=== PATIENT | female | born 1970 | race Caucasian/White ===

== ENCOUNTER → 2018-07-25 10:10 | Outpatient (CLI) | payer MEDICARE, MEDICAID, SELFPAY ==
[2017-06-29 02:56] VITALS: BMI 36.3
[2018-07-25 11:51] LABS: Creatinine, Serum 1.15 mg/dL (0.55-1.02); EST Glomerular Filtration Rate 54 mL/min (>60); Est Glom Filt Rate - Afr Amer 65 mL/min (>60)
== END ==
PROVIDERS: Family Provider Family Medicine; PCP Family Medicine; Referring Provider Psychiatry & Neurology Psychiatry; Visit Provider Psychiatry & Neurology Psychiatry
DX: Z79.899 Other long term (current) drug therapy (principal)
CPT/HCPCS: 36415; 80178; 82565; 84443

== ENCOUNTER → 2018-11-29 09:47 | Outpatient (CLI) | payer MEDICARE, SELFPAY ==
[2017-06-29 02:56] VITALS: BMI 36.3
== END ==
PROVIDERS: Family Provider Family Medicine; PCP Family Medicine
DX: Z79.899 Other long term (current) drug therapy (principal)
CPT/HCPCS: 36415; 80178

== ENCOUNTER → 2019-08-11 11:30 | Outpatient (CLI) | payer MEDICARE, SELFPAY ==
[2017-06-29 02:56] VITALS: BMI 36.3
== END ==
PROVIDERS: Family Provider Family Medicine; PCP Family Medicine
DX: Z79.899 Other long term (current) drug therapy (principal)
CPT/HCPCS: 36415; 80178

== ENCOUNTER → 2020-03-15 11:20 | Outpatient (CLI) | payer MEDICARE, SELFPAY ==
[2017-06-29 02:56] VITALS: BMI 36.3
[2020-03-15 12:08] LABS: Hematocrit 41.4 % (37-47); Hemoglobin 13.8 g/dL (12.0-15.0); Mean Corp Hgb Conc 33.3 g/dL (32-36); Mean Corpuscular Hgb 31.9 pg (27.0-32.0); Mean Corpuscular Volume 95.6 fL (81-99); Mean Platelet Vol. 10.8 fl (6.2-12.0); Platelet Count 247 K/mm3 (150-450); RBC Distribution Width CV 11.5 % (11.6-14.6); RBC Distribution Width SD 39.9 fl (35.1-43.9); Red Blood Count 4.33 M/mm3 (4.2-5.4); White Blood Count 7.5 K/mm3 (4.4-11.0)
[2020-03-15 12:24] LABS: Hemoglobin A1c 4.9 % (3.8-5.6)
[2020-03-15 12:28] LABS: ALB/GLOB Ratio 1.1 RATIO (0.9-2.4); AST(SGOT) 10 U/L (15-37); Alanine Aminotransfer ALT/SGPT 16 U/L (13-56); Albumin, Serum 3.5 g/dL (3.2-5.0); Alkaline Phosphatase 83 U/L (45-117); Anion Gap 6 (5-15); BUN 8 mg/dL (7-18); BUN/Creat Ratio 7.3 RATIO (10-20); Calcium,Total 8.5 mg/dL (8.5-10.1); Chloride 110 mmol/L (98-107); Cholesterol 196 mg/dL (200); Creatinine, Serum 1.09 mg/dL (0.55-1.02); EST Glomerular Filtration Rate 57 mL/min (>60); Est Glom Filt Rate - Afr Amer 69 mL/min (>60); Globulin 3.3 g/dL (2.2-4.2); Glucose 133 mg/dL (74-106); High Density Lipoprotein 60 mg/dL; Potassium 3.7 mmol/L (3.5-5.1); Protein, Total 6.8 g/dL (6.4-8.2); Sodium Level 138 mmol/L (136-145); Triglycerides 151 mg/dL; Very Low Density Lipoprotein 30 mg/dL (5-40)
== END ==
PROVIDERS: PCP Family Medicine
DX: Z79.899 Other long term (current) drug therapy (principal); F19.10 Other psychoactive substance abuse, uncomplicated; R53.83 Other fatigue
CPT/HCPCS: 36415; 80053; 80061; 80178; 83036; 84443; 85027

== ENCOUNTER → 2023-02-23 | Outpatient (CLI) | payer MEDICARE, MEDICAID, SELFPAY ==
[2023-02-23 10:16] LABS: ALB/GLOB Ratio 1.1 RATIO (0.9-2.4); AST(SGOT) 8 U/L (15-37); Alanine Aminotransfer ALT/SGPT 12 U/L (13-56); Albumin, Serum 3.7 g/dL (3.2-5.0); Alkaline Phosphatase 77 U/L (45-117); Anion Gap 6 (5-15); BUN 11 mg/dL (7-18); BUN/Creat Ratio 9.3 RATIO (10-20); Calcium,Total 9.9 mg/dL (8.5-10.1); Chloride 112 mmol/L (98-107); Creatinine, Serum 1.18 mg/dL (0.55-1.02); EST Glomerular Filtration Rate 51 mL/min (>60); Est Glom Filt Rate - Afr Amer 62 mL/min (>60); Globulin 3.3 g/dL (2.2-4.2); Glucose 91 mg/dL (74-106); Potassium 3.8 mmol/L (3.5-5.1); Sodium Level 141 mmol/L (136-145); Thyroid Stim Hormone (TSH) 3.54 uIU/mL (0.358-3.74)
[2023-02-23 10:47] LABS: Hemoglobin A1c 4.7 % (3.8-5.6)
== END | disposition home or self-care (01) ==
DX: Z79.899 Other long term (current) drug therapy (principal)
CPT/HCPCS: 36415; 80053; 80178; 83036; 84443

== ENCOUNTER → 2024-10-05 | Outpatient (CLI) | payer MEDICARE, MEDICAID, SELFPAY ==
[2024-10-05 09:29] LABS: AST(SGOT) 9 U/L (15-37); Alanine Aminotransfer ALT/SGPT 16 U/L (13-56); Albumin, Serum 4.1 g/dL (3.2-5.0); Alkaline Phosphatase 64 U/L (45-117); Bilirubin, Direct 0.15 mg/dL (0.00-0.30); Creatinine, Serum 1.11 mg/dL (0.55-1.02); EST Glomerular Filtration Rate 55 mL/min (>60); Est Glom Filt Rate - Afr Amer 66 mL/min (>60); Globulin 3.2 g/dL (2.2-4.2); Protein, Total 7.3 g/dL (6.4-8.2)
== END | disposition home or self-care (01) ==
LOC: LAB 08:11
PROVIDERS: PCP Family Medicine; Visit Provider Clinical Nurse Specialist Psychiatric/Mental Health
DX: Z51.81 Encounter for therapeutic drug level monitoring (principal); F31.9 Bipolar disorder, unspecified
CPT/HCPCS: 36415; 80076; 80178; 82565; 84443

== ENCOUNTER → 2025-03-13 | Outpatient (CLI) | payer MEDICARE, MEDICAID, SELFPAY ==
[2025-03-13 13:07] LABS: Lithium 1.09 mmol/L (0.60-1.20)
[2025-03-13 13:12] LABS: AST(SGOT) 20 U/L (<=31); Alanine Aminotransfer ALT/SGPT 36 U/L (<=34); Albumin, Serum 4.6 g/dL (3.5-5.0); Alkaline Phosphatase 66 U/L (35-104); Anion Gap 12 (5-15); BUN 13 mg/dL (4-19); BUN/Creat Ratio 10.9 RATIO (10-20); Calcium,Total 9.6 mg/dL (7.6-11.0); Carbon Dioxide 21.0 mmol/L (21.0-32.0); Chloride 105 mmol/L (98-108); Free T3 2.6 pg/mL (2.18-3.98); Globulin 2.3 g/dL (2.2-4.2); Glucose 102 mg/dL (70-99); Potassium 4.3 mmol/L (3.3-5.1)
--- OUTSIDE RECORDS SUMMARY | 2025-03-13 21:12 | XMS RPT_ITS | CCD ---
Author Organization [facility] Care Team Providers Care 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 Name Role Phone Walter White Primary Care Provider [phone] PROVIDER, UNKNOWN Referring Unavailable Walter White Attending Unavailable Walter White Primary Care Unavailable PROVIDER, UNKNOWN Referring Unavailable Walter White Attending Unavailable Walter White Primary Care Unavailable Walter White DO Primary Care Provider Walter White DO Primary Care Provider Pia MADRID Juan F Primary Care Provider [phone] Pia MADRID Juan F Primary Care Provider [phone] WALTER WHITE Referring Unavailable SLOANEA JUAN F Primary Care Unavailable DIA KENNEY Attending Unavaila ble Sloanea DO [facility] Primary Care Provide r Gregory Syed Attending Unavailabl e Petrilla OLS, Juan Primary Care Unavailable PETRILLA, JUAN Primary Care Unavailable DARLING CASTILLO Attending Unavailable DARLING CASTILLO Referring Unavailable PETRILLA, JUAN Primary Care Unavailable PETRILLA, JUAN Attending Unavailable PETRILLA, JUAN Referring Unavailable PETRILLA, JUAN Primary Care Unavailable DARLING CASTILLO Attending Unavailable DARLING CASTILLO Referring Unavailable PETRILLA, JUAN Attending Unavailable PETRILLA, JUAN Referring Unavailable PETRILLA, JUAN Primary Care Unavailable PETRILLA, JUAN Primary Care Unavailable EZEKIEL GALO Referring Unavailable PETRILLA, JUAN Primary Care Unavailable PETRILLA, JUAN Attending Unavailable PETRILLA, JUAN Primary Care Unavailable EZEKIEL GALO Attending Unavailable PETRILLA, JUAN Attending Unavailable PETRILLA, JUAN Primary Care Unavailable PETRILLA, JUAN Primary Care Unavailable EZEKIEL GALO Attending Unavailable PETRILLA, JUAN Primary Care Unavailable KOVACEVICH, DARLING Attending Unavailable SLOANEJUAN Primary Care Unavailable EZEKIEL GALO Referring Unavailable EZEKIEL GALO Referring Unavailable JUAN PALACIO Primary Care Unavailable EZEKIEL GALO Attending Unavailable Allergies Allergy Classification Reported Allergen(s) Allergy Type Date of Onset Reaction(s) Facility Aminoketones (3 sources) buPROPion Drug Allergy 9 [employer] ([place]) Opioid Agonists (6 sources) Codeine Drug Allergy 2 Rash [facility] [employer] [place] (20 sources) buPROPion Drug Allergy 9 Other (See Comments), Other: See Comments Altimet (20 sources) Codeine; Translations: [CODEINE] Drug Allergy 2 Rash, Vomiting, Other: See Comments Altimet (20 sources) Morphine; Translations: [MORPHINE] Drug Allergy 2 Unknown [employer] ([place]) (1 source) Codeine Drug Allergy 7 [facility] Rep[facility] Medications Current Medications Medication Drug Class(es) Dates Sig (Normalized) Sig (Original) [id number] 200 actuat albuterol 0.09 mg/actuat metered dose inhaler (20 sources) beta2-Adrenergic Agonist Start: 03-09-2024 End: 12-27-2024 take 2 puff(s) by inhalation every six hours as needed for wheezing albuterol 108 (90 Base) MCG/ACT inhaler Inhale 2 puffs every 6 hours as needed for wheezing. 18 g 5 12/27/2024 Active Start: 02-28-2019 take 2 puff(s) by in halation every four hours as needed albuterol HFA (PROVENTIL HFA, VENTOLIN HFA) 90 mcg/actuation inhaler Indications: Bronchitis Inhale 2 Puffs as instructed every 4 hours as needed. 1 Inhaler 02/28/2019 Active End: 03-09-2024 take 2 puff(s) by inhalation every six hours as needed for wheezing albuterol 108 (90 Base) MCG/ACT inhaler Inhale 2 puffs every 6 hours as needed for wheezing. 03/09/2024 Discontinued (Reorder) Comment on above: Inhale 2 Puffs as in structed every 4 hours as needed. albuterol sulfate HFA 108 (90 Base) MCG/ACT inhaler (1 source) Start: 05-02-20 20 take 2 puff(s) by inhalation every six hours as needed for wheezing albuterol sulfate HFA 108 (90 Base) MCG/ACT inhaler Inhale 2 puffs into the lungs every 6 hours as needed for Wheezing 1 Inhaler 3 05/02/2020 Active ALPRAZolam 0.5 mg oral tablet (20 sources) Benzodiazepine take 1 tablet by mouth once daily as needed for anxiety ALPRAZolam (Xanax) 0.5 MG tablet Take 0.5 mg by mouth Nightly as needed for anxiety. Active benzonatate 100 mg oral capsule (3 sources) Non-narcotic Antitussive Start: 02-29-20 19 take 1 capsule by mouth every eight hours as needed for cough and cough benzonatate (TESSALON PERLES) 100 mg capsule Indications: Cough Take 1 capsule by mouth three times daily as needed. 40 capsule 02/28/2019 Active Comment on above: Take 1 capsule by mo ut three times daily as needed. cefuroxime 500 mg oral tablet (2 sources) Cephalosporin Antibacterial Start: 09-29-19 23 End: 10-09-19 23 take 1 tablet by mouth twice daily cefuroxime (Ceftin) 500 MG tablet Take 1 tablet (500 mg) by mouth 2 times daily for 10 days. 20 tablet 0 09/29/2022 10/09/2022 Active cephalexin 500 mg oral capsule (1 source) Cephalosporin Antibacterial Start: 05-04-20 24 End: 05-11-20 24 take 1 capsule by mouth three times daily cephalexin (Keflex) 500 MG capsule Take 1 capsule (500 mg) by mouth 3 times daily for 21 doses. 21 capsule 05/04/2024 05/11/2024 Active 12 hr guaiFENesin 600 mg extended release oral tablet (3 sources) Start: 02-29-20 19 take 2 tablets by mouth twice daily guaiFENesin (MUCINEX) 600 mg 12 hr tablet Indications: Cough Take 2 tablets by mouth twice daily. 30 tablet 02/28/2019 Active Comment on above: Take 2 tablets by mo ut twice daily. 200 actuat ipratropium bromide 0.017 mg/actuat metered dose inhaler (5 sources) Anticholinergic Start: 02-29-20 19 take 2 puff(s) by inhalation every six hours as needed Ipratropium (ATROVENT) 17 mcg/actuation inhaler Indications: Bronchitis Inhale 2 Puffs as instructed every 6 hours as needed. 1 Inhaler 02/28/2019 Active Start: 02-28-2019 End: 09-29-2022 take 2 puff(s) by inhalation every six hours as needed ipratropium (Atrovent) 17 MCG/ACT inhaler Inhale 2 puffs every 6 hours as needed. 0 02/28/2019 09/29/2022 Discontinued (Therapy completed) Comment on above: Inhale 2 Puffs as in structed every 6 hours as needed. lamoTRIgine 100 mg oral tablet (20 sources) Mood Stabilizer, Anti-epileptic Agent Start: take 1 tablet by mouth twice daily lamoTRIgine (LaMICtal) 100 MG tablet Take 100 mg by mouth 2 times daily. 09/25/2022 Active Start: 09-25-2022 lamoTRIgine (L aMICtal) 100 MG tablet daily. Half tablet in the am and half tablet in the pm 0 09/25/2022 Active lithium carbonate 450 mg extended release oral tablet (20 sources) Start: 07-17-2022 take 1 tablet by mouth once daily, then take 1 tablet by mouth every twelve hours lithium ER (Eskalith) 450 MG 12 hr tablet Take 450 mg by mouth daily. 07/17/2022 Active Start: 06-29-2017 take 300 mg by mouth once belem y [place] Carbonate Active 300 MG PO DAILY June 29, 2017 12:00am take 1 capsule by [facility] twice daily at mealtime lithium (ESKALITH) 300 mg capsule Take 300 mg by mouth twice daily with meals. Active Comment on above: Take 300 mg by mouth twice daily with meals. metoprolol tartrate 25 mg oral tablet (20 sources) beta-Adrenergic Alva Start: 06-18-2023 End: 12-27-2024 take 0.5 tablet by mouth twice daily metoprolol tartrate (Lopressor) 25 MG tablet TAKE 1/2 TABLET BY MOUTH TWICE A DAY 90 tablet 1 12/27/2024 Active Start: 07-21-2022 End: 09-29-2022 take 0.5 tablet by mouth twice daily metoprolol tartrate (Lopressor) 25 MG tablet take 1/2 tablet by mouth twice a day 0 07/21/2022 09/29/2022 Discontinued (Reorder) Start: 09-04-2020 metoprolol tar trate (LOPRESSOR) 25 MG tablet Indications: 1/2 tablet twice daily Indications: 1/2 tablet twice daily Half tab BID 90 tablet 1 09/04/2020 Active Start: 04-03-2020 metoprolol tar trate (LOPRESSOR) 25 MG tablet Indications: 1/2 tablet twice daily Indications: 1/2 tablet twice daily Half tab BID 90 tablet 0 04/03/2020 Active Start: 06-29-2017 take 12.5 mg by mout h twice daily Metoprolol Tartrate Active 12.5 MG PO TWICE A DAY June 29, 2017 12:00am Start: 02-08-2012 End: 06-18-2023 take 1 tablet by mouth twice daily metoprolol tartrate (Lopressor) 25 MG tablet take 1/2 tablet by mouth twice a day Strength: 25 mg 90 tablet 0 09/29/2022 Active Comment on above: 25 mg twice daily. 1 2.5 mg twice daily OLANZapine 20 mg oral tablet (20 sources) Atypical Antipsychotic Start: take 1 tablet by mouth once daily OLANZapine (ZyPREXA) 20 MG tablet Take 1 tablet by mouth Nightly. Takes 15 mg 07/16/2022 Active Start: 06-29-2017 take 1 tablet by isabelle once daily Olanzapine (Zyprexa) 15 MG tablet Active 15 MG PO DAILY June 29, 2017 12:00am Start: 03-17-2012 [facility] olanzapine (ZYPREXA) 7.5 mg tablet Take 15 mg by mouth daily at bedtime. 0 03/17/2012 Active Comment on above: Take 15 mg by mouth daily at bedtime. predniSONE 10 mg oral tablet (2 sources) Start: 020 predniSONE (DELTASONE) 10 MG tablet one q.i.d. for 2 days then one t.i.d. for 2 days then one b.i.d. for 2 days and one daily for 2 days. 20 tablet 0 05/02/2020 Active sulfamethoxazole 800 mg / trimethoprim 160 mg oral tablet (1 source) Dihydrofolate Reductase Inhibitor Antibacterial, Sulfonamide Antimicrobial Start: 017 take 1 tablet by mouth twice daily Sulfamethoxazole -Trimethoprim Active 1 TABLET PO TWICE A DAY 14 June 29, 2017 12:00am tiotropium 0.018 mg inhalation powder (20 sources) Anticholinergic Start: End: 025 take 1 capsule by inhalation once daily tiotropium (Spiriva) [address] 1 capsule (18 mcg) into inhaler and inhale daily. 30 capsule 5 07/04/2024 07/04/2025 Active Start: 11-02-2023 End: 11-01-2024 take 1 capsule by inhalation in the morning tiotropium (Spiriva) [address] 1 capsule (18 mcg) into inhaler and inhale in the morning. 30 capsule 5 11/02/2023 07/04/2024 Discontinued (Reorder) ziprasidone 40 mg oral capsule (1 source) Atypical Antipsychotic take 1 capsule by mouth once daily ziprasidone (GEODON) 40 MG capsule Take 40 mg by mouth daily 0 Active Completed/Discontinued Medications Medication Drug Class(es) Dates Sig (Normalized) Sig (Original) benztropine mesylate 1 mg oral tablet (8 sources) Anticholinergic, Antihistamine Start: 07-16-2022 End: 09-29-2022 take 1 tablet by mouth in the morning benztropine (Cogentin) 1 MG tablet Take 1 mg by mouth in the morning and 1 mg before bedtime. 0 07/16/2022 09/29/2022 Discontinued (Therapy completed) Start: 06-29-2017 take 1 mg by mouth at bedtime Benztropine Active 1 MG PO AT BEDTIME June 29, 2017 12:00am take 1 tablet by isabelle th once daily benztropine (COGENTIN) 2 mg tablet Take 2 mg by mouth once daily. Active take 1 tablet by isabelle th twice daily benztropine (COGENTIN) 1 MG tablet Take 1 mg by mouth 2 times daily 0 Active Comment on above: Take 2 mg by mouth o nce daily. brexpiprazole 0.5 mg oral tablet (2 sources) Atypical Antipsychotic Start: 07-16-20 End: 09-29-19 23 take 1 tablet by mouth once daily after dinner Rexulti 0.5 MG tablet TAKE ONE TABLET BY MOUTH DAILY AFTER DINNER 0 07/16/2022 09/29/2022 Discontinued (Therapy completed) busPIRone hydrochloride 15 mg oral tablet (4 sources) Start: 07-16-20 End: 09-29-19 busPIRone (Buspar) 15 MG tablet Take 15 mg by mouth in the morning and 15 mg at noon and 15 mg in the evening and 15 mg before bedtime. 0 07/16/2022 09/29/2022 Discontinued (Therapy completed) take 1 tablet by mouth twice javi ly busPIRone (BUSPAR) 15 MG tablet Take 15 mg by mouth 2 times daily 0 Active cariprazine 6 mg oral capsule (2 sources) Atypical Antipsychotic Start: 07-20-2022 End: 09-29-2022 take 1 capsule by mouth once daily at dinner Vraylar 6 MG capsule TAKE ONE CAPSULE BY MOUTH ONE TIME DAILY WITH DINNER 0 07/20/2022 09/29/2022 Discontinued (Therapy completed) hydrOXYzine hydrochloride 25 mg oral tablet (8 sources) Antihistamine Start: 07-16-2022 End: 07-13-2023 take 1 tablet by mouth once daily in the morning, then take 2 tablets by mouth once daily hydrOXYzine HCl (Atarax) 25 MG tablet TAKE ONE TABLET BY MOUTH EVERY MORNING AND ONE TIME DAILY AT NOON AND TAKE TWO TABLETS DAILY AT 600PM 0 07/16/2022 07/13/2023 Discontinued (Therapy completed) 10 ml lidocaine hydrochloride 10 mg/ml injection (2 sources) Antiarrhythmic, Amide Local Anesthetic Start: 01-02-2025 End: 01-02-2025 40 mL, Injection, Once, On Wed01/02/25 at 1415, For 1 dose Start: 01-02-2025 End: 01-02-2025 40 mL, Injection, Once, On T u01/02/25 at 1415, For 1 dose LORazepam 0.5 mg oral tablet (20 sources) Benzodiazepine Start: 09-25-2022 End: 12-27-2024 LORazepam (Ativan) 0.5 MG tablet 09/25/2022 12/27/2024 Discontinued (Alternate therapy) Start: 06-29-2017 take 1 tablet by isabelle th once daily LORazepam (ATIVAN) 1 MG tablet Take 1 mg by mouth nightly. 0 12/14/2019 Active Start: 03-17-2012 take 1 tablet by isabelle th twice daily LORazepam (ATIVAN) 1 mg tablet Take 1 mg by mouth twice daily. 0 03/17/2012 Active Comment on above: Take 1 mg by mouth t wice daily. 24 hr nicotine 0.583 mg/hr transdermal system (8 sources) Cholinergic Nicotinic Agonist Start: 05-11-20 End: 07-13-20 nicotine (Nicoderm, Step 2) 14 MG/24HR patch Place 1 patch on the skin. 0 05/11/2022 07/13/2023 Discontinued (Therapy completed) propranolol hydrochloride 10 mg oral tablet (2 sources) beta-Adrenergic Alva Start: 07-16-20 End: 09-29-19 take 1 tablet by mouth in the morning propranolol (Inderal) 10 MG tablet Take 10 mg by mouth in the morning and 10 mg before bedtime. 0 07/16/2022 09/29/2022 Discontinued (Therapy completed) ramelteon 8 mg oral tablet (20 sources) Melatonin Receptor Agonist Start: 06-10-20 End: 12-28-19 take 1 tablet by mouth every twenty-four hours as needed for sleep ramelteon (Rozerem) 8 MG tablet Take 8 mg by mouth Daily as needed for sleep. 06/10/2023 12/27/2024 Discontinued (Alternate therapy) Problems Active Problems Problem Classification Problem Date Documented Date Episodic/Chronic Acute cerebrovascular disease (3 sources) Hemorrhage into subarachnoid space of neuraxis; Translations: [Nontraumatic subarachnoid hemorrhage, unspecified] Onset: 01-13-2012 Chronic Chronic obstructive pulmonary disease and bronchiectasis (20 sources) Chronic obstructive lung disease; Translations: [Chronic obstructive pulmonary disease, unspecified] Onset: 11-02-2023 11-02-2023 Chronic Essential hypertension (20 sources) Essential hypertension; Translations: [Essential (primary) hypertension] Onset: 01-28-2016 01-28-2016 Chronic Genitourinary symptoms and ill-defined conditions (1 source) Urinary incontinence; Translations: [Unspecified urinary incontinence] 08-18-2023 Chronic Menopausal disorders (20 sources) Postmenopausal bleeding; Translations: [Postmenopausal bleeding] Onset: 11-02-2023 07-13-2023 Chronic Mood disorders (20 sources) Bipolar disorder; Translations: [Bipolar disorder, unspecified] Onset: 02-09-2019 02-09-2019 Chronic Nonmalignant breast conditions (2 sources) Lump in right breast; Translations: [Breast mass, right] Onset: 04-16-2017 04-16-2017 Other aftercare (1 source) Encounter for therapeutic drug level monitoring; Translations: [Encounter for therapeutic drug level monitoring] Onset: 10-20-2024 Episodic Other and ill-defined cerebrovascular disease (20 sources) Cerebral arterial aneurysm; Translations: [Cerebral aneurysm, nonruptured] Onset: 08-30-1996 02-04-2012 Chronic Other and ill-defined cerebrovascular disease (1 source) Cerebral aneurysm, nonruptured; Translations: [Cerebral aneurysm, nonruptured] Onset: 12-27-2024 Chronic Other female genital disorders (1 source) Vaginal discharge; Translations: [Other specified noninflammatory disorders of vagina] 09-22-2023 Episodic Other lower respiratory disease (1 source) Dyspnea; Translations: [SOB (shortness of breath)] Episodic Other nervous system disorders (3 sources) Disorder of brain; Translations: [Encephalopathy, unspecified] Onset: 01-31-2012 Chronic Other nutritional; endocrine; and metabolic disorders (1 source) Weight decreased; Translations: [Abnormal weight loss] 12-27-2024 Episodic Other nutritional; endocrine; and metabolic disorders (2 sources) Abnormal weight loss; Translations: [Abnormal weight loss] Onset: 12-27-2024 Episodic Other skin disorders (1 source) Closed comedone; Translations: [Acne vulgaris] 05-04-2024 Episodic Ovarian cyst (1 source) Cyst of ovary; Translations: [Unspecified ovarian cyst, unspecified side] 08-18-2023 Episodic Residual codes; unclassified (3 sources) Restlessness and agitation; Translations: [Restlessness and agitation] Onset: 01-27-2012 Chronic Substance-related disorders (20 sources) Smoker; Translations: [Nicotine dependence, unspecified, uncomplicated] Onset: 01-13-2012 Resolved: 11-02-2023 01-28-2016 Chronic Thyroid disorders (20 sources) Nontoxic single thyroid nodule; Translations: [Iodine-deficiency related diffuse (endemic) goiter] Onset: 06-08-2022 Chronic Unclassified (2 sources) Pneumococcal vaccination declined; Translations: [Pneumococcal vaccine refused] Onset: 02-09-2019 02-09-2019 Past or Other Problems Problem Classification Problem Date Documented Da te Episodic/Chronic Asthma (20 sources) Mild intermittent asthma; Translations: [Mild intermittent asthma, uncomplicated] Onset: 01-28-2016 Resolved: 11-02-2023 01-28-2016 Chronic Chronic obstructive pulmonary disease and bronchiectasis (1 source) Bronchitis; Translations: [Bronchitis, not specified as acute or chronic] Episodic Complications of surgical procedures or medical care (1 source) Iatrogenic pneumothorax; Translations: [Postprocedural pneumothorax] Onset: 01-14-2012 Resolved: 01-28-2012 Episodic Epilepsy; convulsions (1 source) Seizure; Translations: [Unspecified convulsions] Onset: 01-17-2012 Resolved: 01-24-2012 Episodic Fever of unknown origin (1 source) Fever; Translations: [Fever, unspecified] Onset: 01-23-2012 Resolved: 01-26-2012 Episodic Nonmalignant breast conditions (20 sources) Breast lump; Translations: [Lump in right breast] Onset: 04-16-2017 Resolved: 11-02-2023 05-19-2017 Episodic Other aftercare (3 sources) Patient encounter status; Translations: [Encounter for therapeutic drug level monitoring] Onset: 02-04-2012 Episodic Other circulatory disease (20 sources) Personal history of other diseases of the circulatory system; Translations: [Personal history of other diseases of circulatory system] Onset: 08-30-1996 12-22-2024 Episodic Other gastrointestinal disorders (20 sources) Stool DNA-based colorectal cancer screening positive; Translations: [Other fecal abnormalities] Onset: 08-08-2023 Resolved: 11-02-2023 08-12-2023 Episodic Other lower respiratory disease (19 sources) H/O: pneumonia; Translations: [Personal history of pneumonia (recurrent)] Onset: 06-30-2015 06-11-2016 Episodic Other nervous system disorders (1 source) Hydrocephalus; Translations: [Hydrocephalus, unspecified] Onset: 01-13-2012 Resolved: 01-28-2012 Chronic Other nervous system disorders (1 source) Cerebral edema; Translations: [Cerebral edema] Onset: 01-13-2012 Resolved: 01-26-2012 Chronic Other nervous system disorders (20 sources) Tremor; Translations: [Tremor, unspecified] Onset: 02-09-2019 02-09-2019 Episodic Other screening for suspected conditions (not mental disorders or infectious disease) (20 sources) Encounter for screening mammogram for malignant neoplasm of breast; Translations: [Patient encounter status] Onset: 06-08-2022 Episodic Other skin disorders (2 sources) Acne vulgaris; Translations: [Acne vulgaris] Onset: 05-04-2024 Episodic Phlebitis; thrombophlebitis and thromboembolism (20 sources) Deep venous thrombosis of upper extremity; Translations: [Acute embolism and thrombosis of deep veins of unspecified upper extremity] Onset: 08-30-2011 12-22-2024 Episodic Pneumonia (except that caused by tuberculosis or sexually transmitted disease) (1 source) Haemophilus influenzae pneumonia; Translations: [Pneumonia due to Hemophilus influenzae] Onset: 01-15-2012 Resolved: 01-26-2012 Episodic Pulmonary heart disease (3 sources) Pulmonary embolism; Translations: [Other pulmonary embolism without acute cor pulmonale] Onset: 01-27-2012 Episodic Residual codes; unclassified (20 sources) Pneumococcal vaccination declined; Translations: [Immunization not carried out because of patient refusal] Onset: 02-09-2019 06-15-2022 Episodic Residual codes; unclassified (20 sources) H/O: respiratory disease; Translations: [Personal history of other specified conditions] Onset: 06-11-2016 11-02-2023 Episodic Residual codes; unclassified (20 sources) History of colonoscopy; Translations: [Other specified postprocedural states] Onset: 11-02-2023 11-02-2023 Episodic Residual codes; unclassified (20 sources) Other problems related to lifestyle; Translations: [Other problems related to lifestyle] Onset: 05-04-2024 05-04-2024 Episodic Respiratory failure; insufficiency; arrest (adult) (1 source) Acute respiratory failure; Translations: [Acute respiratory failure, unspecified whether with hypoxia or hypercapnia] Onset: 01-13-2012 Resolved: 01-29-2012 Episodic Skin and subcutaneous tissue infections (3 sources) Furuncle of groin; Translations: [Furuncle of groin] Onset: 05-04-2024 05-04-2024 Episodic Unclassified (6 sources) History of ruptured cerebral aneurysm 12-28-2024 Urinary tract infections (4 sources) Lower urinary tract infectious disease; Translations: [Urinary tract infection, site not specified] Onset: 01-16-2012 Resolved: 01-26-2012 Episodic Results Test Name Value Interpretation Reference Range Facility 36on 01-25-2025 36 Noted [facility] 36on 01-24-2025 36 Henrietta, Your patient is scheduled for an MRA Head wo contrast and an MRI Brain wo contrast on 02/28/25 at [facility]. Thank you, [facility] central scheduling [facility] Office Visiton 01-09-2025 Follow-up visit [id number] Darnell Adrian 1970 F Date Provider Department Center 01/09/[address] [facility] None Family History Problem Relation Age of Onset Hypertension Mother Comments: alive age 70 COPD Father Comments: pulmonary fibrosis, age 72 in 2019 Throat cancer Father Lung cancer Father Other Sister Comments: at , abruptio placenta Hypertension Brother No Known Problems Brother Lung cancer Maternal Grandmother Comments: smoker, age 86 No Known Problems Maternal Grandfather No Known Problems Paternal Grandmother No Known Problems Paternal Grandfather Family Status - Relation Status Age at Mother Alive Father Sister Brother Alive Brother Alive Maternal Grandmother Maternal Grandfather Paternal Grandmother Paternal Grandfather Level of Service:[id number] [place] OFFICE/OUTPATIENT ESTABLISHED LOW MDM 20 MIN Reason for Visit and Comments: Follow-up [[id number]] - F/UP LT stereo BX x's 2 01/02 [facility] 36on 01-04-2025 36 Noted. [facility] 36 Message released to patient as written. CBC, chemistries and thyroid function normal. No med changes necessary Patient's further questions if applicable: n/a Were all questions from office addressed or relayed to the patient from encounter: Yes [facility] 36on 01-03-2025 36 Miki Ezekiel Gabino 1970 Are you having discomfort? [] Yes [x] No Have you taken anything for the discomfort? [] Yes [x] No What have you taken Tylenol? [] Yes [] No Have you used the ice pack? [] Yes [] No Has it provided relief? [] Yes [] No Any fever, redness, warmth to the touch? [] Yes [x] No Patient reported bleeding after biopsy [] Yes [x] No If yes, Mass size: If yes, did this require any follow up with provider [] Yes [] No Did they take their antithrombotic after their biopsy as instructed by their breast specialist or provider? [] Yes [] No Are you having any drainage from your incision? [] Yes [x] No Patient was reminded no tub bathing or swimming until the incision is healed [x] Yes [] No Is patient still wearing bra? [x] Yes [] No Patient was reminded to wear supportive bra for the next day. [x] Yes [] No Remind patient to keep bandages on for 3 days [x] Yes [] No Patient was reminded that their surgeon will follow up with results [x] Yes [] No [facility] MG Breast specimen - left Vi ewson 01-02-2025 [facility] 1970 [id number] Date/Time: 01/02/2025 13:28 Procedure: XR BREAST SPECIMEN LEFT Ordering Provider: GALO CRAIG Reason For Exam: ABNORMAL MAMMOGRAM; B REASON FOR EXAMINATION: Left breast calcifications CONSENT: The patient presents for stereotactic localization and biopsy for the left breast. Prior to the procedure red rules were performed which included patient name, date of , and procedure type. Risks, benefits and alternatives were explained to the patient and informed consent was obtained. The patient's prior imaging dated 12/21/2024 was reviewed. PROCEDURE: I washed my hands and wore sterile gloves. Site A (posterior group): The patient was sitting upright and the calcifications localized from a lateral approach. The patient was prepped in the usual sterile fashion. 20 mL of 1% Lidocaine was administered for local anesthesia. A 9-gauge Eviva vacuum assisted device was advanced to the targeted calcifications with stereotactic guidance. 7 core specimens were obtained. Following the procedure a Tumark X-shape tissue marker was deployed at the site of biopsy. Hemostasis was obtained by holding manual pressure. A specimen radiograph demonstrates the calcifications within the specimen. The patient tolerated the procedure without immediate complications. Site B (anterior group): The patient was sitting upright and the calcifications localized from a lateral approach. The patient was prepped in the usual sterile fashion. 20 mL of 1% Lidocaine was administered for local anesthesia. A 9-gauge Eviva vacuum assisted device was advanced to the targeted calcifications with stereotactic guidance. 7 core specimens were obtained. Following the procedure a Tumark Q-shape tissue marker was deployed at the site of biopsy. Hemostasis was obtained by holding manual pressure. A specimen radiograph demonstrates the calcifications within the specimen. The patient tolerated the procedure without immediate complications. Home-going instructions were given and the patient was discharged in good condition. Following the procedure a postprocedure 2D digital mammogram was performed in the lateral and CC projections demonstrating the tissue markers at the site of biopsy. No significant hematoma is identified on post procedure mammography. [facility] Stephanie Schaffer MD - 01/02/2025 [facility] 1970 [id number] Exam Date/Time: 01/02/2025 13:28 Procedure: XR BREAST SPECIMEN LEFT Ordering Provider: GALO CRAIG Reason For Exam: ABNORMAL MAMMOGRAM; B REASON FOR EXAMINATION: Left breast calcifications CONSENT: The patient presents for stereotactic localization and biopsy for the left breast. Prior to the procedure red rules were performed which included patient name, date of , and procedure type. Risks, benefits and alternatives were explained to the patient and informed consent was obtained. The patient's prior imaging dated 12/21/2024 was reviewed. PROCEDURE: I washed my hands and wore sterile gloves. Site A (posterior group): The patient was sitting upright and the calcifications localized from a lateral approach. The patient was prepped in the usual sterile fashion. 20 mL of 1% Lidocaine was administered for local anesthesia. A 9-gauge Eviva vacuum assisted device was advanced to the targeted calcifications with stereotactic guidance. 7 core specimens were obtained. Following the procedure a Tumark X-shape tissue marker was deployed at the site of biopsy. Hemostasis was obtained by holding manual pressure. A specimen radiograph demonstrates the calcifications within the specimen. The patient tolerated the procedure without immediate complications. Site B (anterior group): The patient was sitting upright and the calcifications localized from a lateral approach. The patient was prepped in the usual sterile fashion. 20 mL of 1% Lidocaine was administered for local anesthesia. A 9-gauge Eviva vacuum assisted device was advanced to the targeted calcifications with stereotactic guidance. 7 core specimens were obtained. Following the procedure a Tumark Q-shape tissue marker was deployed at the site of biopsy. Hemostasis was obtained by holding manual pressure. A specimen radiograph demonstrates the calcifications within the specimen. The patient tolerated the procedure without immediate complications. Home-going instructions were given and the patient was discharged in good condition. Following the procedure a postprocedure 2D digital mammogram was performed in the lateral and CC projections demonstrating the tissue markers at the site of biopsy. No significant hematoma is identified on post procedure mammography. IMPRESSION: Technically successful stereotactic biopsy of the left breast. PATHOLOGY STATUS: Waiting for Pathology Report Dictated on Electronically Signed By: Stephanie Schaffer MD Electronically Signed Date/Time: 01/02/2025 2:18 PM [facility]T [facility] Guidance for percu taneous biopsy.core needle of Breast - lefton 01-02-2025 [facility]ED [facility] 1970 [id number] Exam Date/Time: 01/02/2025 12:57 Procedure: BI STEREOTACTIC GUIDED BREAST BIOPSY LEFT Ordering Provider: GALO CRAIG Reason For Exam: ABNORMAL MAMMOGRAM REASON FOR EXAMINATION: Left breast calcifications CONSENT: The patient presents for stereotactic localization and biopsy for the left breast. Prior to the procedure red rules were performed which included patient name, date of , and procedure type. Risks, benefits and alternatives were explained to the patient and informed consent was obtained. The patient's prior imaging dated 12/21/2024 was reviewed. PROCEDURE: I washed my hands and wore sterile gloves. Site A (posterior group): The patient was sitting upright and the calcifications localized from a lateral approach. The patient was prepped in the usual sterile fashion. 20 mL of 1% Lidocaine was administered for local anesthesia. A 9-gauge Eviva vacuum assisted device was advanced to the targeted calcifications with stereotactic guidance. 7 core specimens were obtained. Following the procedure a Tumark X-shape tissue marker was deployed at the site of biopsy. Hemostasis was obtained by holding manual pressure. A specimen radiograph demonstrates the calcifications within the specimen. The patient tolerated the procedure without immediate complications. Site B (anterior group): The patient was sitting upright and the calcifications localized from a lateral approach. The patient was prepped in the usual sterile fashion. 20 mL of 1% Lidocaine was administered for local anesthesia. A 9-gauge Eviva vacuum assisted device was advanced to the targeted calcifications with stereotactic guidance. 7 core specimens were obtained. Following the procedure a Tumark Q-shape tissue marker was deployed at the site of biopsy. Hemostasis was obtained by holding manual pressure. A specimen radiograph demonstrates the calcifications within the specimen. The patient tolerated the procedure without immediate complications. Home-going instructions were given and the patient was discharged in good condition. Following the procedure a postprocedure 2D digital mammogram was performed in the lateral and CC projections demonstrating the tissue markers at the site of biopsy. No significant hematoma is identified on post procedure mammography. [facility] Stephanie Schaffer MD - 01/02/2025 Patient Name: MIKI ADRIAN : 1970 [facility]#: [id number] Exam Date/Time: 01/02/2025 12:57 Procedure: BI STEREOTACTIC GUIDED BREAST BIOPSY LEFT Ordering Provider: GALO CRAIG Reason For Exam: ABNORMAL MAMMOGRAM REASON FOR EXAMINATION: Left breast calcifications CONSENT: The patient presents for stereotactic localization and biopsy for the left breast. Prior to the procedure red rules were performed which included patient name, date of , and procedure type. Risks, benefits and alternatives were explained to the patient and informed consent was obtained. The patient's prior imaging dated 12/21/2024 was reviewed. PROCEDURE: I washed my hands and wore sterile gloves. Site A (posterior group): The patient was sitting upright and the calcifications localized from a lateral approach. The patient was prepped in the usual sterile fashion. 20 mL of 1% Lidocaine was administered for local anesthesia. A 9-gauge Eviva vacuum assisted device was advanced to the targeted calcifications with stereotactic guidance. 7 core specimens were obtained. Following the procedure a Tumark X-shape tissue marker was deployed at the site of biopsy. Hemostasis was obtained by holding manual pressure. A specimen radiograph demonstrates the calcifications within the specimen. The patient tolerated the procedure without immediate complications. Site B (anterior group): The patient was sitting upright and the calcifications localized from a lateral approach. The patient was prepped in the usual sterile fashion. 20 mL of 1% Lidocaine was administered for local anesthesia. A 9-gauge Eviva vacuum assisted device was advanced to the targeted calcifications with stereotactic guidance. 7 core specimens were obtained. Following the procedure a Tumark Q-shape tissue marker was deployed at the site of biopsy. Hemostasis was obtained by holding manual pressure. A specimen radiograph demonstrates the calcifications within the specimen. The patient tolerated the procedure without immediate complications. Home-going instructions were given and the patient was discharged in good condition. Following the procedure a postprocedure 2D digital mammogram was performed in the lateral and CC projections demonstrating the tissue markers at the site of biopsy. No significant hematoma is identified on post procedure mammography. IMPRESSION: Technically successful stereotactic biopsy of the left breast. PATHOLOGY STATUS: Waiting for Pathology Report Dictated on Electronically Signed By: Stephanie Schaffer MD Electronically Signed Date/Time: 01/02/2025 2:18 PM EDT [facility] Radiology Study observation (narrative) [facility] No Panel Informationon 01-02 Technically successf [address] stereotactic biopsy of the left breast. PATHOLOGY STATUS: Waiting for Pathology Report Dictated on Electronically Signed By: Stephanie Schaffer MD Electronically Signed Date/Time: 01/02/2025 2:18 PM EDT [facility] No Panel InformationOrdered By: Stephanie Schaffer on 01-02-2025 [facility] [employer] ([place]) Work Phone: 36on 12-28-2024 36 Orders fro MRA-Head and MRI-Brain pended for dx and doctor's signature [facility] Office Visiton 12-27-2024 Follow-up visit [id number] Darnell Adrian 1970 F Date Provider Department Center 12/27/2024 [id number] PALACIO [facility] Family History Problem Relation Age of Onset Hypertension Mother Comments: alive age 70 COPD Father Comments: pulmonary fibrosis, age 72 in 2019 Throat cancer Father Lung cancer Father Other Sister Comments: at , abruptio placenta Hypertension Brother No Known Problems Brother Lung cancer Maternal Grandmother Comments: smoker, age 86 No Known Problems Maternal Grandfather No Known Problems Paternal Grandmother No Known Problems Paternal Grandfather Family Status - Relation Status Age at Mother Alive Father Sister Brother Alive Brother Alive Maternal Grandmother Maternal Grandfather Paternal Grandmother Paternal Grandfather Level of Service:74070 [place] OFFICE/OUTPATIENT ESTABLISHED MOD MDM 30 MIN Reason for Visit and Comments: Follow-up [775290] - Med Check/ results lung scan [facility] Progress Noteon 12-27-2024 Progress Note [facility] - [address] [facility] [id number] Visit type: Established Patient Reason for Visit: Follow-up (Med Check/ results lung scan ) Assessment / Plan: Miki Falcon was seen today for follow-up. Diagnoses and all orders for this visit: Primary hypertension (Primary) Comments: Stable, continue metoprolol Pulmonary emphysema, unspecified emphysema type (HCC) Comments: stable, cont Spiriva and albuterol as needed, enc vaping cess Bipolar affective disorder, remission status unspecified (HCC) Comments: stable, continue meds including Zyprexa, lithium, Lamictal and Xanax Weight loss - CBC auto differential; Future - Comprehensive metabolic panel; Future - TSH; Future - T4, free; Future - T3, free; Future - CBC auto differential - Comprehensive metabolic panel - TSH - T4, free - T3, free History of ruptured cerebral aneurysm Comments: Reviewing past neurosurgical notes it was recommended to repeat MRI every 3 to 5 years. Other orders - metoprolol tartrate (Lopressor) 25 MG tablet; TAKE 1/2 TABLET BY MOUTH TWICE A DAY - albuterol 108 (90 Base) MCG/ACT inhaler; Inhale 2 puffs every 6 hours as needed for wheezing. Subjective: Patient ID: Miki Adrian is a 54 y.o. female. HPI hypertensive patient with history of cerebral aneurysm rupture in 2011 and craniotomy for 2 previous aneurysms in 1996 presents for overall checkup. Has lost weight by eating better and being more active. Overall feeling well on low-dose metoprolol. She did quit smoking but is vaping. Recent LDCT of the chest for cancer screening was negative. Of note had an abnormal left mammogram and is getting a biopsy in the near future. Review of Systems has felt well. Is on multiple mental health meds and sees her counselor routinely. She denies diplopia or headaches. No scotomas. No unilateral numbness of the face arm or legs. No nausea vomiting. No abdominal pain. Bowels are pretty regular. Colonoscopy due in a few more years. In review saw Dr. Shannon 5 years ago for overall consultation on his cerebral aneurysm. He said it would be reasonable to recheck MRIs every 3 to 5 years. Allergies Allergen Reactions Bupropion Other reaction(s): Other (See Comments) Hallucinations Morphine Other reaction(s): Unknown Codeine Rash Other reaction(s): Other: See Comments, Vomiting Swelling throat Other reaction(s): Nausea/Vom/Diarrhea Current Outpatient Medications: ALPRAZolam (Xanax) 0.5 MG tablet, Take 0.5 mg by mouth Nightly as needed for anxiety., Disp: , Rfl: lamoTRIgine (LaMICtal) 100 MG tablet, Take 100 mg by mouth 2 times daily., Disp: , Rfl: lithium ER (Eskalith) 450 MG 12 hr tablet, Take 450 mg by mouth daily., Disp: , Rfl: OLANZapine (ZyPREXA) 20 MG tablet, Take 1 tablet by mouth Nightly. Takes 15 mg, Disp: , Rfl: tiotropium (Spiriva) 18 MCG inhalation capsule, Place 1 capsule (18 mcg) into inhaler and inhale daily., Disp: 30 capsule, Rfl: 5 albuterol 108 (90 Base) MCG/ACT inhaler, Inhale 2 puffs every 6 hours as needed for wheezing., Disp: 18 g, Rfl: 5 metoprolol tartrate (Lopressor) 25 MG tablet, TAKE 1/2 TABLET BY MOUTH TWICE A DAY, Disp: 90 tablet, Rfl: 1 Patient Active Problem List Diagnosis Hypertension History of drug abuse (HCC) H/O solitary pulmonary nodule Pneumococcal vaccine refused Tremor Bipolar disorder (HCC) Thyromegaly COPD (chronic obstructive pulmonary disease) (HCC) H/O colonoscopy with polypectomy Post-menopause bleeding Engages in vaping History of DVT (deep vein thrombosis) History of ruptured cerebral aneurysm Abnormality of left breast on screening mammogram Cerebral arterial aneurysm Social History Tobacco Use Smoking status: Former Current packs/day: 0.00 Types: Cigarettes Quit date: 08/30/1987 Years since quittin.3 Smokeless tobacco: Never Substance Use Topics Alcohol use: No Alcohol/week: 0.0 standard drinks of alcohol Past Surgical History: Procedure Laterality Date BRAIN SURGERY 1997 Craniotomy x 2 (aneurysm) BRAIN SURGERY 12/2011 Cerebral Aneurysm Coiling after 2012 BREAST BIOPSY Right 2017 SECTION (HISTORICAL) 2004 with tubal ligation COLONOSCOPY W/ POLYPECTOMY 08/2023 Dr. Kenney- due 2028 COLPOSCOPY 1989 cervical dysplasia IVC FILTER RETRIEVAL 2012 TUBAL LIGATION Family History Problem Relation Name Age of Onset Hypertension Mother Bhupendra Adrian alive age 70 COPD Father Walter pulmonary fibrosis, age 72 in 2019 Throat cancer Father Walter Lung cancer Father Walter Other ([id number]) Sister at , abruptio placenta Hypertension Brother Jhony No Known Problems Brother Arie Lung cancer Maternal Grandmother smoker, age 86 No Known Problems Maternal Grandfather No Known Problems Paternal Grandmother No Known Problems Paternal Grandfather Objective: BP 112/70 Pulse 60 Tem (more content not included)... [facility] Office Visiton 12-26-2024 Follow-up visit [id number] Darnell Adrian 1970 F Date Provider Department Center 12/26/2024 EZEKIEL RANGEL [facility] None Family History Problem Relation Age of Onset Hypertension Mother Comments: alive age 70 COPD Father Comments: pulmonary fibrosis, age 72 in 2019 Throat cancer Father Lung cancer Father Other Sister Comments: at , abruptio placenta Hypertension Brother No Known Problems Brother Lung cancer Maternal Grandmother Comments: smoker, age 86 No Known Problems Maternal Grandfather No Known Problems Paternal Grandmother No Known Problems Paternal Grandfather Family Status - Relation Status Age at Mother Alive Father Sister Brother Alive Brother Alive Maternal Grandmother Maternal Grandfather Paternal Grandmother Paternal Grandfather Level of Service:64414 [place] OFFICE/OUTPATIENT NEW LOW MDM 30 MINUTES Reason for Visit and Comments: 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 [employer] [place] Work Phone: [facility] [employer] [place] Work Phone: DBT Breast - left diagnostic on 12-21-[address] calcifications for which stereotactic guided biopsy is recommended. Given the size of the area of involvement, a dual-site biopsy is recommended. Markings on images: BB's = Nipples; skin lesions Open havasupai = Palpable Line = Scar ASSESSMENT: Category 4 Suspicious RECOMMENDATION: Surgical Consultation Left Stereotactic core biopsy Left I discussed the results and recommendations with the patient at the conclusion of the exam. Our nurse Navigator will notify the office of the referring clinician and facilitate scheduling of the surgical consultation. CANCER RISK ASSESSMENT: This risk assessment is based on patient provided information collected in a risk survey taken at the time of this examination. LIFETIME BREAST CANCER RISK: Gonzálezer-Chuckie 8: 6.56% - If greater than or equal to 20%, consider annual mammogram and annual screening Breast MRI or follow up in high risk clinic. Is the patient at elevated risk based on the HBOC criteria? No (Hereditary Breast and Ovarian Cancer) - If Yes, consider genetic counseling and testing with high risk follow up Is the patient at elevated risk based on the Portillo Syndrome criteria? No - If Yes, consider genetic counseling and testing with high risk follow up. Report Dictated on Electronically Signed By: Tonie Matamoros MD Electronically Signed Date/Time: 12/21/2024 3:03 PM [facility]ED [facility] 1970 [id number] Exam Date/Time: 12/21/2024 14:04 Procedure: BI MAMMOGRAM DIAGNOSTIC TOMOSYNTHESIS LEFT Ordering Provider: CASTILLO GREGORY Reason For Exam: This exam was performed at [facility] at [address] [address] PATIENT CANCER HISTORY: No Personal History of Cancer FAMILY CANCER HISTORY: No Family History of Cancer Prior study Comparisons: 2024; 2021; 2016 Image views: 2D CC and MLO views were acquired. 3D CC and MLO views were acquired. Tissue Density: BIRADS B - There are scattered areas of fibroglandular density. Images were reviewed with CAD. Findings: The patient was recalled from screening for left breast microcalcifications. There are pleomorphic microcalcifications within the superior lateral quadrant of the right portal breast spanning an approximate distance of 5.6 x 5.5 x 5.2 cm. These are suspicious and biopsy is recommended. [facility] Tonie Matamoros MD - 12/21/2024 Patient Name: MIKI ADRIAN : 1970 [facility]#: [id number] Exam Date/Time: 12/21/2024 14:04 Procedure: BI MAMMOGRAM DIAGNOSTIC TOMOSYNTHESIS LEFT Ordering Provider: CASTILLO GREGORY Reason For Exam: This exam was performed at [facility] at [facility] [address] [place] [address] PATIENT CANCER HISTORY: No Personal History of Cancer FAMILY CANCER HISTORY: No Family History of Cancer Prior study Comparisons: 2024; 2021; 2016 Image views: 2D CC and MLO views were acquired. 3D CC and MLO views were acquired. Tissue Density: BIRADS B - There are scattered areas of fibroglandular density. Images were reviewed with CAD. Findings: The patient was recalled from screening for left breast microcalcifications. There are pleomorphic microcalcifications within the superior lateral quadrant of the right portal breast spanning an approximate distance of 5.6 x 5.5 x 5.2 cm. These are suspicious and biopsy is recommended. IMPRESSION: Suspicious left breast calcifications for which stereotactic guided biopsy is recommended. Given the size of the area of involvement, a dual-site biopsy is recommended. Markings on images: BB's = Nipples; skin lesions Open havasupai = Palpable Line = Scar ASSESSMENT: Category 4 Suspicious RECOMMENDATION: Surgical Consultation Left Stereotactic core biopsy Left I discussed the results and recommendations with the patient at the conclusion of the exam. Our nurse Navigator will notify the office of the referring clinician and facilitate scheduling of the surgical consultation. CANCER RISK ASSESSMENT: This risk assessment is based on patient provided information collected in a risk survey taken at the time of this examination. LIFETIME BREAST CANCER RISK: Mynor 8: 6.56% - If greater than or equal to 20%, consider annual mammogram and annual screening Breast MRI or follow up in high risk clinic. Is the patient at elevated risk based on the HBOC criteria? No (Hereditary Breast and Ovarian Cancer) - If Yes, consider genetic counseling and testing with high risk follow up Is the patient at elevated risk based on the Portillo Syndrome criteria? No - If Yes, consider genetic counseling and testing with high risk follow up. Report Dictated on Electronically Signed By: Tonie Matamoros MD Electronically Signed Date/Time: 12/21/2024 3:03 PM EDT [facility] Radiology Study observation (narrative) [facility] Progress Noteon 12-21-2024 Progress Note Patient had call-wanda k LT diagnostic mammogram today for LT calcifications. Dr. Matamoros talked to patient, recommending surgical consult and LT breast stereotactic biopsy in 2 sites. Asked patient, if same-day visit is available, would they want that appt? Patient was here at 3:30p with no more same-day consults available. She lives over 1hr away and asked for a [facility] consult if available Wed-. Scheduled with Rose. Got her Dr. Ezekiel Galo Jordyn visit on 12/26/24 @ 1030, arrive 1015. Discussed and reviewed the stereotactic biopsy procedure and biopsy clip placement. Provided [facility] biopsy teaching sheet. Gave her [employer] paperwork, map of [facility] and Plan of Care form. Notified patient that biopsy would be ordered and scheduled after seeing the Provider for consultation. Patient does not take blood thinning medications on a regular basis. Notified patient that she can take Tylenol any time if needed prior to the biopsy. Sent [facility] msg to Dr. Castillo to notify. [facility] CT Chest for screening WO co ntraston 11-23-2024 Unchanged right uppe r lobe nodule. ASSESSMENT CATEGORY: Lung-RADS Category 2 - Benign appearance or behavior. Recommend continued annual low-dose screening CT in 12 months. No other clinically significant findings. Lung-RADS v2022 Assessment Categories - for Screening CT Chest Only. Release date: June 2022 Category 0 - Incomplete Part of lungs cannot be evaluated Findings suggestive of an inflammatory or infectious process Category 1 - Negative - Continue annual screening with low-dose CT No nodules Nodules with benign characteristics (complete, central, popcorn Ca++) or fat Category 2 - Benign appearance or behavior - Continue annual screening with low-dose CT Perifissural nodule(s) < 10 mm (see note 11 below) Solid nodule(s): < 6 mm or new < 4 mm Part solid nodule(s): < 6 mm total diameter on baseline screening Nonsolid nodule(s) (GGN): < 30 mm OR >/= 30 mm and unchanged or slowly growing Category 3 or 4 nodules unchanged for >/= 3 months Category 3 - Probably benign finding(s) - 6 month follow-up with low-dose CT Solid nodule(s): 6 to < 8 mm at baseline OR new 4 mm to < 6 mm Part solid nodule(s) >/= 6 mm total diameter with solid component < 6 mm OR new < 6 mm total diameter Nonsolid nodule(s) (GGN) >/= [address] or new Atypical pulmonary cyst Category 4A - Suspicious - 3 month low-dose CT follow-up or PET/CT when >/= 8 mm solid component Solid nodule(s): 8 to < 15 mm at baseline OR growing < 8 mm OR new 6 to <8 mm Part solid nodule(s): >/= 6 mm with solid component >/= 6 mm to < 8 mm OR with a new or growing < 4 mm solid component Any endobronchial nodule Atypical thick-walled pulmonary cyst Category 4B - Very Suspicious - chest CT with or without contrast, PET/CT and/or tissue sampling depending on the *probability of malignancy and comorbidities. PET/CT may be used when there is a >/= 8 mm solid component. For new large nodules that develop on an annual repeat screening CT, a [address] may be recommended to address potentially inflammatory or infections conditions. Solid nodule(s): >/= 15 mm OR new or growing, and >/= 8 mm Part solid nodule(s) with: a solid component >/= 8 mm OR a new or growing >/= 4 mm solid component Category 4X - Very Suspicious - (same work up as Category 4B) Category 3 or 4 nodules with additional features or imaging findings that increases the suspicion of malignancy - spiculation, rapid growth or associated lymph node enlargement Modifier to add to Category 0-4: Category S - Clinically or potentially significant non lung cancer related findings IMPORTANT NOTES FOR USE: 1. Negative screen: does not mean that an individual does not have lung cancer. 2. Size: to calculate nodule mean diameter, measure both the long and short axis to one decimal point and report mean nodule diameter to one decimal point. 3. Size Thresholds: apply to nodules at first detection, and that grow and reach a higher size category 4. Growth: an increase in size of > 1.5 mm 5. Exam category: each exam should be coded 0-4 based on the nodule(s) with the highest degree of suspicion 6. Exam Modifiers: S modifier may be added to the 0-4 category 7. Lung cancer diagnosis: Once a patient is diagnosed with lung cancer, further management (including additional imaging such as PET/CT) may be performed for purposes of lung cancer staging; this is no longer screening 8. Practice audit definitions: a negative screen is defined as categories 1 and 2; a positive screen is defined as categories 3 and 4 9. Category 4B Management: this is predicated on the probability of malignancy based on patient evaluation, patient preference and risk of malignancy; radiologists are encouraged to use the Luis et al assessment tool when making recommendations 10. Category 4X: nodules with additional imaging findings that increase the suspicion of lung cancer, such as spiculation, GGN that doubles in size in 1 year, enlarged lymph nodes etc 11. Solid nodules with smooth margins, an oval, lentiform or triangular shape, and maximum diameter of 10 mm (perifissural nodules) should be classified as category 2 12. Category 3 and 4A nodules that are unchanged on interval CT should be coded as category 2, and individuals returned to screening in 12 months Report Dictated on Electronically Signed By: Derek Lares MD Electronically Signed Date/Time: 11/23/2024 4:52 PM T [facility] 1970 [id number] Exam Date/Time: 11/23/2024 09:54 Procedure: CT LUNG SCREENING LOW DOSE Ordering Provider: PALACIO EUGENE Reason For Exam: Lung cancer screening, >= 20 pk-yr smoking history (Age >= 50y) EXAMINATION: Low dose CT of the chest without intravenous contrast. EXAM DATE & TIME: 11/23/2024 9:54 AM EDT INDICATION: Lung cancer screening, >= 20 pk-yr smoking history (Age >= 50y) ADDITIONAL INFORMATION: 54-year-old female is a current smoker presents for lung nodule screening COMPARISON: CT chest dated 08/20/2023 LIMITATIONS: Evaluation of the vasculature and solid viscera is limited due to the lack of intravenous contrast. TECHNIQUE: [address] images were obtained of the chest. Images were reformatted in coronal and sagittal projections using the raw CT data and were interpreted in conjunction with the axial images to render the findings listed below. Low dose technique employed with automated exposure control. Dose reduction was employed with automated exposure control. FINDINGS: Cardiovascular: The heart is within the normal limits of size. There are no coronary artery calcifications. Mediastinum/pericardium : Unremarkable. Thyroid: Unremarkable. Tracheobronchial tree: Widely patent. Pleura: No pleural effusion or pneumothorax. Lungs: There is moderate centrilobular and paraseptal emphysema. Scarring/atelectasis is present near the lateral right lung base. No focal consolidation. Nodules: Unchanged 3 mm right upper lobe nodule (series 6, image 102). Lymph nodes: No emerging adenopathy. Included images of the upper abdomen: Unremarkable. Visualized musculoskeletal structures: No acute osseous abnormality is demonstrated. [facility] Derek Lares MD - 11/23/2024 Patient Name: MIKI ADRIAN : 1970 Exam Date/Time: 11/23/2024 09:54 Procedure: CT LUNG SCREENING LOW DOSE Ordering Provider: PALACIO EUGENE Reason For Exam: Lung cancer screening, >= 20 pk-yr smoking history (Age >= 50y) EXAMINATION: Low dose CT of the chest without intravenous contrast. EXAM DATE & TIME: 11/23/2024 9:54 AM EDT INDICATION: Lung cancer screening, >= 20 pk-yr smoking history (Age >= 50y) ADDITIONAL INFORMATION: 54-year-old female is a current smoker presents for lung nodule screening COMPARISON: CT chest dated 08/20/2023 LIMITATIONS: Evaluation of the vasculature and solid viscera is limited due to the lack of intravenous contrast. TECHNIQUE: [address] images were obtained of the chest. Images were reformatted in coronal and sagittal projections using the raw CT data and were interpreted in conjunction with the axial images to render the findings listed below. Low dose technique employed with automated exposure control. Dose reduction was employed with automated exposure control. FINDINGS: Cardiovascular: The heart is within the normal limits of size. There are no coronary artery calcifications. Mediastinum/pericardium : Unremarkable. Thyroid: Unremarkable. Tracheobronchial tree: Widely patent. Pleura: No pleural effusion or pneumothorax. Lungs: There is moderate centrilobular and paraseptal emphysema. Scarring/atelectasis is present near the lateral right lung base. No focal consolidation. Nodules: Unchanged 3 mm right upper lobe nodule (series 6, image 102). Lymph nodes: No emerging adenopathy. Included images of the upper abdomen: Unremarkable. Visualized musculoskeletal structures: No acute osseous abnormality is demonstrated. IMPRESSION: Unchanged right upper lobe nodule. ASSESSMENT CATEGORY: Lung-RADS Category 2 - Benign appearance or behavior. Recommend continued annual low-dose screening CT in 12 months. No other clinically significant findings. Lung-RADS v2022 Assessment Categories - for Screening CT Chest Only. Release date: June 2022 Category 0 - Incomplete Part of lungs cannot be evaluated Findings suggestive of an inflammatory or infectious process Category 1 - Negative - Continue annual screening with low-dose CT No nodules Nodules with benign characteristics (complete, central, popcorn Ca++) or fat Category 2 - Benign appearance or behavior - Continue annual screening with low-dose CT Perifissural nodule(s) < 10 mm (see note 11 below) Solid nodule(s): < 6 mm or new < 4 mm Part solid nodule(s): < 6 mm total diameter on baseline screening Nonsolid nodule(s) (GGN): < 30 mm OR >/= 30 mm and unchanged or slowly growing Category 3 or 4 nodules unchanged for >/= 3 months Category 3 - Probably benign finding(s) - 6 month follow-up with low-dose CT Solid nodule(s): 6 to < 8 mm at baseline OR new 4 mm to < 6 mm Part solid nodule(s) >/= 6 mm total diameter with solid component < 6 mm OR new < 6 mm total diameter Nonsolid nodule(s) (GGN) >/= [address] or new Atypical pulmonary cyst Category 4A - Suspicious - 3 month low-dose CT follow-up or PET/CT when >/= 8 mm solid component Solid nodule(s): 8 to < 15 mm at baseline OR growing < 8 mm OR new 6 to <8 mm Part solid nodule(s): >/= 6 mm with solid component >/= 6 mm to < 8 mm OR with a new or growing < 4 mm solid component Any endobronchial nodule Atypical thick-walled pulmonary cyst Category 4B - Very Suspicious - chest CT with or without contrast, PET/CT and/or tissue sampling depending on the *probability of malignancy and comorbidities. PET/CT may be used when there is a >/= 8 mm solid component. For new large nodules that develop on an annual repeat screening CT, a [address] may be recommended to address potentially inflammatory or infections conditions. Solid nodule(s): >/= 15 mm OR new or growing, and >/= 8 mm Part solid nodule(s) with: a solid component >/= 8 mm OR a new or growing >/= 4 mm solid component Category 4X - Very Suspicious - (same work up as Category 4B) Category 3 or 4 nodules with additional features or imaging findings that increases the suspicion of malignancy - spiculation, rapid growth or associated lymph node enlargement Modifier to add to Category 0-4: Category S - Clinically or potentially significant non lung cancer related findings IMPORTANT NOTES FOR USE: 1. Negative screen: does not mean that an individual does not have lung cancer. 2. Size: to calculate nodule mean diameter, measure both the long and short axis to one decimal point and report mean nodule diameter to one decimal point. 3. Size Thresholds: apply to nodules at first detection, and that grow and reach a higher size category 4. Growth: an increase in size of > 1.5 mm 5 (more content not included)... [facility] Radiology Study observation (narrative) [employer] CT Chest for screening WO co ntrastOrdered By: Derek Lares on 11-23-2024 [employer] Work Phone: CT LUNG SCREENING LOW DOSEon 11-23-2024 CT LUNG SCREENING LOW DOSE This is a summary report. The complete report is available in the patient's medical record. If you cannot access the medical record, please contact the sending organization for a detailed fax or copy. Patient Name: MIKI ADRIAN : 1970 Exam Date/Time: 11/23/2024 09:54 Procedure: CT LUNG SCREENING LOW DOSE Ordering Provider: PALACIO EUGENE Reason For Exam: Lung cancer screening, >= 20 pk-yr smoking history (Age >= 50y) EXAMINATION: Low dose CT of the chest without intravenous contrast. EXAM DATE AND TIME: 11/23/2024 9:54 AM EDT INDICATION: Lung cancer screening, >= 20 pk-yr smoking history (Age >= 50y) ADDITIONAL INFORMATION: 54-year-old female is a current smoker presents for lung nodule screening COMPARISON: CT chest dated 08/20/2023 LIMITATIONS: Evaluation of the vasculature and solid viscera is limited due to the lack of intravenous contrast. TECHNIQUE: [address] images were obtained of the chest. Images were reformatted in coronal and sagittal projections using the raw CT data and were interpreted in conjunction with the axial images to render the findings listed below. Low dose technique employed with automated exposure control. Dose reduction was employed with automated exposure control. FINDINGS: Cardiovascular: The heart is within the normal limits of size. There are no coronary artery calcifications. Mediastinum/pericardium : Unremarkable. Thyroid: Unremarkable. Tracheobronchial tree: Widely patent. Pleura: No pleural effusion or pneumothorax. Lungs: There is moderate centrilobular and paraseptal emphysema. Scarring/atelectasis is present near the lateral right lung base. No focal consolidation. Nodules: Unchanged 3 mm right upper lobe nodule (series 6, image 102). Lymph nodes: No emerging adenopathy. Included images of the upper abdomen: Unremarkable. Visualized musculoskeletal structures: No acute osseous abnormality is demonstrated. IMPRESSION: Unchanged right upper lobe nodule. ASSESSMENT CATEGORY: Lung-RADS Category 2 - Benign appearance or behavior. Recommend continued annual low-dose screening CT in 12 months. No other clinically significant findings. Lung-RADS v2022 Assessment Categories - for Screening CT Chest Only. Release date: June 2022 Category 0 - Incomplete Part of lungs cannot be evaluated Findings suggestive of an inflammatory or infectious process Category 1 - Negative - Continue annual screening with low-dose CT No nodules Nodules with benign characteristics (complete, central, popcorn Ca++) or fat Category 2 - Benign appearance or behavior - Continue annual screening with low-dose CT Perifissural nodule(s) < 10 mm (see note 11 below) Solid nodule(s): < 6 mm or new < 4 mm Part solid nodule(s): < 6 mm total diameter on baseline screening Nonsolid nodule(s) (GGN): < 30 mm OR >/= 30 mm and unchanged or slowly growing Category 3 or 4 nodules unchanged for >/= 3 months Category 3 - Probably benign finding(s) - 6 month follow-up with low-dose CT Solid nodule(s): 6 to < 8 mm at baseline OR new 4 mm to < 6 mm Part solid nodule(s) >/= 6 mm total diameter with solid component < 6 mm OR new < 6 mm total diameter Nonsolid nodule(s) (GGN) >/= [address] or new Atypical pulmonary cyst Category 4A - Suspicious - 3 month low-dose CT follow-up or PET/CT when >/= 8 mm solid component Solid nodule(s): 8 to < 15 mm at baseline OR growing < 8 mm OR new 6 to <8 mm Part solid nodule(s): >/= 6 mm with solid component >/= 6 mm to < 8 mm OR with a new or growing < 4 mm solid component Any endobronchial nodule Atypical thick-walled pulmonary cyst Category 4B - Very Suspicious - chest CT with or without contrast, PET/CT and/or tissue sampling depending on the *probability of malignancy and comorbidities. PET/CT may be used when there is a >/= 8 mm solid component. For new large nodules that develop on an annual repeat screening CT, a [address] may be recommended to address potentially inflammatory or infections conditions. Solid nodule(s): >/= 15 mm OR new or growing, and >/= 8 mm Part solid nodule(s) with: a solid component >/= 8 mm OR a new or growing >/= 4 mm solid component Category 4X - Very Suspicious - (same work up as Category 4B) Category 3 or 4 nodules with additional features or imaging findings that increases the suspicion of malignancy - spiculation, rapid growth or associated lymph node enlargement Modifier to add to Category 0-4: Category S - Clinically or potentially significant non lung cancer related findings IMPORTANT NOTES FOR USE: 1. Negative screen: does not mean that an individual does not have lung cancer. 2. Size: to calculate nodule mean diameter, measure both the long and short axis to one decimal point and report mean nodule diameter to one decimal point. 3. Size Thresholds: apply to nodules at first detection, and that grow and reach a (more content not included)... [facility] 36on 11-09-2024 36 Recent Visits Date Type Provider Dept 05/04/24 Office Visit Juan Palacio DO [facility] Showing recent visits within past 365 days and meeting all other requirements Future Appointments Date Type Provider Dept 12/11/24 Appointment Juan Ezekiel DO [facility] Showing future appointments within next 90 days and meeting all other requirements Requested Prescriptions Pending Prescriptions Disp Refills metoprolol tartrate (Lopressor) 25 MG tablet [Pharmacy Med Name: Metoprolol Tartrate 25MG TABS] 90 tablet 1 Sig: TAKE 1/2 TABLET BY MOUTH TWICE A DAY Provider: Juan Palacio DO Verified pharmacy: yes Verified day(s) supplied: yes Verified refill(s) needed (previous prescription showing no refills in chart): Yes Have you received any controlled medications from any other provider? N/A Overdue for visit: No If yes - patient scheduled? N/A Most recent labs completed in chart? N/A None [address] 11-03-2024 36 Talked to patient an d let her know to call the doctor that ordered the imaging test she was requesting answers about and she was upset about this and said never mind and disconnected phone call. Normal [facility] 36 Name of caller: Shakira bateman Contact phone number: [phone] Relationship to Patient: patient Provider: Dr. Palacio Practice: [facility] Chief Complaint/Reason for Call: Patient requesting a call back to discuss imaging results. Please advise. Best time of day caller can be reached: any Patient advised that office/PCP has 24-48 business hours to return their call: Yes Normal [facility] DBT Breast - bilateral scree Alessandrordered By: Naheed Conti on 11-03-2024 Interpretation and review of laboratory results [facility] Phone: DBT Breast - bilateral scree sandygon 11-03-2024 The left breast calcifications are indeterminate. A diagnostic left mammogram is recommended. ASSESSMENT: Category 0 Incomplete: need additional imaging evaluation RECOMMENDATION: Follow-up diagnostic mammogram Left CANCER RISK ASSESSMENT: This risk assessment is based on patient provided information collected in a risk survey taken at the time of this examination. LIFETIME BREAST CANCER RISK: [place] 8: 10.35% - If greater than or equal to 20%, consider annual mammogram and annual screening Breast MRI or follow up in high risk clinic. Is the patient at elevated risk based on the HBOC criteria? No (Hereditary Breast and Ovarian Cancer) - If Yes, consider genetic counseling and testing with high risk follow up Is the patient at elevated risk based on the Portillo Syndrome criteria? No - If Yes, consider genetic counseling and testing with high risk follow up. Report Dictated on Electronically Signed By: Naheed Conti DO Electronically Signed Date/Time: 11/03/2024 7:56 AM EST [facility] Patient Name: MIKI REED : 1970 Exam Date/Time: 11/02/2024 14:32 Procedure: BI MAMMOGRAM SCREENING TOMOSYNTHESIS BILATERAL Ordering Provider: CASTILLO GREGORY Reason For Exam: This exam was performed at [address] [facility] [address] PATIENT CANCER HISTORY: No Personal History of Cancer FAMILY CANCER HISTORY: No Family History of Cancer TECHNIQUE: 2D Bilateral CC and MLO 3D Bilateral CC and MLO Images reviewed with CAD Markings on images: BB's = Nipples, skin lesions Open havasupai = Palpable Line = Scar COMPARISON: 06/08/2022, 02/05/2017, 06/19/2014 TISSUE DENSITY: BIRADS B - There are scattered areas of fibroglandular density. FINDINGS: There are calcifications in the upper outer left breast at posterior depth. No other suspicious masses, architectural distortions or suspiciously clustered microcalcifications. No skin thickening or nipple retraction. [facility] Naheed Conti DO - 11/03/2024 Patient Name: MIKI ADRIAN : 1970 Exam Date/Time: 11/02/2024 14:32 Procedure: BI MAMMOGRAM SCREENING TOMOSYNTHESIS BILATERAL Ordering Provider: CASTILLO GREGORY Reason For Exam: This exam was performed at [facility] [address] [facility] [address] PATIENT CANCER HISTORY: No Personal History of Cancer FAMILY CANCER HISTORY: No Family History of Cancer TECHNIQUE: 2D Bilateral CC and MLO 3D Bilateral CC and MLO Images reviewed with CAD Markings on images: BB's = Nipples, skin lesions Open havasupai = Palpable Line = Scar COMPARISON: 06/08/2022, 02/05/2017, 06/19/2014 TISSUE DENSITY: BIRADS B - There are scattered areas of fibroglandular density. FINDINGS: There are calcifications in the upper outer left breast at posterior depth. No other suspicious masses, architectural distortions or suspiciously clustered microcalcifications. No skin thickening or nipple retraction. IMPRESSION: The left breast calcifications are indeterminate. A diagnostic left mammogram is recommended. ASSESSMENT: Category 0 Incomplete: need additional imaging evaluation RECOMMENDATION: Follow-up diagnostic mammogram Left CANCER RISK ASSESSMENT: This risk assessment is based on patient provided information collected in a risk survey taken at the time of this examination. LIFETIME BREAST CANCER RISK: [place] 8: 10.35% - If greater than or equal to 20%, consider annual mammogram and annual screening Breast MRI or follow up in high risk clinic. Is the patient at elevated risk based on the HBOC criteria? No (Hereditary Breast and Ovarian Cancer) - If Yes, consider genetic counseling and testing with high risk follow up Is the patient at elevated risk based on the Portillo Syndrome criteria? No - If Yes, consider genetic counseling and testing with high risk follow up. Report Dictated on Electronically Signed By: Naheed Conti DO Electronically Signed Date/Time: 11/03/2024 7:56 AM EST [facility] DBT Breast - bilateral scree ningon 11-02-2024 Radiology Study observation (narrative) [facility] 36on 10-30-2024 36 Medication name: albuterol 108 (90 Base) MCG/ACT inhaler Medication dosage: 108/90 base mcg (Micrograms) act Monthly quantity needed: 1 How many day supply requestin days Medication route: inhalation (inhaler) Medication administration time(s): every 6 hours If taking medication PRN, reason for taking medication: wheezing If this is a controlled substance do you receive this or any other controlled medication from any other doctor or facility: No Ordering provider: Dr. Palacio Date of last office visit: 05/14/2024 Date of next office visit: 11/01/2024 Date of last refill: (see medication tab): 03/09/2024 Updated/Validated preferred pharmacy: Yes Patient instructed to contact the pharmacy prior to picking up the medication: No Normal [facility] Lithiumon 10-05-2024 LI 0.50 mmol/L Low 0.60-1.20 [facility] Comment on above: Order Comment: [id number] Performed By: #### L [id number], L500.3400, L501.1105, L501.9060 #### [facility] [address] [place], [address] Liver Profileon 10-05-2024 Albumin [Mass/Vol] 4.1 g/dL Normal 3.2-5.0 [facility] Comment on above: Performed By: #### L [id number], L500.3400, L501.1105, L501.9060 #### [facility] [address] [place], [address] ALK P 64 U/L Normal 45-117 [facility] Comment on above: Performed By: #### L [id number], L500.3400, L501.1105, L501.9060 #### [facility] [address] [place], [address] ALT [Catalytic activity/Vol] 16 U/L Normal 13-56 [facility] Comment on above: Performed By: #### L [id number], [id number], L501.1105, L501.9060 #### [facility] [address] [place], [address] AST [Catalytic activity/Vol] 9 U/L Low 15-37 [facility] Comment on above: Performed By: #### L [id number], L500.3400, L501.1105, L501.9060 #### [facility] [address] [place], [address] Bilirubin [Mass/Vol] 0.50 mg/dL Normal 0.20-1.00 [facility] Comment on above: Result Comment: For patients on eltrombopag therapy, use of Dimension [employer] TBIL is not recommended. Performed By: #### L [id number], L500.3400, L501.1105, L501.9060 #### [facility] [address] [place], [address] Bilirubin.direct [Mass/Vol] 0.15 mg/dL Normal 0.00-0.30 [facility] Comment on above: Performed By: #### L 501.9520, L500.3400, L501.1105, L501.9060 #### [facility] [address] [place], [address] Globulin (S) [Mass/Vol] 3.2 g/dL Normal 2.2-4.2 [facility] Comment on above: Performed By: #### L 501.9520, L500.3400, L501.1105, L501.9060 #### [facility] [address] [place], [address] T PROT 7.3 g/dL Normal 6.4-8.2 [facility] Comment on above: Performed By: #### L 501.9520, L500.3400, L501.1105, L501.9060 #### [facility] [address] [place], [address] Serum Creatinine AND GFRon 0 --2024 Creatinine [Mass/Vol] 1.11 mg/dL High 0.55-1.02 [facility] Comment on above: Result Comment: The validity of the calculated GFR GFRAA in patients over 70 years has not been determined. Clinical correlation is essential. Performed By: #### L 501.9520, L500.3400, L501.1105, L501.9060 #### [facility] [address] [place], [address] EST GFR - AA 66 mL/min Normal >60 [facility] Comment on above: Result Comment: Afri can Cuban GFR Calc Performed By: #### L 501.9520, L500.3400, L501.1105, L501.9060 #### [facility] [address] [place], [address] GFR/1.73 sq M.predicted among non-blacks MDRD (S/P/Bld) [Vol rate/Area] 55 mL/min/{1.73_m2} Low >60 [facility] Comment on above: Result Comment: Non- GFR Calc Performed By: #### L 501.9520, L500.3400, L501.1105, L501.9060 #### [facility] [address] [place], [address] Thyroid Stim Hormone (TSH)on 10-05-2024 TSH 2.470 uIU/mL Normal 0.358-3.740 [facility] Comment on above: Performed By: #### L 501.9520, L500.3400, L501.1105, L501.9060 #### [facility] [address] [place], [address] 36on 09-30-2024 36 S: Patient spoke alexx AMARO nurse regarding vaginal bleeding B: Onset of symptoms/concern 1 day A: States having vaginal bleeding with mild lower abdominal cramping. States they have not had menstrual cycle since 2021. Denies constant severe pain, denies bleeding requiring more than 2 pads an hour or 6 pads in 6 hours, denies using blood thinning agents, denies fever, denies shortness of breath, denies chest pain. Requesting office visit. R: Appt 10/20/24 @ [address] Maynard. Negative responses to COVID screening. Advised patient should arrive 15 minutes early, bring photo ID, ins cards, and medications. Patient understands care advice. No further needs at this time. Patient instructed to call back with new or worsening symptoms. Reason for Disposition [1] Menstrual cycle < 21 days OR > 35 days AND [2] has occurred once this past year Protocols used: Vaginal Bleeding - [id number]-MF [facility] 36on 09-26-2024 36 Orders pended for doctor's signature [place] [id number] Spoke with patient a nd she agrees to lung screen [place] [address] This patient has had a prior lung screening CT scan at [facility]. According to our records, he/she is now due for an annual lung screening CT scan. Please evaluate and order this annual screening if your patient still meets lung screening criteria. [facility] 36on 07-04-2024 36 Rx loaded [place] [address] Medication name: tiotropium (Spiriva) 18 MCG inhalation capsule Patient states their pharmacy won't refill this medication, pharmacy is stating that Patient should have already gotten their refill for this month but Patient does not have that box of this medication. Please refill this as soon as possible as Patient is completely out and is very concerned. Medication dosage: 1 puff(s) Monthly quantity needed: 30 How many day supply requestin days Medication route: oral (PO) Medication administration time(s): daily If taking medication PRN, reason for taking medication: N/A If this is a controlled substance do you receive this or any other controlled medication from any other doctor or facility: N/A Ordering provider: Dr. Palacio Date of last office visit: 05/04/2024 Date of next office visit: 11/01/2024 Date of last refill: (see medication tab): 11/02/2023 Updated/Validated preferred pharmacy: Yes Patient instructed to contact the pharmacy prior to picking up the medication: Yes [facility] Office Visiton 05-31-2024 Follow-up visit [id number] Darnell Adrian 1970 F Date Provider Department Center 05/31/2024 [id number] LINARESG [facility] OB Offi Family History Problem Relation Age of Onset Hypertension Mother Comments: alive age 70 COPD Father Comments: pulmonary fibrosis, age 72 in 2019 Throat cancer Father Lung cancer Father Other Sister Comments: at , abruptio placenta Hypertension Brother No Known Problems Brother Lung cancer Maternal Grandmother Comments: smoker, age 86 No Known Problems Maternal Grandfather No Known Problems Paternal Grandmother No Known Problems Paternal Grandfather Family Status - Relation Status Age at Mother Alive Father Sister Brother Alive Brother Alive Maternal Grandmother Maternal Grandfather Paternal Grandmother Paternal Grandfather Level of Service:13609 [facility] PERIODIC PREVENTIVE MED EST PATIENT 40-64YRS Reason for Visit and Comments: Gynecologic Exam [50] [facility] Progress Noteon 05-31-2024 Progress Note Miki Adrian 05/31/2024 53 y.o. Primary Care Physician: Juan Palacio DO Chief Complaint Patient presents with Gynecologic Exam HPI : Miki Adrian is a 53 y.o. female here for annual exam __ Gynecologic History: Patient's last menstrual period was 07/21/2023. Pt without complaints. No bleeding since June. No discharge. OB History Para Term AB Living 3 2 2 0 1 2 SAB IAB Ectopic Multiple Live Births 1 0 0 0 0 # Outcome Date GA Lbr Abraham/2nd Weight Sex Type Anes PTL Lv 3 Term CS-LTranv 2 Term CS-LTranv 1 SAB Past Medical History: Diagnosis Date Bipolar disorder (HCC) 1989 [facility] Breast cancer screening by mammogram 05/2022 Prefers every other year exam Cerebral aneurysm 1996 cerebral bleed Aneurysm rupture Chronic obstructive pulmonary disease (HCC) 11/02/2023 Cocaine abuse (HCC) none since 2018 COPD (chronic obstructive pulmonary disease) (HCC) [address] also Engages in vaping 06/2023 Ex-smoker 06/2023 H/O colonoscopy with polypectomy 08/2023 - bertha 2028 History of cervical dysplasia 1990 History of DVT (deep vein thrombosis) 2011 LUE- hx of GF filter placed History of pneumonia 2015 Hypertension 2011 Papanicolaou smear 05/2022 Positive colorectal cancer screening using Cologuard test 07/2023 GI ref pnd Screening for lung cancer 07/2023 3mm nodule- f/u 08/22 Thyromegaly 2021 no masses on u/s Past Surgical History: Procedure Laterality Date BRAIN SURGERY 1996 Craniotomy x 2 (aneurysm) BRAIN SURGERY 12/2011 Cerebral Aneurysm Coiling BREAST BIOPSY Right 2017 SECTION (HISTORICAL) 2004 with tubal ligation COLONOSCOPY W/ POLYPECTOMY 08/2023 Dr. Kenney- due 2028 COLPOSCOPY 1989 cervical dysplasia IVC FILTER RETRIEVAL 2012 TUBAL LIGATION Family History Problem Relation Name Age of Onset Hypertension Mother Bhupendra Adrian alive age 70 COPD Father Walter pulmonary fibrosis, age 72 in 2019 Throat cancer Father Walter Lung cancer Father Walter Other ([id number]) Sister at , abruptio placenta Hypertension Brother Jhony No Known Problems Brother Arie Lung cancer Maternal Grandmother smoker, age 86 No Known Problems Maternal Grandfather No Known Problems Paternal Grandmother No Known Problems Paternal Grandfather Social History Socioeconomic History Marital status: Spouse name: Not on file Number of children: Not on file Years of education: Not on file Highest education level: Not on file Occupational History Not on file Tobacco Use Smoking status: Every Day Current packs/day: 0.00 Types: Cigarettes Last attempt to quit: 08/30/1987 Years since quittin.7 Smokeless tobacco: Never Vaping Use Vaping status: Every Day Substances: Nicotine, Flavoring Devices: Disposable Substance and Sexual Activity Alcohol use: No Alcohol/week: 0.0 standard drinks of alcohol Drug use: Not Currently Sexual activity: Not Currently control/protection: Post-menopausal Other Topics Concern Not on file Social History Narrative Single, but living with BF Alexx since 2012 who has depression after his son committed suicide by gunshot in their home in 03/20. pt has 2 dtrs,- Catie is studying Social work and speech pathology and to attend [employer]. Also her BF has 2 other sons. No grandchildren. Smoker NO ETOH, ex crack-cocaine user since 2018. Sober from pot and ETOH abuse since 12/2021. Presently Disabled since 1996 but now working at [employer] in [employer] since 01/19. Enjoys her pet dog and cat Social Determinants of Health Financial Resource Strain: Low Risk (01/22/2022) [facility] Overall Financial Resource Strain (CARDIA) Difficulty of Paying Living Expenses: Not hard at all Food Insecurity: No Food Insecurity (01/22/2022) [facility] Hunger Vital Sign Worried About Running Out of Food in the Last Year: Never true Ran Out of Food in the Last Year: Never true Transportation Needs: Unmet Transportation Needs (02/09/2019) Re[facility] from [facility] PRAPARE - Transportation Lack of Transportation (Medical): Yes Lack of Transportation (Non-Medical): Yes Physical Activity: Insufficiently Active (02/09/2019) Received from [facility] Exercise Vital Sign Days of Exercise per Week: 7 days Minutes of Exercise per Session: 20 min Stress: Stress Concern Present (02/09/2019) Received from [facility] [place] - Occupational Stress Questionnaire Feeling of St (more content not included)... Normal [facility] Progress Note Normal, no endocervi daniel cells, repeat pap 1 year Normal [facility] Office Visiton 05-04-2024 Follow-up visit [id number] Darnell Adrian 1970 F Date Provider Department Center 05/04/2024 [id number] LAMB [facility] Family History Problem Relation Age of Onset Hypertension Mother Comments: alive age 70 COPD Father Comments: pulmonary fibrosis, age 72 in 2019 Throat cancer Father Lung cancer Father Other Sister Comments: at , abruptio placenta Hypertension Brother No Known Problems Brother Lung cancer Maternal Grandmother Comments: smoker, age 86 No Known Problems Maternal Grandfather No Known Problems Paternal Grandmother No Known Problems Paternal Grandfather Family Status - Relation Status Age at Mother Alive Father Sister Brother Alive Brother Alive Maternal Grandmother Maternal Grandfather Paternal Grandmother Paternal Grandfather Level of Service:69397 [facility] OFFICE/OUTPATIENT ESTABLISHED MOD MDM 30 MIN Reason for Visit and Comments: Follow-up [[id number]] - Med check Spot on inner pubic area Normal [facility] PATINSon 05-04-2024 PATINS Flu vax and shingles vaccines as discussed Normal [facility] Progress Noteon 05-04-2024 Progress Note [facility] [address] [facility] [id number] Visit type: Established Patient Reason for Visit: Follow-up (Med check/Spot on inner pubic area ) Assessment / Plan: Miki Falcon was seen today for follow-up. Diagnoses and all orders for this visit: Essential hypertension (Primary) Comments: Stable, continue metoprolol Pulmonary emphysema, unspecified emphysema type (HCC) Comments: Stable, stop Spiriva at patient's request Boil of inguinal region Comments: New onset, Keflex, follow-up with [facility] S[facility] EVALUATOR for possible I&D if worsening Closed follicle comedo Comments: Chronic, no intervention necessary Bipolar affective disorder, remission status unspecified (HCC) Comments: Stable and reviewed her psychiatric meds. Encouragement given Engages in vaping Comments: Noted, encouragement given to cut down that nicotine as well. H/O solitary pulmonary nodule Comments: Noted, will need checkup in July to schedule LDCT chest Other orders - metoprolol tartrate (Lopressor) 25 MG tablet; TAKE 1/2 TABLET BY MOUTH TWICE A DAY - cephalexin (Keflex) 500 MG capsule; Take 1 capsule (500 mg) by mouth 3 times daily for 21 doses. 35 Minutes spent on reviewing pertinent history, patient interview, physical exam, discussion of diagnosis and treatment and work-up options. Praise given on her smoking cessation and hopefully vaping cessation will follow. To [facility]ALU[facility] for breast exam and mammogram. Subjective: Patient ID: Miki Adrian is a 53 y.o. female. HPI patient presents for a few concerns. Needs refill on her metoprolol and is concerned about. Diagnoses of COPD and a small pulmonary nodule. Does not wish to continue Spiriva just because she does not want to take more medicine. She denies real exertional using or dyspnea. Mild COPD found on LDCT chest. She has a small pulmonary nodule that needs follow-up in treatment no hemoptysis or chest pain. She has stopped smoking now vaping. She hopes to stop that as well Review of Systems no change in mental health. She immensely benefits from her mental health counselor. She is involved with outpatient activities well. Denies abdominal pain. Bowels are regular. No melena or blood. To be getting ON SITE SOIL EVALUATOR exam defers breast exam to service captain. She has some lesions on her mons pubis that she would like me to look at. Allergies Allergen Reactions Bupropion Other reaction(s): Other (See Comments) Hallucinations Morphine Other reaction(s): Unknown Codeine Rash Other reaction(s): Other: See Comments, Vomiting Swelling throat Other reaction(s): Nausea/Vom/Diarrhea Current Outpatient Medications on File Prior to Visit Medication Sig Dispense Refill albuterol 108 (90 Base) MCG/ACT inhaler Inhale 2 puffs every 6 hours as needed for wheezing. 18 g 2 ALPRAZolam (Xanax) 0.5 MG tablet Take 0.5 mg by mouth Nightly as needed for anxiety. lamoTRIgine (LaMICtal) 100 MG tablet Take 100 mg by mouth 2 times daily. lithium ER (Eskalith) 450 MG 12 hr tablet Take 450 mg by mouth daily. LORazepam (Ativan) 0.5 MG tablet OLANZapine (ZyPREXA) 20 MG tablet Take 1 tablet by mouth Nightly. Takes 15 mg ramelteon (Rozerem) 8 MG tablet Take 8 mg by mouth Daily as needed for sleep. tiotropium (Spiriva) [address] 1 capsule (18 mcg) into inhaler and inhale in the morning. 30 capsule 5 [DISCONTINUED] metoprolol tartrate (Lopressor) 25 MG tablet TAKE 1/2 TABLET BY MOUTH TWICE A DAY 90 tablet 1 No current facility-administered medications on file prior to visit. Patient Active Problem List Diagnosis Essential hypertension History of drug abuse ([facility]/HCC) (HCC) H/O solitary pulmonary nodule Pneumococcal vaccine refused Tremor Bipolar affective disorder (HCC) Thyromegaly Chronic obstructive pulmonary disease (HCC) H/O colonoscopy with polypectomy Post-menopause bleeding Engages in vaping Social History Tobacco Use Smoking status: Every Day Current packs/day: 0.00 Types: Cigarettes Last attempt to quit: 08/30/1987 Years since quittin.7 Smokeless tobacco: Never Substance Use Topics Alcohol use: No Alcohol/week: 0.0 standard drinks of alcohol Past Surgical History: Procedure Laterality Date BRAIN SURGERY 1996 Craniotomy x 2 (aneurysm) BRAIN SURGERY 12/2011 Cerebral Aneurysm Coiling BREAST BIOPSY Right 2017 SECTION (HISTORICAL) 2004 with tubal ligation COLONOSCOPY W/ POLYPECTOMY 08/2023 Dr. Kenney- bertha 2028 COLPOSCOPY 1989 cervical dysplasia IVC FILTER RETRIEVAL 2012 TUBAL LIGATION Family History Problem Relation Name Age of Onset Hypertension Mother Bhupendra Adrian alive age 70 COPD Father Walter pulmonary fibrosis, age 72 in 2019 Throat cancer Father Walter Lung cancer Father Walter Other ([id number]) Sister at , abruptio placenta Hypertension Brother Jhony No Known Problems Brother Arie Lung cancer Ma (more content not included)... [facility] 04-27-2024 36 S: Patient spoke alexx AMARO nurse regarding Two area of concern - scabbed/like growth, in groin- hairline B: Onset of symptoms/concern sometime in the last 3 month A: Pt states she is a poor historian due to her hx of brain aneurysm two area of concern on labia that seemed scabbed/growth. Approximate size of an apple seed. Denies pain, drainage. Pt also needs to schedule Pap. R: CAC nurse unable to find appt that works with patient schedule to be seen for the skin concern. She states she will have her PCP look at that at her appt on 05/04/24. [facility] scheduled Wellness appt with Dr Perez on 05/31/24 at 1:30pm. Patient instructed to call back with new or worsening symptoms. Sent FYI to PCP office for skin concern to be noted for MD appt on 05/04/24 due to patient's expressed concerns. Reason for Disposition ALL other vulvar symptoms (Exception: Feels like prior yeast infection, or rash < 24 hour duration.) Protocols used: Vulvar Sgceonpb-OVBJD-EG [facility] 03-22-2024 36 S: Patient spoke alexx AMARO nurse regarding raised bump in pubic area, maybe infected hairs B: Onset of symptoms/concern 1 week A: Pt c/o elevated raised bumps in pubic hair area, no pain, no drainage, no itching. CAC nurse asked patient the size and when she went to look and she came back to the phone and states that they are gone now. Reports she did do a few epsom salt baths and warm compresses, they must have drained. R: CAC nurse advised to call back if they return or with any new or worsening symptoms. Pt verbalized understanding. No further action required at this time. Reason for Disposition Mild rash (e.g., redness, tiny bumps, sore) of genital area and present < 24 hours Protocols used: Vaginal Ihhxrisy-HVHBE-OY [facility] 36on 03-13-2024 36 Placed call to chau lai. Two patient identifers confirmed. Was able to speak to patient. All concerns in message have been addressed. No questions at this time. Call ended [facility] CNPNon 10-01-2023 CNPN Telephone (GSTNOR) MIKI ADRIAN ([id number]) 1970 F Date Time Provider Department 10/01/23 DIA KENNEY GSTNOR During your visit today, we recorded the following information about you: uLke Vela MA 10/01/2023 8:52 AM Signed Left colonoscopy results on patients voicemail. Allergies As of Date: 10/01/2023 Noted Allergy Reaction BUPROPION 09/23/2018 14 - Other: See Comments Comments: Hallucinations Other reaction(s): Other (See Comments) Hallucinations CODEINE 03/17/2012 11 - Vomiting 14 - Other: See Comments Comments: Swelling throat MORPHINE 01/13/2012 16 - Unknown Date Reviewed: 09/14/2023 Reviewed by: Reny Mccord, RN - Fully Assessed Reason for Visit: Results [95] Prescriptions as of 10/01/2023 - albuterol HFA (PROVENTIL HFA, VENTOLIN HFA) 90 mcg/actuation inhaler Inhale 2 Puffs as instructed every 4 hours as needed. - guaiFENesin (MUCINEX) 600 mg 12 hr tablet Take 2 tablets by mouth twice daily. - benzonatate (TESSALON PERLES) 100 mg capsule Take 1 capsule by mouth three times daily as needed. - Ipratropium (ATROVENT) 17 mcg/actuation inhaler Inhale 2 Puffs as instructed every 6 hours as needed. - lithium (ESKALITH) 300 mg capsule Take 300 mg by mouth twice daily with meals. - benztropine (COGENTIN) 2 mg tablet Take 2 mg by mouth once daily. - metoprolol tartrate, short acting, (LOPRESSOR) 25 mg tablet 25 mg twice daily. 12.5 mg twice daily - LORazepam (ATIVAN) 1 mg tablet Take 1 mg by mouth twice daily. - olanzapine (ZYPREXA) 7.5 mg tablet Take 15 mg by mouth daily at bedtime. Facility-Administered Medications as of 10/01/2023 - lidocaine (PF) 10 mg/mL (1 %) 1-2 mg injection (XYLOCAINE) Problem List As Of Date 10/01/2023 Noted Resolved SAH (subarachnoid hemorrhage) ([facility]) [I60.9] 01/13/2012 Acute respiratory failure (HCC) [J96.00] 01/13/2012 01/29/2012 Hydrocephalus ([facility]) [G91.9] 01/13/2012 01/28/2012 Cerebral edema (HCC) [G93.6] 01/13/2012 01/26/2012 Cocaine abuse ([facility]) [F14.10] 01/13/2012 Pneumothorax, iatrogenic [J95.811] 01/14/2012 01/28/2012 Seizure ([facility]) [R56.9] 01/17/2012 01/24/2012 Fever [R50.9] 01/23/2012 01/26/2012 Pneumonia due to Haemophilus influenzae ([facility]) [*01/15/2012 01/26/2012 UTI (lower urinary tract infection) [N39.0] 01/16/2012 01/26/2012 Agitation [R45.1] 01/27/2012 PE (pulmonary embolism) [I26.99] 01/27/2012 UTI (lower urinary tract infection) [N39.0] 01/31/2012 Encephalopathy [G93.40] 01/31/2012 DVT of upper extremity (deep vein thrombosis) (*02/02/2012 Anticoagulation management encounter [Z51.81, Z*02/04/2012 Cerebral aneurysm, nonruptured [I67.1] 02/04/2012 Encounter Status:Closed by LUKE VELA on 10/01/23 Normal [facility] SURGICAL PATHOLOGYOrdered By : Rashid Vieira on 09-15-2023 Case Report Surgical Pathology Report Case: [id number] Authorizing Provider: Dia Kenney, Collected: 09/14/2023 02:27 PM Ordering Location: Ambulatory Surgery Received: 09/14/2023 07:08 PM Pathologist: Rashid Vieira MD Specimens: A) - RECTAL POLYP, proximal x 2 B) - TRANSVERSE COLON POLYP, distal [facility] Work Phone: FINAL DIAGNOSIS c7hzxWOpBHNlbFZaWASk NVx jwjYlFORzyHCxY1DednygDB kcFX4iVV1roTyyeMRtfDFcC XXhMgZce7wvr960pKOxd3sa VDCRsiwwdRp3fJylY96ij5G 1ZkibJ52okFEiZES0QVVbXO FpmQVaJAYoRSN8KSLjuXYgV 8wtKONqSD9obeuzRKxlHRjm BTXksPV8SIPlsZLpM6MgUJA zPBeoQDOuqvx4JcYhHs5phI VyeTcyMFxwYXJkXHBsYWluX BGwLkXqWC0tPDDuG4I5sDdf vD7rbSZnO5BoqAt6FTVskyV yWYYjZTwrGO08ztAeKxM9cL W9dGAxNMSgSF0vmMPnUGDhc bpuWCOrBt8cGLRmET3rhbFl l3XmV24od74cXKVoyJvrLIG 1x864XursDLOaSSHJhqCzcV BgyTAvd1FrfGLntWvrrkVeX SZtj67cNeovCVX0 [facility] Work Phone: Gross Description k3qohYCcVCHwzAOLYJP8 MDJ sGR1luEymkKb4wUqdQKOsfn T2eJYdLVvdb3esHXQ5q9vsz pPJNninMNCbXL5lOSqmUGIn DY5rWxVgFUOlDgUlTOLovEF iphFrXsUgRAGcxGWfpMW0VS DnQO2ugzovYGeuFCndWYThe jI2SRFbqDLeK3LnBRDkUJ5a gaiiFXZ9QPSMJbgpIx4wiKM ibHtcZjFcZmNoYXJzZXQwXG Jfq5rurgCCyyxnsBk2pW2UI RKsO0QhKQ9Fb6cwCPUbbHAu PIH2NXcia0jhZYmhAKF5PDT oQYGhORWlQU5FSmHuLPWgCv o7NOXjMfV2TCy3UAHSORZxU JRqYJS6IgCyQKb6FTstVJsw aCBcXHQgMSBcXGZsIFxcbmN 2t9zhCQCxqLWhYHU9LFyif3 cbBPliZSY3JQAmXaHlUAGuN J2ATxOcCHMkFht8VCWkZdA5 XNy7CJBYMdXoVfZuIXF0Noy 7LMYyUXf1PVj9UGjFDqNaZF j4EsVxLCMcVxA1CAG5TkHxV HQgMiBcXHNzIDMgXFxmbCBc EK1jbOkhQFAwQD2CSOCcGAo dEQCfYiDrKM0nYbMIFBBXLD HZJCqHSSm6ghSgQWThobBAT efmBPUkBV6EGZUdDPdeKZi0 afSpSJReRsTdZPOgR29th9S Rx0BnDD8OISl1gwWvuaSCMp nrzpNzMYEpY0AqkuXtWTbzJ ZDqal1mmAuzMBKaZUM2q97o v3YanJDmcCTbq8HymUCzHTV qp5xuLMTiqWbjm0orBYLsv5 Y3FTLmU1khOFxkbBqdFwY4v yAwLjggeCAwLjMgeCAwLjQg N90xGIDArvLxrOXdx6UvDQT lIHByZXNlbnQuICBUaGUgbG uxGTBzz7IvcwSxKON7oZ7qG BWqWNRhw3OiHO6pODZgXTOa eSBbkY6qksLaAXOwFNLdf5K nkEXjSsXsBD71USdwsYGfuO XuaOY7BKJwjJ1km96fKJLkr 5CezXRwTsVruSRgHV8ZGSDm ttWFFlunb9UpRBX7AM7gbtQ 7kG6jHZRmwsMrxk9rBHDmjM AYuKA5UTxwrqSsI3jhygewG HK4CQGkINR4R5gcGALCbcKv VOZYtJT9FQdmlyGmKY2EMYN 8WYz7YWZrfbPLLlpqJNUbDE pBTVMgSmFudWFyeSAxNiwgM oItRCR8AyQ0DFHPJLBjdeLN GywlLSRvTTUnuHDMm7GfHOJ WNbipkRucUyZmdFZsQvV4RQ GuqHDgFJB4FF0rdUkaOXWmE Nt3LLaeMIRzI7FmZ4UnRMyq ZyBcXGlkIDUxMDAyIFxcZGI aU2KZQNHtPWFnRSzdFVIpSF m6FZi4UG8POjOfKPA3FYX1L FI8DlWmGHt5MNlbMZ4VHCIn PLT0EpGaEfC4RPQ7Ofq1TJh gbZGvZVrge3XiYwSdTVJfXP gnadJ0XBXslyDuv9QdKQBnY QKsE6gtEcHnPUUUAoiedyFp ITZvOEWDTW7RByECL1TgY12 EN71lMY4FRIRqcPUcBZ5SYY DgqhWlSLbfiZvwmA3xgGRiE 2hcZnMyMlxlcGljTmVzdERv YzEgDQpcbHRycGFyXHNiMzB gZLAoM2lbPrLwHR5QFCUrTv MnGyEhVQc9VGXmbR8dWl5zt CHrfC4kSRRaFYB4hmQhsWPe YVIoe5VhnMAkDJUlb8Q6ZAJ fw2S9LHMjV8weNWvijWpzTh B4uqPaXpMksKIoIvUvqWAjL iPsO01ePNPkhGGirSyzk4Tm oBz9eNUzGFuzLZ1oGZTwZSE kSFS1JG1hNQVilpQYSivwAC XjGQz4yzJennKZYgddRWMhR QhZWbZGEU58OJZ7JXU5HVVr CAE7SJk1DjSbHK1bcRYgMS4 KXHBhciANClxzYTMwXGVwaW MZm6BiQDCCUmvca8UsINU9B U0prkG5bJ9uLGXxzjZsxr2e RYQwyUMMhEI4MCqncuBaU0i cfvaeMUW1UIOnADT4A5iyGL PIbzUyMUFHfQH9MRpqajAkL N1TBXD0QBd4HFeaWYWvA44e b9ODa4Ofu3yopGqkf0TbrAW uXV15OHOdzAEfWUP2NQ3haR xwYXIgDQpccGFyZCANClxmc iJbRT5GyJ== [facility] Work Phone: Performing Lab a0kbvCRjKOSxqYWdVzYo MDA rCKPxr6xsATUiiPMrLwEsAa NcZnRuYmpcdWMxXGRlZmYwe 0zmi246oXCsz8jdUYPmAcC1 gXOcPSYndQTlR186NSBaANe gj3cxa3MjOLYcuAVaa9I4DV PMvawpsQp3sGmfQ86az4N0J wzzJ3xfOZQhBKQlC9SyOT0e VWUqIag2GZT3ACX2JLZdXZM sY4UuVO7eNPCnqEHvZGd5a5 ptvEwmBDCzLHB9k4pwBCdsd nIbXT7dqj6riBm5s4jcblRv QXWyKNFbnEUYUJKlQ9KwqGr cZu3akVe4oMlwAufuNVW0Od c0DT9mzc12amh4yLenPEOcr uqzHvS1JDffJMOaowmvWGc5 EYjuLTFsvFR7WEFopYFpH3D bJPjcJT2xala5SAN9OYsbLY SeJsY2EOVjmGPaKEZwmKwkS Ltew996LPK3BqQhTG6aK7Sl q0U3sO3jeWFuFOBzoTAfPxH kKHEnfw1abNHaFNjpk3OjRW J8ohQ6zTOukGEjQDVtYB25M wxii0TlSvesv1MxX95obHD9 RTuay3ydOK7cTsA7xkHfSWo np9mavA6mGdC9OOnhKH9rWK 8zHTGgfF5csekzZAVcGhFkw pkmPNYlyFnttyNkBd9njBku GVI6XIewO2kntN4kTkW1FOe mB7rpyF2vDZa2HEjbjJQ4PS SziO8kNX8wzpkbt4iaJDtyZ CipHSOiviG6hzUzJTUcsVRa B2WjjC7mFNDwSY5lkgpwq9q nQQN3FQwxUEHvFUE0GnBlMX Pkj6Rrqib2YjGim0UasCUuI OaeJ62at739XQGvsvTbS9ue bGFpblxwbGFpblxmMFxmczI 0XHFsXHBsYWluXGYxXGZzMj JcbGFuZzEwMzNcaGljaFxmM ZucUoVmWHQgTFhpT4tsNwWq NzQpGkURnDOdsz8xgDkvKYw icUPlyWAjkYJ9yI0gOXJheu Nrxy6xZMEqlXSAgFR7MWojn iDyQ4diulglHSZ5MZNeSJP6 Q1nnKLDOayZoJIDwSFZzkVF eFGZPNHH7FUT2AOOiICSHZE NoJPI6ANY2TYFmMZVysJNhR HBhclxwYXJkXHBsYWluXGYw FPSmBeSxkZjemM0iDwToXaP wCmkxBB4vFFFeW0jzoFHpZE DbATTbU6cwJrGpzU0wvChnH VxjZjJcZnMyMlxsdHJjaCBM VUHuiuJ6o2M0NDulgJKqjiv mMVxmczIyXGxhbmcxMDMzXG sdJ3imTkBvPNRuxTbaTPblg 1PvOPCqVBZgSjRqENwdHSP7 y2G7ACwlnWUlozHWLrVFES4 ngAPwumduHP7OOuzyTND2 [facility] Work Phone: [facility] Work Phone: ANES POSTPROC EVALon 024 ANES POSTPROC EVAL HNO ID: [id number] Author: EUGENIA VEGA APRN.PHARMACIST TECHNICIAN Service: ? Author Type: Nurse Tube Building 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 Type: Anesthesia Postprocedure Evaluation Filed: 09/14/2023 14:45 Note Text: POST ANESTHESIA EVALUATION NOTE : 1970 Procedure Summary Date: 09/14/23 Room / Location: Ambulatory Surgery Anesthesia Start: 1412 Anesthesia Stop: 144 Procedure: COLONOSCOPY SCREENING Diagnosis: Special screening for malignant neoplasms, colon (Screening for colorectal malignant neoplasm) Scheduled Providers: Dia Kenney MD Responsible Provider: Eugenia Vega APRN.CRNA Anesthesia Type: MAC ASA Status: 3 Anesthesia Type: MAC Last Vitals Vitals Value Taken Time BP 115/67 09/14/23 1438 Temp 36.1 ?C (97 ?F) 09/14/23 1438 Pulse 63 09/14/23 1438 Resp 16 09/14/23 1438 SpO2 97 % 09/14/23 1438 Post Anesthesia Patient Status Patient Evaluation: PACU. PACU/ICU Patient Condition: stable. Anticipated Disposition: phase 2 then home. Neurological Status: sleepy but arousable. Pulmonary Status: breathing comfortably on room air Airway Control: returned to baseline unsupported. Cardiovascular Status: stable. Pain Management: clinically adequate - multimodal analgesia pain management approach Postoperative Hydration: acceptable. Intraoperative Events: no significant anesthesia events Post Operative Nausea/Vomiting Status: no significant post operative nausea or vomiting Recommendation: continue current plan of care. Anesthesia Observations No Documentation SIGNATURE: Eugenia Vega APRN.PHARMACIST TECHNICIAN PATIENT NAME: Miki Adrian DATE: September 14, 2023 TIME: 2:45 PM CSN: [id number] Normal [facility] ANES PRE-OPon 09-14-2023 ANES PRE-OP HNO ID: [id number] Author: EUGENIA VEGA APRN.PHARMACIST TECHNICIAN Service: ? Author Type: Nurse Tube Building 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 Type: Anesthesia Preprocedure Evaluation Filed: 09/14/2023 14:12 Note Text: ANESTHESIOLOGY DAY OF SURGERY NOTE : 1970 Procedure Information Date/Time: 09/14/23 1330 Scheduled providers: Dia Kenney MD Procedure: COLONOSCOPY SCREENING Location: Ambulatory Surgery Estimated body mass index is 29.18 kg/m? as calculated from the following: Height as of this encounter: 162.6 cm (5' 4). Weight as of this encounter: 77.1 kg (170 lb). Most recent hematocrit and potassium results: Hematocrit 36.6 07/27/2012 Potassium 4.1 07/27/2012 Relevant Problems CARDIO (+) Cerebral aneurysm, nonruptured (+) DVT of upper extremity (deep vein thrombosis) (HCC) (+) PE (pulmonary embolism) I - PHYSICAL EVALUATION AIRWAY Patient intubated: No. Tracheostomy tube not present Mallampati: II. TM distance: >3 FB. Neck ROM: full ROM without neurological symptoms. Mouth opening: adequate. Short neck: no. Thick neck: no Thomas present: no Microretrognathia/Micro nagthia/Recessed Chin: No DENTAL Dental findings: teeth intact. Additional exam findings: no II - ANESTHESIA PLAN ASA Score: 3 Anesthetic Plan: MAC The patient is not a current smoker. NPO Status: adequate Beta Alva Monitoring Plan Monitoring plan: standard ASA. Post Procedure Analgesic Plan Postoperative analgesic plan: parenteral or oral opioids and multimodal analgesia. Informed Consent Anesthetic risks, benefits, alternatives, personnel and consent discussed: yes. Patient / Responsible Constitution Party agrees to proceed: yes Patient / Surrogate agrees to blood products: blood products not planned Significant changes in the patient condition since the History and Physical, not otherwise documented in primary service progress note: no. Vitals Value Taken Time BP 123/76 09/14/23 1320 Pulse 70 09/14/23 1320 Resp 16 09/14/23 1320 Temp 36 ?C (96.8 ?F) 09/14/23 1320 SpO2 99 % 09/14/23 1320 Outpatient Medications as of 09/14/2023 Medication Sig - albuterol HFA (PROVENTIL HFA, VENTOLIN HFA) 90 mcg/actuation inhaler Inhale 2 Puffs as instructed every 4 hours as needed. - guaiFENesin (MUCINEX) 600 mg 12 hr tablet Take 2 tablets by mouth twice daily. - benzonatate (TESSALON PERLES) 100 mg capsule Take 1 capsule by mouth three times daily as needed. - Ipratropium (ATROVENT) 17 mcg/actuation inhaler Inhale 2 Puffs as instructed every 6 hours as needed. - lithium (ESKALITH) 300 mg capsule Take 300 mg by mouth twice daily with meals. - benztropine (COGENTIN) 2 mg tablet Take 2 mg by mouth once daily. - metoprolol tartrate, short acting, (LOPRESSOR) 25 mg tablet 25 mg twice daily. 12.5 mg twice daily - LORazepam (ATIVAN) 1 mg tablet Take 1 mg by mouth twice daily. - olanzapine (ZYPREXA) 7.5 mg tablet Take 15 mg by mouth daily at bedtime. Facility-Administered Medications as of 09/14/2023 Medication Dose Route Frequency - lidocaine (PF) 10 mg/mL (1 %) 1-2 mg injection (XYLOCAINE) 0.1-0.2 mL INTRADERMAL PRN I have interviewed and examined the patient. I have reviewed the medical record and/or the pre-anesthesia evaluation, pertinent labs, and test results. This contains updated information obtained within 48 hours of Surgery/Procedure. SIGNATURE: Eugenia Vega APRN.CRNA PATIENT NAME: Miki Adrian DATE: September 14, 2023 TIME: 2:11 PM CSN: [id number] Normal [facility] Colonoscopyon 09-14-2023 Colonoscopy [facility] Patient Name: Miki Adrian Procedure Date: 09/14/2023 2:03 PM Date of : 1970 Admit Type: Outpatient Age: 52 Room: [facility] 1 Gender: Female Note Status: Finalized Attending MD: Dia Kenney MD, [id number] Procedure: Colonoscopy Indications: Screening for colorectal malignant neoplasm Providers: Dia Kenney MD Patient Profile: Last Colonoscopy: none. The patient's first colonoscopy is today. Referring Physician: Walter White (Referring MD) Medicines: Propofol per Anesthesia Complications: No immediate complications. Requesting Provider: Procedure: Pre-Anesthesia Assessment: - Prior to the procedure, a History and Physical was performed, and patient medications and allergies were reviewed. The patient's tolerance of previous anesthesia was also reviewed. The risks and benefits of the procedure and the sedation options and risks were discussed with the patient. All questions were answered, and informed consent was obtained. Prior Anticoagulants: The patient has taken no anticoagulant or antiplatelet agents. ASA Grade Assessment: III - A patient with severe systemic disease. After reviewing the risks and benefits, the patient was deemed in satisfactory condition to undergo the procedure. After I obtained informed consent, the scope was passed under direct vision. Throughout the procedure, the patient's blood pressure, pulse, and oxygen saturations were monitored continuously. The Colonoscope was introduced through the anus and advanced to the cecum, identified by appendiceal orifice and ileocecal valve. I was present and participated during the entire procedure, including non-perez portions, and during the administration and monitoring of Moderate Sedation. The colonoscopy was performed without difficulty. The patient tolerated the procedure well. The quality of the bowel preparation was fair. The ileocecal valve, appendiceal orifice, and rectum were photographed. Moderate Sedation: MAC anesthesia was administered by the anesthesia team. Findings: Two sessile polyps were found in the proximal rectum. The polyps were 5 to 6 mm in size. These polyps were removed with a hot snare. Resection and retrieval were complete. A 6 mm polyp was found in the proximal transverse colon. The polyp was sessile. The polyp was removed with a cold snare. Resection and retrieval were complete. Impression: - Preparation of the colon was fair. - Two 5 to 6 mm polyps in the proximal rectum, removed with a hot snare. Resected and retrieved. - One 6 mm polyp in the proximal transverse colon, removed with a cold snare. Resected and retrieved. Recommendation: - Resume previous diet. - Continue present medications. - Await pathology results. - Repeat colonoscopy in 5 years for surveillance. - Patient has a contact number available for emergencies. The signs and symptoms of potential delayed complications were discussed with the patient. Return to normal activities tomorrow. Written discharge instructions were provided to the patient. - The patient is not currently taking anticoagulant or antiplatelet agents. Procedure Code(s): --- Professional --- 36790, Colonoscopy, flexible; with removal of tumor(s), polyp(s), or other lesion(s) by snare technique CPT copyright 2020 [employer]. All rights reserved. The codes documented in this report are preliminary and upon tmd teacher assistant review may be revised to meet current compliance requirements. Attending Participation: I personally performed the entire procedure. Scope In: 2:20:45 PM Scope Out: 2:33:44 PM MD Dia Kennedy MD 09/14/2023 2:38:06 PM This report has been signed electronically by Dia Kenney MD Number of Addenda: 0 Note Initiated On: 09/14/2023 2:03 PM Estimated Blood Loss: Estimated blood loss: none. Normal [facility] Colonoscopy Study observatio non 09-14-2023 [facility] Patient Name: Miki Adrian Procedure Date: 09/14/2023 2:03 PM Date of : 1970 Admit Type: Outpatient Age: 52 Room: [place] [address] Gender: Female Note Status: Finalized Attending MD: Dia Kenney MD, [id number] Procedure: Colonoscopy Indications: Screening for colorectal malignant neoplasm Providers: Dia Kenney MD Patient Profile: Last Colonoscopy: none. The patient's first colonoscopy is today. Referring Physician: Walter White (Referring ) Medicines: Propofol per Anesthesia Complications: No immediate complications. Requesting Provider: Procedure: Pre-Anesthesia Assessment: - Prior to the procedure, a History and Physical was performed, and patient medications and allergies were reviewed. The patient's tolerance of previous anesthesia was also reviewed. The risks and benefits of the procedure and the sedation options and risks were discussed with the patient. All questions were answered, and informed consent was obtained. Prior Anticoagulants: The patient has taken no anticoagulant or antiplatelet agents. ASA Grade Assessment: III - A patient with severe systemic disease. After reviewing the risks and benefits, the patient was deemed in satisfactory condition to undergo the procedure. After I obtained informed consent, the scope was passed under direct vision. Throughout the procedure, the patient's blood pressure, pulse, and oxygen saturations were monitored continuously. The Colonoscope was introduced through the anus and advanced to the cecum, identified by appendiceal orifice and ileocecal valve. I was present and participated during the entire procedure, including non-perez portions, and during the administration and monitoring of Moderate Sedation. The colonoscopy was performed without difficulty. The patient tolerated the procedure well. The quality of the bowel preparation was fair. The ileocecal valve, appendiceal orifice, and rectum were photographed. Moderate Sedation: MAC anesthesia was administered by the anesthesia team. Findings: Two sessile polyps were found in the proximal rectum. The polyps were 5 to 6 mm in size. These polyps were removed with a hot snare. Resection and retrieval were complete. A 6 mm polyp was found in the proximal transverse colon. The polyp was sessile. The polyp was removed with a cold snare. Resection and retrieval were complete. Impression: - Preparation of the colon was fair. - Two 5 to 6 mm polyps in the proximal rectum, removed with a hot snare. Resected and retrieved. - One 6 mm polyp in the proximal transverse colon, removed with a cold snare. Resected and retrieved. Recommendation: - Resume previous diet. - Continue present medications. - Await pathology results. - Repeat colonoscopy in 5 years for surveillance. - Patient has a contact number available for emergencies. The signs and symptoms of potential delayed complications were discussed with the patient. Return to normal activities tomorrow. Written discharge instructions were provided to the patient. - The patient is not currently taking anticoagulant or antiplatelet agents. Procedure Code(s): --- Professional --- 24882, Colonoscopy, flexible; with removal of tumor(s), polyp(s), or other lesion(s) by snare technique CPT copyright 2020 [employer]. All rights reserved. The codes documented in this report are preliminary and upon tmd teacher assistant review may be revised to meet current compliance requirements (more content not included)... [facility] Radiology Study observation (narrative) [facility] HISTORY PHYSICALon HISTORY PHYSICAL HNO ID: [id number] Author: DIA KENNEY MD Service: Gastroenterology Author Type: Physician Type: H&P Filed: 09/14/2023 14:02 Note Text: HISTORY AND PHYSICAL Miki Adrian, 52 year old female here for colonoscopy, average risk for colon cancer screening Current history and physical on file: No Is a new History and Physical required for today's visit? Yes Indication for procedure: Screening PROCEDURE(S) SCHEDULED FOR: Colonoscopy with or without biopsies and with or without removal of polyps or lesions, dilation (any means), treatment of bleeding (any means), based on clinical findings. BASELINE BEHAVIOR: Calm BASELINE ORIENTATION: A AND O x3 All medications and allergies reviewed: Yes Skin Assessment: Warm dry muscus membranes pink Airway/Respiratory Assessment: Airway: visualization of the uvula- Yes Mouth: opening greater than 2 fingerbreadths- Yes Neck: full range of motion- Yes Breath sounds clear/equal- Yes Cardiac Assessment: Regular rate and rhythm without murmur Abdominal Assessment: Abdomen soft, non-tender, no masses or organomegaly. Sedation Plan: Deep Additional Comments: None Dia Kenney MD Normal [facility] SURGICAL PATHOLOGYon 024 CASE REPORT Normal [facility] Comment on above: Order Comment: Speci men Type: TISSUE SPECIMEN Ordering Facility: [facility] Address: [address] [place] [id number] Result Comment: Surg ica Pathology Report Case: [id number] Authorizing Provider: Dia Kenney, Collected: 09/14/2023 02:27 PM Ordering Location: Ambulatory Surgery Received: 09/14/2023 07:08 PM Pathologist: Rashid Vieira MD Specimens: A) - RECTAL POLYP, proximal x 2 B) - TRANSVERSE COLON POLYP, distal Performed By: #### S #### [facility] CLIA [id number] [address] [place] [address] OF [facility] FINAL DIAGNOSIS Normal [facility] Comment on above: Order Comment: Speci men Type: TISSUE SPECIMEN Ordering Facility: [facility] Address: [address] [place] [address] Result Comment: A. R ectum, polypectomy: - Fragments of tubular adenoma. B. Transverse colon, polypectomy: - Fragments of tubular adenoma. Performed By: #### S #### [facility] CLIA [id number] [address] [place] [address] OF [facility] FINAL PERFORMING LAB Normal [facility] Comment on above: Order Comment: Speci men Type: TISSUE SPECIMEN Ordering Facility: [facility] Address: [address] [place] [address] Result Comment: Diag nostic interpretation performed at [facility], [address] [place] [address]# [id number] Brick Setter Operator: Roman Fajardo M.D. Performed By: #### S #### [facility] IA [id number] [address] [place] [address] OF [facility] GROSS DESCRIPTION A. RECTAL POLYP Normal [facility] Comment on above: Order Comment: Speci men Type: TISSUE SPECIMEN Ordering Facility: [facility] Address: [address] [place] [address] Result Comment: Rece ived in formalin are two segments of bernard-brown polypoid tissue aggregating to 0.8 x 0.3 x 0.4 cm. No stalks are present. The lines of resection are noted. The specimens are bisected. Totally submitted in one cassette. Gross examination performed at [facility], [address] [place] [address] AMS September 14, 2023 9:15 PM B. TRANSVERSE COLON POLYP Received in formalin are two pieces of bernard, soft tissue aggregating to 0.6 x 0.2 x 0.2 cm. Totally submitted in one cassette. DB September 14, 2023 8:34 PM Gross examination performed at [facility], [address] [place], [place] [address] [address] Performed By: #### S #### [facility] CLIA [id number] [address] [place] [address] [id number] [place] CT Chest for screening WO co ntraston 08-20-2023 1. Mild pulmonary emphysema with single 3mm nodule in the right upper lung lobe. 2. Other findings as discussed. LUNG-RADS ASSESSMENT CATEGORY: Lung-RADS Category 2 - Benign appearance or behavior - Continue annual screening. Lung-RADS Version 2022 Assessment Categories - for Screening CT Chest Only. Release date: Jun 2022 Category 0 - Incomplete Part of lungs cannot be evaluated Findings suggestive of an inflammatory or infectious process Category 1 - Negative - Continue annual screening No nodules Nodules with benign characteristics (complete, central, popcorn Ca++) or fat Category 2 - Benign appearance or behavior - Continue annual screening Perifissural nodule(s) < 10 mm at baseline or new with oval, lentiform or triangular shape Solid nodule(s): < 6 mm at baseline or new < 4 mm Part solid nodule(s): < 6 mm mean diameter at baseline Nonsolid nodule(s) (GGN): < 30 mm OR > 30 mm and unchanged or slowly growing Airway nodule in subsegmental branch Category 3 or 4 nodules unchanged for > 6 months Category 3 - Probably benign finding(s) - 6 month follow up Solid nodule(s): 6 to < 8 mm at baseline OR new 4 mm to < 6 mm Part solid nodule(s) 6 mm total diameter with solid component < 6 mm OR new < 6 mm total diameter Nonsolid nodule(s) (GGN) > 30 mm on baseline or new Atypical cyst Category 4a nodule unchanged for 3 months Category 4A - Suspicious - 3 month follow up or PET/CT when >8mm Solid nodule(s): 8 to < 15 mm at baseline OR growing < 8 mm OR new 6 to <8 mm Part solid nodule(s): > 6 mm with solid component > 6 mm to < 8 mm OR with a new or growing < 4 mm solid component Airway nodule - segmental, more proximal than baseline or new Atypical cyst with thick wall or multilocular or changed Category 4B - Suspicious - chest CT with or without contrast, PET/CT and/or tissue sampling depending on the *probability of malignancy and comorbidities. PET/CT may be used when there is a > 8 mm solid component. For new large nodules that develop on an annual repeat screening CT, a [address] may be recommended. Airway nodule growing Solid nodule(s): > 15 mm OR new or growing, and > 8 mm Part solid nodule(s) with: a solid component > 8 mm OR a new or growing > 4mm solid component Atypical cyst with growth Category 4X - Suspicious - (same work up as Category 4B) Category 3 or 4 nodules with additional features or imaging findings that increases the suspicion of malignancy - spiculation, rapid growth or associated lymph node enlargement Modifier to add to Category 0-4: Category S - Clinically or potentially significant non lung cancer related findings NOTES 1. Lung-RADS Category: Each exam should be coded 0-4 based on the nodule with the highest degree of suspicion. 2. Lung-RADS Management: The timing of follow-up imaging is from the date of the exam being interpreted. For example, 12-month screening LDCT for Lung-RADS 2 is from the date of the current exam. Also note that management of category 3 and 4A nodules follows a stepped approach based on follow-up stability or decrease in size. If nodules resolve on follow-up, reclassify according to the most concerning finding. 3. Practice Audit Definitions: A negative screen is defined as categories 1 and 2; a positive screen is defined as categories 3 and 4. A negative screen does not mean that an individual does not have lung cancer. 4. Nodule Measurement: To calculate nodule mean diameter, measure both the long and short axis to one decimal point in mm, and report mean nodule diameter to one decimal point. The long and short axis measurements may be in any plane to reflect the true size of the nodule. Volumes, if obtained, should be reported to the nearest whole number in mm3. 5. Size Thresholds: Apply to nodules at first detection and that enlarge, reaching a higher size category. When a nodule crosses a new size threshold for other Lung-RADS categories, even if not meeting the definition of growth, the nodule should be reclassified based on size and managed accordingly. 6. Growth: An increase in mean diameter size of > 1.5 mm (> 2 mm3) within a 12-month interval. 7. Gllt-Ngwpkoq-Woa-Solid (Ground-Glass) Nodules: A ground-glass nodule (GGN) that demonstrates growth over multiple screening exams but does not meet the > 1.5 mm threshold increase in size for any 12-month interval may be classified as LungRADS 2 until the nodule meets findings criteria of another category, such as developing a solid component (then manage per partsolid nodule criteria). 8. Hwqc-Lfvlcwv-Igqyv or Part-Solid Nodules: A solid or part-solid nodule that demonstrates growth over multiple screening exams but does not meet the > 1.5 mm threshold increase in size for any 12-month interval is suspicious and may be classified as a LungRADS 4B. Slow-growing nodules may not have increased metabolic activity on PET/CT; therefore, biopsy, if feasible, or surgical eval (more content not included)... [facility] [employer] [facility] Patient Name: MIKI REED : 1970 Exam Date/Time: 08/20/2023 12:01 Procedure: CT LUNG SCREENING LOW DOSE Ordering Provider: PALACIO EUGENE Reason For Exam: Lung cancer screening, >= 20 pk-yr smoking history (Age >= 50y) CLINICAL HISTORY: History of tobacco use. This is a screening study for pulmonary nodules. COMPARISON: None Technique: 1 mm low dose helical CT images were obtained of the chest without the use of intravenous contrast. Images were reformatted in coronal and sagittal projections. Dose reduction was employed with automated exposure control. FINDINGS: Pulmonary nodules: *All nodule measurements are mean axial diameter and saved on perez images* In the right upper lung lobe, 3 mm nodule is noted (series 6 axial image 109). Airway: Tracheobronchial tree remains patent. Lungs: Mild centrilobular and paraseptal emphysematous changes are noted. Otherwise, no focal consolidation is identified. Pleura: No pleural thickening or effusion. Heart/Great vessels: Normal heart size with no pericardial effusion. There is no significant coronary artery calcification. The aorta is normal in caliber. The pulmonary arteries normal in caliber. Mediastinum/Jeanine: No enlarged mediastinal, hilar, or axillary lymph nodes. Thyroid: Thyroid is normal in appearance. Esophagus: Esophagus is unremarkable. Visualized Upper Abdomen: The visualized upper abdomen is unremarkable. Chest wall: Unremarkable. Bones: No suspicious osseous lesions. Mild degenerative changes of the thoracic spine are observed. [facility] Yusuf Lares MD - 08/20/2023 [facility] 1970 [id number] Exam Date/Time: 08/20/2023 12:01 Procedure: CT LUNG SCREENING LOW DOSE Ordering Provider: PALACIO EUGENE Reason For Exam: Lung cancer screening, >= 20 pk-yr smoking history (Age >= 50y) CLINICAL HISTORY: History of tobacco use. This is a screening study for pulmonary nodules. COMPARISON: None Technique: 1 mm low dose helical CT images were obtained of the chest without the use of intravenous contrast. Images were reformatted in coronal and sagittal projections. Dose reduction was employed with automated exposure control. FINDINGS: Pulmonary nodules: *All nodule measurements are mean axial diameter and saved on perez images* In the right upper lung lobe, 3 mm nodule is noted (series 6 axial image 109). Airway: Tracheobronchial tree remains patent. Lungs: Mild centrilobular and paraseptal emphysematous changes are noted. Otherwise, no focal consolidation is identified. Pleura: No pleural thickening or effusion. Heart/Great vessels: Normal heart size with no pericardial effusion. There is no significant coronary artery calcification. The aorta is normal in caliber. The pulmonary arteries normal in caliber. Mediastinum/Jeanine: No enlarged mediastinal, hilar, or axillary lymph nodes. Thyroid: Thyroid is normal in appearance. Esophagus: Esophagus is unremarkable. Visualized Upper Abdomen: The visualized upper abdomen is unremarkable. Chest wall: Unremarkable. Bones: No suspicious osseous lesions. Mild degenerative changes of the thoracic spine are observed. IMPRESSION: 1. Mild pulmonary emphysema with single 3mm nodule in the right upper lung lobe. 2. Other findings as discussed. LUNG-RADS ASSESSMENT CATEGORY: Lung-RADS Category 2 - Benign appearance or behavior - Continue annual screening. Lung-RADS Version 2022 Assessment Categories - for Screening CT Chest Only. Release date: Jun 2022 Category 0 - Incomplete Part of lungs cannot be evaluated Findings suggestive of an inflammatory or infectious process Category 1 - Negative - Continue annual screening No nodules Nodules with benign characteristics (complete, central, popcorn Ca++) or fat Category 2 - Benign appearance or behavior - Continue annual screening Perifissural nodule(s) < 10 mm at baseline or new with oval, lentiform or triangular shape Solid nodule(s): < 6 mm at baseline or new < 4 mm Part solid nodule(s): < 6 mm mean diameter at baseline Nonsolid nodule(s) (GGN): < 30 mm OR > 30 mm and unchanged or slowly growing Airway nodule in subsegmental branch Category 3 or 4 nodules unchanged for > 6 months Category 3 - Probably benign finding(s) - 6 month follow up Solid nodule(s): 6 to < 8 mm at baseline OR new 4 mm to < 6 mm Part solid nodule(s) 6 mm total diameter with solid component < 6 mm OR new < 6 mm total diameter Nonsolid nodule(s) (GGN) > 30 mm on baseline or new Atypical cyst Category 4a nodule unchanged for 3 months Category 4A - Suspicious - 3 month follow up or PET/CT when >8mm Solid nodule(s): 8 to < 15 mm at baseline OR growing < 8 mm OR new 6 to <8 mm Part solid nodule(s): > 6 mm with solid component > 6 mm to < 8 mm OR with a new or growing < 4 mm solid component Airway nodule - segmental, more proximal than baseline or new Atypical cyst with thick wall or multilocular or changed Category 4B - Suspicious - chest CT with or without contrast, PET/CT and/or tissue sampling depending on the *probability of malignancy and comorbidities. PET/CT may be used when there is a > 8 mm solid component. For new large nodules that develop on an annual repeat screening CT, a [address] may be recommended. Airway nodule growing Solid nodule(s): > 15 mm OR new or growing, and > 8 mm Part solid nodule(s) with: a solid component > 8 mm OR a new or growing > 4mm solid component Atypical cyst with growth Category 4X - Suspicious - (same work up as Category 4B) Category 3 or 4 nodules with additional features or imaging findings that increases the suspicion of malignancy - spiculation, rapid growth or associated lymph node enlargement Modifier to add to Category 0-4: Category S - Clinically or potentially significant non lung cancer related findings NOTES 1. Lung-RADS Category: Each exam should be coded 0-4 based on the nodule with the highest degree of suspicion. 2. Lung-RADS Management: The timing of follow-up imaging is from the date of the exam being interpreted. For example, 12-month screening LDCT for Lung-RADS 2 is from the date of the current exam. Also note that management of category 3 and 4A nodules follows a stepped approach based on follow-up stability or decrease in size. If nodules resolve on follow-up, reclassify according to the most concerning finding. (more content not included)... [employer] Radiology Study observation (narrative) [employer] CT Chest for screening WO co ntrastOrdered By: Yusuf Lares on 08-20-2023 [employer] Work Phone: CNCOon 08-16-2023 [facility] Letter Text Normal [facility] CNPNon 08-16-2023 CNPN Telephone (GSTNOR) MIKI ADRIAN ([id number]) 1970 F Date Time Provider Department 08/16/23 ANALAI LA GSTNOR During your visit today, we recorded the following information about you: Ksenia Centeno 08/16/2023 2:07 PM Signed Indication: AVERAGE RISK SCREENING COLONOSCOPY Positive Cologuard in past Personal History Colon polyps? No Colon cancer? No Crohn's Disease? No Ulcerative Colitis? No Family History Colon polyps? No Colon cancer? No Height: 5'4 Weight: 170 BMI: 29 Tracheostomy new or old No If yes, schedule at hospital Any surgery or radiation to the head or neck? Yes, 4 Brain aneurysms 1996, 2011, no radiation If can't move neck side to side AND up and down, schedule at hospital. Radiation to neck or head automatically gets scheduled at hospital Implanted defibrillator (ACD)? No If yes, schedule at hospital Have you ever been told you were difficult to intubate? No If yes, schedule at hospital Allergies: Latex, Adhesives, or Medication? Medications, Codeine, Wellbutrin If anaphylactic reaction to latex, schedule at hospital Recent stroke or cardiac event in the past 6 months? No (ex: heart attack or stent placement). If yes, schedule 6 months after cardiac event. Are you insulin dependent? Are your sugars in control? Ask what BS is running. No If controlled sugars needs scheduled in early AM, If uncontrolled sugars and are over 250 needs to be scheduled at hospital. Are you on any weight loss/diabetic medications (injectable or oral)? No On oxygen at home? No If yes, give to PHARMACIST TECHNICIAN to evaluate. Chest pain or shortness of breath on exertion? No If yes, give to PHARMACIST TECHNICIAN to evaluate. Any kidney/liver disease or on dialysis? No If cirrhosis pt., have PHARMACIST TECHNICIAN review chart History of COPD/Emphysema/Asthma/o r Sleep Apnea? No If uses an inhaler, have pt bring inhaler with them. On any blood thinners? No (Coumadin, Plavix, ASA, Xarelto, Brilinta, Eliquis, Pradaxa, Efficent etc.) If yes, need to check with physician on whether to stop them or OV Do you have a history of seizures? No If yes, when was last seizure? Allergies As of Date: 08/16/2023 Noted Allergy Reaction CODEINE 03/17/2012 11 - Vomiting 14 - Other: See Comments Comments: Swelling throat MORPHINE 01/13/2012 16 - Unknown Date Reviewed: 02/28/2019 Reviewed by: Desiree Mckay (Sorting Livestock Worker) - Fully Assessed Reason for Visit: Screening order/checklist [Other] Primary Visit Diagnosis:Special screening for malignant neoplasms, colon [Z12.11] Order(s):COLONOSCOPY SCREENING [GI51] Order #: [id number] FUTURE Prescriptions as of 08/16/2023 - albuterol HFA (PROVENTIL HFA, VENTOLIN HFA) 90 mcg/actuation inhaler Inhale 2 Puffs as instructed every 4 hours as needed. - guaiFENesin (MUCINEX) 600 mg 12 hr tablet Take 2 tablets by mouth twice daily. - benzonatate (TESSALON PERLES) 100 mg capsule Take 1 capsule by mouth three times daily as needed. - Ipratropium (ATROVENT) 17 mcg/actuation inhaler Inhale 2 Puffs as instructed every 6 hours as needed. - lithium (ESKALITH) 300 mg capsule Take 300 mg by mouth twice daily with meals. - benztropine (COGENTIN) 2 mg tablet Take 2 mg by mouth once daily. - metoprolol tartrate, short acting, (LOPRESSOR) 25 mg tablet 25 mg twice daily. 12.5 mg twice daily - LORazepam (ATIVAN) 1 mg tablet Take 1 mg by mouth twice daily. - olanzapine (ZYPREXA) 7.5 mg tablet Take 15 mg by mouth daily at bedtime. Problem List As Of Date 08/16/2023 Noted Resolved SAH (subarachnoid hemorrhage) (HCC) [I60.9] 01/13/2012 Acute respiratory failure (HCC) [J96.00] 01/13/2012 01/29/2012 Hydrocephalus (HCC) [G91.9] 01/13/2012 01/28/2012 Cerebral edema (HCC) [G93.6] 01/13/2012 01/26/2012 Cocaine abuse (HCC) [F14.10] 01/13/2012 Pneumothorax, iatrogenic [J95.811] 01/14/2012 01/28/2012 Seizure (HCC) [R56.9] 01/17/2012 01/24/2012 Fever [R50.9] 01/23/2012 01/26/2012 Pneumonia due to Haemophilus influenzae (HCC) [*01/15/2012 01/26/2012 UTI (lower urinary tract infection) [N39.0] 01/16/2012 01/26/2012 Agitation [R45.1] 01/27/2012 PE (pulmonary embolism) [I26.99] 01/27/2012 UTI (lower urinary tract infection) [N39.0] 01/31/2012 Encephalopathy [G93.40] 01/31/2012 DVT of upper extremity (deep vein thrombosis) (*02/02/2012 Anticoagulation management encounter [Z51.81, Z*02/04/2012 Cerebral aneurysm, nonruptured [I67.1] 02/04/2012 Encounter Status:Closed by KSENIA CENTENO on 08/16/23 Normal [facility] Basophil percentageon 2022 Bilirubin [Mass/Vol] 0.30 mg/dL 0.20-1.00 [facility] Comment on above: For patients on eltr ombopag therapy, use of Dimension Pharr TBIL is not recommended. Chloride [Moles/Vol] 112 mmol/L 98-107 [facility] Glucose [Mass/Vol] 91 mg/dL 74-106 [facility] Potassium [Moles/Vol] 3.8 mmol/L 3.5-5.1 [facility] Protein [Mass/Vol] 7.0 g/dL 6.4-8.2 [facility] Sodium [Moles/Vol] 141 mmol/L 136-145 [facility] Laboratory - Chemistry and C hemistry - challengeon 02-23-2023 ALP [Catalytic activity/Vol] 77 U/L 45-117 [facility] ALT [Catalytic activity/Vol] 12 U/L 13-56 [facility] CO2 [Moles/Vol] 23.0 mmol/L 21.0-32.0 [facility] Globulin (S) [Mass/Vol] 3.3 g/dL 2.2-4.2 [facility] Urea nitrogen/Creatinine [Mass ratio] 9.3 mg/mg 10-20 [facility] No Panel Informationon 02-23 Estimated GFR (MDRD) Amer 62 mL/min >60 [facility] Comment on above: GFR Calc Estimated GFR (MDRD) Non-Af Amer 51 mL/min >60 [facility] Comment on above: Non- GFR Calc [place] Level 0.60 mmol/L 0.60-1.20 [facility] Thyroid Stimulating Hormone (TSH) 3.54 uIU/mL 0.358-3.74 [facility] Serum or plasma albumin tracy urement (mass/volume)on 02-23-2023 Albumin [Mass/Vol] 3.7 g/dL 3.2-5.0 [facility] Serum or plasma albumin/glob ulin mass ratioon 02-23-2023 Albumin/Globulin [Mass ratio] 1.1 {ratio} 0.9-2.4 [facility] Serum or plasma calcium tracy urement (mass/volume)on 02-23-2023 Calcium [Mass/Vol] 9.9 mg/dL 8.5-10.1 [facility] Serum or plasma creatinine m easurement (mass/volume)on 02-23-2023 Creatinine [Mass/Vol] 1.18 mg/dL 0.55-1.02 [facility] Comment on above: The validity of the calculated GFR & GFRAA in patients over 70 years has not been determined. Clinical correlation is essential. Serum or plasma urea nitroge n measurement (mass/volume)on 02-23-2023 Urea nitrogen [Mass/Vol] 11 mg/dL 7 [facility] Thin prep Papanicolaou smear with manual screeningon 02-23-2023 Thin prep Papanicolaou smear with manual screening 8 U/L [facility] Thin prep Papanicolaou smear with manual screening 6 01-11 [facility] Whole blood hemoglobin A1c/t otal hemoglobin ratio (mass fraction)on 02-23-2023 HbA1c (Bld) [Mass fraction] 4.7 % 3.8-5.6 [facility] Comment on above: Normal < 5.7 % Predi abetic 5.7 - 6.4 % Diabetic >or= 6.5 % Please note range changes. No Panel Informationon 10-02 [facility] [employer] ([place] T3, 10-02-2022 Free T3 [Mass/Vol] 3.2 pg/mL 2.3 - 4.2 pg/mL [facility] [employer] [place] T4, freeon 10-02-2022 Free T4 [Mass/Vol] 1.2 ng/dL 0.8 - 1.8 ng/dL [facility] [employer] [place] TSHon 10-02-2022 TSH Qn 2.58 m[IU]/L mIU/L [facility] Comment on above: Reference Range > or = 20 Years 0.40-4.50 Ranges First trimester 0.26-2.66 Second trimester 0.55-2.73 Third trimester 0.43-2.91 Test Authorization ([employer])on 10-02-2022 Client Contact: VASILIY Da Silva [facility] Comment [facility] Comment on above: Please have the [facility] physician or his or her authorized traveling representative sign a copy of this report and promptly return it by faxing it to: [phone] or by returning the form to your clay plant treater. Reference Lab Test ID [id number] [facility] Reference Lab Test Name T3, FREE T4, FREE [facility] [employer] ([place] Report Always Message Signature [facility] Comment on above: The laboratory testing on this patient was verbally requested or confirmed by the ordering physician or his or her authorized traveling representative after contact with an employee of [id number]. Federal regulations require that we maintain on file written authorization for all laboratory testing. Accordingly we are asking that the ordering physician or his or her authorized traveling representative sign a copy of this report and promptly return it to the client services coordinator. Signature: [place] levelon 09-30-2022 [place] [Moles/Vol] 0.9 mmol/L 0.6 - 1. 2 mmol/L [facility] MG Breast Tomosynthesis Scr Blon 06-08-2022 MG Breast Tomosynthesis Scr Bl Patient Name: MIKI ADRIAN Mammography ACCESSION EXAM DATE/TIME PROCEDURE ORDERING PROVIDER [id number] 06/08/2022 14:50 EDT MG Breast Tomosynthesis DO WHITE PAUL E. BI Scr CPT code 29891 65753 Reason For Exam (MG Breast Tomosynthesis BI Scr) screening Report REASON FOR EXAM: screening, asymptomatic. PROCEDURE: MG BREAST TOMOSYNTHESIS BL SCR: JUNE 08, 2022 - 2D/3D Procedure 3D Bilateral CC and MLO view(s) were taken. 2D Bilateral CC and MLO view(s) were taken. Prior study comparison: February 05, 2017, bilateral mammogram. June 19, 2014, bilateral mammogram. TISSUE DENSITY: BIRADS B - There are scattered fibroglandular densities. . PATIENT CANCER HISTORY: No Personal History of Cancer FAMILY CANCER HISTORY: Maternal Grandmother Lung Cancer age 72 FINDINGS: No suspicious masses, architectural distortions or suspiciously clustered microcalcifications are identified. There is no evidence of skin thickening or nipple retraction. There are no significant changes when compared with prior studies. No mammographic evidence of malignancy. Markings on images: BB's = Nipples; skin lesions Open havasupai = Palpable Line = Scar 2D digital mammography and tomosynthesis imaging were performed and reviewed with CAD. ASSESSMENT: Category 1 Negative RECOMMENDATION: Routine screening mammogram of both breasts in 1 year. . Report Dictated on Cancer Risk Assessment: Mammography Report This risk assessment is based on patient provided information collected in a risk survey taken at the time of this examination. Lifetime breast cancer risk: Average Risk - If greater than or equal to 20%, consider annual mammogram and annual screening Breast MRI or follow up in high risk clinic. A score of Average Risk indicates a score of less than 20%. Is the patient at elevated risk based on the HBOC criteria? No (Hereditary Breast and Ovarian Cancer) - If yes, consider genetic counseling and testing with high risk follow up. Is the patient at elevated risk based on the Portillo Syndrome criteria? No - If yes, consider genetic counseling and testing with high risk follow up. Final Signed Date and Time: 06/08/2022 4:14 pm Signed by: MD MCADAMS LAUREN B [facility] US Thyroid/Parathyroidon US Thyroid/Parathyroid [facility]: [id number]ound ACCESSION EXAM DATE/TIME PROCEDURE ORDERING PROVIDER [id number] 06/08/2022 15:15 EDT US Parathyroid DO WHITE PAUL E. CPT code 87346 Reason For Exam (US Parathyroid) . Report ULTRASOUND THYROID: CLINICAL INDICATION: Thyroid nodule TECHNIQUE: Ultrasonographic evaluation of the thyroid COMPARISON: None FINDINGS: RIGHT LOBE: 1.8 x 2.3 x 4.6 cm. Heterogeneous echotexture. No suspicious nodule. LEFT LOBE: 2.1 x 2.2 x 5.1 cm. Heterogeneous echotexture. No suspicious nodule. Isthmus: 5 mm in AP diameter. Cervical lymph nodes: None identified. IMPRESSION: 1. Thyromegaly. Heterogeneous thyroid, which may be seen in thyroiditis. 2. No thyroid nodule. Report Dictated on Final Dictating Physician: MD YA NICHOLAS Signed Date and Time: 06/09/2022 10:07 am Signed by: MD YA NICHOLAS Transcribed Date and Time: 06/09/2022 10:08 Normal [facility] XR CHEST (2 VW)on 09-05-2020 Patient Name: MIKI REED Diagnostic Radiology ACCESSION EXAM DATE/TIME PROCEDURE ORDERING PROVIDER [id number] 09/05/2020 12:10 EST CR Chest PA & LAT DO WHITE PAUL E. CPT code 69429 Reason For Exam (CR Chest PA & LAT) sob Report CHEST X-RAY PA/LATERAL CLINICAL INDICATION: Dyspnea and productive cough. Frontal and lateral plain films of the chest were obtained. COMPARISON: None FINDINGS: There is mild pulmonary hyperinflation. The cardiac silhouette is within normal limits. No focal consolidation is seen within the lungs. No pleural effusion or pneumothorax is identified. The visualized bony structures of the chest are unremarkable . IMPRESSION: No acute cardiopulmonary disease. Report Dictated on --- Final --- Dictating Physician: SILAS MODI DO, I Signed Date and Time: 09/05/2020 1:08 pm Signed by: SILAS MODI DO, I Transcribed Date and Time: 09/05/2020 1:09 [facility] Incoming [facility] - 09/05/2020 1:09 PM EST Patient Name: MIKI ADRIAN Diagnostic Radiology ACCESSION EXAM DATE/TIME PROCEDURE ORDERING PROVIDER [id number] 09/05/2020 12:10 EST CR Chest PA & LAT DO WHITE PAUL E. CPT code 85537 Reason For Exam (CR Chest PA & LAT) sob Report CHEST X-RAY PA/LATERAL CLINICAL INDICATION: Dyspnea and productive cough. Frontal and lateral plain films of the chest were obtained. COMPARISON: None FINDINGS: There is mild pulmonary hyperinflation. The cardiac silhouette is within normal limits. No focal consolidation is seen within the lungs. No pleural effusion or pneumothorax is identified. The visualized bony structures of the chest are unremarkable . IMPRESSION: No acute cardiopulmonary disease. Report Dictated on --- Final --- Dictating Physician: SILAS MODI DO, I Signed Date and Time: 09/05/2020 1:08 pm Signed by: SILAS MODI DO, I Transcribed Date and Time: 09/05/2020 1:09 [place] MRA Head w/o Contraston 10-0 MRA Head w/o Contrast Patient Name: MIKI CASON MRI Exam Date/Time 06/04/2020 11:15:14 EDT Exam MRA Head w/o Contrast Ordering Physician DO WHITE PAUL E. Accession Number [id number] CPT4 Codes 19625 () Reason For Exam nonintractable headache Addendum A previous study from outside hospital is made available for review. Study date is 09/11/2014 of an MRA of the head. There is similar 4 mm of flow related enhancement at the aneurysm clip/coil mass at the right carotid terminus versus arising from the right posterior commuting artery. This seems similar to the previous study of 09/11/2014. Recommendation for evaluation and management by neuro-interventional services is still recommended. CRITICAL TEST RESULT COMMUNICATION: I discussed these findings with DR. WALTER WHITE at the time of this addendum. Report Dictated on Final Addendum Dictated: 06/06/2020 4:23 pm Addendum Dictating Physician: MD ALFARO NEIL Signed Date and Time: 06/06/2020 4:25 pm Signed by: MD ALFARO NEIL Transcribed Date and Time: 06/06/2020 4:23 Report EXAM TYPE: MRA Head w/o Contrast EXAM DATE AND TIME: 06/04/2020 11:15 AM EDT INDICATION: Noninterpretable headache, history of cerebral aneurysm repair COMPARISON: NONE TECHNIQUE: 3-D [id number] MRA of the havasupai of [place] was obtained without contrast. FINDINGS: At the posterior circulation, the bilateral V4 segments of the vertebral arteries are patent. The basilar artery is patent. Bilateral farmer vegetable are patent. At the anterior circulation, there is susceptibility related to aneurysm clips within the supraclinoid region bilaterally. This does limit evaluation, particularly of the terminal carotid arteries as well as the proximal anterior and middle cerebral arteries. Approximately 4 mm of flow related enhancement of at the aneurysm clip/coil mass at the right carotid terminus versus arising from the right posterior communicating artery origin (series 502, image 191; see perez image in PAC). The bilateral carotid siphons are patent. The middle cerebral arteries M1 segments are obscured by artifact. The bilateral MCA bifurcations appear patent. The A2 segments of the anterior cerebral arteries are patent bilaterally. No other visualized large aneurysm within the anterior circulation. Surgical changes of right pterional craniotomy. There is expected dilatation of the right temporal horn, likely related to previous surgery. IMPRESSION: 1. Approximately 4 mm of flow related enhancement of at the aneurysm clip/coil mass at the right carotid terminus versus arising from the right posterior communicating artery origin. Comparison to any previous imaging is recommended, as this may represent residual versus recurrent aneurysm. Consider consultation with neurointerventional services to determine if cerebral angiography is to be considered. 2. Susceptibility artifact from aneurysm clips cause artifact in the anterior circulation, particularly in the region of the terminal carotid arteries bilaterally. A notification was communicated to WALTER WHITE via the [employer] Critical Result system on 06/04/2020 2:40 PM EDT, Message ID [id number]. Report Dictated on Workstation: [id number] Final Dictated: 06/04/2020 2:24 pm Dictating Physician: MD ALFARO NEIL Signed Date and Time: 06/04/2020 2:41 pm Signed by: MD ALFARO NEIL Transcribed Date and Time: 06/04/2020 2:24 Normal [facility] MRA HEAD WO CONTRASTon 06-04 Patient Name: MIKI REED ---MRI--- Exam Date/Time 06/04/2020 11:15:14 EDT Exam MRA Head w/o Contrast Ordering Physician DO WHITE PAUL E. Accession Number [id number] CPT4 Codes 39674 () Reason For Exam nonintractable headache Report EXAM TYPE: MRA Head w/o Contrast EXAM DATE AND TIME: 06/04/2020 11:15 AM EDT INDICATION: Noninterpretable headache, history of cerebral aneurysm repair COMPARISON: NONE TECHNIQUE: 3-D [id number] MRA of the havasupai of [place] was obtained without contrast. FINDINGS: At the posterior circulation, the bilateral V4 segments of the vertebral arteries are patent. The basilar artery is patent. Bilateral farmer vegetable are patent. At the anterior circulation, there is susceptibility related to aneurysm clips within the supraclinoid region bilaterally. This does limit evaluation, particularly of the terminal carotid arteries as well as the proximal anterior and middle cerebral arteries. Approximately 4 mm of flow related enhancement of at the aneurysm clip/coil mass at the right carotid terminus versus arising from the right posterior communicating artery origin (series 502, image 191; see perez image in PAC). The bilateral carotid siphons are patent. The middle cerebral arteries M1 segments are obscured by artifact. The bilateral MCA bifurcations appear patent. The A2 segments of the anterior cerebral arteries are patent bilaterally. No other visualized large aneurysm within the anterior circulation. Surgical changes of right pterional craniotomy. There is expected dilatation of the right temporal horn, likely related to previous surgery. IMPRESSION: 1. Approximately 4 mm of flow related enhancement of at the aneurysm clip/coil mass at the right carotid terminus versus arising from the right posterior communicating artery origin. Comparison to any previous imaging is recommended, as this may represent residual versus recurrent aneurysm. Consider consultation with neurointerventional services to determine if cerebral angiography is to be considered. 2. Susceptibility artifact from aneurysm clips cause artifact in the anterior circulation, particularly in the region of the terminal carotid arteries bilaterally. A notification was communicated to WALTER WHITE via the [employer] Critical Result system on 06/04/2020 2:40 PM EDT, Message ID [id number]. Report Dictated on Workstation: [id number] --- Final --- Dictated: 06/04/2020 2:24 pm Dictating Physician: MD ALFARO NEIL Signed Date and Time: 06/04/2020 2:41 pm Signed by: MD ALFARO NEIL Transcribed Date and Time: 06/04/2020 2:24 [facility]- [place], [place], [place] [facility] - 06/04/2020 2:42 PM EDT Patient Name: MIKI ADRIAN ---MRI--- Exam Date/Time 06/04/2020 11:15:14 EDT Exam MRA Head w/o Contrast Ordering Physician DO WHITE PAUL E. Accession Number [id number] CPT4 Codes 39657 () Reason For Exam nonintractable headache Report EXAM TYPE: MRA Head w/o Contrast EXAM DATE AND TIME: 06/04/2020 11:15 AM EDT INDICATION: Noninterpretable headache, history of cerebral aneurysm repair COMPARISON: NONE TECHNIQUE: 3-D [id number] MRA of the havasupai of Flynn was obtained without contrast. FINDINGS: At the posterior circulation, the bilateral V4 segments of the vertebral arteries are patent. The basilar artery is patent. Bilateral farmer vegetable are patent. At the anterior circulation, there is susceptibility related to aneurysm clips within the supraclinoid region bilaterally. This does limit evaluation, particularly of the terminal carotid arteries as well as the proximal anterior and middle cerebral arteries. Approximately 4 mm of flow related enhancement of at the aneurysm clip/coil mass at the right carotid terminus versus arising from the right posterior communicating artery origin (series 502, image 191; see perez image in PAC). The bilateral carotid siphons are patent. The middle cerebral arteries M1 segments are obscured by artifact. The bilateral MCA bifurcations appear patent. The A2 segments of the anterior cerebral arteries are patent bilaterally. No other visualized large aneurysm within the anterior circulation. Surgical changes of right pterional craniotomy. There is expected dilatation of the right temporal horn, likely related to previous surgery. IMPRESSION: 1. Approximately 4 mm of flow related enhancement of at the aneurysm clip/coil mass at the right carotid terminus versus arising from the right posterior communicating artery origin. Comparison to any previous imaging is recommended, as this may represent residual versus recurrent aneurysm. Consider consultation with neurointerventional services to determine if cerebral angiography is to be considered. 2. Susceptibility artifact from aneurysm clips cause artifact in the anterior circulation, particularly in the region of the terminal carotid arteries bilaterally. A notification was communicated to WALTER WHITE via the [employer] Critical Result system on 06/04/2020 2:40 PM EDT, Message ID [id number]. Report Dictated on Workstation: [id number] --- Final --- Dictated: 06/04/2020 2:24 pm Dictating Physician: MD ALFARO NEIL Signed Date and Time: 06/04/2020 2:41 pm Signed by: MD ANGELINA, BRITTNEY Transcribed Date and Time: 06/04/2020 2:[address] [facility], [place] Vital Signs Date Time Vital Sign Value Performing Clinician Faci lity 01-09-2025 09:35-0400 Body height 165.1 cm Ezekiel Galo MD Work Phone: [facility] [employer] [place] 01-09-2025 09:35-0400 Body mass index (BMI) [Ratio] 23.23 kg/m2 Ezekiel Galo MD Work Phone: [facility] [employer] [place] 01-09-2025 09:35-0400 Body temperature 97.9 [degF] Ezekiel Galo MD Work Phone: [facility] [employer] [place] 01-09-2025 09:35-0400 Body weight 63.32 kg Ezekiel Galo MD Work Phone: [facility] [employer] [place] 01-09-2025 09:35-0400 Diastolic blood pressure 71 mm[Hg] Ezekiel Galo MD Work Phone: [facility] [employer] [place] 01-09-2025 09:35-0400 Heart rate 63 /min Ezekiel Galo MD Work Phone: [facility] [employer] [place] 01-09-2025 09:35-0400 Systolic blood pressure 120 mm[Hg] Ezekiel Galo MD Work Phone: [facility] [employer] [place] 12-27-2024 13:45-0400 Diastolic blood pressure 70 mm[Hg] Juan Palacio DO Work Phone: [employer] [place] 12-27-2024 13:45-0400 Heart rate 60 /min Juan Antona DO Work Phone: [employer] [place] 12-27-2024 13:45-0400 Systolic blood pressure 112 mm[Hg] Juan Antona DO Work Phone: [employer] [place] 12-27-2024 13:13-0400 Body height 165.1 cm Juan Palaico DO Work Phone: [employer] [place] 12-27-2024 13:13-0400 Body mass index (BMI) [Ratio] 22.8 kg/m2 Juan Palacio DO Work Phone: [facility] [employer] [place] 12-27-2024 13:13-0400 Body temperature 97.3 [degF] Juan Palacio DO Work Phone: [facility] [employer] [place] 12-27-2024 13:13-0400 Body weight 62.14 kg Juan Paalcio DO Work Phone: [facility] [employer] [place] 12-27-2024 13:13-0400 SaO2% (BldA) [Mass fraction] 96 % Juan Palacio DO Work Phone: [facility] [employer] [place] 12-26-2024 10:03-0400 Body height 165.1 cm Ezekiel Galo MD Work Phone: [facility] [employer] [place] 12-26-2024 10:03-0400 Body mass index (BMI) [Ratio] 23.3 kg/m2 Ezekiel Galo MD Work Phone: [facility] [employer] [place] 12-26-2024 10:03-0400 Body temperature 98.1 [degF] Ezekiel Galo MD Work Phone: [facility] [employer] [place] 12-26-2024 10:03-0400 Body weight 63.5 kg Ezekiel Galo MD Work Phone: [facility] [employer] [place] 12-26-2024 10:03-0400 Diastolic blood pressure 63 mm[Hg] Ezekiel Galo MD Work Phone: [facility] [employer] [place] 12-26-2024 10:03-0400 Heart rate 66 /min Ezekiel Galo MD Work Phone: [facility] [employer] [place] 12-26-2024 10:03-0400 Systolic blood pressure 110 mm[Hg] Ezekiel Galo MD Work Phone: [facility] [employer] [place] 12-21-2024 14:24-0400 Body height 165.1 cm Darling Castillo MD Work Phone: [facility] [employer] [place] 12-21-2024 14:24-0400 Body mass index (BMI) [Ratio] 22.3 kg/m2 Darling Castillo MD Work Phone: [facility] [employer] [place] 12-21-2024 14:24-0400 Body weight 60.78 kg Darling Castillo MD Work Phone: [facility] [employer] [place] 11-02-2024 14:39-0500 Body height 165.1 cm Darling Castillo MD Work Phone: [facility] [employer] [place] 11-02-2024 14:39-0500 Body mass index (BMI) [Ratio] 22.8 kg/m2 Darling Castillo MD Work Phone: [facility] [employer] [place] 11-02-2024 14:39-0500 Body weight 62.14 kg Darling Castillo MD Work Phone: [facility] [employer] [place] 05-31-2024 13:21-0400 Body height 165.1 cm Darling Castillo MD Work Phone: [facility] [employer] [place] 05-31-2024 13:21-0400 Body mass index (BMI) [Ratio] 24.96 kg/m2 Darling Castillo MD Work Phone: [facility] [employer] [place] 05-31-2024 13:21-0400 Body weight 68.04 kg Darling Castillo MD Work Phone: [facility] [employer] [place] 05-31-2024 13:21-0400 Diastolic blood pressure 70 mm[Hg] Darling Castillo MD Work Phone: [facility] [employer] [place] 05-31-2024 13:21-0400 Systolic blood pressure 110 mm[Hg] Darling Castillo MD Work Phone: [facility] [employer] [place] 05-04-2024 13:39-0400 Body height 165.1 cm Juan Palacio DO Work Phone: [facility] [employer] [place] 05-04-2024 13:39-0400 Body mass index (BMI) [Ratio] 26.23 kg/m2 Juan Palacio DO Work Phone: [facility] [employer] [place] 05-04-2024 13:39-0400 Body temperature 97 [degF] Juan Palacio DO Work Phone: [facility] [employer] [place] 05-04-2024 13:39-0400 Body weight 71.49 kg Juan Palacio DO Work Phone: [facility] [employer] [place] 05-04-2024 13:39-0400 Diastolic blood pressure 71 mm[Hg] Juan Palacio DO Work Phone: [facility] [employer] [place] 05-04-2024 13:39-0400 Heart rate 66 /min Juan Palacio DO Work Phone: [facility] [employer] [place] 05-04-2024 13:39-0400 SaO2% (BldA) [Mass fraction] 97 % Juan Palacio DO Work Phone: [facility] [employer] [place] 05-04-2024 13:39-0400 Systolic blood pressure 104 mm[Hg] Juan Palacio DO Work Phone: [facility] [employer] [place] 09-22-2023 10:50-0500 Body height 165.1 cm Darling Castillo MD Work Phone: [employer] 09-22-2023 10:50-0500 Body mass index (BMI) [Ratio] 29.29 kg/m2 Darling Castillo MD Work Phone: [employer] [place] 09-22-2023 10:50-0500 Body weight 79.83 kg Darling Castillo MD Work Phone: [employer] [place] 09-22-2023 10:50-0500 Diastolic blood pressure 58 mm[Hg] Darling Castillo MD Work Phone: [employer] 09-22-2023 10:50-0500 Systolic blood pressure 100 mm[Hg] Darling Castillo MD Work Phone: [facility] [employer] [place] 09-14-2023 14:54-0500 Diastolic blood pressure 69 mm[Hg] Dia Kenney MD Work Phone: [facility] 09-14-2023 14:54-0500 Heart rate 64 /min Dia Kenney MD Work Phone: [facility] 09-14-2023 14:54-0500 Respiratory rate 16 /min Dia Kenney MD Work Phone: [facility] 09-14-2023 14:54-0500 SaO2% (BldA) [Mass fraction] 99 % Dia Kenney MD Work Phone: [facility] 09-14-2023 14:54-0500 Systolic blood pressure 114 mm[Hg] Dia Kenney MD Work Phone: [facility] 09-14-2023 14:38-0500 Body temperature 97 [degF] Dia Kenney MD Work Phone: [facility] 09-14-2023 13:20-0500 Body height 162.6 cm Dia Kenney MD Work Phone: [facility] 09-14-2023 13:20-0500 Body mass index (BMI) [Ratio] 29.18 kg/m2 Dia Kenney MD Work Phone: [facility] 09-14-2023 13:20-0500 Body weight 77.11 kg Dia Kenney MD Work Phone: [facility] 08-18-2023 11:32-0500 Body height 165.1 cm Darling Castillo MD Work Phone: [facility] [employer] [place] 08-18-2023 11:32-0500 Body mass index (BMI) [Ratio] 29.29 kg/m2 Darling Castillo MD Work Phone: [facility] [employer] [place] 08-18-2023 11:32-0500 Body weight 79.83 kg Darling Castillo MD Work Phone: [facility] [employer] [place] 08-18-2023 11:32-0500 Diastolic blood pressure 77 mm[Hg] Darling Castillo MD Work Phone: [facility] [employer] [place] 08-18-2023 11:32-0500 Heart rate 58 /min Darling Castillo MD Work Phone: [facility] [employer] [place] 08-18-2023 11:32-0500 Systolic blood pressure 117 mm[Hg] Darling Castillo MD Work Phone: [facility] [employer] [place] 07-13-2023 13:13-0500 Body height 165.1 cm Juan Palacio DO Work Phone: [facility] [employer] [place] 07-13-2023 13:13-0500 Body mass index (BMI) [Ratio] 28.96 kg/m2 Juan Palacio DO Work Phone: [facility] [employer] [place] 07-13-2023 13:13-0500 Body temperature 98.1 [degF] Juan Palacio DO Work Phone: [facility] [employer] [place] 07-13-2023 13:13-0500 Body weight 78.93 kg Juan Palacio DO Work Phone: [facility] [employer] [place] 07-13-2023 13:13-0500 Diastolic blood pressure 68 mm[Hg] Juan Palacio DO Work Phone: [facility] [employer] [place] 07-13-2023 13:13-0500 Heart rate 71 /min Juan Palacio DO Work Phone: [facility] [employer] [place] 07-13-2023 13:13-0500 SaO2% (BldA) [Mass fraction] 97 % Juan Palacio DO Work Phone: [facility] [employer] [place] 07-13-2023 13:13-0500 Systolic blood pressure 110 mm[Hg] Juan Palacio DO Work Phone: [facility] [employer] [place] 09-29-2022 13:03-0500 Diastolic blood pressure 74 mm[Hg] Walter White DO Work Phone: [employer] [place] 09-29-2022 13:03-0500 Systolic blood pressure 108 mm[Hg] Walter hWite DO Work Phone: [employer] [place] 09-29-2022 12:19-0500 Body height 165.1 cm Walter White DO Work Phone: [employer] 09-29-2022 12:19-0500 Body mass index (BMI) [Ratio] 30.69 kg/m2 Walter White DO Work Phone: [employer] 09-29-2022 12:19-0500 Body temperature 97.7 [degF] Walter White DO Work Phone: [employer] 09-29-2022 12:19-0500 Body weight 83.64 kg Walter White DO Work Phone: [employer] 09-29-2022 12:19-0500 Heart rate 72 /min Walter White DO Work Phone: [employer] 09-29-2022 12:19-0500 SaO2% (BldA) [Mass fraction] 98 % Walter AustinTelderinaldo [employer] Work Phone: [employer] Encounters Encounter Date Encounter Type Care Provider Facility Start: 02-28-2025 End: 02-28-2025 Subsequent hospital visit by physician Juan Palacio DO Work Phone: [facility] MRI Comment on above: History of ruptured cerebral aneurysm; Cerebral arterial aneurysm Start: 02-28-2025 End: 02-28-2025 [facility] Start: 01-09-2025 End: 03-11-2025 [facility] [place] Comment on above: CBC auto differentia l, Comprehensive metabolic panel, TSH, Additional followed-up results: 2 Start: 01-09-2025 End: 01-09-2025 Office outpatient visit 15 minutes Ezekiel Galo MD Work Phone: [facility] [employer] [place] General Surgery - [place] Comment on above: Abnormal mammogram ( Primary Dx) Start: 01-09-2025 End: 01-09-2025 ambulatory JUAN [employer] [facility] Start: 01-03-2025 End: 01-03-2025 Telephone encounter Mignon Harvey LPN [facility] Start: 01-02-2025 End: 01-02-2025 Subsequent hospital visit by physician Jay Exam Room 1 [facility] Comment on above: Calcification of lef t breast Abnormal mammogram Start: 01-02-2025 End: 01-02-2025 ambulatory [facility] Start: 01-01-2025 End: 01-01-2025 Telephone encounter Mignon Harvey RADHA [facility] Start: 12-28-2024 End: 12-28-2024 Telephone encounter Juan Palacio DO Work Phone: [facility] [place] Comment on above: Orders (MRA-Brain / MRI-Brain) Start: 12-27-2024 End: 12-27-2024 Office outpatient visit 25 minutes Juan Palacio DO Work Phone: [facility] Comment on above: Primary hypertension (Primary Dx); Pulmonary emphysema, unspecified emphysema type (HCC); Bipolar affective disorder, remission status unspecified (HCC); Weight loss; History of ruptured cerebral aneurysm Start: 12-27-2024 End: 12-27-2024 ambulatory [facility] Start: 12-26-2024 End: 12-26-2024 Office outpatient new 30 minutes Ezekiel Galo MD Work Phone: [facility] General Surgery - [place] Comment on above: Abnormal mammogram ( Primary Dx) Start: 12-26-2024 End: 12-26-2024 ambulatory [facility] Start: 12-21-2024 End: 12-21-2024 Subsequent hospital visit by physician Darling Castillo MD Work Phone: [facility] Comment on above: Abnormal mammogram Start: 12-21-2024 End: 12-21-2024 ambulatory [facility] Start: 11-23-2024 End: 11-23-2024 Subsequent hospital visit by physician Juan Palacio DO Work Phone: [facility] CT Comment on above: Smoker; Moderate smoker (20 or less per day) Start: 11-23-2024 End: 11-23-2024 ambulatory [facility] Start: 11-09-2024 End: 11-09-2024 Refill Juan Palacio DO Work Phone: [facility] Start: 11-03-2024 End: 11-03-2024 Orders Only Darling Castillo MD Work Phone: [facility] PRE PROCEDURE Comment on above: Abnormal mammogram ( Primary Dx) Start: 11-02-2024 End: 11-02-2024 Subsequent hospital visit by physician Darling Castillo MD Work Phone: [facility] Comment on above: Screening mammogram for breast cancer Start: 11-02-2024 End: 11-02-2024 ambulatory JUAN [facility] Start: 10-30-2024 End: 10-30-2024 Refill Juan Palacio DO Work Phone: [facility] Start: 10-05-2024 End: 10-05-2024 ambulatory Gregory Syed Facility:[facility] Start: 09-30-2024 End: 09-30-2024 ambulatory [facility] Start: 09-30-2024 End: 09-30-2024 Patient encounter procedure Yokasta Da Silva Clinical Communication Start: 09-26-2024 End: 09-26-2024 Telephone encounter Juan Palacio DO Work Phone: [facility] Comment on above: Other (Annual Lung S creening Reminder) Start: 07-04-2024 End: 07-04-2024 Refill Juan Palacio DO Work Phone: [facility] Start: 05-31-2024 End: 05-31-2024 Patient encounter status Darling Castillo MD Work Phone: [facility] Work Phone: Start: 05-31-2024 End: 05-31-2024 Periodic preventive med est patient 40-64yrs Darling Castillo MD Work Phone: [facility] Obstetrics and Gynecology - [place] Comment on above: Encounter for gyneco logical examination without abnormal finding (Primary Dx); Screening mammogram for breast cancer Start: 05-31-2024 End: 05-31-2024 ambulatory JUAN [facility] Start: 05-31-2024 End: 05-31-2024 Encounter for gynecological examination (general) (routine) without abnormal findings DARLING JONATHAN [facility] Start: 05-04-2024 End: 05-04-2024 Office outpatient visit 25 minutes Juan Palacio DO Work Phone: [facility] Medicine Comment on above: Essential hypertensi on (Primary Dx); Pulmonary emphysema, unspecified emphysema type (HCC); Boil of inguinal region; Closed follicle comedo; Bipolar affective disorder, remission status unspecified (HCC); Engages in vaping; H/O solitary pulmonary nodule Start: 05-04-2024 End: 05-04-2024 ambulatory JUAN [facility] Start: 04-27-2024 End: 05-05-2024 ambulatory Ksenia Rooney RN [facility] Clinical Communication Start: 04-27-2024 End: 05-05-2024 Patient encounter procedure Ksenia Rooney RN [facility] Clinical Communication Start: 03-22-2024 End: 03-22-2024 ambulatory [facility] Start: 03-22-2024 End: 03-22-2024 Patient encounter procedure Ksenia Rooney RN [facility] Clinical Communication Start: 03-09-2024 End: 03-09-2024 Refill Juan Palacio DO Work Phone: [facility] Start: 02-11-2024 ambulatory [facility] Start: 02-11-2024 Patient encounter procedure [facility] Start: 01-06-2024 Refill Juan mike DO Work Phone: [facility] Start: 10-01-2023 Telephone encounter Dia Kenney MD Work Phone: [facility] [place] Comment on above: Results Start: 09-22-2023 End: 09-22-2023 Office outpatient visit 15 minutes Darling Castillo MD Work Phone: [facility] Comment on above: Vaginal discharge (P rimary Dx); PMB (postmenopausal bleeding) Start: 09-14-2023 End: 09-14-2023 ambulatory WALTER Coco CHAVEZLIZZETHJULIO Facility:[facility] Start: 09-14-2023 End: 09-14-2023 Subsequent hospital visit by physician Dia Kenney MD Work Phone: Ambulatory Surgery Comment on above: Special screening fo r malignant neoplasms, colon [Z12.11] Start: 08-20-2023 End: 08-20-2023 Subsequent hospital visit by physician Juan Palacio DO Work Phone: [facility] Comment on above: Moderate smoker (20 or less per day) Start: 08-18-2023 End: 08-18-2023 Office outpatient new 30 minutes Darling Castillo MD Work Phone: [facility] Comment on above: Post-menopause bleed ing (Primary Dx); Urinary incontinence, unspecified type; Cyst of ovary, unspecified laterality Start: 08-16-2023 Telephone encounter [facility]is [facility] Comment on above: Screening order/chec klist Start: 08-12-2023 Telephone encounter Juan myrick DO Work Phone: [facility] Comment on above: Referral ([employer]) Start: 07-28-2023 Telephone encounter Miki VIEIRA [facility] Clinical Communication Comment on above: Appointment Start: 07-27-2023 End: 07-27-2023 Subsequent hospital visit by physician Juan Palacio DO Work Phone: [facility] Comment on above: Post-menopause bleed ing Start: 07-21-2023 Orders Only Juan mike DO Work Phone: [facility] Comment on above: Post-menopause bleed ing (Primary Dx) Ultra Sound/Follow u p Start: 07-13-2023 Telephone encounter Juan Falcon Emile myrick DO Work Phone: [facility] Comment on above: Orders (LDCT / US-Pe lvis) Start: 07-13-2023 End: 07-13-2023 Office outpatient visit 25 minutes Juan Ezekiel Palacio DO Work Phone: [facility] Medicine Comment on above: Essential hypertensi on (Primary Dx); Bipolar affective disorder, remission status unspecified (HCC); History of drug abuse (CMS/HCC) (HCC); Post-menopause bleeding; Colon cancer screening; Smoker; Screening for lung cancer Start: 06-18-2023 Refill Juan Falcon Simon mike DO Work Phone: [facility] Start: 05-28-2023 Refill Juan Falcon Simon mike DO Work Phone: [facility] Medicine Start: 02-23-2023 End: 02-23-2023 ambulatory [facility] Work Phone: Start: 02-23-2023 End: 02-23-2023 Patient encounter procedure [facility] Work Phone: Start: 12-11-2022 Refill Juan Falcon Simon mike DO Work Phone: [facility] Medicine Start: 09-29-2022 Refill Walter hitchcock DO Work Phone: [facility] Start: 09-29-2022 End: 09-29-2022 Office outpatient visit 15 minutes Walter White DO Work Phone: [facility] Comment on above: Bronchitis (Primary Dx); Thyromegaly; Bipolar affective disorder, remission status unspecified (HCC); Smoker; Essential hypertension Start: 09-11-2022 Telephone encounter Walter estevez DO Work Phone: [facility] Comment on above: Call pt Start: 06-08-2022 ambulatory UNKNOWN PROVIDER [facility] Start: 09-05-2020 End: 09-05-2020 Subsequent hospital visit by physician Walter White Work Phone: [facility] [place] Rad[facility] Comment on above: SOB (shortness of br eath) Start: 06-04-2020 End: 06-04-2020 Subsequent hospital visit by physician Walter White Work Phone: [facility] Comment on above: Arrived Procedures Date Procedure Procedure Detail Performing Clinician Start: 01-02-2025 Implantable tissue marker Ezekiel Galo MD Work Phone: Start: 01-02-2025 Radiological examina tion surgical specimen Ezekiel Galo MD Work Phone: Start: 12-27-2024 Thyrotropin [Units/v olume] in Serum or Plasma Juan Palacio DO Work Phone: Start: 12-21-2024 End: 12-21-2024 Diagnostic mammography computer-aided detcj uni Darling Castillo MD Work Phone: Start: 11-23-2024 CT Chest for screeni ng WO contrast Juan Ezekiel Pia MADRID Work Phone: Start: 11-03-2024 End: 11-03-2024 Screening digital breast tomosynthesis bi Darling Castillo MD Work Phone: Start: 05-31-2024 Microscopic observat ion [Identifier] in Cervix by Cyto stain Juan Palacio DO Work Phone: Start: 09-14-2023 Level iv surg pathol ogy gross&microscopic exam Dia Kenney MD Work Phone: Start: 09-14-2023 Colonoscopy flx dx w /collj spec when pfrmd Analia La MD Work Phone: Start: 09-14-2023 Colonoscopy Dia mcallister MD Work Phone: Start: 08-20-2023 CT Chest for screeni ng WO contrast Juan Falcon Sloanerobert DO Work Phone: Start: 09-29-2022 Drug screen quantita tive lithium Walter White DO Work Phone: Start: 09-29-2022 Assay of free thyroxine Walter White DO Work Phone: Start: 09-29-2022 TEST AUTHORIZATION ([employer]) Walter White DO Work Phone: Start: 09-29-2022 End: 09-29-2022 Thyrotropin [Units/volume] in Serum or Plasma Walter White DO Work Phone: Start: 07-27-2022 Microscopic observat ion [Identifier] in Cervix by Cyto stain Juan Pia DO Work Phone: Start: 06-08-2022 Mammography Juan Jennifer higginshumberto DO Work Phone: Start: 05-19-2022 Thyrotropin [Units/v olume] in Serum or Plasma Walter White DO Work Phone: Start: 09-05-2020 Radiologic exam ches t 2 views Walter White Work Phone: Start: 09-05-2020 Lipid 1996 panel - S iris or Plasma Juan Pia DO Work Phone: Start: 06-04-2020 Mra head w/o contrst material Walter White Work Phone: Plan of Treatment Date Care Activity Detail Author Start: 11-11-2046 RSV Immunization for Adults (1 - 1-dose 75+ series) RSV Immunization for Adults (1 - 1-dose 75+ series) [facility] [employer] [place] Start: 09-14-2033 Screening for malignant neoplasm of colon [facility] Start: 2031 RSV Immunization aged 60 or older (1 - 1-dose 60+ series) RSV Immunization aged 60 or older (1 - 1-dose 60+ series) [facility] [employer] [place] Start: 09-14-2028 Screening for malignant neoplasm of colon [facility] Start: 07-27-2027 Screening for malignant neoplasm of cervix [facility] Start: 05-31-2027 Screening for malignant neoplasm of cervix [facility] Start: 07-29-2026 Screening for malignant neoplasm of colon [facility] Start: 12-27-2025 Thyroid stimulating hormone measurement TSH Level [facility] Start: 12-21-2025 Screening for malignant neoplasm of breast Mammogram [facility] Start: 11-03-2025 Screening for malignant neoplasm of breast Mammogram [facility] Start: 09-05-2025 Lipid panel [facility] Start: 07-27-2025 Screening for malignant neoplasm of cervix [facility] Start: 07-12-2025 End: 03-11-2026 DBT Breast - left diagnostic Left diagnostic mammogram with tomosynthesis Imaging Routine Abnormal mammogram Expected: 07/12/2025, Expires: 03/11/2026 [facility] Work Phone: Comment on above: Expected: 07/12/2025, Expires: Start: 07-10-2025 End: 07-10-2025 Patient encounter procedure 07/10/2025 1:00 PM EST Appointment [facility] [address] [facility] [address] [place] [address] [facility] Start: 06-27-2025 End: 06-27-2025 Patient encounter procedure 06/27/2025 2:00 PM EDT Office Visit [facility] Care - [place] [address] [place] [address] Juan Palacio DO [address] [place] [place] [address] [facility] [place] Start: 06-06-2025 End: 06-06-2025 Patient encounter procedure 06/06/2025 1:45 PM EDT Office Visit [facility] Obstetrics and Gynecology - [place] [address] [place] [address] [place] [address] Darling Castillo MD [address] [place] [address] [facility] Obstetrics and Gynecology [facility] Start: 05-19-2025 Diabetes Screening Diabetes Screening [facility] Start: 04-30-2025 Influenza vaccination [facility] Start: 01-09-2025 End: 01-09-2025 Patient encounter procedure 01/09/2025 10:15 AM EDT Office Visit [facility] [address] [place] [phone] Ezekiel Galo MD [address] [place], [place] [id number] [facility] Start: 01-02-2025 End: 01-02-2025 Patient encounter procedure 01/02/2025 1:00 PM EDT Appointment [facility] [address] [place] [address] Ezekiel Galo MD [address] [place] [address] [facility] Start: 12-28-2024 End: 12-28-2025 MR Brain WO contrast MR brain wo contrast Imaging Routine History of ruptured cerebral aneurysm Cerebral arterial aneurysm Expected: 12/28/2024, Expires: 12/28/2025 [facility] Work Phone: Comment on above: Expected: 12/28/2024, Expires: Start: 12-28-2024 End: 12-28-2025 MRA Head vessels WO contrast MR head angio wo IV contrast Imaging Routine History of ruptured cerebral aneurysm Cerebral arterial aneurysm Expected: 12/28/2024, Expires: 12/28/2025 [facility] Comment on above: Expected: 12/28/2024, Expires: Start: 12-27-2024 End: 12-27-2025 CBC W Auto Differential panel - Blood CBC auto differential Lab Routine Weight loss Expected: 12/27/2024 (Approximate), Expires: 12/27/2025 [facility] Work Phone: Comment on above: Expected: 12/27/2024 (Approximate), Expi res: 12/27/2025 Start: 12-27-2024 End: 12-27-2025 Comprehensive metabolic 1998 panel - Serum or Plasma Comprehensive metabolic panel Lab Routine Weight loss Expected: 12/27/2024 (Approximate), Expires: 12/27/2025 [facility] Comment on above: Expected: 12/27/2024 (Approximate), Expi res: 12/27/2025 Start: 12-27-2024 End: 12-27-2025 Thyrotropin [Units/volume] in Serum or Plasma TSH Lab Routine Weight loss Expected: 12/27/2024 (Approximate), Expires: 12/27/2025 [facility] Comment on above: Expected: 12/27/2024 (Approximate), Expi res: 12/27/2025 Start: 12-27-2024 End: 12-27-2025 Thyroxine (T4) free [Mass/volume] in Serum or Plasma T4, free Lab Routine Weight loss Expected: 12/27/2024 (Approximate), Expires: 12/27/2025 [facility] Comment on above: Expected: 12/27/2024 (Approximate), Expi res: 12/27/2025 Start: 12-27-2024 End: 12-27-2025 Triiodothyronine (T3) Free [Mass/volume] in Serum or Plasma T3, free Lab Routine Weight loss Expected: 12/27/2024 (Approximate), Expires: 12/27/2025 [facility] Comment on above: Expected: 12/27/2024 (Approximate), Expi res: 12/27/2025 Start: 12-27-2024 End: 12-27-2024 Patient encounter procedure 12/27/2024 1:00 PM EDT Office Visit [facility] [place] [address] [place] [address] Juan Palacio DO [address] [place] [address] [facility] Start: 12-26-2024 End: 02-25-2026 MG stereo Guidance for percutaneous biopsy.core needle of Breast - left Left stereotactic guided biopsy left Imaging Routine Abnormal mammogram Expected: 12/26/2024, Expires: 02/25/2026 [facility] Work Phone: Comment on above: Expected: 12/26/2024, Expires: Start: 12-26-2024 End: 12-26-2024 Patient encounter procedure 12/26/2024 10:30 AM EDT Office Visit [facility] [address] [place] [address] Ezekiel Galo MD [address] [place], [place] [id number] [facility] Start: 12-21-2024 End: 12-21-2024 Patient encounter procedure 12/21/2024 2:30 PM EDT Appointment [facility] [address] [place] [phone] Darling Castillo MD [address] [place], [place] [id number] [facility] Start: 12-12-2024 End: 12-12-2024 Patient encounter procedure 12/12/2024 2:00 PM EDT Appointment [facility] [address] [place] [phone] Darling Castillo MD [address] [place], [place] [id number] [facility] Start: 12-11-2024 End: 12-11-2024 Patient encounter procedure 12/11/2024 4:30 PM EDT Office Visit [facility] [address] [place] [phone] Juan Palacio, [address] [place] [address] [facility] [place] Start: 11-23-2024 End: 11-23-2024 Patient encounter procedure 11/23/2024 2:30 PM EDT Office Visit [facility] Obstetrics [facility] Gynecology - [place] [address] [address] [place] [address] Mignon Conway, DO [address] [place] [address] [facility] Obstetrics [facility] Gynecology - [place] Start: 11-23-2024 Subsequent hospital visit by physician 11/23/2024 11:30 AM EDT Hospital Encounter [facility] [address] [place] [address] Juan Palacio DO [address] [place] [address] [facility] CT Start: 11-09-2024 End: 11-09-2024 Patient encounter procedure 11/09/2024 1:00 PM EDT Office Visit [facility] [place] [address] [place] [address] Juan Palacio, [address] [place] [address] [facility] [place] Start: 11-03-2024 End: 01-03-2026 DBT Breast - left diagnostic Left diagnostic mammogram with tomosynthesis Imaging Routine Abnormal mammogram Expected: 11/03/2024, Expires: 01/03/2026 [facility] Work Phone: Comment on above: Expected: 11/03/2024, Expires: Start: 11-03-2024 End: 01-03-2026 US Breast - left limited Left breast US limited Imaging Routine Abnormal mammogram Expected: 11/03/2024, Expires: 01/03/2026 [facility] Comment on above: Expected: 11/03/2024, Expires: Start: 11-02-2024 End: 11-02-2024 Patient encounter procedure 11/02/2024 2:40 PM EST Appointment [facility] [address] [place] [phone] Darling Castillo MD [address] [place] [address] [facility] Start: 11-01-2024 End: 11-01-2024 Patient encounter procedure [facility] Start: 10-20-2024 End: 10-20-2024 Patient encounter procedure 10/20/2024 10:30 AM EST Office Visit [facility] Obstetrics and Gynecology [facility] [address] [place] [phone] Julieta Maynard MD [address] [place] [address] [facility] Obstetrics and Gynecology [facility] Start: 09-27-2024 End: 09-27-2024 Patient encounter procedure [facility] Start: 09-26-2024 End: 09-26-2025 CT Chest for screening WO contrast CT lung screening low dose Imaging Routine Smoker Moderate smoker (20 or less per day) Expected: 09/26/2024, Expires: 09/26/2025 [facility] Work Phone: Comment on above: Expected: 09/26/2024, Expires: Start: 08-30-2024 Medicare Advantage Annual Wellness Visit Medicare Advantage Annual Wellness Visit [facility] Start: 05-31-2024 End: 07-30-2025 DBT Breast - bilateral screening Bilateral screening mammogram with tomosynthesis Imaging Routine Screening mammogram for breast cancer Expected: 05/31/2024, Expires: 07/30/2025 [facility] Work Phone: Comment on above: Expected: 05/31/2024, Expires: Start: 05-31-2024 End: 05-31-2024 Patient encounter procedure 05/31/2024 1:30 PM EDT Office Visit [facility] [address] [place] [address] Darling Castillo MD [address] [place] [address] [facility] Start: 05-04-2024 End: 05-04-2024 Patient encounter procedure 05/04/2024 2:00 PM EDT Office Visit [facility] [address] [place] [address] Juan Palacio, [address] [place] [address] [facility] Start: 04-30-2024 COVID-19 Vaccine ( season) COVID-19 Vaccine ( season) [facility] Start: 04-30-2024 COVID-19 Vaccine ( season) COVID-19 Vaccine ( season) [facility] Start: 04-30-2024 Influenza vaccination [facility] Start: 11-03-2023 End: 11-03-2023 Patient encounter procedure 11/03/2023 11:30 AM EST Office Visit [facility] [address] [place] [address] Darling Castillo MD [address] [place], [place] [id number] [facility] Start: 10-13-2023 End: 10-13-2023 Patient encounter procedure 10/13/2023 1:45 PM EST Office Visit [facility] Urogynecology [address] [place] [phone] Sarbjit Arredondo MD [address], [address] [place] [address] [facility] Start: 09-29-2023 Thyroid stimulating hormone measurement TSH Level [facility] Start: 09-22-2023 End: 09-22-2023 Patient encounter procedure 09/22/2023 11:00 AM EST Office Visit [facility] [address] [place] [address] Darling Castillo MD [address] [place] [address] [facility] Start: 09-22-2023 End: 09-22-2023 Professional / ancillary services management 09/22/2023 10:30 AM EST Ancillary Procedure [facility] [address] [place] [address] [facility] Start: 08-30-2023 Depression Assessment Depression Assessment [facility] Start: 08-30-2023 Medicare Advantage Annual Wellness Visit Medicare Advantage Annual Wellness Visit [facility] Start: 08-20-2023 End: 08-20-2023 Patient encounter procedure 08/20/2023 12:15 PM EST Appointment [facility] [address] [place] [phone] Juan Palacio, DO [address] [place] [address] [facility] CT Start: 08-20-2023 Subsequent hospital visit by physician 08/20/2023 12:15 PM EST Hospital Encounter [facility] CT [address] [place] [address] Juan Palacio, DO [address] [place] [address] [facility] CT Start: 08-18-2023 End: 08-18-2024 US Pelvis limited US pelvis limited Imaging Routine Cyst of ovary, unspecified laterality Expected: 08/18/2023, Expires: 08/18/2024 [facility] Comment on above: Expected: 08/18/2023, Expires: 4 Start: 08-18-2023 End: 08-18-2024 US Pelvis transvaginal US pelvis transvaginal Imaging Routine Cyst of ovary, unspecified laterality Expected: 08/18/2023, Expires: 08/18/2024 [facility] [employer] Work Phone: Comment on above: Expected: 08/18/2023, Expires: Start: 08-18-2023 End: 08-18-2023 Patient encounter procedure 08/18/2023 11:30 AM EST Office Visit [facility] [address] [place] [address] Darling Castillo MD [facility] [address] [place] [address] [facility] Start: 07-27-2023 End: 07-27-2023 Patient encounter procedure 07/27/2023 1:30 PM EST Appointment [facility] [address] [place] [address] Juna Palacio, DO [address] [place] [address] [facility] Start: 07-21-2023 End: 07-21-2024 CBC panel - Blood by Automated count CBC Lab Routine Post-menopause bleeding Expected: 07/21/2023 (Approximate), Expires: 07/21/2024 [facility] [employer] [place] [facility] Work Phone: Comment on above: Expected: 07/21/2023 (Approximate), Expi res: 07/21/2024 Start: 07-21-2023 End: 07-21-2024 Comprehensive metabolic 1998 panel - Serum or Plasma Comprehensive metabolic panel Lab Routine Post-menopause bleeding Expected: 07/21/2023 (Approximate), Expires: 07/21/2024 [facility] [employer] [place] Comment on above: Expected: 07/21/2023 (Approximate), Expi res: 07/21/2024 Start: 07-13-2023 End: 07-13-2024 CT Chest for screening WO contrast CT lung screening low dose Imaging Routine Moderate smoker (20 or less per day) Expected: 07/13/2023, Expires: 07/13/2024 [facility] [employer] [place] [facility] Work Phone: Comment on above: Expected: 07/13/2023, Expires: Start: 07-13-2023 End: 07-13-2024 US Pelvis US pelvis Imaging Routine Post-menopause bleeding Expected: 07/13/2023, Expires: 07/13/2024 [facility] [employer] [place] Comment on above: Expected: 07/13/2023, Expires: Start: 07-13-2023 End: 07-13-2023 Patient encounter procedure 07/13/2023 1:30 PM EST Office Visit [facility] [address] [place] [address] Juan Palacio, [address] [place] [address] [facility] Start: 06-08-2023 Screening for malignant neoplasm of breast Mammogram [facility] Start: 05-19-2023 Thyroid stimulating hormone measurement TSH Level [facility] Start: 04-30-2023 COVID-19 Vaccine ( season) COVID-19 Vaccine ( season) [facility] Start: 04-30-2023 Influenza vaccination [facility] Start: 08-30-2022 Depression Assessment Depression Assessment [facility] Start: 04-30-2022 Influenza vaccination Influenza Vaccine (#1) [facility] Start: 01-07-2022 Screening for malignant neoplasm of cervix [facility] Start: 11-11-2021 Shingrix Vaccine (1 of 2) Shingrix Vaccine (1 of 2) [facility] Start: 11-11-2021 Zoster Vaccines (1 of 2) Zoster Vaccines (1 of 2) [facility] Start: 09-05-2021 Creatinine measurement Creatinine monitoring [facility] [employer] [place] Start: 09-05-2021 Potassium monitoring Potassium monitoring [place], [place] Start: 04-01-2021 Diabetes Screening Diabetes Screening [facility] Start: 10-08-2020 Lipid panel Lipid screen [place], [place] Start: 08-26-2020 End: 08-26-2020 Office Visit 08/26/2020 Office Visit Family Medicine Walter White, [address] [address] [phone] [facility] Start: 06-05-2020 Creatinine measurement Creatinine monitoring [facility] [employer] [place] Start: 06-05-2020 Potassium monitoring Potassium monitoring [place], [place] Start: 04-30-2020 Influenza vaccination Flu vaccine (#1) [place] Start: 02-16-2019 Annual Wellness Visit (AWV) Annual Wellness Visit (AWV) [place] Start: 11-11-2016 Lipid panel Lipid Screening [facility] Start: 11-11-2016 Screening for malignant neoplasm of colon [facility] Start: 2011 Screening for malignant neoplasm of breast Mammogram Screening [facility] Start: 11-11-2001 Screening for malignant neoplasm of cervix [facility] Start: 11-11-1992 Screening for malignant neoplasm of cervix Pap Testing [facility] Start: 11-11-1990 DTaP/Tdap/Td vaccine (1 - Tdap) DTaP/Tdap/Td vaccine (1 - Tdap) [place] Start: 11-11-1990 DTaP/Tdap/Td Vaccines (1 - Tdap) DTaP/Tdap/Td Vaccines (1 - Tdap) [facility] Start: 11-11-1990 Hepatitis A Vaccines (1 of 2 - Risk 2-dose series) Hepatitis A Vaccines (1 of 2 - Risk 2-dose series) [facility] Start: 11-11-1990 Hepatitis B Vaccine (1 of 3 - 19+ 3-dose series) Hepatitis B Vaccine (1 of 3 - 19+ 3-dose series) [facility] Start: 11-11-1990 Hepatitis B Vaccines (1 of 3 - 19+ 3-dose series) Hepatitis B Vaccines (1 of 3 - 19+ 3-dose series) [facility] Start: 11-11-1990 Pneumococcal Vaccine: 50+ Years (1 of 2 - PCV) Pneumococcal Vaccine: 50+ Years (1 of 2 - PCV) [facility] Start: 11-11-1990 Urine microalbumin profile DTaP,Tdap,Td Vaccine (1 - Tdap) [facility] Start: 11-11-1989 Anxiety Screening Anxiety Screening [facility] Start: 11-11-1989 Depression Screening Depression Screening [facility] Start: 11-11-1989 Diabetes mellitus screening Diabetes Screening [facility] Start: 11-11-1989 Hepatitis C screening Hepatitis C Screening [facility] Start: 11-11-1989 HIV screening HIV Screening [facility] Start: 11-11-1986 HIV screening HIV screen [place], [place] Start: 1983 Depression Monitoring Depression Monitoring [facility] Start: 1983 Depresssion Monitoring Depresssion Monitoring [facility] Start: 11-11-1977 Pneumococcal 0-64 years Vaccine (1 of 1 - PPSV23) Pneumococcal 0-64 years Vaccine (1 of 1 - PPSV23) [place] Start: 11-11-1977 Pneumococcal Vaccine: Pediatrics (0 to 5 Years) and At-Risk Patients (6 to 64 Years) (1 - PCV) Pneumococcal Vaccine: Pediatrics (0 to 5 Years) and At-Risk Patients (6 to 64 Years) (1 - PCV) [facility] Start: 11-11-1977 Pneumococcal Vaccine: Pediatrics (0 to 5 Years) and At-Risk Patients (6 to 64 Years) (1 of 2 - PCV) Pneumococcal Vaccine: Pediatrics (0 to 5 Years) and At-Risk Patients (6 to 64 Years) (1 of 2 - PCV) [facility] Start: 11-11-1972 MMR Vaccines (1 of 1 - Standard series) MMR Vaccines (1 of 1 - Standard series) [facility] Start: 05-14-1972 COVID-19 Vaccine (#1) COVID-19 Vaccine (#1) [facility] Start: 1971 Hepatitis B Vaccine (1 of 3 - 3-dose series) Hepatitis B Vaccine (1 of 3 - 3-dose series) [facility] Start: 1971 Hepatitis B Vaccines (1 of 3 - 3-dose series) Hepatitis B Vaccines (1 of 3 - 3-dose series) [facility] Start: 1971 Hepatitis C screening Hepatitis C screen [place], [place] Start: 1971 HIV screening HIV Screening [facility] Start: 1971 Medicare Advantage Annual Wellness Visit (AWV) Medicare Advantage Annual Wellness Visit (AWV) [facility] Start: 1971 Screening for malignant neoplasm of colon [facility] Cologuard colon canc er screening Cologuard colon cancer screening Lab Routine Colon cancer screening [facility]: Comment on above: Ordered: 07/13/2023 Cytology Cervical or vaginal smear or scraping study Pap Smear Pathology and Cytology Routine Encounter for gynecological examination without abnormal finding 05/31/2024 1:40 PM EDT [employer] [place] End: 01-02-2025 MG Breast specimen - left Views [employer] Work Phone: Comment on above: Once for 1 Occurrences starting 01/03/20 until 01/02/2025 End: 02-28-2025 MR Brain WO [facility]: Comment on above: Once for 1 Occurrences starting 02/29/20 until 02/28/2025 End: 02-28-2025 MRA Head vessels WO contrast [employer] Work Phone: Comment on above: Once for 1 Occurrences starting 02/29/20 until 02/28/2025 OUTSIDE PROCEDURE SCAN OUTSIDE P ROCEDURE SCAN Procedures Ordered: 07/26/2023 [facility] [employer] Comment on above: Ordered: 07/26/2023 OUTSIDE PROCEDURE SCAN OUTSIDE P ROCEDURE SCAN Procedures Ordered: 08/19/2023 [facility] [employer] Comment on above: Ordered: 08/19/2023 End: 08-16-2024 Screening colonoscopy COLONOSCOPY SCREENING Endoscopy Routine Special screening for malignant neoplasms, colon 1 Occurrences starting 08/16/2023 until 08/16/2024 [facility] Work Phone: Comment on above: 1 Occurrences starting 08/16/2023 until 08/16/2024 Tissue exam [facility] Work Phone: Comment on above: Release Upon Ordering for 1 Occurrences starting 01/02/2025 End: 07-27-2023 US Pelvis [facility] Work Phone: Comment on above: Once for 1 Occurrences starting 07/27/20 until 07/27/2023 [facility] Immunization Date Immunization Notes Care Provider Edilberto [facility] 08-20-2020 Influenza, injectabl e, quadrivalent, preservative free Juan Petrilla DO Work Phone: [facility] 08-20-2020 influenza virus vacc ine, unspecified formulation Juan Petrilla DO Work Phone: [facility] 07-18-2019 Influenza, injectabl e, Madin Dorina Canine Kidney, preservative free, quadrivalent [facility] [employer] [place] 07-18-2019 influenza virus vacc ine, unspecified formulation Analia La MD Work Phone: [facility] 05-26-2017 Influenza, injectabl e, quadrivalent, preservative free Juan Petrilla DO Work Phone: [facility] 06-01-2016 Influenza, injectabl e, quadrivalent, preservative free Juan Petrilla DO Work Phone: [facility] 06-12-2014 influenza virus vacc ine, unspecified formulation Walter IselaEmissaryo [facility] 06-12-2014 influenza, seasonal, injectable Juan Petrilla DO Work Phone: [facility] [employer] [place] Payers Date Payer Category Payer Self-pay [id number] 2022 Medicare O [facility] MEDIC[facility] [id number] 2019 Medicaid [facility] MEDICAID [id number] 2019-Present [phone] [address] [place] [address] Medicaid [id number] 2019 Medicare [id number] 2019 Unknown [id number] 2017 Medicaid [id number] 2014 Medicare MEDICARE PART A B [id number] 1970 Unknown [id number] 1970 Unknown [id number] Unknown Unknown [id number] Social History Date Type Detail Facility Start: 05-02-2020 End: 12-26-2024 Tobacco smoking status NHIS Former smoker [facility] End: 01-12-2012 History of tobacco use Current smoker [place] End: 01-12-2012 History of tobacco use Cigarette Smoker [place] Start: 05-02-2020 End: 01-09-2025 Cigarettes smoked current (pack per day) - Reported [place] Start: 05-02-2020 End: 12-26-2024 Tobacco use and exposure Never used [facility] Start: 05-02-2020 End: 01-09-2025 Alcohol intake Current non-drinker of alcohol (finding) [place] Start: 02-09-2019 History SDOH Alcohol Frequency 1 [place] Start: 02-09-2019 History SDOH Social Connections Phone 5 [place] Start: 02-09-2019 History SDOH Social Connections Muslim 3 [place] Start: 02-09-2019 History SDOH Social Connections Living 98 [place] Start: 02-09-2019 History SDOH Physica l Activity DPW 7 [place] Start: 02-09-2019 History SDOH Physica l Activity MPS 2 [place] Start: 02-09-2019 History SDOH Financial 4 [place] Start: 1970 Sex Assigned At Not on file [place] Start: 09-04-2020 End: 05-04-2024 Tobacco smoking status NHIS Current every day smoker [place] Start: 06-29-2017 Tobacco smoking stat us NHIS Unknown if ever smoked [facility] Start: 1970 Sex Assigned At Female W [facility] Start: 08-18-2022 End: 01-09-2025 Tobacco use panel [facility] National Score (1-10 0), lower number is lower risk Not on file [facility] Start: 09-14-2023 End: 10-01-2023 Alcohol intake Lifetime non-drinker (finding) [facility] Start: 03-30-2022 Sex Female (finding) [facility] Start: 09-19-2022 End: 09-29-2022 Exposure to SARS-CoV-2 (event) Not sure [facility] Clinical Notes 01-23-2012 to 01-09-2025 Ezekiel Galo MD - 01/09/2025 10:15 AM EDTTelephone Encounter - Mignon Harvey LPN - 01/03/2025 2:35 PM EDTTelephone Encounter - Mignon Harvey LPN - 01/03/2025 2:35 PM EDTPatient Instructions Note Date & Type Note Facility 01-09-2025 History of Present illness Narrative Images from the original note were not included. History and Physical Ezekiel Galo MD Patient ID: Miki Adrian [id number] 54 y.o. 1970 Chief Complaint Patient presents with Follow-up F/UP LT stereo BX x's 2 01/02 HPI: Miki Adrian is a 54 y.o. female who presents abnormal mammogram of the left breast. She underwent left stereotactic biopsy x 2 on 01/02/25. She denies excessive bruising or bleeding at the site. The patient denies any current breast complaints. She denies any palpable masses, nipple discharge, axillary adenopathy, or breast pain. She has had a prior benign right sided image guided biopsy. She denies prior breast surgeries. She denies family history of breast cancer. However, the patient states her mother recently underwent hysterectomy for ON SITE SOIL EVALUATOR cancer. Breast Imaging: Bilateral Screening Mammogram 11/03/24 Left Diagnostic Mammogram 12/21/24 Risk Factors: Menopause: perimenopausal Smoking: former ETOH: none Body mass index is 23.23 kg/m . Breast Density: B Family history includes: The lifetime risk of breast cancer estimated by the Tyrer Cuzick v8 model is 8.56%. The patient jaimes not meet NCCN criteria for genetic testing for hereditary cancer. 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 Breast cancer screening by mammogram 05/2022 Prefers every other year exam Cerebral arterial aneurysm 1996 2 elective procedures Cocaine abuse (HCC) none since 2018 COPD (chronic obstructive pulmonary disease) (HCC) [address] also Engages in vaping 06/2023 Ex-smoker 06/2023 H/O colonoscopy with polypectomy 08/2023 - bertha 2028 History of cervical dysplasia 1990 History of DVT (deep vein thrombosis) 2011 LUE- hx of GF filter placed History of pneumonia 2015 Hypertension 2012 Papanicolaou smear 05/2024 Jonathan Positive colorectal cancer screening using Cologuard test 07/2023 Screening for lung cancer 10/2024 3mm nodule RUL- f/u 11/22 Thyromegaly 2021 no masses on u/s Past Surgical History: Procedure Laterality Date BRAIN SURGERY 1996 Craniotomy x 2 (aneurysm) BRAIN SURGERY 12/2011 Cerebral Aneurysm Coiling after 2011 BREAST BIOPSY Right 2017 SECTION (HISTORICAL) 2004 with tubal ligation COLONOSCOPY W/ POLYPECTOMY 08/2023 Dr. Kenney- bertha 2028 COLPOSCOPY 1989 cervical dysplasia IVC FILTER RETRIEVAL 2012 TUBAL LIGATION Allergies Allergen Reactions Bupropion Other reaction(s): Other (See Comments) Hallucinations Morphine Other reaction(s): Unknown Codeine Rash Other reaction(s): Other: See Comments, Vomiting Swelling throat Other reaction(s): Nausea/Vom/Diarrhea Current Outpatient Medications: albuterol 108 (90 Base) MCG/ACT inhaler, Inhale 2 puffs every 6 hours as needed for wheezing., Disp: 18 g, Rfl: 5 ALPRAZolam (Xanax) 0.5 MG tablet, Take 0.5 mg by mouth Nightly as needed for anxiety., Disp: , Rfl: lamoTRIgine (LaMICtal) 100 MG tablet, Take 100 mg by mouth 2 times daily., Disp: , Rfl: lithium ER (Eskalith) 450 MG 12 hr tablet, Take 450 mg by mouth daily., Disp: , Rfl: metoprolol tartrate (Lopressor) 25 MG tablet, TAKE 1/2 TABLET BY MOUTH TWICE A DAY, Disp: 90 tablet, Rfl: 1 OLANZapine (ZyPREXA) 20 MG tablet, Take 1 tablet by mouth Nightly. Takes 15 mg, Disp: , Rfl: tiotropium (Spiriva) 18 MCG inhalation capsule, Place 1 capsule (18 mcg) into inhaler and inhale daily., Disp: 30 capsule, Rfl: 5 Review of Systems All other systems reviewed and are negative. BP 120/71 Pulse 63 Temp 36.6 C (97.9 F) Ht 5' 5 (1.651 m) Wt 139 lb 9.6 oz (63.3 kg) LMP 07/21/2023 BMI 23.23 kg/m Physical Exam Constitutional: General: She is not in acute distress. Appearance: She is not ill-appearing. HENT: Nose: No congestion or rhinorrhea. Eyes: General: No scleral icterus. Conjunctiva/sclera: Conjunctivae normal. Cardiovascular: Rate and Rhythm: Normal rate and regular rhythm. Pulmonary: Effort: No respiratory distress. Breath sounds: No wheezing. Chest: Breasts: Right: No swelling, bleeding, inverted nipple, mass, nipple discharge, skin change or tenderness. Left: No swelling, bleeding, inverted nipple, mass, nipple discharge, skin change or tenderness. Abdominal: General: There is no distension. Tenderness: There is no abdominal tenderness. Musculoskeletal: General: No swelling or tenderness. Lymphadenopathy: Upper Body: Right upper body: No supraclavicular or axillary adenopathy. Left upper body: No supraclavicular or axillary adenopathy. Skin: General: Skin is warm. Coloration: Skin is not jaundiced. Neurological: General: No focal deficit present. Mental Status: She is oriented to person, place, and time. Psychiatric: Mood and Affect: Mood normal. Thought Content: Thought content normal. PATHOLOGY: Component Final Diagnosis A. POSTERIOR LEFT BREAST, MICROCALCIFICATIONS, BIOPSY: RADIAL SCAR/COMPLEX SCLEROSING LESION WITH COLUMNAR CELL HYPERPLASIA (CCH) AND APOCRINE METAPLASIA. PROLIFERATIVE FIBROCYSTIC CHANGES WITH ASSOCIATED BENIGN MICROCALCIFICATIONS. B. ANTERIOR LEFT BREAST, MICROCALCIFICATIONS, BIOPSY: HYALINIZED FIBROADENOMA WITH CALCIFICATIONS. APOCRINE METAPLASIA AND DUCT ECTASIA. Assessment/Plan: 1. Abnormal mammogram Orders Placed This Encounter Procedures Left diagnostic mammogram with tomosynthesis No palpable abnormality in either breast Left Breast Diagnostic Mammogram Category 4 with 2 site biopsy recommended, stereotactic biopsy reveals high risk pathology with complex sclerosing lesion/radial scar and fibroadenoma in the presence of benign microcalcifications Imaging and pathology are concordant, recommend diagnostic mammogram of the left breast in 6 months Patient is interested in possible pursuing genetic testing given mother's recent cancer diagnosis. The patient will call if she wishes to be scheduled. Culturally appropriate shared decision making was used to determine optimal course of workup and treatment for this patient. Patient demonstrates understanding of and agreement with the above plan of care. All questions have been answered to her satisfaction. Ezekiel Galo MD Please disregard any typographical errors. This note was dictated using voice recognition software. I spent 20 minutes total on the day of the visit obtaining history, reviewing imaging and laboratory results, performing a physical exam and providing patient education and counseling. documented in this encounter [facility] 01-09-2025 Note History and Physical Ezekiel Galo MD Patient ID: Miki Adrian [id number] 54 y.o. 1970 Chief Complaint Patient presents with Follow-up F/UP LT stereo BX x's 2 01/02 HPI: Miki Adrian is a 54 y.o. female who presents abnormal mammogram of the left breast. She underwent left stereotactic biopsy x 2 on 01/02/25. She denies excessive bruising or bleeding at the site. The patient denies any current breast complaints. She denies any palpable masses, nipple discharge, axillary adenopathy, or breast pain. She has had a prior benign right sided image guided biopsy. She denies prior breast surgeries. She denies family history of breast cancer. However, the patient states her mother recently underwent hysterectomy for ON SITE SOIL EVALUATOR cancer. Breast Imaging: Bilateral Screening Mammogram 11/03/24 Left Diagnostic Mammogram 12/21/24 Risk Factors: Menopause: perimenopausal Smoking: former ETOH: none Body mass index is 23.23 kg/m?. Breast Density: B Family history includes: The lifetime risk of breast cancer estimated by the [employer] Cuzick v8 model is 8.56%. The patient jamies not meet NCCN criteria for genetic testing for hereditary cancer. 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 Breast cancer screening by mammogram 05/2022 Prefers every other year exam Cerebral arterial aneurysm 1996 2 elective procedures Cocaine abuse (HCC) none since 2018 COPD (chronic obstructive pulmonary disease) (HCC) [address] also Engages in vaping 06/2023 Ex-smoker 06/2023 H/O colonoscopy with polypectomy 08/2023 - bertha 2028 History of cervical dysplasia 1990 History of DVT (deep vein thrombosis) 2011 LUE- hx of GF filter placed History of pneumonia 2015 Hypertension 2011 Papanicolaou smear 05/2024 Jonathan Positive colorectal cancer screening using Cologuard test 07/2023 Screening for lung cancer 10/2024 3mm nodule RUL- f/u 11/22 Thyromegaly 2021 no masses on u/s Past Surgical History: Procedure Laterality Date BRAIN SURGERY 1997 Craniotomy x 2 (aneurysm) BRAIN SURGERY 12/2011 Cerebral Aneurysm Coiling after 2011 BREAST BIOPSY Right 2017 SECTION (HISTORICAL) 2004 with tubal ligation COLONOSCOPY W/ POLYPECTOMY 08/2023 Dr. Kenney- bertha 2028 COLPOSCOPY 1989 cervical dysplasia IVC FILTER RETRIEVAL 2012 TUBAL LIGATION Allergies Allergen Reactions Bupropion Other reaction(s): Other (See Comments) Hallucinations Morphine Other reaction(s): Unknown Codeine Rash Other reaction(s): Other: See Comments, Vomiting Swelling throat Other reaction(s): Nausea/Vom/Diarrhea Current Outpatient Medications: albuterol 108 (90 Base) MCG/ACT inhaler, Inhale 2 puffs every 6 hours as needed for wheezing., Disp: 18 g, Rfl: 5 ALPRAZolam (Xanax) 0.5 MG tablet, Take 0.5 mg by mouth Nightly as needed for anxiety., Disp: , Rfl: lamoTRIgine (LaMICtal) 100 MG tablet, Take 100 mg by mouth 2 times daily., Disp: , Rfl: lithium ER (Eskalith) 450 MG 12 hr tablet, Take 450 mg by mouth daily., Disp: , Rfl: metoprolol tartrate (Lopressor) 25 MG tablet, TAKE 1/2 TABLET BY MOUTH TWICE A DAY, Disp: 90 tablet, Rfl: 1 OLANZapine (ZyPREXA) 20 MG tablet, Take 1 tablet by mouth Nightly. Takes 15 mg, Disp: , Rfl: tiotropium (Spiriva) 18 MCG inhalation capsule, Place 1 capsule (18 mcg) into inhaler and inhale daily., Disp: 30 capsule, Rfl: 5 Review of Systems All other systems reviewed and are negative. BP 120/71 Pulse 63 Temp 36.6 ?C (97.9 ?F) Ht 5' 5 (1.651 m) Wt 139 lb 9.6 oz (63.3 kg) LMP 07/21/2023 BMI 23.23 kg/m? Physical Exam Constitutional: General: She is not in acute distress. Appearance: She is not ill-appearing. HENT: Nose: No congestion or rhinorrhea. Eyes: General: No scleral icterus. Conjunctiva/sclera: Conjunctivae normal. Cardiovascular: Rate and Rhythm: Normal rate and regular rhythm. Pulmonary: Effort: No respiratory distress. Breath sounds: No wheezing. Chest: Breasts: Right: No swelling, bleeding, inverted nipple, mass, nipple discharge, skin change or tenderness. Left: No swelling, bleeding, inverted nipple, mass, nipple discharge, skin change or tenderness. Abdominal: General: There is no distension. Tenderness: There is no abdominal tenderness. Musculoskeletal: General: No swelling or tenderness. Lymphadenopathy: Upper Body: Right upper body: No supraclavicular or axillary adenopathy. Left upper body: No supraclavicular or axillary adenopathy. Skin: General: Skin is warm. Coloration: Skin is not jaundiced. Neurological: General: No focal deficit present. Mental Status: She is oriented to person, place, and time. Psychiatric: Mood and Affect: Mood normal. Thought Content: Thought content normal. (more content not included)... [facility] 01-03-2025 Miscellaneous Notes Miki Adrian 1970 Are you having discomfort? [] Yes [x] No Have you taken anything for the discomfort? [] Yes [x] No What have you taken Tylenol? [] Yes [] No Have you used the ice pack? [] Yes [] No Has it provided relief? [] Yes [] No Any fever, redness, warmth to the touch? [] Yes [x] No Patient reported bleeding after biopsy [] Yes [x] No If yes, Mass size: If yes, did this require any follow up with provider [] Yes [] No Did they take their antithrombotic after their biopsy as instructed by their breast specialist or provider? [] Yes [] No Are you having any drainage from your incision? [] Yes [x] No Patient was reminded no tub bathing or swimming until the incision is healed [x] Yes [] No Is patient still wearing bra? [x] Yes [] No Patient was reminded to wear supportive bra for the next day. [x] Yes [] No Remind patient to keep bandages on for 3 days [x] Yes [] No Patient was reminded that their surgeon will follow up with results [x] Yes [] No documented in this encounter [facility] 01-03-2025 Telephone encounter Note Miki Adrian 1970 Are you having discomfort? [] Yes [x] No Have you taken anything for the discomfort? [] Yes [x] No What have you taken Tylenol? [] Yes [] No Have you used the ice pack? [] Yes [] No Has it provided relief? [] Yes [] No Any fever, redness, warmth to the touch? [] Yes [x] No Patient reported bleeding after biopsy [] Yes [x] No If yes, Mass size: If yes, did this require any follow up with provider [] Yes [] No Did they take their antithrombotic after their biopsy as instructed by their breast specialist or provider? [] Yes [] No Are you having any drainage from your incision? [] Yes [x] No Patient was reminded no tub bathing or swimming until the incision is healed [x] Yes [] No Is patient still wearing bra? [x] Yes [] No Patient was reminded to wear supportive bra for the next day. [x] Yes [] No Remind patient to keep bandages on for 3 days [x] Yes [] No Patient was reminded that their surgeon will follow up with results [x] Yes [] No [facility] 01-02-2025 Note Patient Name: Miki Adrian Date of : 1970 Pre-Procedure: Breast: LEFT Biopsy Type: STEREOTACTIC Number of Sites: 2 History and Physical Performed: Date:12/26/24 Level of Consciousness: [x]Alert & Oriented []Confused & Disoriented []Other Allergy to Lidocaine: [] Yes [x] No Allergy to other numbing medications: [] Yes [x] No List drug name: Blood Thinners: [] Yes [x] No If yes, please list: Date of last dose: Mg of dose: Pain: [x] None [] Present: Intraprocedure Notes: Prep: [x] Chlorhexidine [] Betadine Pain: 0 Bleeding: Small, 2-5 cc's Emotional Support Provided: [x] Yes [] No Post Procedure Notes: Biopsy Site Care: [x] Pressure Held for 5 minutes [x] Steri-Strip and Tegaderm [x] Cold Pack [] Stevan Bandage Level of Consciousness [x] Alert & Oriented [] Confused & Disoriented [] Other Post Procedure Symptoms: [x] Pt tolerated procedure without any symptoms [] Lightheaded [] Dizziness [] Nausea [] Sweating [] Fainting [] Pallor [] Low Blood Pressure [] Rapid Heart rate/Palpitations [] Hematoma present per radiologist and patient made aware Care Provided if Symptomatic: [] Radiologist notified Time: Name of Radiologist: [] Ambulated with assistance [] Assisted to chair/wheelchair [] Assisted to exam table/cart [] Patient placed in trendelenburg position [] Provided fluids (raymond rafita;water) [] Provided crackers [] Code Blue Team 4 called [] Patient remained in department [] Patient transferred to Emergency Department Pain: 0 Post Biopsy Discharge Instructions: [x] Image Guided Breast Biopsy Discharge Instructions reviewed and given to patient, patient verbalizes understanding [x] Gauze placed over biopsy site, cold pack applied over gauze at biopsy site for 20 minutes. After 20 minutes remove ice pack for one hour. Repeat 20 minutes gauze/ice at site and one hour with ice removed from site for remainder of day. [x] Patient instructed to wear supportive bra for 48 hours [] *If excessive bleeding or patient taking blood thinners, then 6 inch stevan is wrapped around the patient to provide support, patient will need to wear for 24 hours *[] After 24 hours the patient may remove the stevan wrap and wear supportive bra for the next 24 hours *[] Patient instructed to observe the biopsy site each time cold pack is removed to check for active bleeding *[] Patient instructed if bleeding noted to havasupai the bleeding with a marking pen and note if bleeding goes beyond the havasupai *[] If patient notes bleeding continues, the patient is to hold pressure on the site for up to 20 minutes with a clean dry washcloth tightly at biopsy site *[] If bleeding still occurs after continuously applying pressure for 20 minutes, the patient is to call the Breast Center at the number provided *[] If the patient notices any new mass or lump under the dressing at the biopsy site, please havasupai the mass or lump with a pen and check frequently for any increase in size outside of the havasupai. Please call the Breast Center at the number provided *[] If patient taking blood thinners, instructed to take as directed by ordering provider Discharge: Time: 2:00pm Accompanied by: [] Self [x] Family/friend [] Attendant [] Other, explain To: [x] Home [] Skilled Care Facility [] Hospital Inpatient [] Other, explain [facility] 01-02-2025 Procedure note Patient Name: Miki Adrian Date of : 1970 Pre-Procedure: Breast: LEFT Biopsy Type: STEREOTACTIC Number of Sites: 2 History and Physical Performed: Date:12/26/24 Level of Consciousness: [x]Alert & Oriented []Confused & Disoriented []Other Allergy to Lidocaine: [] Yes [x] No Allergy to other numbing medications: [] Yes [x] No List drug name: Blood Thinners: [] Yes [x] No If yes, please list: Date of last dose: Mg of dose: Pain: [x] None [] Present: Intraprocedure Notes: Prep: [x] Chlorhexidine [] Betadine Pain: 0 Bleeding: Small, 2-5 cc's Emotional Support Provided: [x] Yes [] No Post Procedure Notes: Biopsy Site Care: [x] Pressure Held for 5 minutes [x] Steri-Strip and Tegaderm [x] Cold Pack [] Stevan Bandage Level of Consciousness [x] Alert & Oriented [] Confused & Disoriented [] Other Post Procedure Symptoms: [x] Pt tolerated procedure without any symptoms [] Lightheaded [] Dizziness [] Nausea [] Sweating [] Fainting [] Pallor [] Low Blood Pressure [] Rapid Heart rate/Palpitations [] Hematoma present per radiologist and patient made aware Care Provided if Symptomatic: [] Radiologist notified Time: Name of Radiologist: [] Ambulated with assistance [] Assisted to chair/wheelchair [] Assisted to exam table/cart [] Patient placed in trendelenburg position [] Provided fluids (raymond rafita;water) [] Provided crackers [] Code Blue Team 4 called [] Patient remained in department [] Patient transferred to Emergency Department Pain: 0 Post Biopsy Discharge Instructions: [x] Image Guided Breast Biopsy Discharge Instructions reviewed and given to patient, patient verbalizes understanding [x] Gauze placed over biopsy site, cold pack applied over gauze at biopsy site for 20 minutes. After 20 minutes remove ice pack for one hour. Repeat 20 minutes gauze/ice at site and one hour with ice removed from site for remainder of day. [x] Patient instructed to wear supportive bra for 48 hours [] *If excessive bleeding or patient taking blood thinners, then 6 inch stevan is wrapped around the patient to provide support, patient will need to wear for 24 hours *[] After 24 hours the patient may remove the stevan wrap and wear supportive bra for the next 24 hours *[] Patient instructed to observe the biopsy site each time cold pack is removed to check for active bleeding *[] Patient instructed if bleeding noted to havasupai the bleeding with a marking pen and note if bleeding goes beyond the havasupai *[] If patient notes bleeding continues, the patient is to hold pressure on the site for up to 20 minutes with a clean dry washcloth tightly at biopsy site *[] If bleeding still occurs after continuously applying pressure for 20 minutes, the patient is to call the Breast Center at the number provided *[] If the patient notices any new mass or lump under the dressing at the biopsy site, please havasupai the mass or lump with a pen and check frequently for any increase in size outside of the havasupai. Please call the Breast Center at the number provided *[] If patient taking blood thinners, instructed to take as directed by ordering provider Discharge: Time: 2:00pm Accompanied by: [] Self [x] Family/friend [] Attendant [] Other, explain To: [x] Home [] Skilled Care Facility [] Hospital Inpatient [] Other, explain [facility] 01-02-2025 Procedure note Patient Name: Miki Adrian Date of : 1970 Pre-Procedure: Breast: LEFT Biopsy Type: STEREOTACTIC Number of Sites: 2 History and Physical Performed: Date:12/26/24 Level of Consciousness: [x]Alert & Oriented []Confused & Disoriented []Other Allergy to Lidocaine: [] Yes [x] No Allergy to other numbing medications: [] Yes [x] No List drug name: Blood Thinners: [] Yes [x] No If yes, please list: Date of last dose: Mg of dose: Pain: [x] None [] Present: Intraprocedure Notes: Prep: [x] Chlorhexidine [] Betadine Pain: 0 Bleeding: Small, 2-5 cc's Emotional Support Provided: [x] Yes [] No Post Procedure Notes: Biopsy Site Care: [x] Pressure Held for 5 minutes [x] Steri-Strip and Tegaderm [x] Cold Pack [] Stevan Bandage Level of Consciousness [x] Alert & Oriented [] Confused & Disoriented [] Other Post Procedure Symptoms: [x] Pt tolerated procedure without any symptoms [] Lightheaded [] Dizziness [] Nausea [] Sweating [] Fainting [] Pallor [] Low Blood Pressure [] Rapid Heart rate/Palpitations [] Hematoma present per radiologist and patient made aware Care Provided if Symptomatic: [] Radiologist notified Time: Name of Radiologist: [] Ambulated with assistance [] Assisted to chair/wheelchair [] Assisted to exam table/cart [] Patient placed in trendelenburg position [] Provided fluids (raymond rafita;water) [] Provided crackers [] Code Blue Team 4 called [] Patient remained in department [] Patient transferred to Emergency Department Pain: 0 Post Biopsy Discharge Instructions: [x] Image Guided Breast Biopsy Discharge Instructions reviewed and given to patient, patient verbalizes understanding [x] Gauze placed over biopsy site, cold pack applied over gauze at biopsy site for 20 minutes. After 20 minutes remove ice pack for one hour. Repeat 20 minutes gauze/ice at site and one hour with ice removed from site for remainder of day. [x] Patient instructed to wear supportive bra for 48 hours [] *If excessive bleeding or patient taking blood thinners, then 6 inch stevan is wrapped around the patient to provide support, patient will need to wear for 24 hours *[] After 24 hours the patient may remove the stevan wrap and wear supportive bra for the next 24 hours *[] Patient instructed to observe the biopsy site each time cold pack is removed to check for active bleeding *[] Patient instructed if bleeding noted to havasupai the bleeding with a marking pen and note if bleeding goes beyond the havasupai *[] If patient notes bleeding continues, the patient is to hold pressure on the site for up to 20 minutes with a clean dry washcloth tightly at biopsy site *[] If bleeding still occurs after continuously applying pressure for 20 minutes, the patient is to call the Breast Center at the number provided *[] If the patient notices any new mass or lump under the dressing at the biopsy site, please havasupai the mass or lump with a pen and check frequently for any increase in size outside of the havasupai. Please call the Breast Center at the number provided *[] If patient taking blood thinners, instructed to take as directed by ordering provider Discharge: Time: 2:00pm Accompanied by: [] Self [x] Family/friend [] Attendant [] Other, explain To: [x] Home [] Skilled Care Facility [] Hospital Inpatient [] Other, explain documented in this encounter [facility] 01-02-2025 Note Local Anesthesia: [x]Lidocaine 1% Total Dose Given 40mL []Nesacaine 2% Total Dose Given mL Probe Used: 9 Gauge Probe [x] Standard x2 [] Petite Specimen: [x] Specimen A [] Right [x] Left POSTERIOR Samples 7 Lot Number [id number] Shape: [x]Tumark X []Tumark Q []TriMark Cork []TriMark Hourglass []SecurMark Cork []SecurMark Tophat [x] Specimen B [] Right [x] Left ANTERIOR Samples 7 Lot Number [id number] Shape []Tumark X [x]Tumark Q []TriMark Cork []TriMark Hourglass []SecurMark Cork []SecurMark Tophat [facility] 01-02-2025 Procedure note Local Anesthesia: [x]Lidocaine 1% Total Dose Given 40mL []Nesacaine 2% Total Dose Given mL Probe Used: 9 Gauge Probe [x] Standard x2 [] Petite Specimen: [x] Specimen A [] Right [x] Left POSTERIOR Samples 7 Lot Number [id number] Shape: [x]Tumark X []Tumark Q []TriMark Cork []TriMark Hourglass []SecurMark Cork []SecurMark Tophat [x] Specimen B [] Right [x] Left ANTERIOR Samples 7 Lot Number [id number] Shape []Tumark X [x]Tumark Q []TriMark Cork []TriMark Hourglass []SecurMark Cork []SecurMark Tophat [facility] 01-02-2025 Procedure note Local Anesthesia: [x]Lidocaine 1% Total Dose Given 40mL []Nesacaine 2% Total Dose Given mL Probe Used: 9 Gauge Probe [x] Standard x2 [] Petite Specimen: [x] Specimen A [] Right [x] Left POSTERIOR Samples 7 Lot Number [id number] Shape: [x]Tumark X []Tumark Q []TriMark Cork []TriMark Hourglass []SecurMark [place] []SecurMark Tophat [x] Specimen B [] Right [x] Left ANTERIOR Samples 7 Lot Number [id number] Shape []Tumark X [x]Tumark Q []TriMark Cork []TriMark Hourglass []SecurMark Cork []SecurMark Tophat documented in this encounter [facility] 01-01-2025 Note Spoke with patient r egarding procedure scheduled on 01/02. Patient aware they need to arrive at 12:30. Patient encouraged to eat, drink and take all medications prior to procedure. Also to bring or wear a supportive bra without wires. No perfumes, lotions, powder, or deodorant on the day of procedure. Patient verbalized understanding. Provided contact information and encouraged to call with any questions or concerns. [facility] 01-01-2025 Telephone encounter Note Spoke with patient regarding procedure scheduled on 01/02. Patient aware they need to arrive at 12:30. Patient encouraged to eat, drink and take all medications prior to procedure. Also to bring or wear a supportive bra without wires. No perfumes, lotions, powder, or deodorant on the day of procedure. Patient verbalized understanding. Provided contact information and encouraged to call with any questions or concerns. [facility] 01-01-2025 Miscellaneous Notes Spoke with patient regarding procedure scheduled on 01/02. Patient aware they need to arrive at 12:30. Patient encouraged to eat, drink and take all medications prior to procedure. Also to bring or wear a supportive bra without wires. No perfumes, lotions, powder, or deodorant on the day of procedure. Patient verbalized understanding. Provided contact information and encouraged to call with any questions or concerns. documented in this encounter [facility] 12-28-2024 Telephone encounter Note Orders fro MRA-Head and MRI-Brain pended for dx and doctor's signature [facility] 12-28-2024 Miscellaneous Notes Orders fro MRA-Head and MRI-Brain pended for dx and doctor's signature documented in this encounter [facility] 12-27-2024 History of Present illness Narrative Images from the original note were not included. [facility] [address] [facility] [id number] Visit type: Established Patient Reason for Visit: Follow-up (Med Check/ results lung scan ) Assessment / Plan: Miki Falcon was seen today for follow-up. Diagnoses and all orders for this visit: Primary hypertension (Primary) Comments: Stable, continue metoprolol Pulmonary emphysema, unspecified emphysema type (HCC) Comments: stable, cont Spiriva and albuterol as needed, enc vaping cess Bipolar affective disorder, remission status unspecified (HCC) Comments: stable, continue meds including Zyprexa, lithium, Lamictal and Xanax Weight loss - CBC auto differential; Future - Comprehensive metabolic panel; Future - TSH; Future - T4, free; Future - T3, free; Future - CBC auto differential - Comprehensive metabolic panel - TSH - T4, free - T3, free History of ruptured cerebral aneurysm Comments: Reviewing past neurosurgical notes it was recommended to repeat MRI every 3 to 5 years. Other orders - metoprolol tartrate (Lopressor) 25 MG tablet; TAKE 1/2 TABLET BY MOUTH TWICE A DAY - albuterol 108 (90 Base) MCG/ACT inhaler; Inhale 2 puffs every 6 hours as needed for wheezing. Subjective: Patient ID: Miki Adrian is a 54 y.o. female. HPI hypertensive patient with history of cerebral aneurysm rupture in 2011 and craniotomy for 2 previous aneurysms in 1996 presents for overall checkup. Has lost weight by eating better and being more active. Overall feeling well on low-dose metoprolol. She did quit smoking but is vaping. Recent LDCT of the chest for cancer screening was negative. Of note had an abnormal left mammogram and is getting a biopsy in the near future. Review of Systems has felt well. Is on multiple mental health meds and sees her counselor routinely. She denies diplopia or headaches. No scotomas. No unilateral numbness of the face arm or legs. No nausea vomiting. No abdominal pain. Bowels are pretty regular. Colonoscopy due in a few more years. In review saw Dr. Shannon 5 years ago for overall consultation on his cerebral aneurysm. He said it would be reasonable to recheck MRIs every 3 to 5 years. Allergies Allergen Reactions Bupropion Other reaction(s): Other (See Comments) Hallucinations Morphine Other reaction(s): Unknown Codeine Rash Other reaction(s): Other: See Comments, Vomiting Swelling throat Other reaction(s): Nausea/Vom/Diarrhea Current Outpatient Medications: ALPRAZolam (Xanax) 0.5 MG tablet, Take 0.5 mg by mouth Nightly as needed for anxiety., Disp: , Rfl: lamoTRIgine (LaMICtal) 100 MG tablet, Take 100 mg by mouth 2 times daily., Disp: , Rfl: lithium ER (Eskalith) 450 MG 12 hr tablet, Take 450 mg by mouth daily., Disp: , Rfl: OLANZapine (ZyPREXA) 20 MG tablet, Take 1 tablet by mouth Nightly. Takes 15 mg, Disp: , Rfl: tiotropium (Spiriva) 18 MCG inhalation capsule, Place 1 capsule (18 mcg) into inhaler and inhale daily., Disp: 30 capsule, Rfl: 5 albuterol 108 (90 Base) MCG/ACT inhaler, Inhale 2 puffs every 6 hours as needed for wheezing., Disp: 18 g, Rfl: 5 metoprolol tartrate (Lopressor) 25 MG tablet, TAKE 1/2 TABLET BY MOUTH TWICE A DAY, Disp: 90 tablet, Rfl: 1 Patient Active Problem List Diagnosis Hypertension History of drug abuse (HCC) H/O solitary pulmonary nodule Pneumococcal vaccine refused Tremor Bipolar disorder (HCC) Thyromegaly COPD (chronic obstructive pulmonary disease) (HCC) H/O colonoscopy with polypectomy Post-menopause bleeding Engages in vaping History of DVT (deep vein thrombosis) History of ruptured cerebral aneurysm Abnormality of left breast on screening mammogram Cerebral arterial aneurysm Social History Tobacco Use Smoking status: Former Current packs/day: 0.00 Types: Cigarettes Quit date: 08/30/1987 Years since quittin.3 Smokeless tobacco: Never Substance Use Topics Alcohol use: No Alcohol/week: 0.0 standard drinks of alcohol Past Surgical History: Procedure Laterality Date BRAIN SURGERY 1996 Craniotomy x 2 (aneurysm) BRAIN SURGERY 12/2011 Cerebral Aneurysm Coiling after 2012 BREAST BIOPSY Right 2017 SECTION (HISTORICAL) 2004 with tubal ligation COLONOSCOPY W/ POLYPECTOMY 08/2023 Dr. Kenney- due 2028 COLPOSCOPY 1989 cervical dysplasia IVC FILTER RETRIEVAL 2012 TUBAL LIGATION Family History Problem Relation Name Age of Onset Hypertension Mother Bhupendra Adrian alive age 70 COPD Father Walter pulmonary fibrosis, age 72 in 2019 Throat cancer Father Walter Lung cancer Father Walter Other ([id number]) Sister at , abruptio placenta Hypertension Brother Jhony No Known Problems Brother Arie Lung cancer Maternal Grandmother smoker, age 86 No Known Problems Maternal Grandfather No Known Problems Paternal Grandmother No Known Problems Paternal Grandfather Objective: BP 112/70 Pulse 60 Temp 36.3 C (97.3 F) (Temporal) Ht 5' 5 (1.651 m) Wt 137 lb (62.1 kg) LMP 07/21/2023 SpO2 96% BMI 22.80 kg/m Physical Exam vital signs are stable. Recheck blood pressure satisfactory. Cranial nerves are normal. Pupils are equal. No neck masses JVD adenopathy or thyroid lesions. No carotid bruits. Physiologic reflexes. Heart is regular without gallops or murmurs or ectopy. Lungs are diminished but clear of rales wheezes or egophony. Abdomen without pain hepatosplenomegaly or masses. No bruits and femoral pulses good. Legs have no appreciable edema. Pulse and color and temperature are normal. documented in this encounter [facility] 12-26-2024 History of Present illness Narrative Images from the original note were not included. History and Physical Ezekiel Galo MD Patient ID: Miki Adrian [id number] 54 y.o. 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 female who presents abnormal mammogram of the left breast. The patient denies any current breast complaints. She denies any palpable masses, nipple discharge, axillary adenopathy, or breast pain. She has had a prior benign right sided image guided biopsy. She denies prior breast surgeries. She denies family history of breast cancer. Breast Imaging: Bilateral Screening Mammogram 11/03/24 Left Diagnostic Mammogram 12/21/24 Risk Factors: Menopause: perimenopausal Smoking: former ETOH: none Body mass index is 23.3 kg/m . Breast Density: B Family history includes: The lifetime risk of breast cancer estimated by the Tyrer Cuzick v8 model is 8.56%. The patient jaimes not meet NCCN criteria for genetic testing for hereditary cancer. 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 Breast cancer screening by mammogram 05/2022 Prefers every other year exam Cocaine abuse (HCC) none since 2018 COPD (chronic obstructive pulmonary disease) (HCC) [address] also Engages in vaping 06/2023 Ex-smoker 06/2023 H/O colonoscopy with polypectomy 08/2023 Dr.Ahmed- stone 2028 History of cervical dysplasia 1990 History of DVT (deep vein thrombosis) 2011 LUE- hx of GF filter placed History of pneumonia 2014 History of ruptured cerebral aneurysm 1996 ICH Hypertension 2011 Papanicolaou smear 05/2022 Positive colorectal cancer screening using Cologuard test 07/2023 GI ref pnd Screening for lung cancer 10/2024 3mm nodule- f/u 11/22 Thyromegaly 2021 no masses on u/s Past Surgical History: Procedure Laterality Date BRAIN SURGERY 1996 Craniotomy x 2 (aneurysm) BRAIN SURGERY 12/2011 Cerebral Aneurysm Coiling BREAST BIOPSY Right 2017 SECTION (HISTORICAL) 2004 with tubal ligation COLONOSCOPY W/ POLYPECTOMY 08/2023 Dr. Chyna stone 2028 COLPOSCOPY 1989 cervical dysplasia IVC FILTER RETRIEVAL 2012 TUBAL LIGATION Allergies Allergen Reactions Bupropion Other reaction(s): Other (See Comments) Hallucinations Morphine Other reaction(s): Unknown Codeine Rash Other reaction(s): Other: See Comments, Vomiting Swelling throat Other reaction(s): Nausea/Vom/Diarrhea Current Outpatient Medications: albuterol 108 (90 Base) MCG/ACT inhaler, Inhale 2 puffs every 6 hours as needed for wheezing., Disp: 18 g, Rfl: 2 ALPRAZolam (Xanax) 0.5 MG tablet, Take 0.5 mg by mouth Nightly as needed for anxiety., Disp: , Rfl: lamoTRIgine (LaMICtal) 100 MG tablet, Take 100 mg by mouth 2 times daily., Disp: , Rfl: lithium ER (Eskalith) 450 MG 12 hr tablet, Take 450 mg by mouth daily., Disp: , Rfl: LORazepam (Ativan) 0.5 MG tablet, , Disp: , Rfl: metoprolol tartrate (Lopressor) 25 MG tablet, TAKE 1/2 TABLET BY MOUTH TWICE A DAY, Disp: 90 tablet, Rfl: 1 OLANZapine (ZyPREXA) 20 MG tablet, Take 1 tablet by mouth Nightly. Takes 15 mg, Disp: , Rfl: ramelteon (Rozerem) 8 MG tablet, Take 8 mg by mouth Daily as needed for sleep., Disp: , Rfl: tiotropium (Spiriva) 18 MCG inhalation capsule, Place 1 capsule (18 mcg) into inhaler and inhale daily., Disp: 30 capsule, Rfl: 5 Review of Systems All other systems reviewed and are negative. BP 110/63 Pulse 66 Temp 36.7 C (98.1 F) Ht 5' 5 (1.651 m) Wt 140 lb (63.5 kg) LMP 07/21/2023 BMI 23.30 kg/m Physical Exam Constitutional: General: She is not in acute distress. Appearance: She is not ill-appearing. HENT: Nose: No congestion or rhinorrhea. Eyes: General: No scleral icterus. Conjunctiva/sclera: Conjunctivae normal. Cardiovascular: Rate and Rhythm: Normal rate and regular rhythm. Pulmonary: Effort: No respiratory distress. Breath sounds: No wheezing. Chest: Breasts: Right: No swelling, bleeding, inverted nipple, mass, nipple discharge, skin change or tenderness. Left: No swelling, bleeding, inverted nipple, mass, nipple discharge, skin change or tenderness. Abdominal: General: There is no distension. Tenderness: There is no abdominal tenderness. Musculoskeletal: General: No swelling or tenderness. Lymphadenopathy: Upper Body: Right upper body: No supraclavicular or axillary adenopathy. Left upper body: No supraclavicular or axillary adenopathy. Skin: General: Skin is warm. Coloration: Skin is not jaundiced. Neurological: General: No focal deficit present. Mental Status: She is oriented to person, place, and time. Psychiatric: Mood and Affect: Mood normal. Thought Content: Thought content normal. Assessment/Plan: 1. Abnormal mammogram Orders Placed This Encounter Procedures Left stereotactic guided biopsy left No palpable abnormality in either breast Left Breast Diagnostic Mammogram Category 4 with 2 site biopsy recommended, stereotactic biopsy ordered and scheduled at today's office visit Follow up in office 1 week after biopsy to discuss results and further treatment planning Culturally appropriate shared decision making was used to determine optimal course of workup and treatment for this patient. Patient demonstrates understanding of and agreement with the above plan of care. All questions have been answered to her satisfaction. Ezekiel Galo MD Please disregard any typographical errors. This note was dictated using voice recognition software. I spent 30 minutes total on the day of the visit obtaining history, reviewing imaging and laboratory results, performing a physical exam and providing patient education and counseling. documented in this encounter [facility] 12-26-2024 Note History and Physical Ezekiel Galo MD Patient ID: Miki Adrian [id number] 54 y.o. 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 female who presents abnormal mammogram of the left breast. The patient denies any current breast complaints. She denies any palpable masses, nipple discharge, axillary adenopathy, or breast pain. She has had a prior benign right sided image guided biopsy. She denies prior breast surgeries. She denies family history of breast cancer. Breast Imaging: Bilateral Screening Mammogram 11/03/24 Left Diagnostic Mammogram 12/21/24 Risk Factors: Menopause: perimenopausal Smoking: former ETOH: none Body mass index is 23.3 kg/m?. Breast Density: B Family history includes: The lifetime risk of breast cancer estimated by the Tyrer Cuzick v8 model is 8.56%. The patient jaimes not meet NCCN criteria for genetic testing for hereditary cancer. Past Medical History: Diagnosis Date Abnormality of left breast on screening mammogram 05/2024 Kovacevich- abn dx mamm 12/22 w/u pnd Bipolar disorder (HCC) 1989 Romy Duque Psychiatrvivien Breast cancer screening by mammogram 05/2022 Prefers every other year exam Cocaine abuse (HCC) none since 2018 COPD (chronic obstructive pulmonary disease) (HCC) [address] also Engages in vaping 06/2023 Ex-smoker 06/2023 H/O colonoscopy with polypectomy 08/2023 Dr.Chyna stone 2028 History of cervical dysplasia 1990 History of DVT (deep vein thrombosis) 2011 LUE- hx of GF filter placed History of pneumonia 2014 History of ruptured cerebral aneurysm 1996 ICH Hypertension 2011 Papanicolaou smear 05/2022 Positive colorectal cancer screening using Cologuard test 07/2023 GI ref pnd Screening for lung cancer 10/2024 3mm nodule- f/u 11/22 Thyromegaly 2021 no masses on u/s Past Surgical History: Procedure Laterality Date BRAIN SURGERY 1996 Craniotomy x 2 (aneurysm) BRAIN SURGERY 12/2011 Cerebral Aneurysm Coiling BREAST BIOPSY Right 2017 SECTION (HISTORICAL) 2004 with tubal ligation COLONOSCOPY W/ POLYPECTOMY 08/2023 Dr. Chyna stone 2028 COLPOSCOPY 1989 cervical dysplasia IVC FILTER RETRIEVAL 2012 TUBAL LIGATION Allergies Allergen Reactions Bupropion Other reaction(s): Other (See Comments) Hallucinations Morphine Other reaction(s): Unknown Codeine Rash Other reaction(s): Other: See Comments, Vomiting Swelling throat Other reaction(s): Nausea/Vom/Diarrhea Current Outpatient Medications: albuterol 108 (90 Base) MCG/ACT inhaler, Inhale 2 puffs every 6 hours as needed for wheezing., Disp: 18 g, Rfl: 2 ALPRAZolam (Xanax) 0.5 MG tablet, Take 0.5 mg by mouth Nightly as needed for anxiety., Disp: , Rfl: lamoTRIgine (LaMICtal) 100 MG tablet, Take 100 mg by mouth 2 times daily., Disp: , Rfl: lithium ER (Eskalith) 450 MG 12 hr tablet, Take 450 mg by mouth daily., Disp: , Rfl: LORazepam (Ativan) 0.5 MG tablet, , Disp: , Rfl: metoprolol tartrate (Lopressor) 25 MG tablet, TAKE 1/2 TABLET BY MOUTH TWICE A DAY, Disp: 90 tablet, Rfl: 1 OLANZapine (ZyPREXA) 20 MG tablet, Take 1 tablet by mouth Nightly. Takes 15 mg, Disp: , Rfl: ramelteon (Rozerem) 8 MG tablet, Take 8 mg by mouth Daily as needed for sleep., Disp: , Rfl: tiotropium (Spiriva) 18 MCG inhalation capsule, Place 1 capsule (18 mcg) into inhaler and inhale daily., Disp: 30 capsule, Rfl: 5 Review of Systems All other systems reviewed and are negative. BP 110/63 Pulse 66 Temp 36.7 ?C (98.1 ?F) Ht 5' 5 (1.651 m) Wt 140 lb (63.5 kg) LMP 07/21/2023 BMI 23.30 kg/m? Physical Exam Constitutional: General: She is not in acute distress. Appearance: She is not ill-appearing. HENT: Nose: No congestion or rhinorrhea. Eyes: General: No scleral icterus. Conjunctiva/sclera: Conjunctivae normal. Cardiovascular: Rate and Rhythm: Normal rate and regular rhythm. Pulmonary: Effort: No respiratory distress. Breath sounds: No wheezing. Chest: Breasts: Right: No swelling, bleeding, inverted nipple, mass, nipple discharge, skin change or tenderness. Left: No swelling, bleeding, inverted nipple, mass, nipple discharge, skin change or tenderness. Abdominal: General: There is no distension. Tenderness: There is no abdominal tenderness. Musculoskeletal: General: No swelling or tenderness. Lymphadenopathy: Upper Body: Right upper body: No supraclavicular or axillary adenopathy. Left upper body: No supraclavicular or axillary adenopathy. Skin: General: Skin is warm. Coloration: Skin is not jaundiced. Neurological: General: No focal deficit present. Mental Status: She is oriented to person, place, and time. Psychiatric: Mood and Affect: Mood normal. Thought Content: Thought content normal. Assessment/Plan: 1. Abnormal mammogram Orders Placed This (more content not included)... [facility] 11-09-2024 Telephone encounter Note Recent Visits Date Type Provider Dept 05/04/24 Office Visit Juan Palacio DO [facility] Showing recent visits within past 365 days and meeting all other requirements Future Appointments Date Type Provider Dept 12/11/24 Appointment Juan Palacio DO [facility] Showing future appointments within next 90 days and meeting all other requirements Requested Prescriptions Pending Prescriptions Disp Refills metoprolol tartrate (Lopressor) 25 MG tablet [Pharmacy Med Name: Metoprolol Tartrate 25MG TABS] 90 tablet 1 Sig: TAKE 1/2 TABLET BY MOUTH TWICE A DAY Provider: Juan Palacio DO Verified pharmacy: yes Verified day(s) supplied: yes Verified refill(s) needed (previous prescription showing no refills in chart): Yes Have you received any controlled medications from any other provider? N/A Overdue for visit: No If yes - patient scheduled? N/A Most recent labs completed in chart? N/A None [facility] 11-09-2024 Miscellaneous Notes Recent Visits Date Type Provider Dept 05/04/24 Office Visit Juan Palacio DO [facility] Showing recent visits within past 365 days and meeting all other requirements Future Appointments Date Type Provider Dept 12/11/24 Appointment Juan Palacio DO [facility] Showing future appointments within next 90 days and meeting all other requirements Requested Prescriptions Pending Prescriptions Disp Refills metoprolol tartrate (Lopressor) 25 MG tablet [Pharmacy Med Name: Metoprolol Tartrate 25MG TABS] 90 tablet 1 Sig: TAKE 1/2 TABLET BY MOUTH TWICE A DAY Provider: Juan Palacio DO Verified pharmacy: yes Verified day(s) supplied: yes Verified refill(s) needed (previous prescription showing no refills in chart): Yes Have you received any controlled medications from any other provider? N/A Overdue for visit: No If yes - patient scheduled? N/A Most recent labs completed in chart? N/A None documented in this encounter [facility] 10-30-2024 Telephone encounter Note Medication name: albuterol 108 (90 Base) MCG/ACT inhaler Medication dosage: 108/90 base mcg (Micrograms) act Monthly quantity needed: 1 How many day supply requestin days Medication route: inhalation (inhaler) Medication administration time(s): every 6 hours If taking medication PRN, reason for taking medication: wheezing If this is a controlled substance do you receive this or any other controlled medication from any other doctor or facility: No Ordering provider: Dr. Palacio Date of last office visit: 05/14/2024 Date of next office visit: 11/01/2024 Date of last refill: (see medication tab): 03/09/2024 Updated/Validated preferred pharmacy: Yes Patient instructed to contact the pharmacy prior to picking up the medication: No [facility] 10-30-2024 Miscellaneous Notes Medication name: albuterol 108 (90 Base) MCG/ACT inhaler Medication dosage: 108/90 base mcg (Micrograms) act Monthly quantity needed: 1 How many day supply requestin days Medication route: inhalation (inhaler) Medication administration time(s): every 6 hours If taking medication PRN, reason for taking medication: wheezing If this is a controlled substance do you receive this or any other controlled medication from any other doctor or facility: No Ordering provider: Dr. Palacio Date of last office visit: 05/14/2024 Date of next office visit: 11/01/2024 Date of last refill: (see medication tab): 03/09/2024 Updated/Validated preferred pharmacy: Yes Patient instructed to contact the pharmacy prior to picking up the medication: No documented in this encounter [facility] 09-30-2024 Telephone encounter Note S: Patient spoke with CAC nurse regarding vaginal bleeding B: Onset of symptoms/concern 1 day A: States having vaginal bleeding with mild lower abdominal cramping. States they have not had menstrual cycle since 2021. Denies constant severe pain, denies bleeding requiring more than 2 pads an hour or 6 pads in 6 hours, denies using blood thinning agents, denies fever, denies shortness of breath, denies chest pain. Requesting office visit. R: Appt 10/20/24 @ [address] Maynard. Negative responses to COVID screening. Advised patient should arrive 15 minutes early, bring photo ID, ins cards, and medications. Patient understands care advice. No further needs at this time. Patient instructed to call back with new or worsening symptoms. Reason for Disposition [1] Menstrual cycle < 21 days OR > 35 days AND [2] has occurred once this past year Protocols used: Vaginal Bleeding - [id number] [facility] 09-30-2024 Miscellaneous Notes S: Patient spoke with [facility] nurse regarding vaginal bleeding B: Onset of symptoms/concern 1 day A: States having vaginal bleeding with mild lower abdominal cramping. States they have not had menstrual cycle since 2021. Denies constant severe pain, denies bleeding requiring more than 2 pads an hour or 6 pads in 6 hours, denies using blood thinning agents, denies fever, denies shortness of breath, denies chest pain. Requesting office visit. R: Appt 10/20/24 @ [address] Maynard. Negative responses to COVID screening. Advised patient should arrive 15 minutes early, bring photo ID, ins cards, and medications. Patient understands care advice. No further needs at this time. Patient instructed to call back with new or worsening symptoms. Reason for Disposition [1] Menstrual cycle < 21 days OR > 35 days AND [2] has occurred once this past year Protocols used: Vaginal Bleeding - [id number] documented in this encounter [facility] 09-26-2024 Telephone encounter Note Orders pended for doctor's signature [facility] 09-26-2024 Miscellaneous Notes Orders pended for doctor's signature Spoke with patient and she agrees to lung screen This patient has had a prior lung screening CT scan at [facility]. According to our records, he/she is now due for an annual lung screening CT scan. Please evaluate and order this annual screening if your patient still meets lung screening criteria. documented in this encounter [facility] 09-26-2024 Telephone encounter Note Spoke with patient and she agrees to lung screen [facility] 09-26-2024 Telephone encounter Note This patient has had a prior lung screening CT scan at [facility]. According to our records, he/she is now due for an annual lung screening CT scan. Please evaluate and order this annual screening if your patient still meets lung screening criteria. [facility] 07-04-2024 Telephone encounter Note Rx loaded [facility] 07-04-2024 Miscellaneous Notes Rx loaded Medication name: tiotropium (Spiriva) 18 MCG inhalation capsule Patient states their pharmacy won't refill this medication, pharmacy is stating that Patient should have already gotten their refill for this month but Patient does not have that box of this medication. Please refill this as soon as possible as Patient is completely out and is very concerned. Medication dosage: 1 puff(s) Monthly quantity needed: 30 How many day supply requestin days Medication route: oral (PO) Medication administration time(s): daily If taking medication PRN, reason for taking medication: N/A If this is a controlled substance do you receive this or any other controlled medication from any other doctor or facility: N/A Ordering provider: Dr. Palacio Date of last office visit: 05/04/2024 Date of next office visit: 11/01/2024 Date of last refill: (see medication tab): 11/02/2023 Updated/Validated preferred pharmacy: Yes Patient instructed to contact the pharmacy prior to picking up the medication: Yes documented in this encounter [facility] 07-04-2024 Telephone encounter Note Medication name: tiotropium (Spiriva) 18 MCG inhalation capsule Patient states their pharmacy won't refill this medication, pharmacy is stating that Patient should have already gotten their refill for this month but Patient does not have that box of this medication. Please refill this as soon as possible as Patient is completely out and is very concerned. Medication dosage: 1 puff(s) Monthly quantity needed: 30 How many day supply requestin days Medication route: oral (PO) Medication administration time(s): daily If taking medication PRN, reason for taking medication: N/A If this is a controlled substance do you receive this or any other controlled medication from any other doctor or facility: N/A Ordering provider: Dr. Palacio Date of last office visit: 05/04/2024 Date of next office visit: 11/01/2024 Date of last refill: (see medication tab): 11/02/2023 Updated/Validated preferred pharmacy: Yes Patient instructed to contact the pharmacy prior to picking up the medication: Yes [facility] 05-31-2024 History of Present illness Narrative Miki Adrian 05/31/2024 53 y.o. Primary Care Physician: Juan Palacio DO Chief Complaint Patient presents with Gynecologic Exam HPI : Miki Adrian is a 53 y.o. female here for annual exam ___ Gynecologic History: Patient's last menstrual period was 07/21/2023. Pt without complaints. No bleeding since June. No discharge. 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 Breast cancer screening by mammogram 05/2022 Prefers every other year exam Cerebral aneurysm 1997 cerebral bleed Aneurysm rupture Chronic obstructive pulmonary disease (HCC) 11/02/2023 Cocaine abuse (HCC) none since 2018 COPD (chronic obstructive pulmonary disease) (HCC) [address] also Engages in vaping 06/2023 Ex-smoker 06/2023 H/O colonoscopy with polypectomy 08/2023 Dr.Ahmed- stone 2028 History of cervical dysplasia 1990 History of DVT (deep vein thrombosis) 2011 LUE- hx of GF filter placed History of pneumonia 2014 Hypertension 2011 Papanicolaou smear 05/2022 Positive colorectal cancer screening using Cologuard test 07/2023 GI ref pnd Screening for lung cancer 07/2023 3mm nodule- f/u 08/22 Thyromegaly 2021 no masses on u/s Past Surgical History: Procedure Laterality Date BRAIN SURGERY 1996 Craniotomy x 2 (aneurysm) BRAIN SURGERY 12/2011 Cerebral Aneurysm Coiling BREAST BIOPSY Right 2017 SECTION (HISTORICAL) 2004 with tubal ligation COLONOSCOPY W/ POLYPECTOMY 08/2023 Dr. Chyna stone 2028 COLPOSCOPY 1989 cervical dysplasia IVC FILTER RETRIEVAL 2012 TUBAL LIGATION Family History Problem Relation Name Age of Onset Hypertension Mother Bhupendra Adrian alive age 70 COPD Father Walter pulmonary fibrosis, age 72 in 2019 Throat cancer Father Walter Lung cancer Father Walter Other ([id number]) Sister at , abruptio placenta Hypertension Brother Jhony No Known Problems Brother Arie Lung cancer Maternal Grandmother smoker, age 86 No Known Problems Maternal Grandfather No Known Problems Paternal Grandmother No Known Problems Paternal Grandfather Social History Socioeconomic History Marital status: Spouse name: Not on file Number of children: Not on file Years of education: Not on file Highest education level: Not on file Occupational History Not on file Tobacco Use Smoking status: Every Day Current packs/day: 0.00 Types: Cigarettes Last attempt to quit: 08/30/1987 Years since quittin.7 Smokeless tobacco: Never Vaping Use Vaping status: Every Day Substances: Nicotine, Flavoring Devices: Disposable Substance and Sexual Activity Alcohol use: No Alcohol/week: 0.0 standard drinks of alcohol Drug use: Not Currently Sexual activity: Not Currently control/protection: Post-menopausal Other Topics Concern Not on file Social History Narrative Single, but living with BF Alexx since 2012 who has depression after his son committed suicide by gunshot in their home in 03/20. pt has 2 dtrs,- Catie is studying Social work and speech pathology and to attend [employer]. Also her BF has 2 other sons. No grandchildren. Smoker NO ETOH, ex crack-cocaine user since 2018. Sober from pot and ETOH abuse since 12/2021. Presently Disabled since 1996 but now working at [employer] in [place] since 01/19. Enjoys her pet dog and cat Social Determinants of Health Financial Resource Strain: Low Risk (01/22/2022) Re[facility] Overall Financial Resource Strain (CARDIA) Difficulty of Paying Living Expenses: Not hard at all Food Insecurity: No Food Insecurity (01/22/2022) [facility] from [facility] Hunger Vital Sign Worried About Running Out of Food in the Last Year: Never true Ran Out of Food in the Last Year: Never true Transportation Needs: Unmet Transportation Needs (02/09/2019) Received from [facility] PRAPARE - Transportation Lack of Transportation (Medical): Yes Lack of Transportation (Non-Medical): Yes Physical Activity: Insufficiently Active (02/09/2019) Received from [facility] Exercise Vital Sign Days of Exercise per Week: 7 days Minutes of Exercise per Session: 20 min Stress: Stress Concern Present (02/09/2019) Received from [facility] [place] [employer] - Occupational Stress Questionnaire Feeling of Stress : Very much Social Connections: Unknown (02/09/2019) Received from [facility] Social Connection and Isolation Panel [NHANES] Frequency of Communication with Friends and Family: More than three times a week Frequency of Social Gatherings with Friends and Family: More than three times a week Attends Muslim Services: More than 4 times per year Active Member of Clubs or Organizations: Yes Attends Club or Organization Meetings: More than 4 times per year Marital Status: Patient declined Intimate Partner Violence: Not on file Housing Stability: Not on file MEDICATIONS: Current Outpatient Medications Medication Sig Dispense Refill albuterol 108 (90 Base) MCG/ACT inhaler Inhale 2 puffs every 6 hours as needed for wheezing. 18 g 2 ALPRAZolam (Xanax) 0.5 MG tablet Take 0.5 mg by mouth Nightly as needed for anxiety. lamoTRIgine (LaMICtal) 100 MG tablet Take 100 mg by mouth 2 times daily. lithium ER (Eskalith) 450 MG 12 hr tablet Take 450 mg by mouth daily. LORazepam (Ativan) 0.5 MG tablet metoprolol tartrate (Lopressor) 25 MG tablet TAKE 1/2 TABLET BY MOUTH TWICE A DAY 90 tablet 1 ramelteon (Rozerem) 8 MG tablet Take 8 mg by mouth Daily as needed for sleep. tiotropium (Spiriva) [address] 1 capsule (18 mcg) into inhaler and inhale in the morning. 30 capsule 5 OLANZapine (ZyPREXA) 20 MG tablet Take 1 tablet by mouth Nightly. Takes 15 mg No current facility-administered medications for this visit. ALLERGIES: Allergies as of 05/31/2024 - Reviewed 05/31/2024 Allergen Reaction Noted Bupropion 09/23/2018 Morphine 01/13/2012 Codeine Rash 03/17/2012 REVIEW OF SYSTEMS: CONSTIUTIONAL: No fever, chills or malaise; No weight change or fatigue CV: No Chest Pain with Exertion, Palpitations, Syncope, Edema, Arrhythmia RESPIRATORY: No SOB, Pneumoniae,Cough, BREAST: No breast abnormalities or lumps GI: No Indigestion, Heartburn, Nausea, vomiting, Diarrhea, Constipation,Bloating or Bowel Changes; No Bloody Stools or melena : No Dysuria, Hematuria or Nocturia. No Urinary Incontinence or Vaginal Discharge,vaginal bleeding, or dysparuenia. NEURO: No CVA, Migraines, Epilepsy, Seizure Hx, or Limb Weakness DERM: No Rash, Itching, Hives, Mole Changes or Cancer PSYCH: No Depression, Homicidal thoughts,suicidal thoughts, or anxiety MUSCULOSKELETAL: No Arthralgia, or Arthritis HEME and LYMPH :No Lymphoma, Von Willebrand's, Hemophillia or Bleeding History PHYSICAL EXAM: Vitals: 05/31/24 1321 BP: 110/70 Weight: 68 kg (150 lb) Height: 1.651 m (5' 5) Body mass index is 24.96 kg/m . ON SITE SOIL EVALUATOR EXAM: EXTERNAL GENITALIA: normal female structures VAGINA: normal ruggae, no lesions CERVIX: no lesions, normal appearance. ANUS/PERINEUM: no hemorrhoids, masses or warts noted. GENERAL EXAM BREAST: b/l symmetric without masses or tenderness CONSTITUTIONAL: Well developed, well nourished, well groomed. no acute distress NECK: no thyromegaly, supple. CARDIOVASCULAR: normal rate and rhythm, no edema LUNGS: Normal effort, normal lung sounds ABDOMEN:soft, non-tender, non-distended, no hepatospleenomegaly SKIN: intact, dry NEUROLOGICAL: no gross motor or sensory deficits noted. . MUSCULOSKELETAL: normal gait, no cyanosis. PSYCHIATRIC Normal mood and affect, A&O x3. ASSESSMENT/PLAN: Miki Falcon was seen today for gynecologic exam. Diagnoses and all orders for this visit: Encounter for gynecological examination without abnormal finding (Primary) - Pap Smear Screening mammogram for breast cancer - Bilateral screening mammogram with tomosynthesis; Future Follow up in about 1 year (around 05/31/2025). Not a candidate for estrogen Concern for breast CA (one breast larger) - no masses felt - discussed this is normal Pt appears agitated - we discussed this at length and she says this is normal for her documented in this encounter [facility] 05-04-2024 History of Present illness Narrative Images from the original note were not included. [facility] [address] [place] [address] [address] [facility] [id number] Visit type: Established Patient Reason for Visit: Follow-up (Med check/Spot on inner pubic area ) Assessment / Plan: Miki Falcon was seen today for follow-up. Diagnoses and all orders for this visit: Essential hypertension (Primary) Comments: Stable, continue metoprolol Pulmonary emphysema, unspecified emphysema type (HCC) Comments: Stable, stop Spiriva at patient's request Boil of inguinal region Comments: New onset, Keflex, follow-up with [employer] SITE SOIL EVALUATOR for possible I&D if worsening Closed follicle comedo Comments: Chronic, no intervention necessary Bipolar affective disorder, remission status unspecified (HCC) Comments: Stable and reviewed her psychiatric meds. Encouragement given Engages in vaping Comments: Noted, encouragement given to cut down that nicotine as well. H/O solitary pulmonary nodule Comments: Noted, will need checkup in July to schedule LDCT chest Other orders - metoprolol tartrate (Lopressor) 25 MG tablet; TAKE 1/2 TABLET BY MOUTH TWICE A DAY - cephalexin (Keflex) 500 MG capsule; Take 1 capsule (500 mg) by mouth 3 times daily for 21 doses. 35 Minutes spent on reviewing pertinent history, patient interview, physical exam, discussion of diagnosis and treatment and work-up options. Praise given on her smoking cessation and hopefully vaping cessation will follow. To [facility] SITE SOIL EVALUATOR for breast exam and mammogram. Subjective: Patient ID: Miki Adrian is a 53 y.o. female. HPI patient presents for a few concerns. Needs refill on her metoprolol and is concerned about. Diagnoses of COPD and a small pulmonary nodule. Does not wish to continue Spiriva just because she does not want to take more medicine. She denies real exertional using or dyspnea. Mild COPD found on LDCT chest. She has a small pulmonary nodule that needs follow-up in treatment no hemoptysis or chest pain. She has stopped smoking now vaping. She hopes to stop that as well Review of Systems no change in mental health. She immensely benefits from her mental health counselor. She is involved with outpatient activities well. Denies abdominal pain. Bowels are regular. No melena or blood. To be getting ON SITE SOIL EVALUATOR exam defers breast exam to service captain. She has some lesions on her mons pubis that she would like me to look at. Allergies Allergen Reactions Bupropion Other reaction(s): Other (See Comments) Hallucinations Morphine Other reaction(s): Unknown Codeine Rash Other reaction(s): Other: See Comments, Vomiting Swelling throat Other reaction(s): Nausea/Vom/Diarrhea Current Outpatient Medications on File Prior to Visit Medication Sig Dispense Refill albuterol 108 (90 Base) MCG/ACT inhaler Inhale 2 puffs every 6 hours as needed for wheezing. 18 g 2 ALPRAZolam (Xanax) 0.5 MG tablet Take 0.5 mg by mouth Nightly as needed for anxiety. lamoTRIgine (LaMICtal) 100 MG tablet Take 100 mg by mouth 2 times daily. lithium ER (Eskalith) 450 MG 12 hr tablet Take 450 mg by mouth daily. LORazepam (Ativan) 0.5 MG tablet OLANZapine (ZyPREXA) 20 MG tablet Take 1 tablet by mouth Nightly. Takes 15 mg ramelteon (Rozerem) 8 MG tablet Take 8 mg by mouth Daily as needed for sleep. tiotropium (Spiriva) [address] 1 capsule (18 mcg) into inhaler and inhale in the morning. 30 capsule 5 [DISCONTINUED] metoprolol tartrate (Lopressor) 25 MG tablet TAKE 1/2 TABLET BY MOUTH TWICE A DAY 90 tablet 1 No current facility-administered medications on file prior to visit. Patient Active Problem List Diagnosis Essential hypertension History of drug abuse (CMS/HCC) (HCC) H/O solitary pulmonary nodule Pneumococcal vaccine refused Tremor Bipolar affective disorder (HCC) Thyromegaly Chronic obstructive pulmonary disease (HCC) H/O colonoscopy with polypectomy Post-menopause bleeding Engages in vaping Social History Tobacco Use Smoking status: Every Day Current packs/day: 0.00 Types: Cigarettes Last attempt to quit: 08/30/1987 Years since quittin.7 Smokeless tobacco: Never Substance Use Topics Alcohol use: No Alcohol/week: 0.0 standard drinks of alcohol Past Surgical History: Procedure Laterality Date BRAIN SURGERY 1996 Craniotomy x 2 (aneurysm) BRAIN SURGERY 12/2011 Cerebral Aneurysm Coiling BREAST BIOPSY Right 2017 SECTION (HISTORICAL) 2004 with tubal ligation COLONOSCOPY W/ POLYPECTOMY 08/2023 Dr. Kenney- due 2028 COLPOSCOPY 1989 cervical dysplasia IVC FILTER RETRIEVAL 2012 TUBAL LIGATION Family History Problem Relation Name Age of Onset Hypertension Mother Bhupendra Adrian alive age 70 COPD Father Walter pulmonary fibrosis, age 72 in 2019 Throat cancer Father Walter Lung cancer Father Walter Other ([id number]) Sister at , abruptio placenta Hypertension Brother Jhony No Known Problems Brother Arie Lung cancer Maternal Grandmother smoker, age 86 No Known Problems Maternal Grandfather No Known Problems Paternal Grandmother No Known Problems Paternal Grandfather Objective: BP 104/71 (BP Location: Left arm, Patient Position: Sitting, BP Cuff Size: Large adult) Pulse 66 Temp 36.1 C (97 F) (Temporal) Ht 5' 5 (1.651 m) Wt 157 lb 9.6 oz (71.5 kg) LMP 07/21/2023 SpO2 97% BMI 26.23 kg/m Physical Exam Pleasant alert and cooperative. No JVD adenopathy or thyroid lesions. No carotid bruits clear oropharynx. Is rate without murmurs or ectopy. Lungs are clear without rales wheezes abdomen soft without pain hepatosplenomegaly or masses. Extremities are pink without edema. No pallor cyanosis or edema. she has some dry blackheads i.e. comedonal changes of the mons pubis. They have no worrisome features. She does have a 0.5 x 1 cm indurated intradermal boil of the left inguinal area. Not substantial in size or erythematous or painful. documented in this encounter [employer] 05-04-2024 Instructions Juan Palacio DO - 05/04/2024 2:00 PM EDT Flu vax and shingles vaccines as discussed documented in this encounter [employer] [place] 04-27-2024 Miscellaneous Notes S: Patient spoke with [facility] nurse regarding Two area of concern - scabbed/like growth, in groin- hairline B: Onset of symptoms/concern sometime in the last 3 month A: Pt states she is a poor historian due to her hx of brain aneurysm two area of concern on labia that seemed scabbed/growth. Approximate size of an apple seed. Denies pain, drainage. Pt also needs to schedule Pap. R: CAC nurse unable to find appt that works with patient schedule to be seen for the skin concern. She states she will have her PCP look at that at her appt on 05/04/24. [facility] scheduled Wellness appt with Dr Perez on 05/31/24 at 1:30pm. Patient instructed to call back with new or worsening symptoms. Sent FYI to PCP office for skin concern to be noted for MD appt on 05/04/24 due to patient's expressed concerns. Reason for Disposition ALL other vulvar symptoms (Exception: Feels like prior yeast infection, or rash < 24 hour duration.) Protocols used: Vulvar [id number] documented in this encounter [facility] 04-27-2024 Telephone encounter Note S: Patient spoke with [facility] nurse regarding Two area of concern - scabbed/like growth, in groin- hairline B: Onset of symptoms/concern sometime in the last 3 month A: Pt states she is a poor historian due to her hx of brain aneurysm two area of concern on labia that seemed scabbed/growth. Approximate size of an apple seed. Denies pain, drainage. Pt also needs to schedule Pap. R: [facility] nurse unable to find appt that works with patient schedule to be seen for the skin concern. She states she will have her PCP look at that at her appt on 05/04/24. [facility] scheduled Wellness appt with Dr Perez on 05/31/24 at 1:30pm. Patient instructed to call back with new or worsening symptoms. Sent FYI to PCP office for skin concern to be noted for MD appt on 05/04/24 due to patient's expressed concerns. Reason for Disposition ALL other vulvar symptoms (Exception: Feels like prior yeast infection, or rash < 24 hour duration.) Protocols used: Vulvar [id number] [facility] 03-22-2024 Miscellaneous Notes S: Patient spoke with [facility] nurse regarding raised bump in pubic area, maybe infected hairs B: Onset of symptoms/concern 1 week A: Pt c/o elevated raised bumps in pubic hair area, no pain, no drainage, no itching. CAC nurse asked patient the size and when she went to look and she came back to the phone and states that they are gone now. Reports she did do a few epsom salt baths and warm compresses, they must have drained. R: CAC nurse advised to call back if they return or with any new or worsening symptoms. Pt verbalized understanding. No further action required at this time. Reason for Disposition Mild rash (e.g., redness, tiny bumps, sore) of genital area and present < 24 hours Protocols used: Vaginal Zhzekqls-PQUMC-PQ documented in this encounter [facility] 03-22-2024 Telephone encounter Note S: Patient spoke with CAC nurse regarding raised bump in pubic area, maybe infected hairs B: Onset of symptoms/concern 1 week A: Pt c/o elevated raised bumps in pubic hair area, no pain, no drainage, no itching. CAC nurse asked patient the size and when she went to look and she came back to the phone and states that they are gone now. Reports she did do a few epsom salt baths and warm compresses, they must have drained. R: CAC nurse advised to call back if they return or with any new or worsening symptoms. Pt verbalized understanding. No further action required at this time. Reason for Disposition Mild rash (e.g., redness, tiny bumps, sore) of genital area and present < 24 hours Protocols used: Vaginal Lefpshxz-OEXHO-LL [facility] 03-09-2024 Telephone encounter Note Patient stated she would like to have this on hand for shortness of breath Rx loaded [facility] 03-09-2024 Miscellaneous Notes Patient stated she would like to have this on hand for shortness of breath Rx loaded Patient stated she would like to have this on hand for shortness of breath Medication name: albuterol sulfate HFA Medication dosage: 108 (90 Base) MCG/ACT inhaler Monthly quantity needed: 1 How many day supply requestin days Medication route: inhalation (inhaler) Medication administration time(s): Inhale 2 puffs into the lungs every 6 hours as needed for Wheezing If taking medication PRN, reason for taking medication: N/A If this is a controlled substance do you receive this or any other controlled medication from any other doctor or facility: N/A Ordering provider: historical Date of last office visit: 11/02/23 Date of next office visit: 05/04/24 Date of last refill: (see medication tab): historical Updated/Validated preferred pharmacy: Yes Patient instructed to contact the pharmacy prior to picking up the medication: Yes documented in this encounter [facility] 03-09-2024 Telephone encounter Note Patient stated she would like to have this on hand for shortness of breath Medication name: albuterol sulfate HFA Medication dosage: 108 (90 Base) MCG/ACT inhaler Monthly quantity needed: 1 How many day supply requestin days Medication route: inhalation (inhaler) Medication administration time(s): Inhale 2 puffs into the lungs every 6 hours as needed for Wheezing If taking medication PRN, reason for taking medication: N/A If this is a controlled substance do you receive this or any other controlled medication from any other doctor or facility: N/A Ordering provider: historical Date of last office visit: 11/02/23 Date of next office visit: 05/04/24 Date of last refill: (see medication tab): historical Updated/Validated preferred pharmacy: Yes Patient instructed to contact the pharmacy prior to picking up the medication: Yes [facility] 02-14-2024 Telephone encounter Note Triage message reviewed with clinical staff. Patient went to [facility] 02-14-2024 Miscellaneous Notes Triage message reviewed with clinical staff. Patient went to [facility] Patient calling with UTI B 2 days A patient calling with uti symptoms. Frequency, urgency, burning and fatigue. R patient advised UCC, she will be going to UCC near her. TE sent to office for follow up if needed. Reason for Disposition Urinating more frequently than usual (i.e., frequency) Protocols used: Urinary Hmdwtnkt-UUKSS-CD documented in this encounter [facility] 02-11-2024 Telephone encounter Note S Patient calling with UTI B 2 days A patient calling with uti symptoms. Frequency, urgency, burning and fatigue. R patient advised UCC, she will be going to UCC near her. TE sent to office for follow up if needed. Reason for Disposition Urinating more frequently than usual (i.e., frequency) Protocols used: Urinary Qvxbdvty-MUBEZ-NJ [facility] 02-11-2024 Miscellaneous Notes S Patient calling with UTI B 2 days A patient calling with uti symptoms. Frequency, urgency, burning and fatigue. R patient advised UCC, she will be going to UCC near her. TE sent to office for follow up if needed. Reason for Disposition Urinating more frequently than usual (i.e., frequency) Protocols used: Urinary Yzbqvqau-ORHUI-BK documented in this encounter [facility] 01-06-2024 Telephone encounter Note Recent Visits Date Type Provider Dept 11/02/23 Office Visit Juan Palacio DO [facility] 07/13/23 Office Visit Juan Palacio DO [facility] Showing recent visits within past 365 days and meeting all other requirements Future Appointments No visits were found meeting these conditions. Showing future appointments within next 90 days and meeting all other requirements Requested Prescriptions Pending Prescriptions Disp Refills metoprolol tartrate (Lopressor) 25 MG tablet [Pharmacy Med Name: Metoprolol Tartrate 25MG TABS] 30 tablet Sig: TAKE 1/2 TABLET BY MOUTH TWICE A DAY Provider: Juan Palacio DO Verified pharmacy: yes Verified day(s) supplied: yes Verified refill(s) needed (previous prescription showing no refills in chart): No - unable to verify prescription refills in chart Have you received any controlled medications from any other provider? No Overdue for visit: No If yes - patient scheduled? No Most recent labs completed in chart? N/A [facility] 01-06-2024 Miscellaneous Notes Recent Visits Date Type Provider Dept 11/02/23 Office Visit Juan Palacio DO [facility] 07/13/23 Office Visit Juan Palacio DO [facility] Showing recent visits within past 365 days and meeting all other requirements Future Appointments No visits were found meeting these conditions. Showing future appointments within next 90 days and meeting all other requirements Requested Prescriptions Pending Prescriptions Disp Refills metoprolol tartrate (Lopressor) 25 MG tablet [Pharmacy Med Name: Metoprolol Tartrate 25MG TABS] 30 tablet Sig: TAKE 1/2 TABLET BY MOUTH TWICE A DAY Provider: Juan Palacio DO Verified pharmacy: yes Verified day(s) supplied: yes Verified refill(s) needed (previous prescription showing no refills in chart): No - unable to verify prescription refills in chart Have you received any controlled medications from any other provider? No Overdue for visit: No If yes - patient scheduled? No Most recent labs completed in chart? N/A documented in this encounter [facility] 10-01-2023 Miscellaneous Notes Left colonoscopy results on patients voicemail. documented in this encounter [facility] 09-22-2023 History of Present illness Narrative Chief Complaint Patient presents with Follow-up ON SITE SOIL EVALUATOR us same day HPI No bleeding since Nov Has intemitten vaginal discharge - clear ROS: Constitutional - denies fevers or chills Resp - denies CP or SOB CV - denies CP GI - denies nausea, vomiting - denies frequency and dysuria Past Medical History: Diagnosis Date Bipolar disorder ([facility]) [address] Dr[address] Gregory Syed [place] Psychiatrist Breast cancer screening by mammogram 05/2022 Prefers every other year exam Cerebral aneurysm 12/2011 cerebral bleed Aneurysm rupture Cocaine abuse ([facility]) none since 2018 COPD (chronic obstructive pulmonary disease) ([facility]) 07/[address] History of cervical dysplasia 1990 History of DVT (deep vein thrombosis) 2011 LUE- hx of GF filter placed History of pneumonia 2014 RUL infiltrate Hypertension 2011 Papanicolaou smear 05/2022 Positive colorectal cancer screening using Cologuard test 07/2023 GI ref pnd Screening for lung cancer 07/2023 3mm nodule- 08/22 Smoker now vaping Thyromegaly 2021 no masses on u/s Past Surgical History: Procedure Laterality Date BRAIN SURGERY 1996 Craniotomy x 2 (aneurysm) BRAIN SURGERY 12/2011 Cerebral Aneurysm Coiling BREAST BIOPSY Right 2017 SECTION (HISTORICAL) 2004 with tubal ligation COLPOSCOPY 1989 cervical dysplasia IVC FILTER RETRIEVAL 2012 TUBAL LIGATION Allergies Allergen Reactions Bupropion Other reaction(s): Other (See Comments) Hallucinations Morphine Other reaction(s): Unknown Codeine Rash Other reaction(s): Other: See Comments, Vomiting Swelling throat Other reaction(s): Nausea/Vom/Diarrhea @MEDCMED@ BP 100/58 Ht 1.651 m (5' 5) Wt 79.8 kg (176 lb) LMP 07/21/2023 BMI 29.29 kg/m PE: Well developed, well nourished Normocephalic, atraumatic CV - normal rate Resp - normal effort Abd - soft, ND MS - no edema Neuro - Pt A&Ox3, NAD Skin - warn and dry Psych - normal affect and behavior Miki Falcon was seen today for follow-up. Diagnoses and all orders for this visit: Vaginal discharge (Primary) PMB (postmenopausal bleeding) Lining 4.25 No bleeding If any bleeding needs biopsy Discussed discharge and possible urine Next time has symptoms will see same day in office OK to overbook Follow up for annual. documented in this encounter [facility] 09-14-2023 Note HNO ID: [id number] Author: RENY MCCORD RN Service: Nursing Author Type: Registered Nurse Type: Nursing Progress Note Filed: 09/14/2023 15:18 Note Text: Physician at bedside to disucss procedure/findngs with patient. [facility] 09-14-2023 Nurse Note Physician at bedside to disucss procedure/findngs with patient. [facility] 09-14-2023 Nurse Note Physician at bedside to disucss procedure/findngs with patient. documented in this encounter [facility] 09-14-2023 Nurse procedure note Pad site benign after pad removal. [facility] 09-14-2023 Miscellaneous Notes Pad site benign after pad removal. Please call patient and advise that colonoscopy was abnormal, precancerous polyp. Recall in 5 years Dia Kenney MD documented in this encounter [facility] 09-14-2023 History and physical note HISTORY AND PHYSICAL Miki Ezekiel Gabino, 52 year old female here for colonoscopy, average risk for colon cancer screening Current history and physical on file: No Is a new History and Physical required for today's visit? Yes Indication for procedure: Screening PROCEDURE(S) SCHEDULED FOR: Colonoscopy with or without biopsies and with or without removal of polyps or lesions, dilation (any means), treatment of bleeding (any means), based on clinical findings. BASELINE BEHAVIOR: Calm BASELINE ORIENTATION: A & O x3 All medications and allergies reviewed: Yes Skin Assessment: Warm dry muscus membranes pink Airway/Respiratory Assessment: Airway: visualization of the uvula- Yes Mouth: opening greater than 2 fingerbreadths- Yes Neck: full range of motion- Yes Breath sounds clear/equal- Yes Cardiac Assessment: Regular rate and rhythm without murmur Abdominal Assessment: Abdomen soft, non-tender, no masses or organomegaly. Sedation Plan: Deep Additional Comments: None Dia Kenney MD [facility] Work Phone: 09-14-2023 History and physical note HISTORY AND PHYSICAL Miki Adrian, 52 year old female here for colonoscopy, average risk for colon cancer screening Current history and physical on file: No Is a new History and Physical required for today's visit? Yes Indication for procedure: Screening PROCEDURE(S) SCHEDULED FOR: Colonoscopy with or without biopsies and with or without removal of polyps or lesions, dilation (any means), treatment of bleeding (any means), based on clinical findings. BASELINE BEHAVIOR: Calm BASELINE ORIENTATION: A & O x3 All medications and allergies reviewed: Yes Skin Assessment: Warm dry muscus membranes pink Airway/Respiratory Assessment: Airway: visualization of the uvula- Yes Mouth: opening greater than 2 fingerbreadths- Yes Neck: full range of motion- Yes Breath sounds clear/equal- Yes Cardiac Assessment: Regular rate and rhythm without murmur Abdominal Assessment: Abdomen soft, non-tender, no masses or organomegaly. Sedation Plan: Deep Additional Comments: None Dia Kenney MD documented in this encounter [facility] 09-14-2023 Progress note Formatting of t his note might be different from the original. Please call patient and advise that colonoscopy was abnormal, precancerous polyp. Recall in 5 years Dia Kenney MD [facility] 08-18-2023 History of Present illness Narrative Miki Adrian 08/18/2023 52 y.o. Primary Care Physician: Juan Palacio DO Chief Complaint Patient presents with New Patient Patient starting having cramping and bleeding. Patient last period was 3 years period. Last pap 07/27/2022- normal. HPI : Miki Adrian is a 52 y.o. female here for bleeding ___ Gynecologic History: Patient's last menstrual period was 07/21/2023. Pt reports menopause age 49. The bled in Jun for 7-10 days after bleeding in May. Was recently treated for vaginal infection with flagyl. Gone now. No pain. OB History Para Term AB Living 3 2 0 0 1 2 SAB IAB Ectopic Multiple Live Births 1 0 0 0 0 # Outcome Date GA Lbr Abraham/2nd Weight Sex Delivery Anes PTL Lv 3 Para 2 Para 1 SAB Past Medical History: Diagnosis Date Bipolar disorder ([facility]) 1989 Romy Faria Psychiatrist Breast cancer screening by mammogram 05/2022 Prefers every other year exam Cerebral aneurysm 12/2011 cerebral bleed Aneurysm rupture Cocaine abuse ([facility]) none since 2018 COPD (chronic obstructive pulmonary disease) ([facility]) 07/[address] History of cervical dysplasia 1990 History of DVT (deep vein thrombosis) 2011 LUE- hx of GF filter placed History of pneumonia 2015 RUL infiltrate Hypertension 2012 Papanicolaou smear 05/2022 Positive colorectal cancer screening using Cologuard test 07/2023 GI ref pnd Screening for lung cancer 07/2023 3mm nodule- / 08/22 Smoker now vaping Thyromegaly 2021 no masses on u/s Past Surgical History: Procedure Laterality Date BRAIN SURGERY 1996 Craniotomy x 2 (aneurysm) BRAIN SURGERY 12/2011 Cerebral Aneurysm Coiling BREAST BIOPSY Right 2017 SECTION (HISTORICAL) 2004 with tubal ligation COLPOSCOPY 1989 cervical dysplasia IVC FILTER RETRIEVAL 2012 TUBAL LIGATION Family History Problem Relation Name Age of Onset No Known Problems Paternal Grandfather No Known Problems Paternal Grandmother Lung cancer Maternal Grandmother smoker, age 86 No Known Problems Maternal Grandfather COPD Father Walter pulmonary fibrosis, age 72 in 2019 Throat cancer Father Walter Lung cancer Father Walter Hypertension Mother Bhupendra Adrian Hypertension Brother Jhony No Known Problems Brother Arie Other ([id number]) Sister at , abruptio placenta Social History Socioeconomic History Marital status: Spouse name: Not on file Number of children: Not on file Years of education: Not on file Highest education level: Not on file Occupational History Not on file Tobacco Use Smoking status: Every Day Packs/day: .5 Types: Cigarettes Last attempt to quit: 08/30/1987 Years since quittin.0 Smokeless tobacco: Never Substance and Sexual Activity Alcohol use: No Alcohol/week: 0.0 standard drinks of alcohol Drug use: Not Currently Sexual activity: Not on file Other Topics Concern Not on file Social History Narrative Single, but living with ROSARIO Coffey since 2012 who has depression after his son committed suicide by gunshot in their home in 03/20) pt has 2 dtrs,- Catie is studying Social work and speech pathology and [employer] to attend [employer]. Also her BF has 2 other sons. No grandchildren. Smoker NO ETOH, ex crack-cocaine user since 2018. Sober from pot and ETOH abuse since 12/2021. Presently Disabled since 1996 but now working at [employer] in [place] since 01/19. Enjoys her pet dog and cat Social Determinants of Health Financial Resource Strain: Not on file Food Insecurity: Not on file Transportation Needs: Not on file Physical Activity: Not on file Stress: Not on file Social Connections: Not on file Intimate Partner Violence: Not on file Housing Stability: Not on file MEDICATIONS: Current Outpatient Medications Medication Sig Dispense Refill ALPRAZolam (Xanax) 0.5 MG tablet Take 0.5 mg by mouth Nightly as needed for anxiety. lamoTRIgine (LaMICtal) 100 MG tablet daily. Half tablet in the am and half tablet in the pm lithium ER (Eskalith) 450 MG 12 hr tablet Take 450 mg by mouth daily. LORazepam (Ativan) 0.5 MG tablet metoprolol tartrate (Lopressor) 25 MG tablet 1/2 tab bid 90 tablet 1 OLANZapine (ZyPREXA) 20 MG tablet Take 1 tablet by mouth Nightly. Takes 15 mg ramelteon (Rozerem) 8 MG tablet Take 8 mg by mouth Daily as needed for sleep. No current facility-administered medications for this visit. ALLERGIES: Allergies as of 08/18/2023 - Reviewed 07/13/2023 Allergen Reaction Noted Bupropion 09/23/2018 Morphine 01/13/2012 Codeine Rash 03/17/2012 REVIEW OF SYSTEMS: CONSTIUTIONAL: No fever, chills or malaise; No weight change or fatigue CV: No Chest Pain with Exertion, Palpitations, Syncope, Edema, Arrhythmia RESPIRATORY: No SOB, Pneumoniae,Cough, BREAST: No breast abnormalities or lumps GI: No Indigestion, Heartburn, Nausea, vomiting, Diarrhea, Constipation,Bloating or Bowel Changes; No Bloody Stools or melena : No Dysuria, Hematuria or Nocturia. No Urinary Incontinence or Vaginal Discharge,vaginal bleeding, or dysparuenia. POS incontince NEURO: No CVA, Migraines, Epilepsy, Seizure Hx, or Limb Weakness DERM: No Rash, Itching, Hives, Mole Changes or Cancer PSYCH: No Depression, Homicidal thoughts,suicidal thoughts, or anxiety MUSCULOSKELETAL: No Arthralgia, or Arthritis HEME and LYMPH :No Lymphoma, Von Willebrand's, Hemophillia or Bleeding History PHYSICAL EXAM: Vitals: 08/18/23 1132 BP: 117/77 Pulse: 58 Weight: 79.8 kg (176 lb) Height: 1.651 m (5' 5) Body mass index is 29.29 kg/m . ON SITE SOIL EVALUATOR EXAM: GENERAL EXAM BREAST: deferred CONSTITUTIONAL: Well developed, well nourished, well groomed. no acute distress NECK: no thyromegaly, supple. CARDIOVASCULAR: normal rate and rhythm, no edema LUNGS: Normal effort, normal lung sounds ABDOMEN:soft, non-tender, non-distended, no hepatospleenomegaly SKIN: intact, dry NEUROLOGICAL: no gross motor or sensory deficits noted. . MUSCULOSKELETAL: normal gait, no cyanosis. PSYCHIATRIC Normal mood and affect, A&O x3. ASSESSMENT/PLAN: Miki Falcon was seen today for new patient. Diagnoses and all orders for this visit: Post-menopause bleeding (Primary) - [facility] Urinary incontinence, unspecified type - [facility]; Future Cyst of ovary, unspecified laterality - US pelvis transvaginal; Future - US pelvis limited; Future Discussed this Discussed causes of bleeding Discussed biopsy Will repeat ultrasound to recheck endometrium and cyst Send to uro/tongue and groove machine operator for eval Follow up for tongue and groove machine operator us. documented in this encounter [facility] [employer] [facility] 08-16-2023 Miscellaneous Notes Indication: AVERAGE RISK SCREENING COLONOSCOPY Positive Cologuard in past Personal History Colon polyps? No Colon cancer? No Crohn's Disease? No Ulcerative Colitis? No Family History Colon polyps? No Colon cancer? No Height: 5'4 Weight: 170 BMI: 29 Tracheostomy new or old No If yes, schedule at hospital Any surgery or radiation to the head or neck? Yes, 4 Brain aneurysms 1996, 2011, no radiation If can't move neck side to side & up and down, schedule at hospital. Radiation to neck or head automatically gets scheduled at hospital Implanted defibrillator (ACD)? No If yes, schedule at hospital Have you ever been told you were difficult to intubate? No If yes, schedule at hospital Allergies: Latex, Adhesives, or Medication? Medications, Codeine, Wellbutrin If anaphylactic reaction to latex, schedule at hospital Recent stroke or cardiac event in the past 6 months? No (ex: heart attack or stent placement). If yes, schedule 6 months after cardiac event. Are you insulin dependent? Are your sugars in control? Ask what BS is running. No If controlled sugars needs scheduled in early AM, If uncontrolled sugars and are over 250 needs to be scheduled at hospital. Are you on any weight loss/diabetic medications (injectable or oral)? No On oxygen at home? No If yes, give to PHARMACIST TECHNICIAN to evaluate. Chest pain or shortness of breath on exertion? No If yes, give to PHARMACIST TECHNICIAN to evaluate. Any kidney/liver disease or on dialysis? No If cirrhosis pt., have PHARMACIST TECHNICIAN review chart History of COPD/Emphysema/Asthma/or Sleep Apnea? No If uses an inhaler, have pt bring inhaler with them. On any blood thinners? No (Coumadin, Plavix, ASA, Xarelto, Brilinta, Eliquis, Pradaxa, Efficent etc.) If yes, need to check with physician on whether to stop them or OV Do you have a history of seizures? No If yes, when was last seizure? documented in this encounter [facility] 08-12-2023 Telephone encounter Note Referral pended for doctor's signature [facility] 08-12-2023 Miscellaneous Notes Referral pended for doctor's signature ----- Message from Juan Palacio DO sent at 08/08/2023 9:34 AM EST ----- Patient with a positive Cologuard exam so now needs referral to GI for evaluation for colonoscopy. Please post referral to provider that is on her insurance documented in this encounter [facility] 08-12-2023 Telephone encounter Note ----- Message from Juan Palacio DO sent at 08/08/2023 9:34 AM EST ----- Patient with a positive Cologuard exam so now needs referral to GI for evaluation for colonoscopy. Please post referral to provider that is on her insurance [facility] 07-28-2023 Telephone encounter Note Patient scheduled New Patient appointment [facility] 07-28-2023 Miscellaneous Notes Patient scheduled New Patient appointment documented in this encounter [facility] 07-27-2023 Telephone encounter Note Referral pended for doctor's signature [facility] 07-27-2023 Miscellaneous Notes Referral pended for doctor's signature Referral pended for dx and doctor's signature Spoke pt patient and she was given central scheduling number to call and schedule ct lung and ultrasound. Patient also consents to referral for gyno. Name of caller: Miki Contact phone number: [phone] Relationship to Patient: patient Provider: Dr. Palacio Practice: [facility] Chief Complaint/Reason for Call: Pt stated she started another period this week, she never got the call to schedule the US. Pt wanted to know if she is suppose to do US while bleeding and when she can get scheduled. Pt is concerned problem is still progressing since she is having another period. Please advise, thank you. Best time of day caller can be reached: Any Patient advised that office/PCP has 24-48 business hours to return their call: Yes documented in this encounter [facility] 07-23-2023 Telephone encounter Note Referral pended for dx and doctor's signature [facility] 07-21-2023 Telephone encounter Note Spoke pt patient and she was given central scheduling number to call and schedule ct lung and ultrasound. Patient also consents to referral for gyno. [facility] 07-21-2023 Telephone encounter Note Name of caller: Miki Contact phone number: [phone] Relationship to Patient: patient Provider: Dr. Palacio Practice: [facility] Chief Complaint/Reason for Call: Pt stated she started another period this week, she never got the call to schedule the US. Pt wanted to know if she is suppose to do US while bleeding and when she can get scheduled. Pt is concerned problem is still progressing since she is having another period. Please advise, thank you. Best time of day caller can be reached: Any Patient advised that office/PCP has 24-48 business hours to return their call: Yes [facility] 07-13-2023 Telephone encounter Note Orders pended for dx and doctor's signature [facility] 07-13-2023 Miscellaneous Notes Orders pended for dx and doctor's signature documented in this encounter [facility] 07-13-2023 History of Present illness Narrative Images from the original note were not included. [facility] [address] [place] [address] [address] [facility] [id number] Visit type: Established Patient Reason for Visit: Discuss Medications Assessment / Plan: Miki Falcon was seen today for discuss medications. Diagnoses and all orders for this visit: Essential hypertension (Primary) Comments: Stable, continue metoprolol Bipolar affective disorder, remission status unspecified (HCC) Comments: Stable, continue Rozerem, Zyprexa, Ativan and lithium and Lamictal History of drug abuse (CMS/HCC) (HCC) Post-menopause bleeding Comments: New onset, ultrasound return for Pap and pelvic Colon cancer screening - Cologuard colon cancer screening Smoker Comments: Noted, LDCT, urged to quit Screening for lung cancer Other orders - metoprolol tartrate (Lopressor) 25 MG tablet; 1/2 tab bid 38 Minutes spent on reviewing pertinent history, patient interview, physical exam, discussion of diagnosis and treatment and work-up options. Subjective: Patient ID: Miki Adrian is a 52 y.o. female. HPI patient history of bipolar depression with history of substance abuse including cocaine alcohol and pot presents for hypertension management. Past medical, past surgical, family social history reviewed and chart updated appropriately. Overall she feels stable. Had a life-changing event a year and a half ago where her boyfriend's son committed suicide in their home. Blood pressures been well controlled. She sees psychiatry routinely. In review she has been free of cocaine since 2018. After the loss of her boyfriend's son in December 2021 she has stopped Pap and alcohol abuse. She did step out is now working part-time at [employer]. She has been disabled for mental health illness since 1996. Of note has had substantial cerebral aneurysm surgery and history. Most markedly, she states she had no period for about 3 years but about 2 months ago she had heavy vag bleeding. No menstrual pain or postcoital bleeding Review of Systems no recent earache sore throat or cough. No change in phlegm or wheezing. No exertional dyspnea jaw pain or palpitations. No heartburn or dysphagia. No abdominal pain. No melena or blood. Bowels are regular. Mammogram is deferred to every other year. She has never had colon cancer screening. She would get an LDCT of her chest as she smoked more than 30 pack years. No change in mental health meds. She sees her psychiatrist and counselor routinely Allergies Allergen Reactions Bupropion Other reaction(s): Other (See Comments) Hallucinations Morphine Other reaction(s): Unknown Codeine Rash Other reaction(s): Other: See Comments, Vomiting Swelling throat Other reaction(s): Nausea/Vom/Diarrhea Current Outpatient Medications on File Prior to Visit Medication Sig Dispense Refill ALPRAZolam (Xanax) 0.5 MG tablet Take 0.5 mg by mouth Nightly as needed for anxiety. lamoTRIgine (LaMICtal) 100 MG tablet daily. Half tablet in the am and half tablet in the pm lithium ER (Eskalith) 450 MG 12 hr tablet Take 450 mg by mouth daily. LORazepam (Ativan) 0.5 MG tablet OLANZapine (ZyPREXA) 20 MG tablet Take 1 tablet by mouth Nightly. Takes 15 mg ramelteon (Rozerem) 8 MG tablet Take 8 mg by mouth Daily as needed for sleep. [DISCONTINUED] metoprolol tartrate (Lopressor) 25 MG tablet 1/2 tab bid 90 tablet 0 [DISCONTINUED] hydrOXYzine HCl (Atarax) 25 MG tablet TAKE ONE TABLET BY MOUTH EVERY MORNING AND ONE TIME DAILY AT NOON AND TAKE TWO TABLETS DAILY AT 600PM [DISCONTINUED] nicotine (Nicoderm, Step 2) 14 MG/24HR patch Place 1 patch on the skin. No current facility-administered medications on file prior to visit. Patient Active Problem List Diagnosis Mild intermittent asthma without complication Smoker Essential hypertension History of drug abuse ([facility]/HCC) (HCC) History of pneumonia Pneumococcal vaccine refused Tremor Bipolar affective disorder ([facility]) Breast mass, right Breast mass Social History Tobacco Use Smoking status: Every Day Packs/day: .5 Types: Cigarettes Last attempt to quit: 08/30/1987 Years since quittin.8 Smokeless tobacco: Never Substance Use Topics Alcohol use: No Alcohol/week: 0.0 standard drinks of alcohol Past Surgical History: Procedure Laterality Date BRAIN SURGERY 1996 Craniotomy x 2 (aneurysm) BRAIN SURGERY 12/2011 Cerebral Aneurysm Coiling BREAST BIOPSY Right 2017 SECTION (HISTORICAL) 2004 with tubal ligation COLPOSCOPY 1989 cervical dysplasia IVC FILTER RETRIEVAL 2012 TUBAL LIGATION Family History Problem Relation Name Age of Onset Hypertension Mother Bhupendra Adrian COPD Father Walter pulmonary fibrosis, age 72 in 2019 Other ([id number]) Sister at , abruptio placenta Hypertension Brother Jhony No Known Problems Brother Arie Lung cancer Maternal Grandmother smoker, age 86 No Known Problems Maternal Grandfather No Known Problems Paternal Grandmother No Known Problems Paternal Grandfather Objective: BP 110/68 Pulse 71 Temp 36.7 C (98.1 F) (Temporal) Ht 5' 5 (1.651 m) Wt 174 lb (78.9 kg) SpO2 97% BMI 28.96 kg/m Physical Exam pleasant alert cooperative. Somewhat hyperdynamic in appearance but stable. No tremor. Reflexes normal. Thyroid is enlarged but uniform in shape and size. No carotid bruits. Heart is rate without gallops or murmurs. Lungs are clear. Abdomen soft without pain hepatosplenomegaly masses ascites or bruits. No adenopathy. Extremities are pink without edema. Pulses are adequate. She defers Pap and pelvic exam today. We will schedule pelvic ultrasound documented in this encounter [facility] 06-21-2023 Telephone encounter Note Pt is scheduled 07/13/23 [facility] 06-21-2023 Miscellaneous Notes Pt is scheduled 07/13/23 Rx loaded Medication name: metoprolol tartrate (Lopressor) 25 MG tablet Medication dosage: 25 mg (Miligrams Monthly quantity needed: 90 How many day supply requestin days Medication route: oral (PO) Medication administration time(s): take 1/2 tablet by mouth twice a day Strength: 25 mg If taking medication PRN, reason for taking medication: N/A If this is a controlled substance do you receive this or any other controlled medication from any other doctor or facility: N/A Ordering provider: Dr Palacio Date of last office visit: 09/29/22 Date of next office visit: 07/13/23 Date of last refill: (see medication tab): 05/28/23 Updated/Validated preferred pharmacy: yes Patient instructed to contact the pharmacy prior to picking up the medication: Yes documented in this encounter [facility] 06-18-2023 Telephone encounter Note Rx loaded [facility] 06-18-2023 Miscellaneous Notes Rx loaded Medication name: metoprolol tartrate (Lopressor) 25 MG tablet Medication dosage: 25 mg (Miligrams Monthly quantity needed: 90 How many day supply requestin days Medication route: oral (PO) Medication administration time(s): take 1/2 tablet by mouth twice a day Strength: 25 mg If taking medication PRN, reason for taking medication: N/A If this is a controlled substance do you receive this or any other controlled medication from any other doctor or facility: N/A Ordering provider: Dr Palacio Date of last office visit: 09/29/22 Date of next office visit: 07/13/23 Date of last refill: (see medication tab): 05/28/23 Updated/Validated preferred pharmacy: yes Patient instructed to contact the pharmacy prior to picking up the medication: Yes documented in this encounter [facility] 06-18-2023 Telephone encounter Note Medication name: metoprolol tartrate (Lopressor) 25 MG tablet Medication dosage: 25 mg (Miligrams Monthly quantity needed: 90 How many day supply requestin days Medication route: oral (PO) Medication administration time(s): take 1/2 tablet by mouth twice a day Strength: 25 mg If taking medication PRN, reason for taking medication: N/A If this is a controlled substance do you receive this or any other controlled medication from any other doctor or facility: N/A Ordering provider: Dr Palacio Date of last office visit: 09/29/22 Date of next office visit: 07/13/23 Date of last refill: (see medication tab): 05/28/23 Updated/Validated preferred pharmacy: yes Patient instructed to contact the pharmacy prior to picking up the medication: Yes [facility] 05-28-2023 Telephone encounter Note Medication name: metoprolol tartrate Medication dosage: 25 mg (Miligrams Monthly quantity needed: 90 How many day supply requestin days Medication route: oral (PO) Medication administration time(s): 2 times a day (BID) If taking medication PRN, reason for taking medication: N/A If this is a controlled substance do you receive this or any other controlled medication from any other doctor or facility: No Ordering provider: Dr. Ko Date of last office visit: 09.29.22 Date of next office visit: None Listed Date of last refill: (see medication tab): 12.11.22 Updated/Validated preferred pharmacy: Yes Patient instructed to contact the pharmacy prior to picking up the medication: N/A [facility] 05-28-2023 Miscellaneous Notes Medication name: metoprolol tartrate Medication dosage: 25 mg (Miligrams Monthly quantity needed: 90 How many day supply requestin days Medication route: oral (PO) Medication administration time(s): 2 times a day (BID) If taking medication PRN, reason for taking medication: N/A If this is a controlled substance do you receive this or any other controlled medication from any other doctor or facility: No Ordering provider: Dr. Ko Date of last office visit: 09.29.22 Date of next office visit: None Listed Date of last refill: (see medication tab): 12.11.22 Updated/Validated preferred pharmacy: Yes Patient instructed to contact the pharmacy prior to picking up the medication: N/A documented in this encounter [facility] 12-11-2022 Telephone encounter Note Medication name: metoprolol tartrate (Lopressor Medication dosage: 25 mg (Miligrams Monthly quantity needed: 30 How many day supply requestin days Medication route: oral (PO) Medication administration time(s): 1/2 tab 2 times a day (BID) If taking medication PRN, reason for taking medication: N/A If this is a controlled substance do you receive this or any other controlled medication from any other doctor or facility: No Ordering provider: Date of last office visit: na Date of next office visit: na Date of last refill: (see medication tab): 09/29/2022 Updated/Validated preferred pharmacy: Yes Patient instructed to contact the pharmacy prior to picking up the medication: No [facility] 12-11-2022 Miscellaneous Notes Medication name: metoprolol tartrate (Lopressor Medication dosage: 25 mg (Miligrams Monthly quantity needed: 30 How many day supply requestin days Medication route: oral (PO) Medication administration time(s): 1/2 tab 2 times a day (BID) If taking medication PRN, reason for taking medication: N/A If this is a controlled substance do you receive this or any other controlled medication from any other doctor or facility: No Ordering provider: Date of last office visit: na Date of next office visit: na Date of last refill: (see medication tab): 09/29/2022 Updated/Validated preferred pharmacy: Yes Patient instructed to contact the pharmacy prior to picking up the medication: No documented in this encounter [facility] 10-05-2022 Telephone encounter Note ----- Message from Walter White DO sent at 09/30/2022 9:48 PM EST ----- I would like free T3 and free T4 done [facility] 10-05-2022 Miscellaneous Notes ----- Message from Walter Whtie DO sent at 09/30/2022 9:48 PM EST ----- I would like free T3 and free T4 done RX loaded Last ov today Upcoming med check none Medication name: metoprolol tartrate Medication dosage: 25 mg (Miligrams Monthly quantity needed: 90 How many day supply requestin days Medication route: oral (PO) Medication administration time(s): 1/2 tablet twice daily Half tab BID If taking medication PRN, reason for taking medication: N/A If this is a controlled substance do you receive this or any other controlled medication from any other doctor or facility: No Ordering provider: vignesh Date of last office visit: 09/29/2022 Date of next office visit: Visit date not found Date of last refill: (see medication tab): 04/07/22 Updated/Validated preferred pharmacy: Yes Patient instructed to contact the pharmacy prior to picking up the medication: No documented in this encounter [facility] [employer] ([place] 09-29-2022 Telephone encounter Note RX loaded Last ov today Upcoming med check none [facility] [employer] [place] 09-29-2022 Telephone encounter Note Medication name: metoprolol tartrate Medication dosage: 25 mg (Miligrams Monthly quantity needed: 90 How many day supply requestin days Medication route: oral (PO) Medication administration time(s): 1/2 tablet twice daily Half tab BID If taking medication PRN, reason for taking medication: N/A If this is a controlled substance do you receive this or any other controlled medication from any other doctor or facility: No Ordering provider: vignesh Date of last office visit: 09/29/2022 Date of next office visit: Visit date not found Date of last refill: (see medication tab): 04/07/22 Updated/Validated preferred pharmacy: Yes Patient instructed to contact the pharmacy prior to picking up the medication: No [employer] ([place] 09-29-2022 History of Present illness Narrative Subjective: Patient ID: Miki Adrian is a 51 y.o. female. 51-year-old female with a history of bipolar disorder PTSD, and hypertension presents to the office for checkup. Review of Systems Patient recently started with a new provider for her PTSD and bipolar disorder. The provider made multiple changes to her medications. Discontinued several medications. At first patient had a hallucinations. I talked to her on the phone when she was having those hallucinations. Recently however she has been feeling much better. No longer with hallucinations. She is happy with her current regimen of psychiatric medications. Patient has had a cough with nasal congestion for about 3-4 days. She did test for COVID couple days ago that was negative. No fever chills or sweats. Some facial pressure. Feels that she has had some wheezing. Patient's TSH has been elevated. Her thyroid panel has been checked. Question of whether lithium has contributed to this. Her lithium dose was decreased considerably. Patient is committed to smoking cessation. Her stop date is tomorrow. Objective: Physical Exam HENT: Right Ear: Tympanic membrane normal. Left Ear: Tympanic membrane normal. Neck: Thyroid: No thyromegaly. Vascular: No carotid bruit. Comments: Thyroid is irregular. No obvious masses Cardiovascular: Rate and Rhythm: Normal rate and regular rhythm. Heart sounds: No murmur heard. Pulmonary: Breath sounds: Normal breath sounds. Comments: No obvious wheezes Abdominal: Palpations: There is no mass. Tenderness: There is no abdominal tenderness. Musculoskeletal: Right lower leg: No edema. Left lower leg: No edema. Comments: Pulses present both feet Lymphadenopathy: Cervical: No cervical adenopathy. Skin: Findings: No rash. Neurological: Mental Status: She is alert. Psychiatric: Comments: Patient very pleasant. Process appropriate. BP 108/74 Pulse 72 Temp 36.5 C (97.7 F) (Temporal) Ht 5' 5 (1.651 m) Wt 184 lb 6.4 oz (83.6 kg) SpO2 98% BMI 30.69 kg/m Allergies Allergen Reactions Bupropion Other reaction(s): Other (See Comments) Hallucinations Morphine Other reaction(s): Unknown Codeine Rash Other reaction(s): Other: See Comments, Vomiting Swelling throat Current Outpatient Medications on File Prior to Visit Medication Sig Dispense Refill hydrOXYzine HCl (Atarax) 25 MG tablet TAKE ONE TABLET BY MOUTH EVERY MORNING AND ONE TIME DAILY AT NOON AND TAKE TWO TABLETS DAILY AT 600PM lamoTRIgine (LaMICtal) 100 MG tablet daily. Half tablet in the am and half tablet in the pm lithium ER (Eskalith) 450 MG 12 hr tablet Take 450 mg by mouth daily. LORazepam (Ativan) 0.5 MG tablet nicotine (Nicoderm, Step 2) 14 MG/24HR patch Place 1 patch on the skin. OLANZapine (ZyPREXA) 20 MG tablet Take 1 tablet by mouth Nightly. Takes 15 mg [DISCONTINUED] metoprolol tartrate (Lopressor) 25 MG tablet take 1/2 tablet by mouth twice a day [DISCONTINUED] benztropine (Cogentin) 1 MG tablet Take 1 mg by mouth in the morning and 1 mg before bedtime. [DISCONTINUED] busPIRone (Buspar) 15 MG tablet Take 15 mg by mouth in the morning and 15 mg at noon and 15 mg in the evening and 15 mg before bedtime. [DISCONTINUED] ipratropium (Atrovent) 17 MCG/ACT inhaler Inhale 2 puffs every 6 hours as needed. [DISCONTINUED] propranolol (Inderal) 10 MG tablet Take 10 mg by mouth in the morning and 10 mg before bedtime. [DISCONTINUED] Rexulti 0.5 MG tablet TAKE ONE TABLET BY MOUTH DAILY AFTER DINNER [DISCONTINUED] Vraylar 6 MG capsule TAKE ONE CAPSULE BY MOUTH ONE TIME DAILY WITH DINNER No current facility-administered medications on file prior to visit. Patient Active Problem List Diagnosis Mild intermittent asthma without complication Smoker Essential hypertension History of drug abuse ([facility]) ([facility]) History of pneumonia Pneumococcal vaccine refused Tremor Bipolar affective disorder ([facility]) Breast mass, right Breast mass Social History Tobacco Use Smoking status: Every Day Packs/day: 0.50 Types: Cigarettes Last attempt to quit: 08/30/1987 Years since quittin.1 Smokeless tobacco: Never Substance Use Topics Alcohol use: No Alcohol/week: 0.0 standard drinks Past Surgical History: Procedure Laterality Date BRAIN SURGERY 1996 Craniotomy x 2 (aneurysm) BRAIN SURGERY 01/13/2012 Cerebral Aneurysm Coiling BREAST BIOPSY 05/11/17 SECTION (HISTORICAL) 2004 with tubal ligation COLPOSCOPY 1989 cervical dysplasia IVC FILTER RETRIEVAL Family History Problem Relation Name Age of Onset Diabetes Father No Known Problems Mother No Known Problems Brother Other ([id number]) Sister at No Known Problems Brother Other ([id number]) Father pulmonary fibrosis Assessment / Plan: Diagnosis Plan 1. Bronchitis Ceftin 500 mg twice daily 2. Thyromegaly TSH TSH Thyroid panel 3. Bipolar affective disorder, remission status unspecified (HCC) [place] level [place] level Appears stable. Continue to follow-up with psychiatry 4. Smoker Hopefully will be able to quit. 5. Essential hypertension Controlled. Continue metoprolol documented in this encounter [employer] ([place] 09-15-2022 Telephone encounter Note I talked to this patient regarding the discontinuance of a lot of her psychotropic medication. Was done by provider at the counseling center. She did not see Dr. Gifford. Patient sounded calm. She admits that she is seeing things that are not there. She is seeing writing on the wall that she has been trying to wipe off. On further questioning patient admits that she is hallucinating. Advised patient to call the provider that discontinued a lot of her medication and discuss hallucinations with him [facility] [employer] [place] Work Phone: 09-15-2022 Miscellaneous Notes I talked to this patient regarding the discontinuance of a lot of her psychotropic medication. Was done by provider at the [facility]. She did not see Dr. Gifford. Patient sounded calm. She admits that she is seeing things that are not there. She is seeing writing on the wall that she has been trying to wipe off. On further questioning patient admits that she is hallucinating. Advised patient to call the provider that discontinued a lot of her medication and discuss hallucinations with him Name of caller: Miki Contact phone number: [phone] Relationship to Patient: patient Provider: Dr. White Practice: [facility] Chief Complaint/Reason for Call: pt calld in stating that she went to the [facility] in [place] and the doctor discontinued 5 meds: Buspar, Benztropine, Geodon, Vraylar, and Rexulti, and he decreased the [place] Propanolol, and Olanzapine in one day. Pt would like to know what Dr. White thinks about this, pt is worried about withdrawals. Pt is requesting for the doctor to please follow up to advise. Best time of day caller can be reached: Any Patient advised that office/PCP has 24-48 business hours to return their call: Yes documented in this encounter [facility] 09-11-2022 Telephone encounter Note Name of caller: Miki Contact phone number: [phone] Relationship to Patient: patient Provider: Dr. White Practice: [facility] Chief Complaint/Reason for Call: pt calld in stating that she went to the [facility] in [place] and the doctor discontinued 5 meds: Buspar, Benztropine, Geodon, Vraylar, and Rexulti, and he decreased the [place] Propanolol, and Olanzapine in one day. Pt would like to know what Dr. White thinks about this, pt is worried about withdrawals. Pt is requesting for the doctor to please follow up to advise. Best time of day caller can be reached: Any Patient advised that office/PCP has 24-48 business hours to return their call: Yes [facility] 01-23-2012 History of Past i llness Narrative Problem Noted Date Diagnosed Date Resolved Date Fever 01/23/2012 01/26/2012 Overview: One time 38.7 on 01/24/2012 On Gaymar cooling blanket Seizure 01/17/2012 01/24/2012 Overview: Seizure on adm only BEM removed 01/23 On Keppra UTI (lower urinary tract infection) 01/16/2012 01/26/2012 Overview: E. Coli Also treated with Meropenem Pneumonia due to Haemophilus influenzae 01/15/2012 01/26/2012 Overview: Meropenem 8 days Pneumothorax, iatrogenic 01/14/2012 Overview: Chest tube in place 01/12 for iatrogenic PTX (line placement) Acute respiratory failure 01/13/2012 Overview: Intubated at outside ED. Agitation and poor MS precludes extubation Continue full ventilatory support 01/28/2012 Extubated Hydrocephalus 01/13/2012 01/28/2012 Overview: EVD placed 01/13/2012 01/15/2012 EVD level 10mmHg 01/22 EVD level at 15mmHg Management as per neurosurgery Cerebral edema 01/13/2012 01/26/2012 Overview: Licox placed - Pb02 >20 with permissive HTN, sedation and increasing Fi02 with pt care. Licox removed 01/23 documented as of this encounter (statuses as of 08/17/2023) [facility]05-26-2012 History of Past illness Narrative* Problem Noted Date Diagnosed Date Resolved Date Fever 01/23/2012 01/26/2012 Overview: One time 38.7 on 01/24/2012 On Gaymar cooling blanket Seizure 01/17/2012 01/24/2012 Overview: Seizure on adm only BEM removed 01/23 On Keppra UTI (lower urinary tract infection) 01/16/2012 01/26/2012 Overview: E. Coli Also treated with Meropenem Pneumonia due to Haemophilus influenzae 01/15/2012 01/26/2012 Overview: Meropenem 8 days Pneumothorax, iatrogenic 01/14/2012 Overview: Chest tube in place 01/12 for iatrogenic PTX (line placement) Acute respiratory failure 01/13/2012 Overview: Intubated at outside ED. Agitation and poor MS precludes extubation Continue full ventilatory support 01/28/2012 Extubated Hydrocephalus 01/13/2012 01/28/2012 Overview: EVD placed 01/13/2012 01/15/2012 EVD level 10mmHg 01/22 EVD level at 15mmHg Management as per neurosurgery Cerebral edema 01/13/2012 01/26/2012 Overview: Licox placed - Pb02 >20 with permissive HTN, sedation and increasing Fi02 with pt care. Licox removed 01/23 documented as of this encounter (statuses as of 10/01/2023) [facility] noteNo assessment information availableWOhio [facility] Work Phone: Evaluation note* Diagnosis Post-menopause bleeding- Primary Postmenopausal bleeding Moderate smoker (20 or less per day) Tobacco use disorder [facility] Diagnosis Essential hypertension- Primary Unspecified essential hypertension Bipolar affective disorder, remission status unspecified (HCC) History of drug abuse (CMS/HCC) (HCC) Other, mixed, or unspecified nondependent drug abuse, in remission Post-menopause bleeding Postmenopausal bleeding Colon cancer screening Special screening for malignant neoplasms, colon Smoker Tobacco use disorder Screening for lung [facility] Diagnosis Post-menopause bleeding- Primary Postmenopausal bleeding [facility] Diagnosis Post-menopause bleeding- Primary Postmenopausal bleeding [facility] Diagnosis Post-menopause bleeding Postmenopausal bleeding [facility] Diagnosis Positive colorectal cancer screening using Cologuard test [facility] Diagnosis Special screening for malignant neoplasms, colon- Primary documented in this encounter [facility] note* Diagnosis Moderate smoker (20 or less per day) Tobacco use disorder [facility] Diagnosis Post-menopause bleeding- Primary Postmenopausal bleeding Urinary incontinence, unspecified type Cyst of ovary, unspecified laterality [facility] Diagnosis Vaginal discharge- Primary Leukorrhea, not specified as infective PMB (postmenopausal bleeding) Postmenopausal [facility] Diagnosis Essential hypertension- Primary Unspecified essential hypertension Pulmonary emphysema, unspecified emphysema type (HCC) Boil of inguinal region Closed follicle comedo Other acne Bipolar affective disorder, remission status unspecified (HCC) Engages in vaping H/O solitary pulmonary nodule documented in this encounter [facility] note* Diagnosis Special screening for malignant neoplasms, colon documented in this encounter [facility] note* Diagnosis Encounter for gynecological examination without abnormal finding- Primary Screening mammogram for breast cancer documented in this encounter [facility] note* Diagnosis Bronchitis- Primary Bronchitis, not specified as acute or chronic Thyromegaly Goiter, unspecified Bipolar affective disorder, remission status unspecified ([facility]) Smoker Tobacco use disorder Essential hypertension Unspecified essential hypertension documented in this encounter [facility] note* Diagnosis Moderate smoker (20 or less per day)- Primary Tobacco use disorder Smoker Tobacco use disorder documented in this encounter [facility] note* Diagnosis Screening mammogram for breast cancer documented in this encounter [facility] note* Diagnosis Abnormal mammogram- Primary Abnormal mammogram, unspecified documented in this encounter [facility] note* Diagnosis Smoker Tobacco use disorder Moderate smoker (20 or less per day) Tobacco use disorder documented in this encounter [facility] note* Diagnosis Abnormal mammogram Abnormal mammogram, unspecified documented in this encounter [facility] note* Diagnosis Abnormal mammogram- Primary Abnormal mammogram, unspecified documented in this encounter [facility] note* Diagnosis Primary hypertension- Primary Unspecified essential hypertension Pulmonary emphysema, unspecified emphysema type (HCC) Bipolar affective disorder, remission status unspecified ([facility]) Weight loss Loss of weight History of ruptured cerebral aneurysm documented in this encounter [facility] note* Diagnosis History of ruptured cerebral aneurysm- Primary Cerebral arterial aneurysm Cerebral aneurysm, nonruptured [facility]* Diagnosis Calcification of left breast Other (abnormal) findings on radiological examination of breast documented in this encounter [facility] note* Diagnosis Abnormal mammogram Abnormal mammogram, unspecified documented in this encounter [facility] note* Diagnosis Calcification of left breast Other (abnormal) findings on radiological examination of breast documented [facility]* Diagnosis History of ruptured cerebral aneurysm Cerebral arterial aneurysm Cerebral aneurysm, nonruptured [facility] Consultation (Urgent) - Pending Review Specialty Diagnoses / Procedures Referred By Contac t Referred To Contact Obstetrics and Gynecology Diagnoses Post-menopause bleeding Procedures [place] OFFICE/OUTPATIENT [facility] MDM 60-74 MINUTES Juan Palacio, DO [address] [place] [address] Ksenia Jorge MD [address] [place] [address] Referral ID Status Reason Start Date Expiration Date Visits Requested Visits Authorized [id number] Pending Review Specialty Services Required 3 07/26/2024 1 1 [facility] Consultation (Routine) - Pending Review Specialty Diagnoses / Procedures Referred By Contac t Referred To Contact Gastroenterology Diagnoses Positive colorectal cancer screening using Cologuard test Procedures NH OFFICE/OUTPATIENT [facility] 60-74 MINUTES Juan Palacio DO [address] [place] [address] Analia La MD [facility] [place] [address] Referral ID Status Reason Start Date Expiration Date Visits Requested Visits Authorized [id number] Pending Review Specialty Services Required 3 08/11/2024 1 1 [facility] Outpatient Procedure (Routine) - Authorized Specialty Diagnoses / Procedures Referred By Contac t Referred To Contact [facility] Diagnoses Special screening for malignant neoplasms, colon Procedures COLONOSCOPY SCREENING COLONOSCOPY FLX DX W/COLLJ SPEC WHEN PFRMD Analia La MD [address] [place] [address] [facility] [address] [place] [address] Referral ID Status Reason Start Date Expiration Date Visits Requested Visits Authorized [id number] Authorized Auto-Generat ed Referral 3 08/16/2024 1 1 [facility] for referral (narrative)* Consultation (Routine) - Authorized Specialty Diagnoses / Procedures Referred By Taras t Referred To Contact Urology / Urogynecology Diagnoses Urinary incontinence, unspecified type Procedures [place] OFFICE/OUTPATIENT [facility] 60-74 MINUTES Darling Castillo MD [address] [place] [address] [facility] [address] [place] [address] Referral ID Status Reason Start Date Expiration Date Visits Requested Visits Authorized [id number] Authorized Specialty Services Required 3 08/17/2024 1 1 [facility] for referral (narrative)* Outpatient Procedure (Routine) - Closed Specialty Diagnoses / Procedures Referred By Taras griffin Referred To Contact [facility] Diagnoses Special screening for malignant neoplasms, colon Procedures COLONOSCOPY SCREENING COLONOSCOPY FLX DX W/COLLJ SPEC WHEN Analia Morgan MD [address] [place] [address] [facility] [address] [place] [address] Referral ID Status Reason Start Date Expiration Date V isits Requested Visits Authorized [id number] Closed Auto-Generate d Referral 08/16/2023 08/16/2024 1 1 [facility] for visit Narrative* Outpatient Procedure (Routine) - Closed Specialty Diagnoses / Procedures Referred By Taras t Referred To Contact [facility] Diagnoses Special screening for malignant neoplasms, colon Procedures COLONOSCOPY SCREENING COLONOSCOPY FLX DX W/COLLJ SPEC WHEN PFRMD El-Khider, Analia, MD [address] [place] [address] [facility] [address] [place] [address] Referral ID Status Reason Start Date Expiration Date V isits Requested Visits Authorized [id number] Closed Auto-Generate d Referral 08/16/2023 08/16/2024 1 1 [facility] for visit Narrative* Imaging (Routine) - Closed Specialty Diagnoses / Procedures Referred By Contac t Referred To Contact Radiology Diagnoses Smoker Moderate smoker (20 or less per day) Procedures CT lung screening low dose Juan Palacio, DO [address] [place] [address] Phone: tel: fax: Referral ID Status Reason Start Date Expiration Date Visits Re quested Visits Authorized [id number] Closed 09/26/2024 09/26/2025 1 1 [facility] for visit Narrative* Imaging (Routine) - Closed Specialty Diagnoses / Procedures Referred By Contac t Referred To Contact Radiology Diagnoses History of ruptured cerebral aneurysm Cerebral arterial aneurysm Procedures MR head angio wo IV contrast Juan Palacio, DO [address] [place] [address] Phone: tel: fax: Referral ID Status Reason Start Date Expiration Date Visits Re quested Visits Authorized [id number] Closed 12/28/2024 12/28/2025 1 1 [facility] for visit Narrative* Imaging (Routine) - Closed Specialty Diagnoses / Procedures Referred By Contac t Referred To Contact Radiology Diagnoses History of ruptured cerebral aneurysm Cerebral arterial aneurysm Procedures MR brain wo contrast Juan Palacio, DO [address] [place] [address] Phone: tel: fax: Referral ID Status Reason Start Date Expiration Date Visits Re quested Visits Authorized [id number] Closed 12/28/2024 12/28/2025 1 1 [facility] [employer] Advance Directives Documents on File Type Date Recorded Patient Reed Worker Expl anation ACP-Advance Directive ACP-Power of Web Page Designer Advance Directive Response Recorded Date/ Time Living Will No June 29 3:29am Power of Web Page Designer No June 29, 2017 3:29am Summary Purpose Family History No Family History Records FoundNo Family History Records FoundNo Family History Records FoundNo Family History Records FoundNo Family History Records Found Assessments Diagnosis SOB (shortness of breath) Shortness of breath Chief Complaint and Reason for Visit Chief Complaint 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) 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 THERAPY Reason for Referral Specialty Diagnoses / Procedures Referred By Taras t Referred To Contact Radiology Diagnoses Moderate smoker (20 or less per day) Procedures CT lung screening low dose Juan Palacio F, DO [address] [place] [address] Referral ID Status Reason Start Date Expiration Date V isits Requested Visits Authorized [id number] Pending Review 07/13/2023 07/12/2024 1 1 Referral ID Status Reason Start Date Expiration Date Visits Re quested Visits Authorized [id number] Closed 07/13/2023 07/12/2024 1 1 Additional Source Comments INFORMATION SOURCE (unrecogn ized section and content) DATE CREATED AUTHOR 06/08/2020 [employer] DATE CREATED AUTHOR AUTHOR'S ORGANIZ ATION 06/22/2022 [facility] DATE CREATED AUTHOR AUTHOR'S ORGANIZ ATION 10/02/2023 [facility] DATE CREATED AUTHOR AUTHOR'S ORGANIZ ATION 10/22/2024 [facility] DATE CREATED AUTHOR AUTHOR'S ORGANIZ ATION 03/09/2025 [facility] Reason for Visit (unrecogniz ed section and content) Reason Onset Date Comments Med Refill 12/11/2022 Reason Onset Date Comments Med Refill 05/28/2023 Reason Onset Date Comments Med Refill 06/18/2023 Reason Onset Date Comments Orders 07/13/2023 LDCT / US-Pelvis Reason Comments Discuss Medications Reason Onset Date Comments Ultra Sound/Follow up 07/21/2023 Reason Onset Date Comments Appointment 07/28/2023 Reason Onset Date Comments Referral 08/12/2023 [facility] Reason Comments Screening order/checklist Specialty Diagnoses / Procedures Referred By Contlorraine t Referred To Contact Radiology Diagnoses Moderate smoker (20 or less per day) Procedures CT lung screening low dose Juan Palacio, DO [address] [place] [address] Referral ID Status Reason Start Date Expiration Date Visits Re quested Visits Authorized [id number] Closed 07/13/2023 07/12/2024 1 1 Reason Comments New Patient Patient starting hav ing cramping and bleeding. Patient last period was 3 years period. Last pap 07/27/2022- normal. Specialty Diagnoses / Procedures Referred By Contac t Referred To Contact Obstetrics and Gynecology Diagnoses Post-menopause bleeding Procedures [facility] OFFICE/OUTPATIENT [facility] MDM 60-74 MINUTES Juan Palacio, DO [address] [place] [address] Ksenia Jorge MD [address] [place] [address] Referral ID Status Reason Start Date Expiration Date V isits Requested Visits Authorized [id number] Closed Specialty Services Required 07/27/2023 07/26/2024 1 1 Reason Comments Results Reason Comments Follow-up ON SITE SOIL EVALUATOR us same day Reason Comments Med Refill Reason Onset Date Comments Urinary Frequency 02/11/2024 Reason Onset Date Comments Med Refill 03/09/2024 Reason Onset Date Comments Rash 03/22/2024 Reason Comments Follow-up Med checkSpot on inn er pubic area Reason Onset Date Comments Groin Swelling 04/27/2024 Reason Comments Gynecologic Exam Reason Onset Date Comments Med Refill 07/04/2024 tiotropium (Spir stephie) 18 MCG inhalation capsule Reason Onset Date Comments Call pt 09/11/2022 Reason Comments Sinus Problem Or bronchitis Reason Onset Date Comments Med Refill 09/29/2022 Results 09/29/2022 Reason Onset Date Comments Other 09/26/2024 Annual Lung Scre ening Reminder Reason Onset Date Comments Vaginal Bleeding 09/30/2024 Reason Onset Date Comments Med Refill 10/30/2024 Reason Comments 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 Walter White DO Family Provider Active No Primary Care Physician Primary Care Provider Active Team Status: Inactive Member Role Status Dates No Primary Care Physician Primary Care Provider Active PRANAY REESE Attending Provider, Referring Provider Active 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 Relationship Specialty Start Date End Date Walter White DO [address] [place] [address] PCP - General 08/30/18 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 Relationship Specialty Start Date End Date Walter White DO [address] [place], [place] [id number] PCP - General 08/30/18 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 Relationship Specialty Start Date End Date Walter White DO [address] [place], [place] [id number] PCP - General 08/30/18 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 Relationship Specialty Start Date End Date Juan Palacio DO [address] [place] [address] PCP - General Family Medicine 07/13/23 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 Relationship Specialty Start Date End Date Juan Palacio DO [address] [place] [address] PCP - General Family Medicine 07/13/23 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 Relationship Specialty Start Date End Date Juan Palacio DO [address] [place] [address] PCP - General Family Medicine 07/13/23 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 Relationship Specialty Start Date End Date Pia Juan Falcon, DO [address] [place] [address] PCP - General Family Medicine 07/13/23 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 Relationship Specialty Start Date End Date Pia Juan Falcon, DO [address] [place] [address] PCP - General Family Medicine 07/13/23 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 Relationship Specialty Start Date End Date Juan Palacio Ezekiel, DO [address] [place], [place] [id number] PCP - General Family Medicine 08/16/23 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 Relationship Specialty Start Date End Date Juan Palacio, DO [address] [place] [address] PCP - General Family Medicine 07/13/23 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 Relationship Specialty Start Date End Date Juan Palacio Ezekiel, DO [address] [place] [address] PCP - General Family Medicine 07/13/23 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 Relationship Specialty Start Date End Date Juan Palacio Ezekiel, DO [address] [place], [place] [phone] PCP - General Family Medicine 08/16/23 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 Relationship Specialty Start Date End Date Juan Palacio Ezekiel, DO [address] [place] [address] PCP - General Family Medicine 07/13/23 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 Relationship Specialty Start Date End Date Juan Palacio Ezekiel, DO [address] [place] [address] PCP - General Family Medicine 07/13/23 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 Relationship Specialty Start Date End Date Juan Palacio Ezekiel, DO [address] [place] [address] PCP - General Family Medicine 07/13/23 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 Relationship Specialty Start Date End Date Juan Palacio Ezekiel, DO [address] [place] [address] PCP - General Family Medicine 07/13/23 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 Relationship Specialty Start Date End Date Juan Palacio Ezekiel, DO [address] [place] [address] PCP - General Family Medicine 07/13/23 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 Relationship Specialty Start Date End Date Juan Palacio, DO [address] [place] [id number] PCP - General Family Medicine 08/16/23 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 Relationship Specialty Start Date End Date Juan Palacio Ezekiel, DO [address] [place] [address] PCP - General Family Medicine 07/13/23 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 Relationship Specialty Start Date End Date Juan Palacio Ezekiel, DO [address] [place] [address] PCP - General Family Medicine 07/13/23 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 Relationship Specialty Start Date End Date Walter White DO [address] [place], [place] [id number] PCP - General 08/30/18 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 Relationship Specialty Start Date End Date Walter White DO [address] [place] [id number] PCP - General 08/30/18 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 Relationship Specialty Start Date End Date Walter White DO [address] [place], [place] [phone] PCP - General 08/30/18 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 Relationship Specialty Start Date End Date Juan Palacio, [address] [place] [address] PCP - General Family Medicine 07/13/23 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 Relationship Specialty Start Date End Date Juan Palacio DO [address] [place] [address] PCP - General Family Medicine 07/13/23 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 Relationship Specialty Start Date End Date Juan Palacio, [address] [place] [address] PCP - General Family Medicine 07/13/23 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 Relationship Specialty Start Date End Date Juan Palacio DO [address] [place] [address] PCP - General Family Medicine 07/13/23 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 Relationship Specialty Start Date End Date Juan Palacio, [address] [place] [address] PCP - General Family Medicine 07/13/23 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 Relationship Specialty Start Date End Date Juan Palacio, [address] [place] [address] PCP - General Family Medicine 07/13/23 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 Relationship Specialty Start Date End Date Juan Palacio, DO [address] [place] [address] PCP - General Family Medicine 07/13/23 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 Relationship Specialty Start Date End Date Juan Palacio, DO [address] [place] [address] PCP - General Family Medicine 07/13/23 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 Relationship Specialty Start Date End Date Juan Palacio, DO [address] [place] [phone] PCP - General Family Medicine 07/13/23 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 Relationship Specialty Start Date End Date Juan Palacio, DO [address] [place] [address] PCP - General Family Medicine 07/13/23 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 Relationship Specialty Start Date End Date Juan Palacio, DO [address] [place] [address] PCP - General Family Medicine 07/13/23 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 Relationship Specialty Start Date End Date Juan Palacio, DO [address] [place] [address] PCP - General Family Medicine 07/13/23 Goals (unrecognized section and content) Goals may be documented in a n alternate section Source Comments (unrecognize d section and content) In the event this informatio n is protected by the Federal Confidentiality of Alcohol and Drug Abuse Patient Records regulations: The Federal rules restrict any use of the information to criminally investigate or prosecute any alcohol or drug abuse patient.[facility] the event this information is protected by the Federal Confidentiality of Alcohol and Drug Abuse Patient Records regulations: The Federal rules restrict any use of the information to criminally investigate or prosecute any alcohol or drug abuse patient.[facility] the event this information is protected by the Federal Confidentiality of Alcohol and Drug Abuse Patient Records regulations: The Federal rules restrict any use of the information to criminally investigate or prosecute any alcohol or drug abuse patient.[facility] FOR RECORDS PERTAINING TO PATIENTS WHO ARE OR HAVE BEEN ENROLLED IN A CHEMICAL DEPENDENCY/SUBSTANCEABUSE PROGRAM, SOME INFORMATION MAY BE OMITTED. This clinical summary was aggregated from multiple sources. Caution should be exercised in using it in the provision of clinical care. This summary normalizes information from multiple sources, and as a consequence, information in this document may materially change the coding, format and clinical context of patient data. In addition, data may be omitted in some cases. CLINICAL DECISIONS SHOULD BE BASED ON THE PRIMARY CLINICAL RECORDS. [employer] [facility]. provides no warranty or guarantee of the accuracy or completeness of information in this document.
--- OUTSIDE RECORDS SUMMARY | 2025-03-13 21:12 | XMS RPT_ITS | CCD ---
Author Organization [facility] Care Team Providers Care Custom Frame Assembler Name Role Phone Walter White Primary Care Provider PROVIDER, UNKNOWN Referring Unavailable Walter White Attending Unavailable Walter White Primary Care Unavailable PROVIDER, UNKNOWN Referring Unavailable Walter White Attending Unavailable Walter White Primary Care Unavailable Walter White DO Primary Care Provider Walter White DO Primary Care Provider Pia MADRID Juan F Primary Care Provider [phone] Pia MADRID Juan F Primary Care Provider [phone] WALTER WHITE Referring Unavailable SLOANEA JUAN F Primary Care Unavailable DIA KENNEY Attending Unavaila ble Sloanea DO [facility] Primary Care Provide r Gregory Syed Attending [...] Aminoketones (3 sources) buPROPion Drug Allergy 9 [facility] [employer] Opioid Agonists (6 sources) Codeine Drug Allergy 2 Rash [facility] [employer] (20 sources) buPROPion Drug Allergy 9 Other (See Comments), Other: See Comments [employer] (20 sources) Codeine; Translations: [CODEINE] Drug Allergy 2 Rash, Vomiting, Other: See Comments [employer] (20 sources) Morphine; Translations: [MORPHINE] Drug Allergy 2 Unknown [facility] [employer] (1 source) Codeine Drug Allergy 7 [facility] Rep[facility] Medications Current Medications Medication Drug Class(es) Dates Sig (Normalized) Sig (Original) [id number] 200 actuat albuterol 0.09 mg/actuat metered dose [...] 300 mg by mouth once belem y [place] Carbonate Active 300 MG PO DAILY June 29, 2017 12:00am take 1 capsule by [facility] twice daily at mealtime lithium (ESKALITH) 300 [...] Start: 03-17-2012 take 2 tablets by mo [facility] once daily at bedtime olanzapine (ZYPREXA) [...] [facility] Facility 36on 01-25-2025 36 Noted Normal [facility] 36on 01-24-2025 36 [place], Your patient is scheduled for an MRA Head wo contrast and an MRI Brain wo contrast on 02/28/25 at [facility]. Thank you, [facility] central scheduling Normal [facility] Office Visiton 01-09-2025 Follow-up visit [id number] Darnell Adrian 1970 F Date Provider Department Center 01/09/2025 EZEKIEL RANGEL [facility] SM None Family History Problem Relation Age [...] Grandfather Paternal Grandmother Paternal Grandfather Level of Service:24004 RI OFFICE/OUTPATIENT ESTABLISHED LOW MDM 20 MIN Reason for Visit and Comments: Follow-up [743736] - F/UP LT stereo BX x's 2 01/02 Normal [facility] 36on 01-04-2025 36 Noted. Normal [facility] 36 Message released to patient as written. CBC, chemistries and thyroid function normal. No med changes necessary Patient's further questions if applicable: n/a Were all questions from office addressed or relayed to the patient from encounter: Yes Normal [facility] 36on 01-03-2025 36 Miki Ezekiel Gabino 1970 [...] up with results [x] Yes [] No [facility] MG Breast specimen - left Vi ewson 01-02-2025 [facility] 1970 [id number] Exam Date/Time: 01/02/2025 13:28 Procedure: XR BREAST [...] hematoma is identified on post procedure mammography. [facility] Stephanie Scahffer MD - 01/02/2025 Patient Name: [facility]KI [facility]RIAN [facility] 1970 [id number] Exam Date/Time: 01/02/2025 13:28 Procedure: XR BREAST [...] Electronically Signed Date/Time: 01/02/2025 2:18 PM EDT [facility] stereo Guidance for percu taneous biopsy.core needle of Breast - lefton 01-02-2025 Patient Name: [facility]KI REED [facility] 1970 [id number] Exam Date/Time: 01/02/2025 12:57 Procedure: BI STEREOTACTIC [...] hematoma is identified on post procedure mammography. [facility] Stephanie Schaffer MD - 01/02/2025 Patient Name: MIKI ADRIAN : 1970 [facility]#: [id number] Exam Date/Time: 01/02/2025 12:57 Procedure: BI STEREOTACTIC [...] Electronically Signed Date/Time: 01/02/2025 2:18 PM EDT [facility] Radiology Study observation (narrative) [facility] No Panel Informationon 01-02 Technically successf ul stereotactic biopsy of the left breast. PATHOLOGY STATUS: Waiting for Pathology Report Dictated on Electronically Signed By: Stephanie Schaffer MD Electronically Signed Date/Time: 01/02/2025 2:18 PM EDT [facility] No Panel InformationOrdered By: Stephanie Schaffer on 01-02-2025 [facility] [employer] Work Phone: 36on 12-28-2024 36 Orders fro MRA-Head and MRI-Brain pended for dx and doctor's signature Normal [facility] Office Visiton 12-27-2024 Follow-up visit [id number] Darnell Adrian 1970 F Date Provider Department Center 12/27/2024 [id number] PALACIO [facility] Family History Problem Relation Age of Onset [...] Grandfather Paternal Grandmother Paternal Grandfather Level of Service:40277 RI OFFICE/OUTPATIENT ESTABLISHED MOD MDM 30 MIN Reason for Visit and Comments: Follow-up [789449] - Med Check/ results lung scan Normal [facility] Progress Noteon 12-27-[address] [facility] - [address] [facility] [address] Visit type: Established Patient Reason for [...] Father Walter Lung cancer Father Walter Other ([id number]) Sister at , abruptio placenta Hypertension Brother Jhony No Known Problems Brother Arie Lung cancer Maternal Grandmother smoker, age 86 No Known Problems Maternal Grandfather No Known Problems Paternal Grandmother No Known Problems Paternal Grandfather Objective: BP 112/70 Pulse 60 Tem (more content not included)... Normal [facility] Office Visiton 12-26-2024 Follow-up visit [id number] Darnell Adrian 1970 F Date Provider Department Center 12/26/[address] 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 Given the size of the area of involvement, a dual-site biopsy is recommended. Markings on images: BB's = Nipples; skin lesions Open little river = Palpable Line = Scar ASSESSMENT: Category [...] MD Electronically Signed Date/Time: 12/21/2024 3:03 PM [facility] Patient Name: MIKI REED [facility] 1970 [id number] Exam Date/Time: 12/21/2024 14:04 Procedure: BI MAMMOGRAM DIAGNOSTIC TOMOSYNTHESIS LEFT Ordering Provider: CASTILLO GREGORY Reason For Exam: This exam was performed at [facility] at [address] [address] PATIENT CANCER HISTORY: No Personal History of [...] These are suspicious and biopsy is recommended. [facility] Tonie Matamoros MD - 12/21/2024 Patient Name: MIKI ADRIAN : 1970 [facility]#: [id number] Exam Date/Time: 12/21/2024 14:04 Procedure: BI MAMMOGRAM DIAGNOSTIC TOMOSYNTHESIS LEFT Ordering Provider: CASTILLO GREGORY Reason For Exam: This exam was performed at [facility] at [facility] [address] [place] [address] PATIENT CANCER HISTORY: No Personal History of [...] images: BB's = Nipples; skin lesions Open little river = Palpable Line = Scar ASSESSMENT: Category [...] Electronically Signed Date/Time: 12/21/2024 3:03 PM EDT [facility] Radiology Study observation (narrative) [facility] Progress Noteon 12-21-2024 Progress Note Patient [...] over 1hr away and asked for a [facility] consult if available Wed-. Scheduled with Rose. Got her Dr. Ezekiel Galo Jordyn visit on 12/26/24 @ 1030, arrive 1015. Discussed and reviewed the stereotactic biopsy procedure and biopsy clip placement. Provided [facility] biopsy teaching sheet. Gave her [employer] paperwork, map of [facility] and Plan of Care form. Notified patient that biopsy would be ordered and scheduled after seeing the Provider for consultation. Patient does not take blood thinning medications on a regular basis. Notified patient that she can take Tylenol any time if needed prior to the biopsy. Sent [facility] msg to Dr. Castillo to notify. Normal [facility] CT Chest for screening WO co ntraston [...] Electronically Signed Date/Time: 11/23/2024 4:52 PM T [facility] Patient Name: MIKI REED : 1970 [id number] Exam Date/Time: 11/23/2024 09:54 Procedure: CT LUNG [...] structures: No acute osseous abnormality is demonstrated. [facility] Derek Lares MD - 11/23/2024 [...] 1.5 mm 5 (more content not included)... [facility] Radiology Study observation (narrative) [facility] CT Chest for screening WO co ntrastOrdered By: Derek Lares on 11-23-2024 [facility] Work Phone: CT LUNG SCREENING LOW DOSEon [...] and reach a (more content not included)... [facility] 36on 11-09-2024 36 Recent Visits Date Type Provider Dept 05/04/24 Office Visit Juan Palacio DO [facility] Showing recent visits within past 365 days and meeting all other requirements Future Appointments Date Type Provider Dept 12/11/24 Appointment Juan Ezekiel DO Pia [facility] Showing future appointments within next 90 [...] recent labs completed in chart? N/A None [address] 11-03-2024 36 Talked to patient an d let her know to call the doctor that ordered the imaging test she was requesting answers about and she was upset about this and said never mind and disconnected phone call. Normal [facility] 36 Name of caller: Shakira bateman Contact phone number: [phone] Relationship to Patient: patient Provider: Dr. Palacio Practice: [facility] Chief Complaint/Reason for Call: Patient requesting a call back to discuss imaging results. Please advise. Best time of day caller can be reached: any Patient advised that office/PCP has 24-48 business hours to return their call: Yes Normal [facility] DBT Breast - bilateral scree Alessandrordered By: Naheed Conti on 11-03-2024 Interpretation and review of laboratory results [facility]normal [facility]: [facility] Phone: DBT Breast - bilateral scree sandygon [...] Electronically Signed Date/Time: 11/03/2024 7:56 AM EST [facility] Patient Name: MIKI ERED : 1970 Exam Date/Time: 11/02/2024 14:32 Procedure: BI MAMMOGRAM SCREENING TOMOSYNTHESIS BILATERAL Ordering Provider: CASTILLO GREGORY Reason For Exam: This exam was performed at [address] [facility] [address] PATIENT CANCER HISTORY: No Personal History of Cancer FAMILY CANCER HISTORY: No Family History of Cancer TECHNIQUE: 2D Bilateral CC and MLO 3D Bilateral CC and MLO Images reviewed with CAD Markings on images: BB's = Nipples, skin lesions Open little river = Palpable Line = Scar COMPARISON: 06/08/2022, 02/05/2017, 06/19/2014 TISSUE DENSITY: BIRADS B - There are scattered areas of fibroglandular density. FINDINGS: There are calcifications in the upper outer left breast at posterior depth. No other suspicious masses, architectural distortions or suspiciously clustered microcalcifications. No skin thickening or nipple retraction. [facility] Naheed Conti DO - 11/03/2024 Patient Name: MIKI ADRIAN : 1970 Exam Date/Time: 11/02/2024 14:32 Procedure: BI MAMMOGRAM SCREENING TOMOSYNTHESIS BILATERAL Ordering Provider: CASTILLO GREGORY Reason For Exam: This exam was performed at [facility] [address] [facility] [address] PATIENT CANCER HISTORY: No Personal History of Cancer FAMILY CANCER HISTORY: No Family History of Cancer TECHNIQUE: 2D Bilateral CC and MLO 3D Bilateral CC and MLO Images reviewed with CAD Markings on images: BB's = Nipples, skin lesions Open little river = Palpable Line = Scar COMPARISON: 06/08/2022, [...] Electronically Signed Date/Time: 11/03/2024 7:56 AM EST [facility] DBT Breast - bilateral scree ningon 11-02-2024 Radiology Study observation (narrative) [facility] 36on 10-30-2024 36 Medication name: albuterol [...] to picking up the medication: No [facility] Lithiumon 10-05-2024 LI 0.50 mmol/L Low 0.60-1.20 [facility] Comment on above: Order Comment: 1199 Performed By: #### L 501.9520, L500.3400, L501.1105, L501.9060 #### [facility] [address] [place], [address] Liver Profileon 10-05-2024 Albumin [Mass/Vol] 4.1 g/dL Normal 3.2-5.0 [facility] Comment on above: Performed By: #### L 501.9520, L500.3400, L501.1105, L501.9060 #### [facility] [address] [place], [address] ALK P 64 U/L Normal 45-117 [facility] Comment on above: Performed By: #### L 501.9520, L500.3400, L501.1105, L501.9060 #### [facility] [address] [place], [address] ALT [Catalytic activity/Vol] 16 U/L Normal 13-56 [facility] Comment on above: Performed By: #### L 501.9520, L500.3400, L501.1105, L501.9060 #### [facility] [address] [place], [address] AST [Catalytic activity/Vol] 9 U/L Low 15-37 [facility] Comment on above: Performed By: #### L 501.9520, L500.3400, L501.1105, L501.9060 #### [facility] [address] [place], [address] Bilirubin [Mass/Vol] 0.50 mg/dL Normal 0.20-1.00 [facility] Comment on above: Result Comment: For patients on eltrombopag therapy, use of Dimension [facility] TBIL is not recommended. Performed By: #### L 501.9520, L500.3400, L501.1105, L501.9060 #### [facility] [address] [place], [address] Bilirubin.direct [Mass/Vol] 0.15 mg/dL Normal 0.00-0.30 [facility] Comment on above: Performed By: #### L 501.9520, L500.3400, L501.1105, L501.9060 #### [facility] [address] [place], [address] Globulin (S) [Mass/Vol] 3.2 g/dL Normal 2.2-4.2 [facility] Comment on above: Performed By: #### L 501.9520, L500.3400, L501.1105, L501.9060 #### [facility] [address] [place], [address] T PROT 7.3 g/dL Normal 6.4-8.2 [facility] Comment on above: Performed By: #### L 501.9520, L500.3400, L501.1105, L501.9060 #### [facility] [address] [place], [address] Serum Creatinine AND GFRon 0 --2024 Creatinine [Mass/Vol] 1.11 mg/dL High 0.55-1.02 [facility] Comment on above: Result Comment: The validity of the calculated GFR GFRAA in patients over 70 years has not been determined. Clinical correlation is essential. Performed By: #### L 501.9520, L500.3400, L501.1105, L501.9060 #### [facility] [address] [place], [address] EST GFR - AA 66 mL/min Normal >60 [facility] Comment on above: Result Comment: Afri can Chinese GFR Calc Performed By: #### L 501.9520, L500.3400, L501.1105, L501.9060 #### [facility] [address] [place], [address] GFR/1.73 sq M.predicted among non-blacks MDRD (S/P/Bld) [Vol rate/Area] 55 mL/min/{1.73_m2} Low >60 [facility] Comment on above: Result Comment: Non- GFR Calc Performed By: #### L 501.9520, L500.3400, L501.1105, L501.9060 #### [facility] [address] [place], [address] Thyroid Stim Hormone (TSH)on 10-05-2024 TSH 2.470 uIU/mL Normal 0.358-3.740 [facility] Comment on above: Performed By: #### L 501.9520, L500.3400, L501.1105, L501.9060 #### [facility] [address] [place], [address] 36on 09-30-2024 36 S: Patient spoke alexx [...] past year Protocols used: Vaginal Bleeding - Banpabgh-SOLWD-EB [facility] 36on 09-26-2024 36 Orders pended for doctor's signature [place] [address] Spoke with patient a nd she agrees to lung screen [place] [address] This patient has had a prior lung screening CT scan at [facility]. According to our records, he/she is now due for an annual lung screening CT scan. Please evaluate and order this annual screening if your patient still meets lung screening criteria. [facility] 36on 07-04-2024 36 Rx loaded [place] [address] Medication name: tiotropium (Spiriva) 18 MCG inhalation [...] prior to picking up the medication: Yes [facility] Office Visiton 05-31-2024 Follow-up visit [id number] Darnell Adrian 1970 F Date Provider Department Center 05/31/2024 [id number] LINARESG 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 Also her BF has 2 other sons. No grandchildren. Smoker NO ETOH, ex crack-cocaine user since 2018. Sober from pot and ETOH abuse since 12/2021. Presently Disabled since 1996 but now working at [employer] in [employer] since 01/19. Enjoys her pet dog and cat Social Determinants of Health Financial Resource Strain: Low Risk (01/22/2022) Received from [facility] Overall Financial Resource Strain (CARDIA) Difficulty of Paying Living Expenses: Not hard at all Food Insecurity: No Food Insecurity (01/22/2022) Received from [facility] Hunger Vital Sign Worried About Running Out of Food in the Last Year: Never true Ran Out of Food in the Last Year: Never true Transportation Needs: Unmet Transportation Needs (02/09/2019) Received from [facility] PRAPARE - Transportation Lack of Transportation (Medical): Yes Lack of Transportation (Non-Medical): Yes Physical Activity: Insufficiently Active (02/09/2019) Received from [facility] Exercise Vital Sign Days of Exercise per Week: 7 days Minutes of Exercise per Session: 20 min Stress: Stress Concern Present (02/09/2019) Received from [facility] [employer] [place] [employer] [facility] - Occupational Stress Questionnaire Feeling of St (more content not included)... Normal [facility] Progress Note Normal, no endocervi daniel cells, repeat pap 1 year Normal [facility] Office Visiton 05-04-2024 Follow-up visit [id number] Darnell Adrian 1970 F Date Provider Department Center 05/04/2024 [id number] LAMB [facility] Family History Problem Relation Age of Onset [...] Grandfather Paternal Grandmother Paternal Grandfather Level of Service:04347 RI OFFICE/OUTPATIENT ESTABLISHED MOD MDM 30 MIN Reason for Visit and Comments: Follow-up [206609] - Med check Spot on inner pubic area Normal [facility] PATINSon 05-04-2024 PATINS Flu vax and shingles vaccines as discussed Normal [facility] Progress Noteon 05-04-2024 Progress Note [facility] [address] [facility] [facility] [facility] [address] Visit type: Established Patient Reason for Visit: Follow-up (Med check/Spot on inner pubic area ) Assessment / Plan: Miki Falcon was seen today for follow-up. Diagnoses and all orders for this visit: Essential hypertension (Primary) Comments: Stable, continue metoprolol Pulmonary emphysema, unspecified emphysema type (HCC) Comments: Stable, stop Spiriva at patient's request Boil of inguinal region Comments: New onset, Keflex, follow-up with SOAKING PIT OPERATOR for possible I&D if worsening Closed follicle [...] and hopefully vaping cessation will follow. To SOAK[facility] PIT OPERATOR for breast exam and mammogram. Subjective: Patient [...] No melena or blood. To be getting SOAKING PIT OPERATOR exam defers breast exam to sexologist. She has some lesions on her mons [...] Diagnosis Essential hypertension History of drug abuse ([facility]/HCC) (HCC) H/O solitary pulmonary nodule Pneumococcal vaccine [...] Father Walter Lung cancer Father Walter Other ([id number]) Sister at , abruptio placenta Hypertension Brother Jhony No Known Problems Brother Arie Lung cancer Ma (more content not included)... [facility] 04-27-2024 36 S: Patient spoke alexx AMARO [...] at that at her appt on 05/04/24. [facility] scheduled Wellness appt with Dr Perez on 05/31/24 at 1:30pm. Patient instructed to call back with new or worsening symptoms. Sent FYI to PCP office for skin concern to be noted for MD appt on 05/04/24 due to patient's expressed concerns. Reason for Disposition ALL other vulvar symptoms (Exception: Feels like prior yeast infection, or rash < 24 hour duration.) Protocols used: Vulvar Cponebcr-UHWAK-BD [facility] 03-22-2024 36 S: Patient spoke alexx AMARO [...] present < 24 hours Protocols used: Vaginal Wvztnvhy-TBGQX-PU [facility] 36on 03-13-2024 36 Placed call to chau lai. Two patient identifers confirmed. Was able to speak to patient. All concerns in message have been addressed. No questions at this time. Call ended [facility] CNPNon 10-01-2023 CNPN Telephone (GSTNOR) MIKI ADRIAN ([id number]) 1970 F Date Time Provider Department 10/01/23 DIA KENNEY GSTNOR During your visit today, we recorded the following information about you: Luke Vela MA 10/01/2023 8:52 AM Signed Left [...] Date 10/01/2023 Noted Resolved SAH (subarachnoid hemorrhage) ([facility]) [I60.9] 01/13/2012 Acute respiratory failure (HCC) [J96.00] 01/13/2012 01/29/2012 Hydrocephalus ([facility]) [G91.9] 01/13/2012 01/28/2012 Cerebral edema (HCC) [G93.6] 01/13/2012 01/26/2012 Cocaine abuse ([facility]) [F14.10] 01/13/2012 Pneumothorax, iatrogenic [J95.811] 01/14/2012 01/28/2012 Seizure ([facility]) [R56.9] 01/17/2012 01/24/2012 Fever [R50.9] 01/23/2012 01/26/2012 Pneumonia due to Haemophilus influenzae ([facility]) [*01/15/2012 01/26/2012 UTI (lower urinary tract infection) [N39.0] 01/16/2012 01/26/2012 Agitation [R45.1] 01/27/2012 PE (pulmonary embolism) [I26.99] 01/27/2012 UTI (lower urinary tract infection) [N39.0] 01/31/2012 Encephalopathy [G93.40] 01/31/2012 DVT of upper extremity (deep vein thrombosis) (*02/02/2012 Anticoagulation management encounter [Z51.81, Z*02/04/2012 Cerebral aneurysm, nonruptured [I67.1] 02/04/2012 Encounter Status:Closed by LUKE VELA on 10/01/23 Normal [facility] SURGICAL PATHOLOGYOrdered By : Rashid Vieira on 09-15-2023 Case Report Surgical Pathology Report Case: [id number] Authorizing Provider: Dia Kenney, Collected: 09/14/2023 02:27 PM Ordering Location: Ambulatory Surgery Received: 09/14/2023 07:08 PM Pathologist: Rashid Vieira MD Specimens: A) - RECTAL POLYP, proximal x 2 B) - TRANSVERSE COLON POLYP, distal [facility] Work Phone: FINAL DIAGNOSIS o5ndxLHhTYSvvANwSOXm NVx omtLqMALznWIcN9CbgxwmUT ysRG0aQD2txKijyXOzcIHoC VNlWsTyz2sxn539yYIrc7sk SWAUajzwwOr0yThfI39pm1P 5OzwlV00tzYYwRZR8OGFqBR TmjIYbDFDmXYV0RZEmjARhC 5xgODAbIA7keniyLTaoBGzk DOPzmRG5IEYmvPLrV6ZlILL rTSlsECXdyfo7YeDbLc9gvR VyeTcyMFxwYXJkXHBsYWluX ZWqWuGmTU3lKSCjB0W3gJaz wC1nkHRmE2RvpHp4LMMdyyQ cEJZrAGrwAM79jbPkYaG4eX F5kVAfLIBoVT1mfLPdOILes wvhVPWjXa1gMMAxVQ9gcgOn o5MsE48vb75zCWZadIkpXZE 2n856UtlnYXDoKUTIjaXqeW ElbKMba0PkrFQfxQkrpjEjM LCcr75xOuyqWFJ0 [facility] Work Phone: Gross Description a5ndaXQzQINenOLQOYQ1 MDJ wMW4dfUborNs7mNynXNLukd V9zNBqDLdmt6moVUH1i2lfv xSVZhdbSBJhIA9zZXolUPXk GE2iCbEyRSEnDfFwVOBruJD ehhFeIsPtERDanACrmTO9SF PcVZ4chtatCKquHGicXZOeg mO5ECPflRWtQ4VsHXAeIZ0z qgjhYRQ7TVQQKzugAm9jiDC ibHtcZjFcZmNoYXJzZXQwXG Qpz5qjfdJFdtvbfRr9qI9QS MGbX7ClNZ4Pe5maZFIkxQMj FTF8IPgop8lyGXghTEH4MAS oOCMcZXNsUW3PPoDfIRQsZt e8SUPxZwW2HXh0DJKBLPLsP TXhGPY9GuKxVIy8OMfiLLhx aCBcXHQgMSBcXGZsIFxcbmN 7n7mtDGYyjIMtUWE6RAlyz9 nwHSeyXOO8IPRlLuQxYWDxU R8XAlOeQMDzXtc6IJCtJkY7 LNw2AVXBWdVfPoCjAYQ3Ryf 2BCBsYFr4NVm7UKvQRrYgBS d0TuCnWJZsZwU8BAH5DjIvJ HQgMiBcXHNzIDMgXFxmbCBc QL0asAwxXWEcKC6GSVXnMLi hISMnZnZnVE2aHrCCXNBGNR QYZGrEGLh4yeYbXPScvfJDX uniZFTtBG5RVZHxXKekDPd8 gkVoPUAcJqWoZAXxB79iv9N Wf7KhLD7DFZq0tnLcgkCKBn rwpeJuJKFvF3UjvoThPFkvJ MGthg6szLvjBESkMZZ7w65k i7UwuDHlcNIqn5ZxaNZnNJJ xx4krLYOdrRwmm4icVEDgo3 D5USHmE7fnLRblcBwnZrN0g yAwLjggeCAwLjMgeCAwLjQg W56eWFCCthPfyDMne2OqBBS lIHByZXNlbnQuICBUaGUgbG vxEJUza5WdaaIyCDO5nH7fY DTvQRLcj5ExPP4nRQKqVVKw tRFkiB7ycpYhEGZmMACqf1C rfLDtSsTsHT78KDdrjCRpfC ZwcPK5HBIaeM9sl64vISKmo 1OcrGRlHqZbpSUyFY9LQXDi qcLBMqxgm7ViEBZ9KF5vrfT 0kP6cGWRqmcWnko0oIKYtvS NUeJB5GOhqdcFnN5vwvyauV RW2YLUoXZD1W5aiMKIKeaDi TGUVxZY6VBnpuaToYE6XHBU 2VBz1IJXnnpOTQacuDHEwAJ pBTVMgSmFudWFyeSAxNiwgM pIpQXL2KiY5LOGZFNLjzmJJ WpucEUFzHWNnvEZPq6AdSWA FQqoaeDajBxMusJBxCdA6ZQ ZddIFmWZP5AJ3lhPetQYBiT Ro3ZEvzOBHbI2UrE8FcHEej ZyBcXGlkIDUxMDAyIFxcZGI kX1PUXKAnGUNsXWenYZXcQF s2LVn3SO1EChFvGIY5IRW6Y PV1JhWpPNq3AUrnEB8CGUPj PCQ2CdAlAiQ1WTP8Wbb2JZp myXMvXHzth4QyVqVzEYAeGV etqiD1RUOqgzAll0MjJTYkI YApD4tdKdJqPZMWItuwvvRl FKQdRQPARE0EKrCXF8UgE87 WD58nNK8ZTZJijXOfUL0ZQB HwlcSlCWbnbOfphN5upVHqQ 2hcZnMyMlxlcGljTmVzdERv YzEgDQpcbHRycGFyXHNiMzB mKYMxG6brHjFqVY7KVBRzEn CwQjTwELj9LBPpjI6bPm4gw KQllI9lEUZdBSY6vrUavOVt IGLga2GxjKNuKHLxt3O8PVT yo7N7HXDyQ3wqVKtsqNtiPs Q4thBbKsEogQTuCsOhbEAfN iKqP32tWWWmqBTsgErdg7Za uKf5lRFiASgcZG9aARWgNTM fAKM9XV9jAVJewbFUIoifBI YrXIj4yaEfueXHAfjoXZMwH VcYLhFQPG92DXA4ZXT3BORd EOQ2ERo9EcVtKZ9osPQzMZ0 KXHBhciANClxzYTMwXGVwaW MPm6JzULVEHxsys4GnPNG1U V1cvyI4uN8tDSEoorMopn6s HAFnxZHXcNE5QJyungYiN2t bjnrcHTK4RGGmJXK5K6prRC EQinZsHCKBgJA0HLydkyOiM U8ZSPJ4DFc9PLggSKJqY73u m7PJs4Rkj4qjnJtsj6OwmMM yAQ08DAQjbJVsLOC5JK9orC xwYXIgDQpccGFyZCANClxmc pCdAG9IaO== [facility] Work Phone: Performing Lab o6ecmBZaVMUonZXbZtBf MDA lXVAsp7knJYNzjESlKmBzSg NcZnRuYmpcdWMxXGRlZmYwe 2dnl831iJUce0ejFKNyWuD6 bZTfWLOaiWOoY212FTYyAQq xt2hew3QqVBMgwVCkp1I2ST RRknkdePp9vSboO74lu4I8T zdvZ6cwKGTqRJEsY0MhAD9a BTOiCwm3AMJ1GPW3RQMaANF bV1XuOI8zQAArcCYyJEi6j3 otwYvzHNVxOCM6n0yuNTkws oRlOZ6mks4njIi4j5fopbVa YRJxHRYquYMQBZDbS6CgwUz jVw1teGa1dIfoBdmcUHM0Jz v0WQ6ium15djq3tJfiXXQgp ahvUrG5NPgzONPyopylWSw0 HDzzGEItjTC5OPRwiBKxF7E wVMovWA0loaj6CKQ0DVfxXF IgNyA7VPHypXAzUVLmiLfyC Isbz997BJF2AoStPK8kM6Yt a4B8iX1olKYlVENxgBEiCgM dOZJuyp0qhYWlKWybo8QoTR H9rqM4jPHabSJzRNMkCM04M urba1QlCkgdg1YnY40xbXN8 EDxgu0jhBK4yHbB9dxRiAUx oh3ijeN7sOxP9XZoiVJ6nNA 3oKKSwrU6bdtcmJFGmYbQll ctuUFItqKvkzyAbCg0owVmm WBB9MOzzC2rtgL0pKaK3ILi rB0bsdT1uJWq6RMhiqEY4AN ZnoI0lSU0hlanbf2ahBOdwJ IlkBNUhwzT1cwBjPVBglGTx G6ElaI9iQFQhAA5rqkclj3c sMWF1RYlrIAJaPQO5UkXnRZ Svx6Wofis7NhFtl8DpiVAfE AdbA61mz027ICHfbyNdG5fg bGFpblxwbGFpblxmMFxmczI 0XHFsXHBsYWluXGYxXGZzMj JcbGFuZzEwMzNcaGljaFxmM LyrOiHpZKRrYCiuW4rxNlXu HtBjYxXCuAVeni3qcGleROb nwYZnkFKkiFF5aD6nPOXviv Sxvf9cKYMriLBJqEX6ULmin sIyY3mijfntENB2AHPbZOD8 V0vtENRQrvRpEQWfUOCwwUI uDQUBOBB7CON1TVXgJJAEYP TiQGH7BQZ6HVUlJWBiaSRdW HBhclxwYXJkXHBsYWluXGYw GECcCuSzbPmstA7zJpUjRbH qEaoiMM8fVJRpI6bsrOMuXW RqBWEyL4rgBbXvuX5ufAkkL VxjZjJcZnMyMlxsdHJjaCBM WWTcwpW2h8I7OVpssYIzttp mMVxmczIyXGxhbmcxMDMzXG lzH0bvPbJrZEIfbAriOMzyo 7GjXHViKNAhLjFbPTpyOYB9 w1K6LStnzKLganPIGePEOB5 xcDPlhehbSH4NRgzqENO8 [facility] Work Phone: [facility] Work Phone: ANES POSTPROC EVALon 024 ANES POSTPROC EVAL HNO ID: [id number] Author: EUGENIA VEGA APRN.RESTAURANT COOK Service: ? 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 Author Type: Nurse Multiple Spindle Screw 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 Type: Anesthesia Preprocedure Evaluation Filed: [...] and consent discussed: yes. Patient / Responsible [employer] Party agrees to proceed: yes Patient / [...] September 14, 2023 TIME: 2:11 PM CSN: [id number] [facility] Colonoscopyon 09-14-2023 Colonoscopy [facility] Patient Name: Miki Adrian Procedure Date: 09/14/2023 2:03 PM Date of : 1970 Admit Type: Outpatient Age: 52 Room: [facility] 1 Gender: Female Note Status: Finalized Attending MD: Dia Kenney MD, [id number] Procedure: Colonoscopy Indications: Screening for colorectal malignant [...] antiplatelet agents. Procedure Code(s): --- Professional --- 77286, Colonoscopy, flexible; with removal of tumor(s), polyp(s), or other lesion(s) by snare technique CPT copyright 2020 [employer]. All rights reserved. The codes documented in this report are preliminary and upon vascular surgery physician review may be revised to meet current compliance requirements. Attending Participation: I personally performed the entire procedure. Scope In: 2:20:45 PM Scope Out: 2:33:44 PM MD Dia Kennedy MD 09/14/2023 2:38:06 PM This report has been signed electronically by Dia Kenney MD Number of Addenda: 0 Note Initiated On: 09/14/2023 2:03 PM Estimated Blood Loss: Estimated blood loss: none. [facility] Colonoscopy Study observatio non 09-14-2023 [facility] Patient Name: Miki Adrian Procedure Date: 09/14/2023 2:03 PM Date of : 1970 Admit Type: Outpatient Age: 52 Room: [place] [address] Gender: Female Note Status: Finalized Attending MD: Dia Kenney MD, [id number] Procedure: Colonoscopy Indications: Screening for colorectal malignant [...] antiplatelet agents. Procedure Code(s): --- Professional --- 94346, Colonoscopy, flexible; with removal of tumor(s), polyp(s), or other lesion(s) by snare technique CPT copyright 2020 [employer]. All rights reserved. The codes documented in this report are preliminary and upon vascular surgery physician review may be revised to meet current compliance requirements (more content not included)... [employer] [facility] Radiology Study observation (narrative) [facility] HISTORY PHYSICALon HISTORY PHYSICAL HNO ID: [id number] Author: DIA KENNEY MD Service: Gastroenterology Author [...] Additional Comments: None Dia Kenney MD [facility] SURGICAL PATHOLOGYon 024 CASE REPORT [facility] Comment on above: Order Comment: Speci men Type: TISSUE SPECIMEN [facility]ing Facility[facility] Address: [address] [place] [address] Result Comment: Surg ica Pathology Report Case: [id number] Authorizing Provider: Dia Kenney, Collected: 09/14/2023 02:27 PM Ordering Location: Ambulatory Surgery Received: 09/14/2023 07:08 PM Pathologist: Rashid Vieira MD Specimens: A) - RECTAL POLYP, proximal x 2 B) - TRANSVERSE COLON POLYP, distal Performed By: #### S #### [facility] CLIA [id number] [address] [place] [address] OF [facility] FINAL DIAGNOSIS [facility] Comment on above: Order Comment: Speci men Type: TISSUE SPECIMEN Ordering Facility: [facility] Address: [address] [place] [address] Result Comment: A. R ectum, polypectomy: - Fragments of tubular adenoma. B. Transverse colon, polypectomy: - Fragments of tubular adenoma. Performed By: #### S #### [facility] CLIA [id number] [address] [place] [address] OF [facility] FINAL PERFORMING LAB Normal [facility] Comment on above: Order Comment: Speci men Type: TISSUE SPECIMEN Ordering Facility: [facility] Address: [address] [place] [address] Result Comment: Diag nostic interpretation performed at [facility], [address] [place] [address]# [id number] Gas Operations Superintendent: Roman Fajardo M.D. Performed By: #### S #### [facility] IA [id number] [address] [place] [address] OF [facility] GROSS DESCRIPTION A. RECTAL POLYP Normal [facility] Comment on above: Order Comment: Speci men Type: TISSUE SPECIMEN Ordering Facility: [facility] Address: [address] [place] [address] Result Comment: Rece ived in formalin are two segments of bernard-brown polypoid tissue aggregating to 0.8 x 0.3 x 0.4 cm. No stalks are present. The lines of resection are noted. The specimens are bisected. Totally submitted in one cassette. Gross examination performed at [facility], [address] [place] [address] AMS September 14, 2023 9:15 PM B. TRANSVERSE COLON POLYP Received in formalin are two pieces of bernard, soft tissue aggregating to 0.6 x 0.2 x 0.2 cm. Totally submitted in one cassette. DB September 14, 2023 8:34 PM Gross examination performed at [facility], [address] [place], [place] [address] [address] Performed By: #### S #### [facility] CLIA [id number] [address] [place] [address] [id number] STATES OF [place] CT Chest for [...] 2 mm3) within a 12-month interval. 7. Ezdg-Aqjuuqu-Ukq-Solid (Ground-Glass) Nodules: A ground-glass nodule (GGN) that demonstrates growth over multiple screening exams but does not meet the > 1.5 mm threshold increase in size for any 12-month interval may be classified as LungRADS 2 until the nodule meets findings criteria of another category, such as developing a solid component (then manage per partsolid nodule criteria). 8. Faeo-Ywzylol-Jxahr or Part-Solid Nodules: A solid or part-solid nodule that demonstrates growth over multiple screening exams but does not meet the > 1.5 mm threshold increase in size for any 12-month interval is suspicious and may be classified as a LungRADS 4B. Slow-growing nodules may not have increased metabolic activity on PET/CT; therefore, biopsy, if feasible, or surgical eval (more content not included)... [facility] Patient Name: MIKI REED : 1970 [...] changes of the thoracic spine are observed. [facility] Yusuf Lares MD - 08/20/2023 [facility]: [facility] 1970 [id number] Exam Date/Time: 08/20/2023 12:01 Procedure: CT LUNG [...] most concerning finding. (more content not included)... [facility] Radiology Study observation (narrative) [facility] CT Chest for screening WO co ntrastOrdered By: Yusuf Lares on 08-20-2023 [facility] Work Phone: CNCOon 08-16-2023 [facility] Letter Text [facility] CNPNon 08-16-2023 CNPN Telephone (GSTNOR) MIKI ADRIAN ([id number]) 1970 F Date Time Provider Department 08/16/23 ANALIA LA GSTNOR During your visit today, we [...] at home? No If yes, give to RESTAURANT COOK to evaluate. Chest pain or shortness of breath on exertion? No If yes, give to RESTAURANT COOK to evaluate. Any kidney/liver disease or on dialysis? No If cirrhosis pt., have RESTAURANT COOK review chart History of COPD/Emphysema/Asthma/o r Sleep [...] Date Reviewed: 02/28/2019 Reviewed by: Desiree Mckay (It Help Desk Associate) - Fully Assessed Reason for Visit: Screening order/checklist [Other] Primary Visit Diagnosis:Special screening for malignant neoplasms, colon [Z12.11] Order(s):COLONOSCOPY SCREENING [GI51] Order #: [id number] FUTURE Prescriptions as of 08/16/2023 - albuterol [...] percentageon 2022 Bilirubin [Mass/Vol] 0.30 mg/dL 0.20-1.00 [facility] Comment on above: For patients on eltr ombopag therapy, use of Dimension [facility] TBIL is not recommended. Chloride [Moles/Vol] 112 mmol/L 98-107 [facility] Glucose [Mass/Vol] 91 mg/dL 74-106 [facility] Potassium [Moles/Vol] 3.8 mmol/L 3.5-5.1 [facility] Protein [Mass/Vol] 7.0 g/dL 6.4-8.2 [facility] Sodium [Moles/Vol] 141 mmol/L 136-145 [facility] Laboratory - Chemistry and C hemistry - challengeon 02-23-2023 ALP [Catalytic activity/Vol] 77 U/L 45-117 [facility] ALT [Catalytic activity/Vol] 12 U/L 13-56 [facility] CO2 [Moles/Vol] 23.0 mmol/L 21.0-32.0 [facility] Globulin (S) [Mass/Vol] 3.3 g/dL 2.2-4.2 [facility] Urea nitrogen/Creatinine [Mass ratio] 9.3 mg/mg 10-20 [facility] No Panel Informationon 02-23 Estimated GFR (MDRD) Amer 62 mL/min >60 [facility] Comment on above: GFR Calc Estimated GFR (MDRD) Non-Af Amer 51 mL/min >60 [facility] Comment on above: Non- GFR Calc [place] Level 0.60 mmol/L 0.60-1.20 [facility] Thyroid Stimulating Hormone (TSH) 3.54 uIU/mL 0.358-3.74 [facility] Serum or plasma albumin tracy urement (mass/volume)on 02-23-2023 Albumin [Mass/Vol] 3.7 g/dL 3.2-5.0 [facility] Serum or plasma albumin/glob ulin mass ratioon 02-23-2023 Albumin/Globulin [Mass ratio] 1.1 {ratio} 0.9-2.4 [facility] Serum or plasma calcium tracy urement (mass/volume)on 02-23-2023 Calcium [Mass/Vol] 9.9 mg/dL 8.5-10.1 [facility] Serum or plasma creatinine m easurement (mass/volume)on 02-23-2023 Creatinine [Mass/Vol] 1.18 mg/dL 0.55-1.02 [facility] Comment on above: The validity of the calculated GFR & GFRAA in patients over 70 years has not been determined. Clinical correlation is essential. Serum or plasma urea nitroge n measurement (mass/volume)on 02-23-2023 Urea nitrogen [Mass/Vol] 11 mg/dL 7 [facility] Thin prep Papanicolaou smear with manual screeningon 02-23-2023 Thin prep Papanicolaou smear with manual screening 8 U/L [facility] Thin prep Papanicolaou smear with manual screening 6 01-11 [facility] Whole blood hemoglobin A1c/t otal hemoglobin ratio (mass fraction)on 02-23-2023 HbA1c (Bld) [Mass fraction] 4.7 % 3.8-5.6 [facility] Comment on above: Normal < 5.7 % Predi abetic 5.7 - 6.4 % Diabetic >or= 6.5 % Please note range changes. No Panel Informationon 10-02 [facility] [employer] T3, 10-02-2022 Free T3 [Mass/Vol] 3.2 pg/mL 2.3 - 4.2 pg/mL [facility] [employer] T4, freeon 10-02-2022 Free T4 [Mass/Vol] 1.2 ng/dL 0.8 - 1.8 ng/dL [facility] [employer] TSHon 10-02-2022 TSH Qn 2.58 m[IU]/L mIU/L [facility] Comment on above: Reference Range > or = 20 Years 0.40-4.50 Ranges First trimester 0.26-2.66 Second trimester 0.55-2.73 Third trimester 0.43-2.91 Test Authorization ([facility])on 10-02-2022 Client Contact: VASILIY Da Silva [facility] Comment [facility] Comment on above: Please have the [facility] physician or his or her authorized unit support representative sign a copy of this report and promptly return it by faxing it to: [phone] or by returning the form to your platform stapler. Reference Lab Test ID [id number] [facility] Reference Lab Test Name T3, FREE T4, FREE [facility] [employer] Report Always Message Signature [facility] Comment on above: The laboratory testing on this patient was verbally requested or confirmed by the ordering physician or his or her authorized unit support representative after contact with an employee of [employer]. Federal regulations require that we maintain on file written authorization for all laboratory testing. Accordingly we are asking that the ordering physician or his or her authorized unit support representative sign a copy of this report and promptly return it to the client technical support associate. Signature: [place] levelon 09-30-2022 [place] [Moles/Vol] 0.9 mmol/L 0.6 - 1. 2 mmol/L [facility] MG Breast Tomosynthesis Scr Blon 06-08-2022 MG Breast Tomosynthesis Scr Bl Patient Name: MIKI ADRIAN Mammography ACCESSION EXAM DATE/TIME PROCEDURE ORDERING PROVIDER [id number] 06/08/2022 14:50 EDT MG Breast Tomosynthesis DO WHITE PAUL E. BI Scr CPT code 70422 95904 Reason For Exam (MG Breast Tomosynthesis BI [...] images: BB's = Nipples; skin lesions Open [place] river = Palpable Line = Scar 2D digital [...] pm Signed by: MD MCADAMS LAUREN B [facility] US Thyroid/Parathyroidon US Thyroid/Parathyroid [id number] ACCESSION EXAM DATE/TIME PROCEDURE ORDERING PROVIDER [id number] 06/08/2022 15:15 EDT US Parathyroid DO WHITE PAUL E. CPT code 28049 Reason For Exam (US Parathyroid) . Report [...] Transcribed Date and Time: 06/09/2022 10:08 [facility] XR CHEST (2 VW)on 09-05-2020 Patient Name: MIKI REED Diagnostic Radiology ACCESSION EXAM DATE/TIME PROCEDURE ORDERING PROVIDER [id number] 09/05/2020 12:10 EST CR Chest PA & LAT DO WHITE PAUL E. CPT code 14783 Reason For Exam (CR Chest PA & [...] I Transcribed Date and Time: 09/05/2020 1:09 [facility] Incoming Radiology Results From [facility] - 09/05/2020 1:09 PM EST Patient Name: MIKI ADRIAN Diagnostic Radiology ACCESSION EXAM DATE/TIME PROCEDURE ORDERING PROVIDER [id number] 09/05/2020 12:10 EST CR Chest PA & LAT DO WHITE PAUL E. CPT code 18206 Reason For Exam (CR Chest PA & [...] I Transcribed Date and Time: 09/05/2020 1:09 [place] MRA Head w/o Contraston 10-0 MRA Head w/o Contrast Patient Name: MIKI CASON MRI Exam Date/Time 06/04/2020 11:15:14 EDT Exam MRA Head w/o Contrast Ordering Physician DO WHITE PAUL E. Accession Number [id number] CPT4 Codes 19264 () Reason For Exam nonintractable headache Addendum [...] cerebral aneurysm repair COMPARISON: NONE TECHNIQUE: 3-D [id number]-ad-[id number] MRA of [place] was obtained without contrast. FINDINGS: At the posterior circulation, the bilateral V4 segments of the vertebral arteries are patent. The basilar artery is patent. Bilateral master cosmetologist are patent. At the anterior circulation, there [...] was communicated to WALTER WHITE via the [employer] Critical Result system on 06/04/2020 2:40 PM EDT, Message ID [id number]. Report Dictated on Workstation: [id number] Final Dictated: 06/04/2020 2:24 pm Dictating Physician: MD ALFARO NEIL Signed Date and Time: 06/04/2020 2:41 pm Signed by: MD ALFARO NEIL Transcribed Date and Time: 06/04/2020 2:24 [facility] MRA HEAD WO CONTRASTon 06-04 Patient Name: MIKI REED ---MRI--- Exam Date/Time 06/04/2020 11:15:14 EDT Exam MRA Head w/o Contrast Ordering Physician DO WHITE PAUL E. Accession Number [id number] CPT4 Codes 27977 () Reason For Exam nonintractable headache Report EXAM TYPE: MRA Head w/o Contrast EXAM DATE AND TIME: 06/04/2020 11:15 AM EDT INDICATION: Noninterpretable headache, history of cerebral aneurysm repair COMPARISON: NONE TECHNIQUE: 3-D xiel-pk-uvvuvk MRA of [place] was obtained without contrast. FINDINGS: At the posterior circulation, the bilateral V4 segments of the vertebral arteries are patent. The basilar artery is patent. Bilateral master cosmetologist are patent. At the anterior circulation, there [...] was communicated to WALTER WHITE via the [employer] Critical Result system on 06/04/2020 2:40 PM EDT, Message ID [id number]. Report Dictated on Workstation: [id number] --- Final --- Dictated: 06/04/2020 2:24 pm Dictating Physician: MD ALFARO NEIL Signed Date and Time: 06/04/2020 2:41 pm Signed by: MD ALFARO NEIL Transcribed Date and Time: 06/04/2020 2:24 [facility] [place], [place] Incoming Radiology Results From [facility] - 06/04/2020 2:42 PM EDT Patient Name: MIKI ADRIAN ---MRI--- Exam Date/Time 06/04/2020 11:15:14 EDT Exam MRA Head w/o Contrast Ordering Physician DO WHITE PAUL E. Accession Number [id number] CPT4 Codes 92144 () Reason For Exam nonintractable headache Report EXAM TYPE: MRA Head w/o Contrast EXAM DATE AND TIME: 06/04/2020 11:15 AM EDT INDICATION: Noninterpretable headache, history of cerebral aneurysm repair COMPARISON: NONE TECHNIQUE: 3-D dfmp-dr-[id number] MRA of [place] was obtained without contrast. FINDINGS: At the posterior circulation, the bilateral V4 segments of the vertebral arteries are patent. The basilar artery is patent. Bilateral master cosmetologist are patent. At the anterior circulation, there [...] was communicated to WALTER WHITE via the [employer] Critical Result system on 06/04/2020 2:40 PM EDT, Message ID [id number]. Report Dictated on Workstation: [id number] --- Final --- Dictated: 06/04/2020 2:24 pm Dictating Physician: MD ALFARO NEIL Signed Date and Time: 06/04/2020 2:41 pm Signed by: MD ANGELINA, BRITTNEY Transcribed Date and Time: 06/04/2020 2:24 [facility], [place] Vital Signs Date Time Vital Sign Value Performing Clinician Faci lity 01-09-2025 09:35-0400 Body height 165.1 cm Ezekiel Galo MD Work Phone: [facility] [employer] 01-09-2025 09:35-0400 Body mass index (BMI) [Ratio] 23.23 kg/m2 Ezekiel Galo MD Work Phone: [facility] [employer] 01-09-2025 09:35-0400 Body temperature 97.9 [degF] Ezekiel Galo MD Work Phone: [facility] [employer] 01-09-2025 09:35-0400 Body weight 63.32 kg Ezekiel Galo MD Work Phone: [facility] [employer] 01-09-2025 09:35-0400 Diastolic blood pressure 71 mm[Hg] Ezekiel Galo MD Work Phone: [facility] [employer] 01-09-2025 09:35-0400 Heart rate 63 /min Ezekiel Galo MD Work Phone: [facility] [employer] 01-09-2025 09:35-0400 Systolic blood pressure 120 mm[Hg] Ezekiel Galo MD Work Phone: [facility] [employer] 12-27-2024 13:45-0400 Diastolic blood pressure 70 mm[Hg] Juan Palacio DO Work Phone: [employer] 12-27-2024 13:45-0400 Heart rate 60 /min Juan Antona DO Work Phone: [employer] 12-27-2024 13:45-0400 Systolic blood pressure 112 mm[Hg] Juan Antona DO Work Phone: [employer] 12-27-2024 13:13-0400 Body height 165.1 cm Juan Palacio DO Work Phone: [employer] 12-27-2024 13:13-0400 Body mass index (BMI) [Ratio] 22.8 kg/m2 Juan Palacio DO Work Phone: [facility] [employer] 12-27-2024 13:13-0400 Body temperature 97.3 [degF] Juan Palacio DO Work Phone: [facility] [employer] 12-27-2024 13:13-0400 Body weight 62.14 kg Juan Palacio DO Work Phone: [facility] [employer] 12-27-2024 13:13-0400 SaO2% (BldA) [Mass fraction] 96 % Juan Palacio DO Work Phone: [facility] [employer] 12-26-2024 10:03-0400 Body height 165.1 cm Ezekiel Galo MD Work Phone: [facility] [facility] [employer] 12-26-2024 10:03-0400 Body mass index (BMI) [Ratio] 23.3 kg/m2 Ezekiel Galo MD Work Phone: [facility] [employer] 12-26-2024 10:03-0400 Body temperature 98.1 [degF] Ezekiel Galo MD Work Phone: [facility] [employer] 12-26-2024 10:03-0400 Body weight 63.5 kg Ezekiel Galo MD Work Phone: [facility] [employer] 12-26-2024 10:03-0400 Diastolic blood pressure 63 mm[Hg] Ezekiel Galo MD Work Phone: [facility] [employer] 12-26-2024 10:03-0400 Heart rate 66 /min Ezekiel Galo MD Work Phone: [facility] [employer] 12-26-2024 10:03-0400 Systolic blood pressure 110 mm[Hg] Ezekiel Galo MD Work Phone: [facility] [employer] 12-21-2024 14:24-0400 Body height 165.1 cm Darling Castillo MD Work Phone: [facility] [employer] 12-21-2024 14:24-0400 Body mass index (BMI) [Ratio] 22.3 kg/m2 Darling Castillo MD Work Phone: [facility] [employer] 12-21-2024 14:24-0400 Body weight 60.78 kg Darling Castillo MD Work Phone: [facility] [employer] 11-02-2024 14:39-0500 Body height 165.1 cm Darling Castillo MD Work Phone: [facility] [employer] 11-02-2024 14:39-0500 Body mass index (BMI) [Ratio] 22.8 kg/m2 Darling Castillo MD Work Phone: [facility] [employer] 11-02-2024 14:39-0500 Body weight 62.14 kg Darling Castillo MD Work Phone: [facility] [employer] 05-31-2024 13:21-0400 Body height 165.1 cm Darling Castillo MD Work Phone: [facility] [employer] 05-31-2024 13:21-0400 Body mass index (BMI) [Ratio] 24.96 kg/m2 Darling Castillo MD Work Phone: [facility] [employer] 05-31-2024 13:21-0400 Body weight 68.04 kg Darling Castillo MD Work Phone: [facility] [employer] 05-31-2024 13:21-0400 Diastolic blood pressure 70 mm[Hg] Darling Castillo MD Work Phone: [facility] [employer] 05-31-2024 13:21-0400 Systolic blood pressure 110 mm[Hg] Darling Castillo MD Work Phone: [facility] [employer] 05-04-2024 13:39-0400 Body height 165.1 cm Juan Palacio DO Work Phone: [facility] [employer] 05-04-2024 13:39-0400 Body mass index (BMI) [Ratio] 26.23 kg/m2 Juan Palacio DO Work Phone: [facility] [employer] 05-04-2024 13:39-0400 Body temperature 97 [degF] Juan Palacio DO Work Phone: [facility] [employer] 05-04-2024 13:39-0400 Body weight 71.49 kg Juan Palacio DO Work Phone: [facility] [employer] 05-04-2024 13:39-0400 Diastolic blood pressure 71 mm[Hg] Juan Palacio DO Work Phone: [facility] [employer] 05-04-2024 13:39-0400 Heart rate 66 /min Juan Palacio DO Work Phone: [facility] [employer] 05-04-2024 13:39-0400 SaO2% (BldA) [Mass fraction] 97 % Juan Palacio DO Work Phone: [facility] [employer] 05-04-2024 13:39-0400 Systolic blood pressure 104 mm[Hg] Juan Palacio DO Work Phone: [facility] [employer] 09-22-2023 10:50-0500 Body height 165.1 cm Darling Castillo MD Work Phone: [employer] 09-22-2023 10:50-0500 Body mass index (BMI) [Ratio] 29.29 kg/m2 Darling Castillo MD Work Phone: [employer] 09-22-2023 10:50-0500 Body weight 79.83 kg Darling Castillo MD Work Phone: [employer] 09-22-2023 10:50-0500 Diastolic blood pressure 58 mm[Hg] Darling Castillo MD Work Phone: [employer] 09-22-2023 10:50-0500 Systolic blood pressure 100 mm[Hg] Darling Castillo MD Work Phone: [facility] [employer] 09-14-2023 14:54-0500 Diastolic blood pressure 69 mm[Hg] Dia Kenney MD Work Phone: [facility] 09-14-2023 14:54-0500 Heart rate 64 /min Dia Kenney MD Work Phone: [facility] 09-14-2023 14:54-0500 Respiratory rate 16 /min Dia Kenney MD Work Phone: [facility] 09-14-2023 14:54-0500 SaO2% (BldA) [Mass fraction] 99 % Dia Kenney MD Work Phone: [facility] 09-14-2023 14:54-0500 Systolic blood pressure 114 mm[Hg] Dia Kenney MD Work Phone: [facility] 09-14-2023 14:38-0500 Body temperature 97 [degF] Dia Kenney MD Work Phone: [facility] 09-14-2023 13:20-0500 Body height 162.6 cm Dia Kenney MD Work Phone: [facility] 09-14-2023 13:20-0500 Body mass index (BMI) [Ratio] 29.18 kg/m2 Dia Kenney MD Work Phone: [facility] 09-14-2023 13:20-0500 Body weight 77.11 kg Dia Kenney MD Work Phone: [facility] 08-18-2023 11:32-0500 Body height 165.1 cm Darling Castillo MD Work Phone: [facility] [employer] 08-18-2023 11:32-0500 Body mass index (BMI) [Ratio] 29.29 kg/m2 Darling Castillo MD Work Phone: [facility] [employer] 08-18-2023 11:32-0500 Body weight 79.83 kg Darling Castillo MD Work Phone: [facility] [employer] 08-18-2023 11:32-0500 Diastolic blood pressure 77 mm[Hg] Darling Castillo MD Work Phone: [facility] [employer] 08-18-2023 11:32-0500 Heart rate 58 /min Darling Castillo MD Work Phone: [facility] [employer] 08-18-2023 11:32-0500 Systolic blood pressure 117 mm[Hg] Darling Castillo MD Work Phone: [facility] [employer] 07-13-2023 13:13-0500 Body height 165.1 cm Juan Palacio DO Work Phone: [facility] [employer] 07-13-2023 13:13-0500 Body mass index (BMI) [Ratio] 28.96 kg/m2 Juan Palacio DO Work Phone: [facility] [employer] 07-13-2023 13:13-0500 Body temperature 98.1 [degF] Juan Palacio DO Work Phone: [facility] [employer] 07-13-2023 13:13-0500 Body weight 78.93 kg Juan Palacio DO Work Phone: [facility] [employer] 07-13-2023 13:13-0500 Diastolic blood pressure 68 mm[Hg] Juan Palacio DO Work Phone: [facility] [employer] 07-13-2023 13:13-0500 Heart rate 71 /min Juan Palacio DO Work Phone: [facility] [employer] 07-13-2023 13:13-0500 SaO2% (BldA) [Mass fraction] 97 % Juan Palacio DO Work Phone: [facility] [employer] 07-13-2023 13:13-0500 Systolic blood pressure 110 mm[Hg] Juan Palacio DO Work Phone: [facility] [employer] 09-29-2022 13:03-0500 Diastolic blood pressure 74 mm[Hg] Walter White DO Work Phone: [employer] 09-29-2022 13:03-0500 Systolic blood pressure 108 mm[Hg] Walter White DO Work Phone: [employer] 09-29-2022 12:19-0500 Body height 165.1 cm Walter White DO Work Phone: [employer] 09-29-2022 12:19-0500 Body mass index (BMI) [Ratio] 30.69 kg/m2 Walter White DO Work Phone: [employer] 09-29-2022 12:19-0500 Body temperature 97.7 [degF] Walter White DO Work Phone: [employer] 09-29-2022 12:19-0500 Body weight 83.64 kg Walter White DO Work Phone: [employer] 09-29-2022 12:19-0500 Heart rate 72 /min Walter White DO Work Phone: [employer] 09-29-2022 12:19-0500 SaO2% (BldA) [Mass fraction] 98 % Walter [employer] Work Phone: [employer] Encounters Encounter Date Encounter Type Care Provider Facility Start: 02-28-2025 End: 02-28-2025 Subsequent hospital visit by physician Juan Palacio DO Work Phone: [facility] Comment on above: History of ruptured cerebral aneurysm; Cerebral arterial aneurysm Start: 02-28-2025 End: 02-28-20[facility] Start: 01-09-2025 End: 03-11-2025 [facility] [place] Comment on above: CBC auto differentia l, Comprehensive metabolic panel, TSH, Additional followed-up results: 2 Start: 01-09-2025 End: 01-09-2025 Office outpatient visit 15 minutes Ezekiel Galo MD Work Phone: [facility] [employer] General Surgery - [place] Comment on above: Abnormal mammogram ( Primary Dx) Start: 01-09-2025 End: 01-09-2025 ambulatory JUAN [employer] [facility] Start: 01-03-2025 End: 01-03-2025 Telephone encounter Mignon Harvey LPN [facility] Start: 01-02-2025 End: 01-02-2025 Subsequent hospital visit by physician Jay Exam Room 1 [facility] Comment on above: Calcification of lef t breast Abnormal mammogram Start: 01-02-2025 End: 01-02-2025 ambulatory [facility] Start: 01-01-2025 End: 01-01-2025 Telephone encounter Mignon Harvey RADHA [facility] Start: 12-28-2024 End: 12-28-2024 Telephone encounter Juan Palacio DO Work Phone: [facility] [place] Comment on above: Orders (MRA-Brain / MRI-Brain) Start: 12-27-2024 End: 12-27-2024 Office outpatient visit 25 minutes Juan Palacio DO Work Phone: [facility] [employer] Comment on above: Primary hypertension (Primary Dx); Pulmonary emphysema, unspecified emphysema type (HCC); Bipolar affective disorder, remission status unspecified (HCC); Weight loss; History of ruptured cerebral aneurysm Start: 12-27-2024 End: 12-27-2024 ambulatory [facility] Start: 12-26-2024 End: 12-26-2024 Office outpatient new 30 minutes Ezekiel Galo MD Work Phone: [facility] General Surgery - [place] Comment on above: Abnormal mammogram ( Primary Dx) Start: 12-26-2024 End: 12-26-2024 ambulatory [facility] Start: 12-21-2024 End: 12-21-2024 Subsequent hospital visit by physician Darling Castillo MD Work Phone: [facility] Comment on above: Abnormal mammogram Start: 12-21-2024 End: 12-21-2024 ambulatory [facility] Start: 11-23-2024 End: 11-23-2024 Subsequent hospital visit by physician Juan Palacio DO Work Phone: [facility] Comment on above: Smoker; Moderate smoker (20 or less per day) Start: 11-23-2024 End: 11-23-2024 ambulatory [facility] Start: 11-09-2024 End: 11-09-2024 Refill Juan Palacio DO Work Phone: [facility] Start: 11-03-2024 End: 11-03-2024 Orders Only Darling Castillo MD Work Phone: [facility] PRE PROCEDURE Comment on above: Abnormal mammogram ( Primary Dx) Start: 11-02-2024 End: 11-02-2024 Subsequent hospital visit by physician Darling Castillo MD Work Phone: [facility] Comment on above: Screening mammogram for breast cancer Start: 11-02-2024 End: 11-02-2024 ambulatory JUAN [facility] Start: 10-30-2024 End: 10-30-2024 Refill Juan Palacio DO Work Phone: [facility] Start: 10-05-2024 End: 10-05-2024 ambulatory Gregory Syed Facility:[facility] Start: 09-30-2024 End: 09-30-2024 [facility] Start: 09-30-2024 End: 09-30-2024 Patient encounter procedure Yokasta Da Silva Clinical Communication Start: 09-26-2024 End: 09-26-2024 Telephone encounter Juan Palacio DO Work Phone: [facility] Comment on above: Other (Annual Lung S creening Reminder) Start: 07-04-2024 End: 07-04-2024 Refill Juan Palacio DO Work Phone: [facility] Start: 05-31-2024 End: 05-31-2024 Patient encounter status Darling Castillo MD Work Phone: [facility] Work Phone: Start: 05-31-2024 End: 05-31-2024 Periodic preventive med est patient 40-64yrs Darling Castillo MD Work Phone: [facility] Obstetrics and Gynecology - [place] Comment on above: Encounter for gyneco logical examination without abnormal finding (Primary Dx); Screening mammogram for breast cancer Start: 05-31-2024 End: 05-31-2024 ambulatory JUAN [facility] Start: 05-31-2024 End: 05-31-2024 Encounter for gynecological examination (general) (routine) without abnormal findings DARLING JONATHAN [facility] Start: 05-04-2024 End: 05-04-2024 Office outpatient visit 25 minutes Juan Palacio DO Work Phone: [facility] Medicine Comment on above: Essential hypertensi on (Primary Dx); Pulmonary emphysema, unspecified emphysema type (HCC); Boil of inguinal region; Closed follicle comedo; Bipolar affective disorder, remission status unspecified (HCC); Engages in vaping; H/O solitary pulmonary nodule Start: 05-04-2024 End: 05-04-2024 ambulatory JUAN [facility] Start: 04-27-2024 End: 05-05-2024 ambulatory Ksenia Rooney RN [facility] Clinical Communication Start: 04-27-2024 End: 05-05-2024 Patient encounter procedure Ksenia Rooney RN [facility] Clinical Communication Start: 03-22-2024 End: 03-22-2024 [facility] Start: 03-22-2024 End: 03-22-2024 Patient encounter procedure Ksenia Rooney RN [facility] Clinical Communication Start: 03-09-2024 End: 03-09-2024 Refill Juan Palacio DO Work Phone: [facility] Family Medicine Start: 02-11-2024 ambulatory [facility] Start: 02-11-2024 [facility] encounter [facility] Start: 01-06-2024 Refill Juan mike DO Work Phone: [facility] Start: 10-01-2023 Telephone encounter Dia Kenney MD Work Phone: [facility] Comment on above: Results Start: 09-22-2023 End: 09-22-2023 Office outpatient visit 15 minutes Darling Castillo MD Work Phone: [facility] Comment on above: Vaginal discharge (P rimary Dx); PMB (postmenopausal bleeding) Start: 09-14-2023 End: 09-14-2023 ambulatory WALTER Coco CHAVEZLIZZETHJULIO Facility:[facility] Start: 09-14-2023 End: 09-14-2023 Subsequent hospital visit by physician Dia Kenney MD Work Phone: Ambulatory Surgery Comment on above: Special screening fo r malignant neoplasms, colon [Z12.11] Start: 08-20-2023 End: 08-20-2023 Subsequent hospital visit by physician Juan Palacio DO Work Phone: [facility] Comment on above: Moderate smoker (20 or less per day) Start: 08-18-2023 End: 08-18-2023 Office outpatient new 30 minutes Darling Castillo MD Work Phone: [facility] Comment on above: Post-menopause bleed ing (Primary Dx); Urinary incontinence, unspecified type; Cyst of ovary, unspecified laterality Start: 08-16-2023 Telephone encounter [facility] above: Screening order/chec klist Start: 08-12-2023 Telephone encounter Juan myrick DO Work Phone: [facility] Comment on above: Referral ([employer]) Start: 07-28-2023 Telephone encounter Miki VIEIRA [facility] Clinical Communication Comment on above: Appointment Start: 07-27-2023 End: 07-27-2023 Subsequent hospital visit by physician Juan Palacio DO Work Phone: [facility] Comment on above: Post-menopause bleed ing Start: 07-21-2023 Orders Only Juan mike DO Work Phone: [facility] Comment on above: Post-menopause bleed ing (Primary Dx) Ultra Sound/Follow u p Start: 07-13-2023 Telephone encounter Juan Falcon Emile myrick DO Work Phone: [facility] Comment on above: Orders (LDCT / US-Pe lvis) Start: 07-13-2023 End: 07-13-2023 Office outpatient visit 25 minutes Juan Ezekiel Palacio DO Work Phone: [facility] Comment on above: Essential hypertensi on (Primary Dx); Bipolar affective disorder, remission status unspecified (HCC); History of drug abuse (CMS/HCC) (HCC); Post-menopause bleeding; Colon cancer screening; Smoker; Screening for lung cancer Start: 06-18-2023 Refill Juan Falcon Simon mike DO Work Phone: [facility] Start: 05-28-2023 Refill Juan Falcon Simon mike DO Work Phone: [facility] Start: 02-23-2023 End: 02-23-2023 ambulatory [facility] Work Phone: Start: 02-23-2023 End: 02-23-2023 Patient encounter procedure [facility] Work Phone: Start: 12-11-2022 Refill Juan Falcon Simon mike DO Work Phone: [facility] Start: 09-29-2022 Refill Walter hitchcock DO Work Phone: [facility] Start: 09-29-2022 End: 09-29-2022 Office outpatient visit 15 minutes Walter White DO Work Phone: [facility] Comment on above: Bronchitis (Primary Dx); Thyromegaly; Bipolar affective disorder, remission status unspecified (HCC); Smoker; Essential hypertension Start: 09-11-2022 Telephone encounter Walter estevez DO Work Phone: [facility] Comment on above: Call pt Start: 06-08-2022 ambulatory UNKNOWN PROVIDER [facility] Start: 09-05-2020 End: 09-05-2020 Subsequent hospital visit by physician Walter White Work Phone: [facility] [place] [facility] Comment on above: SOB (shortness [...] for Adults (1 - 1-dose 75+ series) [facility] [employer] Start: 09-14-2033 Screening for malignant neoplasm of colon [facility] Start: 2031 RSV Immunization aged 60 or older (1 - 1-dose 60+ series) RSV Immunization aged 60 or older (1 - 1-dose 60+ series) [facility] [employer] Start: 09-14-2028 Screening for malignant neoplasm of colon [facility] Start: 07-27-2027 Screening for malignant neoplasm of cervix [facility] Start: 05-31-2027 Screening for malignant neoplasm of cervix [facility] Start: 07-29-2026 Screening for malignant neoplasm of colon [facility] Start: 12-27-2025 Thyroid stimulating hormone measurement TSH Level [facility] Start: 12-21-2025 Screening for malignant neoplasm of breast Mammogram [facility] Start: 11-03-2025 Screening for malignant neoplasm of breast Mammogram [facility] Start: 09-05-2025 Lipid panel [facility] Start: 07-27-2025 Screening for malignant neoplasm of cervix [facility] Start: 07-12-2025 End: 03-11-2026 DBT Breast - left diagnostic Left diagnostic mammogram with tomosynthesis Imaging Routine Abnormal mammogram Expected: 07/12/2025, Expires: 03/11/2026 [facility] Work Phone: Comment on above: Expected: 07/12/2025, Expires: Start: 07-10-2025 End: 07-10-2025 Patient encounter procedure 07/10/2025 1:00 PM EST Appointment [facility] [address] [place] [address] [facility] Start: 06-27-2025 End: 06-27-2025 Patient encounter procedure 06/27/2025 2:00 PM EDT Office Visit [facility] [place] [address] [place] [address] Juan Palacio DO [address] [place] [address] [place] [address] [facility] [place] Start: 06-06-2025 End: 06-06-2025 Patient encounter procedure 06/06/2025 1:45 PM EDT Office Visit [facility] Obstetrics and Gynecology - [place] [address] [place] [place] [address] Darling Castillo MD [address] [place] [id number] [facility] Obstetrics and Gynecology [facility] Start: 05-19-2025 Diabetes Screening Diabetes Screening [facility] Start: 04-30-2025 Influenza vaccination [facility] Start: 01-09-2025 End: 01-09-2025 Patient encounter procedure 01/09/2025 10:15 AM EDT Office Visit [facility] [address] [place] [id number] Ezekiel Galo MD [address] [place], [place] [id number] [facility] Start: 01-02-2025 End: 01-02-2025 Patient encounter procedure 01/02/2025 1:[address] [facility] [address] [place] [address] Ezekiel Galo MD [address] [place] [address] [facility] Start: 12-28-2024 End: 12-28-2025 MR Brain WO contrast MR brain wo contrast Imaging Routine History of ruptured cerebral aneurysm Cerebral arterial aneurysm Expected: 12/28/2024, Expires: 12/28/2025 [facility] Work Phone: Comment on above: Expected: 12/28/2024, Expires: Start: 12-28-2024 End: 12-28-2025 MRA Head vessels WO contrast MR head angio wo IV contrast Imaging Routine History of ruptured cerebral aneurysm Cerebral arterial aneurysm Expected: 12/28/2024, Expires: 12/28/2025 [facility] Comment on above: Expected: 12/28/2024, Expires: Start: 12-27-2024 End: 12-27-2025 CBC W Auto Differential panel - Blood CBC auto differential Lab Routine Weight loss Expected: 12/27/2024 (Approximate), Expires: 12/27/2025 [facility] Work Phone: Comment on above: Expected: 12/27/2024 (Approximate), Expi res: 12/27/2025 Start: 12-27-2024 End: 12-27-2025 Comprehensive metabolic 1998 panel - Serum or Plasma Comprehensive metabolic panel Lab Routine Weight loss Expected: 12/27/2024 (Approximate), Expires: 12/27/2025 [facility] Comment on above: Expected: 12/27/2024 (Approximate), Expi res: 12/27/2025 Start: 12-27-2024 End: 12-27-2025 Thyrotropin [Units/volume] in Serum or Plasma TSH Lab Routine Weight loss Expected: 12/27/2024 (Approximate), Expires: 12/27/2025 [facility] Comment on above: Expected: 12/27/2024 (Approximate), Expi res: 12/27/2025 Start: 12-27-2024 End: 12-27-2025 Thyroxine (T4) free [Mass/volume] in Serum or Plasma T4, free Lab Routine Weight loss Expected: 12/27/2024 (Approximate), Expires: 12/27/2025 [facility] Comment on above: Expected: 12/27/2024 (Approximate), Expi res: 12/27/2025 Start: 12-27-2024 End: 12-27-2025 Triiodothyronine (T3) Free [Mass/volume] in Serum or Plasma T3, free Lab Routine Weight loss Expected: 12/27/2024 (Approximate), Expires: 12/27/2025 [facility] Comment on above: Expected: 12/27/2024 (Approximate), Expi res: 12/27/2025 Start: 12-27-2024 End: 12-27-2024 Patient encounter procedure 12/27/2024 1:00 PM EDT Office Visit [facility] [place] [address] [place] [address] Juan Palacio DO [address] [place] [place] [address] [facility] Start: 12-26-2024 End: 02-25-2026 MG stereo Guidance for percutaneous biopsy.core needle of Breast - left Left stereotactic guided biopsy left Imaging Routine Abnormal mammogram Expected: 12/26/2024, Expires: 02/25/2026 [facility] Work Phone: Comment on above: Expected: 12/26/2024, Expires: Start: 12-26-2024 End: 12-26-2024 Patient encounter procedure 12/26/2024 10:30 AM EDT Office Visit [facility] [address] [place] [address] Ezekiel Galo MD [address] [place], [place] [id number] [facility] Start: 12-21-2024 End: 12-21-2024 Patient encounter procedure 12/21/2024 2:30 PM EDT Appointment [facility] [address] [place] [phone] Darling Castillo MD [address] [place], [place] [id number] [facility] Start: 12-12-2024 End: 12-12-2024 Patient encounter procedure 12/12/2024 2:00 PM EDT Appointment [facility] [address] [place] [phone] Darling Castillo MD [address] [place], [place] [id number] [facility] Start: 12-11-2024 End: 12-11-2024 Patient encounter procedure 12/11/2024 4:30 PM EDT Office Visit [facility] [address] [place] [phone] Juan Palacio, [address] [place] [address] [facility] Start: 11-23-2024 End: 11-23-2024 Patient encounter procedure 11/23/2024 2:30 PM EDT Office Visit [facility] Obstetrics [facility] Gynecology - [place] [address] [place] [address] Mignon Conway, DO [address] [place] [address] [facility] Obstetrics [facility] Gynecology - [place] Start: 11-23-2024 Subsequent hospital visit by physician 11/23/2024 11:30 AM EDT Hospital Encounter [facility] [address] [place] [address] Juan Palacio DO [address] [place] [address] [facility] Start: 11-09-2024 End: 11-09-2024 Patient encounter procedure 11/09/2024 1:00 PM EDT Office Visit [facility] [place] [address] [place] [address] Juan Palacio, [address] [place] [address] [facility] Start: 11-03-2024 End: 01-03-2026 DBT Breast - left diagnostic Left diagnostic mammogram with tomosynthesis Imaging Routine Abnormal mammogram Expected: 11/03/2024, Expires: 01/03/2026 [facility] Work Phone: Comment on above: Expected: 11/03/2024, Expires: Start: 11-03-2024 End: 01-03-2026 US Breast - left limited Left breast US limited Imaging Routine Abnormal mammogram Expected: 11/03/2024, Expires: 01/03/2026 [facility] Comment on above: Expected: 11/03/2024, Expires: Start: 11-02-2024 End: 11-02-2024 Patient encounter procedure 11/02/2024 2:40 PM EST Appointment [facility] [address] [place] [phone] Darling Castillo MD [address] [place] [address] [facility] Start: 11-01-2024 End: 11-01-2024 Patient encounter procedure [facility] Start: 10-20-2024 End: 10-20-2024 Patient encounter procedure 10/20/2024 10:30 AM EST Office Visit [facility] Obstetrics and Gynecology [facility] [address] [place] [phone] Julieta Maynard MD [address] [place] [address] [facility] Obstetrics and Gynecology [facility] Start: 09-27-2024 End: 09-27-2024 Patient encounter procedure [facility] Start: 09-26-2024 End: 09-26-2025 CT Chest for screening WO contrast CT lung screening low dose Imaging Routine Smoker Moderate smoker (20 or less per day) Expected: 09/26/2024, Expires: 09/26/2025 [facility] Work Phone: Comment on above: Expected: 09/26/2024, Expires: Start: 08-30-2024 Medicare Advantage Annual Wellness Visit Medicare Advantage Annual Wellness Visit [facility] Start: 05-31-2024 End: 07-30-2025 DBT Breast - bilateral screening Bilateral screening mammogram with tomosynthesis Imaging Routine Screening mammogram for breast cancer Expected: 05/31/2024, Expires: 07/30/2025 [facility] Work Phone: Comment on above: Expected: 05/31/2024, Expires: Start: 05-31-2024 End: 05-31-2024 Patient encounter procedure 05/31/2024 1:30 PM EDT Office Visit [facility] [address] [place] [address] Darling Castillo MD [address] [place] [address] [facility] Start: 05-04-2024 End: 05-04-2024 Patient encounter procedure 05/04/2024 2:00 PM EDT Office Visit [facility] Family Medicine [address] [place] [address] Juan Palacio, [address] [place] [address] [facility] Start: 04-30-2024 COVID-19 Vaccine ( season) COVID-19 Vaccine ( season) [facility] Start: 04-30-2024 COVID-19 Vaccine ( season) COVID-19 Vaccine ( season) [facility] Start: 04-30-2024 Influenza vaccination [facility] Start: 11-03-2023 End: 11-03-2023 Patient encounter procedure 11/03/2023 11:30 AM EST Office Visit [facility] [address] [place] [address] Darling Castillo MD [address] [place], [place] [phone] [facility] Start: 10-13-2023 End: 10-13-2023 Patient encounter procedure 10/13/2023 1:45 PM EST Office Visit [facility] Urogynecology [address] [place] [phone] Sarbjit Arredondo MD [address], [address] [place] [address] [facility] Urogynecology Start: 09-29-2023 Thyroid stimulating hormone measurement TSH Level [facility] Start: 09-22-2023 End: 09-22-2023 Patient encounter procedure 09/22/2023 11:00 AM EST Office Visit [facility] [address] [place] [address] Darling Castillo MD [address] [place] [address] [facility] Start: 09-22-2023 End: 09-22-2023 Professional / ancillary services management 09/22/2023 10:30 AM EST Ancillary Procedure [facility] [address] [place] [address] [facility] Start: 08-30-2023 Depression Assessment Depression Assessment [facility] Start: 08-30-2023 Medicare Advantage Annual Wellness Visit Medicare Advantage Annual Wellness Visit [facility] Start: 08-20-2023 End: 08-20-2023 Patient encounter procedure 08/20/2023 12:15 PM EST Appointment [facility] [address] [place] [phone] Juan Palacio, DO [address] [place] [address] [facility] Start: 08-20-2023 Subsequent hospital visit by physician 08/20/2023 12:15 PM EST Hospital Encounter [facility] [address] [place] [address] Juan Palacio, DO [address] [place] [address] [facility] Start: 08-18-2023 End: 08-18-2024 US Pelvis limited US pelvis limited Imaging Routine Cyst of ovary, unspecified laterality Expected: 08/18/2023, Expires: 08/18/2024 [facility] Comment on above: Expected: 08/18/2023, Expires: 4 Start: 08-18-2023 End: 08-18-2024 US Pelvis transvaginal US pelvis transvaginal Imaging Routine Cyst of ovary, unspecified laterality Expected: 08/18/2023, Expires: 08/18/2024 [facility] [employer] Work Phone: Comment on above: Expected: 08/18/2023, Expires: Start: 08-18-2023 End: 08-18-2023 Patient encounter procedure 08/18/2023 11:30 AM EST Office Visit [facility] [address] [place] [address] Darling Castillo MD [facility] [address] [place] [address] [facility] Start: 07-27-2023 End: 07-27-2023 Patient encounter procedure 07/27/2023 1:30 PM EST Appointment [facility] [address] [place] [address] Juan Palacio, DO [address] [place] [address] [facility] Start: 07-21-2023 End: 07-21-2024 CBC panel - Blood by Automated count CBC Lab Routine Post-menopause bleeding Expected: 07/21/2023 (Approximate), Expires: 07/21/2024 [facility] [employer] [facility] Work Phone: Comment on above: Expected: 07/21/2023 (Approximate), Expi res: 07/21/2024 Start: 07-21-2023 End: 07-21-2024 Comprehensive metabolic 1998 panel - Serum or Plasma Comprehensive metabolic panel Lab Routine Post-menopause bleeding Expected: 07/21/2023 (Approximate), Expires: 07/21/2024 [facility] [employer] Comment on above: Expected: 07/21/2023 (Approximate), Expi res: 07/21/2024 Start: 07-13-2023 End: 07-13-2024 CT Chest for screening WO contrast CT lung screening low dose Imaging Routine Moderate smoker (20 or less per day) Expected: 07/13/2023, Expires: 07/13/2024 [facility] [employer] Work Phone: Comment on above: Expected: 07/13/2023, Expires: Start: 07-13-2023 End: 07-13-2024 US Pelvis US pelvis Imaging Routine Post-menopause bleeding Expected: 07/13/2023, Expires: 07/13/2024 [facility] [employer] Comment on above: Expected: 07/13/2023, Expires: Start: 07-13-2023 End: 07-13-2023 Patient encounter procedure 07/13/2023 1:30 PM EST Office Visit [facility] Medicine [address] [place] [address] Juan Palacio, [address] [place] [address] [facility] Start: 06-08-2023 Screening for malignant neoplasm of breast Mammogram [facility] Start: 05-19-2023 Thyroid stimulating hormone measurement TSH Level [facility] Start: 04-30-2023 COVID-19 Vaccine ( season) COVID-19 Vaccine ( season) [facility] Start: 04-30-2023 Influenza vaccination [facility] Start: 08-30-2022 Depression Assessment Depression Assessment [facility] Start: 04-30-2022 Influenza vaccination Influenza Vaccine (#1) [facility] Start: 01-07-2022 Screening for malignant neoplasm of cervix [facility] Start: 11-11-2021 Shingrix Vaccine (1 of 2) Shingrix Vaccine (1 of 2) [facility] Start: 11-11-2021 Zoster Vaccines (1 of 2) Zoster Vaccines (1 of 2) [facility] Start: 09-05-2021 Creatinine measurement Creatinine monitoring [facility] [place] [place] Start: 09-05-2021 Potassium monitoring Potassium monitoring [place], [place] Start: 04-01-2021 Diabetes Screening Diabetes Screening [facility] Start: 10-08-2020 Lipid panel Lipid screen [place] Start: 08-26-2020 End: 08-26-2020 Office Visit 08/26/2020 Office Visit Family Medicine Walter White, [address] [address] [phone] [facility] Start: 06-05-2020 Creatinine measurement Creatinine monitoring [facility] [employer] [place] Start: 06-05-2020 Potassium monitoring Potassium [place] Start: 04-30-2020 Influenza vaccination Flu vaccine (#1) [place] Start: 02-16-2019 Annual Wellness Visit (AWV) Annual Wellness Visit (AWV) [place] Start: 11-11-2016 Lipid panel Lipid Screening [facility] Start: 11-11-2016 Screening for malignant neoplasm of colon [facility] Start: 2011 Screening for malignant neoplasm of breast Mammogram Screening [facility] Start: 11-11-2001 Screening for malignant neoplasm of cervix [facility] Start: 11-11-1992 Screening for malignant neoplasm of cervix Pap Testing [facility] Start: 11-11-1990 DTaP/Tdap/Td vaccine (1 - Tdap) DTaP/Tdap/Td vaccine (1 - Tdap) [place] Start: 11-11-1990 DTaP/Tdap/Td Vaccines (1 - Tdap) DTaP/Tdap/Td Vaccines (1 - Tdap) [facility] Start: 11-11-1990 Hepatitis A Vaccines (1 of 2 - Risk 2-dose series) Hepatitis A Vaccines (1 of 2 - Risk 2-dose series) [facility] Start: 11-11-1990 Hepatitis B Vaccine (1 of 3 - 19+ 3-dose series) Hepatitis B Vaccine (1 of 3 - 19+ 3-dose series) [facility] Start: 11-11-1990 Hepatitis B Vaccines (1 of 3 - 19+ 3-dose series) Hepatitis B Vaccines (1 of 3 - 19+ 3-dose series) [facility] Start: 11-11-1990 Pneumococcal Vaccine: 50+ Years (1 of 2 - PCV) Pneumococcal Vaccine: 50+ Years (1 of 2 - PCV) [facility] Start: 11-11-1990 Urine microalbumin profile DTaP,Tdap,Td Vaccine (1 - Tdap) [facility] Start: 11-11-1989 Anxiety Screening Anxiety Screening [facility] Start: 11-11-1989 Depression Screening Depression Screening [facility] Start: 11-11-1989 Diabetes mellitus screening Diabetes Screening [facility] Start: 11-11-1989 Hepatitis C screening Hepatitis C Screening [facility] Start: 11-11-1989 HIV screening HIV Screening [facility] Start: 11-11-1986 HIV screening HIV screen [place] Start: 1983 Depression Monitoring Depression Monitoring [facility] Start: 1983 Depresssion Monitoring Depresssion Monitoring [facility] Start: 11-11-1977 Pneumococcal 0-64 years Vaccine (1 of 1 - PPSV23) Pneumococcal 0-64 years Vaccine (1 of 1 - PPSV23) [place] Start: 11-11-1977 Pneumococcal Vaccine: Pediatrics (0 to 5 Years) and At-Risk Patients (6 to 64 Years) (1 - PCV) Pneumococcal Vaccine: Pediatrics (0 to 5 Years) and At-Risk Patients (6 to 64 Years) (1 - PCV) [facility] Start: 11-11-1977 Pneumococcal Vaccine: Pediatrics (0 to 5 Years) and At-Risk Patients (6 to 64 Years) (1 of 2 - PCV) Pneumococcal Vaccine: Pediatrics (0 to 5 Years) and At-Risk Patients (6 to 64 Years) (1 of 2 - PCV) [facility] Start: 11-11-1972 MMR Vaccines (1 of 1 - Standard series) MMR Vaccines (1 of 1 - Standard series) [facility] Start: 05-14-1972 COVID-19 Vaccine (#1) COVID-19 Vaccine (#1) [facility] Start: 1971 Hepatitis B Vaccine (1 of 3 - 3-dose series) Hepatitis B Vaccine (1 of 3 - 3-dose series) [facility] Start: 1971 Hepatitis B Vaccines (1 of 3 - 3-dose series) Hepatitis B Vaccines (1 of 3 - 3-dose series) [facility] Start: 1971 Hepatitis C screening Hepatitis C screen [place], [place] Start: 1971 HIV screening HIV Screening [facility] Start: 1971 Medicare Advantage Annual Wellness Visit (AWV) Medicare Advantage Annual Wellness Visit (AWV) [facility] Start: 1971 Screening for malignant neoplasm of colon [facility] Cologuard colon canc er screening Cologuard colon cancer screening Lab Routine Colon cancer screening [facility] Comment on above: Ordered: 07/13/2023 Cytology Cervical or vaginal smear or scraping study Pap Smear Pathology and Cytology Routine Encounter for gynecological examination without abnormal finding 05/31/2024 1:40 PM EDT [employer] End: 01-02-2025 MG Breast specimen - left Views [employer] Work Phone: Comment on above: Once for 1 Occurrences starting 01/03/20 until 01/02/2025 End: 02-28-2025 MR Brain [facility] Work [facility]: Comment on above: Once for 1 Occurrences starting 02/29/20 until 02/28/2025 End: 02-28-2025 MRA Head vessels WO contrast [employer] Work Phone: Comment on above: Once for 1 Occurrences starting 02/29/20 until 02/28/2025 OUTSIDE PROCEDURE SCAN OUTSIDE P ROCEDURE SCAN Procedures Ordered: 07/26/2023 [facility] [employer] Comment on above: Ordered: 07/26/2023 OUTSIDE PROCEDURE SCAN OUTSIDE P ROCEDURE SCAN Procedures Ordered: 08/19/2023 [facility] [employer] Comment on above: Ordered: 08/19/2023 End: 08-16-2024 Screening colonoscopy COLONOSCOPY SCREENING Endoscopy Routine Special screening for malignant neoplasms, colon 1 Occurrences starting 08/16/2023 until 08/16/2024 [facility] Work Phone: Comment on above: 1 Occurrences starting 08/16/2023 until 08/16/2024 Tissue exam [facility] Work Phone: Comment on above: Release Upon Ordering for 1 Occurrences starting 01/02/2025 End: 07-27-2023 US Pelvis [facility] Work Phone: Comment on above: Once for 1 Occurrences starting 07/27/20 until 07/27/2023 [facility] Immunization Date Immunization Notes Care Provider [facility] 08-20-2020 Influenza, injectabl e, quadrivalent, preservative free Juan Petrilla DO Work Phone: [facility] 08-20-2020 influenza virus vacc ine, unspecified formulation Juan Petrilla DO Work Phone: [facility] 07-18-2019 Influenza, injectabl e, Madin Dorina Canine Kidney, preservative free, quadrivalent [facility] [employer] 07-18-2019 influenza virus vacc ine, unspecified formulation Analia La MD Work Phone: [facility] 05-26-2017 Influenza, injectabl e, quadrivalent, preservative free Juan Petrilla DO Work Phone: [facility] 06-01-2016 Influenza, injectabl e, quadrivalent, preservative free Juan Petrilla DO Work Phone: [facility] 06-12-2014 influenza virus vacc ine, unspecified formulation Walter IselaPricebetso [facility] 06-12-2014 influenza, seasonal, injectable Juan Petrilla DO Work Phone: [facility] [employer] Payers Date Payer Category Payer Self-pay [id number] 2022 Medicare O [employer] [facility] MEDICARE [id number] 2019 Medicaid [facility] MEDICAID [id number] 2019-Present [phone] [address] [place] [address] Medicaid [id number] 2019 Medicare [id number] 2019 Unknown [id number] 2017 Medicaid [id number] 2014 Medicare MEDICARE PART A B [id number] 1971 Unknown [id number] 1971 Unknown [id number] Unknown Unknown [id number] Social History Date Type Detail Facility Start: 05-02-2020 End: 12-26-2024 Tobacco smoking status NHIS Former smoker [facility] End: 01-12-2012 History of tobacco use Current sm[place] End: 01-12-2012 History of tobacco use Cigarette [place] Start: 05-02-2020 End: 01-09-2025 Cigarettes smoked current (pack per day) - Reported [place] Start: 05-02-2020 End: 12-26-2024 Tobacco use and exposure Never used [facility] Start: 05-02-2020 End: 01-09-2025 Alcohol intake Current non-drinker of alcohol (finding) [place] Start: 02-09-2019 History SDOH Alcohol Frequency 1 [place] Start: 02-09-2019 History SDOH Social Connections Phone 5 [place] Start: 02-09-2019 History SDOH Social Connections Islam 3 [place] Start: 02-09-2019 History SDOH Social Connections Living 98 [place] Start: 02-09-2019 History SDOH Physica l Activity DPW 7 [place] Start: 02-09-2019 History SDOH Physica l Activity MPS 2 [place] Start: 02-09-2019 History SDOH Financial 4 [place] Start: 1970 Sex Assigned At Not on file [place] Start: 09-04-2020 End: 05-04-2024 Tobacco smoking status NHIS Current every day smoker [place] Start: 06-29-2017 Tobacco smoking stat us NHIS Unknown if ever smoked [facility] Start: 1970 Sex Assigned At Female W [facility] Start: 08-18-2022 End: 01-09-2025 Tobacco use panel [facility] National Score (1-10 0), lower number is lower risk Not on file [facility] Start: 09-14-2023 End: 10-01-2023 Alcohol intake Lifetime non-drinker (finding) [facility] Start: 03-30-2022 Sex Female (finding) [facility] Start: 09-19-2022 End: 09-29-2022 Exposure to SARS-CoV-2 (event) Not sure [facility] Clinical Notes 01-23-2012 to 01-09-2025 Ezekiel [...] Ezekiel Galo MD Patient ID: Miki Adrian [id number] 54 y.o. 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 Breast Imaging: Bilateral Screening Mammogram 11/03/24 [...] 12/22 w/u pnd Bipolar disorder (HCC) 1989 [employer] Breast cancer screening by [...] education and counseling. documented in this encounter [facility] 01-09-2025 Note History and Physical Ezekiel Galo MD Patient ID: Miki Adrian [id number] 54 y.o. 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 Breast Imaging: Bilateral Screening Mammogram 11/03/24 [...] Thought content normal. (more content not included)... [facility] 01-03-2025 Miscellaneous Notes Miki Adrian 1970 Are [...] Yes [] No documented in this encounter [facility] 01-03-2025 Telephone encounter Note Miki Adrian [...] up with results [x] Yes [] No [facility] 01-02-2025 Note Patient Name: Miki Adrian [...] *[] Patient instructed if bleeding noted to little river the bleeding with a marking pen and note if bleeding goes beyond the little river *[] If patient notes bleeding continues, the [...] the dressing at the biopsy site, please little river the mass or lump with a pen and check frequently for any increase in size outside of the little river. Please call the Breast Center at the number provided *[] If patient taking blood thinners, instructed to take as directed by ordering provider Discharge: Time: 2:00pm Accompanied by: [] Self [x] Family/friend [] Attendant [] Other, explain To: [x] Home [] Skilled Care Facility [] Hospital Inpatient [] Other, explain [facility] 01-02-2025 Procedure note Patient Name: Miki Adrian [...] *[] Patient instructed if bleeding noted to little river the bleeding with a marking pen and note if bleeding goes beyond the little river *[] If patient notes bleeding continues, the [...] the dressing at the biopsy site, please little river the mass or lump with a pen and check frequently for any increase in size outside of the little river. Please call the Breast Center at the number provided *[] If patient taking blood thinners, instructed to take as directed by ordering provider Discharge: Time: 2:00pm Accompanied by: [] Self [x] Family/friend [] Attendant [] Other, explain To: [x] Home [] Skilled Care Facility [] Hospital Inpatient [] Other, explain [facility] 01-02-2025 Procedure note Patient Name: Miki [...] *[] Patient instructed if bleeding noted to little river the bleeding with a marking pen and note if bleeding goes beyond the little river *[] If patient notes bleeding continues, the [...] the dressing at the biopsy site, please little river the mass or lump with a pen and check frequently for any increase in size outside of the little river. Please call the [facility] at the number provided *[] If patient taking blood thinners, instructed to take as directed by ordering provider Discharge: Time: 2:00pm Accompanied by: [] Self [x] Family/friend [] Attendant [] Other, explain To: [x] Home [] Skilled Care Facility [] Hospital Inpatient [] Other, explain documented in this encounter [facility] 01-02-2025 Note Local Anesthesia: [x]Lidocaine 1% Total Dose Given 40mL []Nesacaine 2% Total Dose Given mL Probe Used: 9 Gauge Probe [x] Standard x2 [] Petite Specimen: [x] Specimen A [] Right [x] Left POSTERIOR Samples 7 Lot Number [id number] Shape: [x]Tumark X []Tumark Q []TriMark Cork []TriMark Hourglass []SecurMark Cork []SecurMark Tophat [x] Specimen B [] Right [x] Left ANTERIOR Samples 7 Lot Number [id number] Shape []Tumark X [x]Tumark Q []TriMark Cork []TriMark Hourglass []SecurMark Cork []SecurMark Tophat [facility] 01-02-2025 Procedure note Local Anesthesia: [x]Lidocaine 1% Total Dose Given 40mL []Nesacaine 2% Total Dose Given mL Probe Used: 9 Gauge Probe [x] Standard x2 [] Petite Specimen: [x] Specimen A [] Right [x] Left POSTERIOR Samples 7 Lot Number [id number] Shape: [x]Tumark X []Tumark Q []TriMark Cork []TriMark Hourglass []SecurMark Cork []SecurMark Tophat [x] Specimen B [] Right [x] Left ANTERIOR Samples 7 Lot Number [id number] Shape []Tumark X [x]Tumark Q []TriMark Cork []TriMark Hourglass []SecurMark Cork []SecurMark Tophat [facility] 01-02-2025 Procedure note Local Anesthesia: [x]Lidocaine 1% Total Dose Given 40mL []Nesacaine 2% Total Dose Given mL Probe Used: 9 Gauge Probe [x] Standard x2 [] Petite Specimen: [x] Specimen A [] Right [x] Left POSTERIOR Samples 7 Lot Number [id number] Shape: [x]Tumark X []Tumark Q []TriMark Cork []TriMark Hourglass []SecurMark Cork []SecurMark Tophat [x] Specimen B [] Right [x] Left ANTERIOR Samples 7 Lot Number [id number] Shape []Tumark X [x]Tumark Q []TriMark Cork []TriMark Hourglass []SecurMark Cork []SecurMark Tophat documented in this encounter [facility] 01-01-2025 Note Spoke with patient r [...] to call with any questions or concerns. [facility] 01-01-2025 Telephone encounter Note Spoke with patient [...] to call with any questions or concerns. [facility] 01-01-2025 Miscellaneous Notes Spoke with patient [...] questions or concerns. documented in this encounter [facility] 12-28-2024 Telephone encounter Note Orders fro MRA-Head and MRI-Brain pended for dx and doctor's signature [facility] 12-28-2024 Miscellaneous Notes Orders fro MRA-Head and MRI-Brain pended for dx and doctor's signature documented in this encounter [facility] 12-27-2024 History of Present illness Narrative Images from the original note were not included. [facility] [address] [facility] [id number] Visit type: Established Patient Reason for [...] Father Walter Lung cancer Father Walter Other ([id number]) Sister at , abruptio placenta Hypertension Brother [...] temperature are normal. documented in this encounter [facility] 12-26-2024 History of Present illness Narrative Images from the original note were not included. History and Physical Ezekiel Galo MD Patient ID: Miki Adrian [id number] 54 y.o. 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 documented in this encounter [facility] 12-26-2024 Note History and Physical Ezekiel Galo MD Patient ID: Miki Adrian [id number] 54 y.o. 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 [facility] 11-09-2024 Telephone encounter Note Recent Visits Date Type Provider Dept 05/04/24 Office Visit Juan Palacio DO [facility] Showing recent visits within past 365 days and meeting all other requirements Future Appointments Date Type Provider Dept 12/11/24 Appointment Juan Palacio DO [facility] Showing future appointments within next 90 [...] recent labs completed in chart? N/A None [facility] 11-09-2024 Miscellaneous Notes Recent Visits Date Type Provider Dept 05/04/24 Office Visit Juan Palacio DO [facility] Showing recent visits within past 365 days and meeting all other requirements Future Appointments Date Type Provider Dept 12/11/24 Appointment Juan Palacio DO [facility] Showing future appointments within next 90 [...] chart? N/A None documented in this encounter [facility] 10-30-2024 Telephone encounter Note Medication name: [...] prior to picking up the medication: No [facility] 10-30-2024 Miscellaneous Notes Medication name: albuterol [...] the medication: No documented in this encounter [facility] 09-30-2024 Telephone encounter Note S: Patient [...] past year Protocols used: Vaginal Bleeding - Ozaqbucj-VUSUI-MG [facility] 09-30-2024 Miscellaneous Notes S: Patient spoke [...] past year Protocols used: Vaginal Bleeding - Fbpvkxwz-CEYLP-HM documented in this encounter [facility] 09-26-2024 Telephone encounter Note Orders pended for doctor's signature [facility] 09-26-2024 Miscellaneous Notes Orders pended for doctor's signature Spoke with patient and she agrees to lung screen This patient has had a prior lung screening CT scan at [facility]. According to our records, he/she is now due for an annual lung screening CT scan. Please evaluate and order this annual screening if your patient still meets lung screening criteria. documented in this encounter [facility] 09-26-2024 Telephone encounter Note Spoke with patient and she agrees to lung screen [facility] 09-26-2024 Telephone encounter Note This patient has had a prior lung screening CT scan at [facility]. According to our records, he/she is now due for an annual lung screening CT scan. Please evaluate and order this annual screening if your patient still meets lung screening criteria. 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 Also her BF has 2 other sons. No grandchildren. Smoker NO ETOH, ex crack-cocaine user since 2018. Sober from pot and ETOH abuse since 12/2021. Presently Disabled since 1996 but now working at [employer] in [place] since 01/19. Enjoys her pet dog and cat Social Determinants of Health Financial Resource Strain: Low Risk (01/22/2022) Received from [facility] Overall Financial Resource Strain (CARDIA) Difficulty of Paying Living Expenses: Not hard at all Food Insecurity: No Food Insecurity (01/22/2022) Received from [facility] Hunger Vital Sign Worried About Running Out of Food in the Last Year: Never true Ran Out of Food in the Last Year: Never true Transportation Needs: Unmet Transportation Needs (02/09/2019) Received from [facility] PRAPARE - Transportation Lack of Transportation (Medical): Yes Lack of Transportation (Non-Medical): Yes Physical Activity: Insufficiently Active (02/09/2019) Received from [facility] Exercise Vital Sign Days of Exercise per Week: 7 days Minutes of Exercise per Session: 20 min Stress: Stress Concern Present (02/09/2019) Received from [facility] [employer] [place] [employer] - Occupational Stress Questionnaire Feeling of Stress : Very much Social Connections: Unknown (02/09/2019) Received from [facility] Social Connection and Isolation Panel [NHANES] Frequency of Communication with Friends and Family: More than three times a week Frequency of Social Gatherings with Friends and Family: More than three times a week Attends Faith Services: More than 4 times per year [...] Body mass index is 24.96 kg/m . SOAKING PIT OPERATOR EXAM: EXTERNAL GENITALIA: normal female structures VAGINA: [...] normal for her documented in this encounter [facility] 05-04-2024 History of Present illness Narrative Images from the original note were not included. [facility] [address] [place] [address] [address] [facility] [id number] Visit type: Established Patient Reason for Visit: Follow-up (Med check/Spot on inner pubic area ) Assessment / Plan: Miki Falcon was seen today for follow-up. Diagnoses and all orders for this visit: Essential hypertension (Primary) Comments: Stable, continue metoprolol Pulmonary emphysema, unspecified emphysema type (HCC) Comments: Stable, stop Spiriva at patient's request Boil of inguinal region Comments: New onset, Keflex, follow-up with SOAKING PIT OPERATOR for possible I&D if worsening Closed follicle [...] and hopefully vaping cessation will follow. To SOAKING PIT OPERATOR for breast exam and mammogram. Subjective: Patient [...] No melena or blood. To be getting SOAKING PIT OPERATOR exam defers breast exam to sexologist. She has some lesions on her mons [...] Father Walter Lung cancer Father Walter Other ([id number]) Sister at , abruptio placenta Hypertension Brother [...] erythematous or painful. documented in this encounter [facility] 05-04-2024 Instructions Juan Palacio DO - 05/04/2024 2:00 PM EDT Flu vax and shingles vaccines as discussed documented in this encounter [facility] [employer] 04-27-2024 Miscellaneous Notes S: Patient spoke with [facility] nurse regarding Two area of concern - [...] at that at her appt on 05/04/24. [facility] scheduled Wellness appt with Dr Perez on 05/31/24 at 1:30pm. Patient instructed to call back with new or worsening symptoms. Sent FYI to PCP office for skin concern to be noted for MD appt on 05/04/24 due to patient's expressed concerns. Reason for Disposition ALL other vulvar symptoms (Exception: Feels like prior yeast infection, or rash < 24 hour duration.) Protocols used: Vulvar Pawjltzo-DSVEU-CA documented in this encounter [facility] 04-27-2024 Telephone encounter Note S: Patient [...] Pt also needs to schedule Pap. R: [facility] nurse unable to find appt that works with patient schedule to be seen for the skin concern. She states she will have her PCP look at that at her appt on 05/04/24. [facility] scheduled Wellness appt with Dr Perez on 05/31/24 at 1:30pm. Patient instructed to call back with new or worsening symptoms. Sent FYI to PCP office for skin concern to be noted for MD appt on 05/04/24 due to patient's expressed concerns. Reason for Disposition ALL other vulvar symptoms (Exception: Feels like prior yeast infection, or rash < 24 hour duration.) Protocols used: Vulvar Grchuahc-LUBAL-HZ [facility] 03-22-2024 Miscellaneous Notes S: Patient spoke [...] present < 24 hours Protocols used: Vaginal Fymjuwcd-MRLXV-IE documented in this encounter [facility] 03-22-2024 Telephone encounter Note S: Patient [...] present < 24 hours Protocols used: Vaginal Taxwxhmr-NUSYY-BU [facility] 03-09-2024 Telephone encounter Note Patient stated she would like to have this on hand for shortness of breath Rx loaded [facility] 03-09-2024 Miscellaneous Notes Patient stated she [...] the medication: Yes documented in this encounter [facility] 03-09-2024 Telephone encounter Note Patient stated [...] prior to picking up the medication: Yes [facility] 02-14-2024 Telephone encounter Note Triage message reviewed with clinical staff. Patient went to [facility] 02-14-2024 Miscellaneous Notes Triage message reviewed [...] than usual (i.e., frequency) Protocols used: Urinary Uiedbpgw-JAZJJ-UP documented in this encounter [facility] 02-11-2024 Telephone encounter Note S Patient calling with UTI B 2 days A patient calling with uti symptoms. Frequency, urgency, burning and fatigue. R patient advised UCC, she will be going to UCC near her. TE sent to office for follow up if needed. Reason for Disposition Urinating more frequently than usual (i.e., frequency) Protocols used: Urinary Kewoydax-ZSODE-ZP [facility] 02-11-2024 Miscellaneous Notes S Patient calling with UTI B 2 days A patient calling with uti symptoms. Frequency, urgency, burning and fatigue. R patient advised UCC, she will be going to UCC near her. TE sent to office for follow up if needed. Reason for Disposition Urinating more frequently than usual (i.e., frequency) Protocols used: Urinary Lqfvqiwp-PELAK-HM documented in this encounter [facility] 01-06-2024 Telephone encounter Note Recent Visits Date Type Provider Dept 11/02/23 Office Visit Juan Palacio DO [facility] 07/13/23 Office Visit Juan Palacio DO [facility] Showing recent visits within past 365 [...] Most recent labs completed in chart? N/A [facility] 01-06-2024 Miscellaneous Notes Recent Visits Date Type Provider Dept 11/02/23 Office Visit Juan Palacio DO [facility] 07/13/23 Office Visit Juan Palacio DO [facility] Showing recent visits within past 365 [...] in chart? N/A documented in this encounter [facility] 10-01-2023 Miscellaneous Notes Left colonoscopy results on patients voicemail. documented in this encounter [facility] 09-22-2023 History of Present illness Narrative Chief Complaint Patient presents with Follow-up SOAKING PIT OPERATOR us same day HPI No bleeding since Nov Has intemitten vaginal discharge - clear ROS: Constitutional - denies fevers or chills Resp - denies CP or SOB CV - denies CP GI - denies nausea, vomiting - denies frequency and dysuria Past Medical History: Diagnosis Date Bipolar disorder ([facility]) [address] Dr. Gregory Syed [place] Psychiatrist Breast cancer screening by mammogram 05/2022 Prefers every other year exam Cerebral aneurysm 12/2011 cerebral bleed Aneurysm rupture Cocaine abuse ([facility]) none since 2018 COPD (chronic obstructive pulmonary disease) ([facility]) 07/[address] History of [...] up for annual. documented in this encounter [facility] 09-14-2023 Note HNO ID: [id number] Author: RENY MCCORD RN Service: Nursing Author Type: Registered Nurse Type: Nursing Progress Note Filed: 09/14/2023 15:18 Note Text: Physician at bedside to disucss procedure/findngs with patient. [facility] 09-14-2023 Nurse Note Physician at bedside to disucss procedure/findngs with patient. [facility] 09-14-2023 Nurse Note Physician at bedside to disucss procedure/findngs with patient. documented in this encounter [facility] 09-14-2023 Nurse procedure note Pad site benign after pad removal. [facility] 09-14-2023 Miscellaneous Notes Pad site benign after pad removal. Please call patient and advise that colonoscopy was abnormal, precancerous polyp. Recall in 5 years Dia Kenney MD documented in this encounter [facility] 09-14-2023 History and physical note HISTORY AND [...] Deep Additional Comments: None Dia Kenney MD [facility] Work Phone: 09-14-2023 History and physical note [...] Dia Kenney MD documented in this encounter [facility] 09-14-2023 Progress note Formatting of t his note might be different from the original. Please call patient and advise that colonoscopy was abnormal, precancerous polyp. 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 Also her BF has 2 other sons. No grandchildren. Smoker NO ETOH, ex crack-cocaine user since 2018. Sober from pot and ETOH abuse since 12/2021. Presently Disabled since 1996 but now working at [employer] in [place] since 01/19. Enjoys her pet dog and [...] Body mass index is 29.29 kg/m . 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 documented in this encounter [facility] [employer] 08-16-2023 Miscellaneous Notes Indication: AVERAGE RISK SCREENING [...] at home? No If yes, give to RESTAURANT COOK to evaluate. Chest pain or shortness of breath on exertion? No If yes, give to RESTAURANT COOK to evaluate. Any kidney/liver disease or on dialysis? No If cirrhosis pt., have RESTAURANT COOK review chart History of COPD/Emphysema/Asthma/or Sleep Apnea? [...] was last seizure? documented in this encounter [facility] 08-12-2023 Telephone encounter Note Referral pended for doctor's signature [facility] 08-12-2023 Miscellaneous Notes Referral pended for doctor's signature ----- Message from Juan Palacio DO sent at 08/08/2023 9:34 AM EST ----- Patient with a positive Cologuard exam so now needs referral to GI for evaluation for colonoscopy. Please post referral to provider that is on her insurance documented in this encounter [facility] 08-12-2023 Telephone encounter Note ----- Message from Juan Plaacio DO sent at 08/08/2023 9:34 AM EST ----- Patient with a positive Cologuard exam so now needs referral to GI for evaluation for colonoscopy. Please post referral to provider that is on her insurance [facility] 07-28-2023 Telephone encounter Note Patient scheduled New Patient appointment [facility] 07-28-2023 Miscellaneous Notes Patient scheduled New Patient appointment documented in this encounter [facility] 07-27-2023 Telephone encounter Note Referral pended for doctor's signature [facility] 07-27-2023 Miscellaneous Notes Referral pended for doctor's signature Referral pended for dx and doctor's signature Spoke pt patient and she was given central scheduling number to call and schedule ct lung and ultrasound. Patient also consents to referral for gyno. Name of caller: Miki Contact phone number: [phone] Relationship to Patient: patient Provider: Dr. Palacio [...] their call: Yes documented in this encounter [facility] 07-23-2023 Telephone encounter Note Referral pended for dx and doctor's signature [facility] 07-21-2023 Telephone encounter Note Spoke pt patient and she was given central scheduling number to call and schedule ct lung and ultrasound. Patient also consents to referral for gyno. [facility] 07-21-2023 Telephone encounter Note Name of caller: Miki Contact phone number: [phone] Relationship to Patient: patient Provider: Dr. Palacio Practice: [facility] [place] Chief Complaint/Reason for Call: Pt stated she [...] business hours to return their call: Yes [facility] 07-13-2023 Telephone encounter Note Orders pended for dx and doctor's signature [facility] 07-13-2023 Miscellaneous Notes Orders pended for dx and doctor's signature documented in this encounter [facility] 07-13-2023 History of Present illness Narrative Images from the original note were not included. [facility] [address] [place] [address] [address] [facility] [id number] Visit type: Established Patient Reason for [...] step out is now working part-time at [employer]. She has been disabled for mental health [...] Smoker Essential hypertension History of drug abuse ([facility]/HCC) (HCC) History of pneumonia Pneumococcal vaccine refused Tremor Bipolar affective disorder ([facility]) Breast mass, right Breast mass Social History [...] pulmonary fibrosis, age 73 in 2019 Other ([id number]) Sister at , abruptio placenta Hypertension Brother [...] schedule pelvic ultrasound documented in this encounter [facility] 06-21-2023 Telephone encounter Note Pt is scheduled 07/13/23 [facility] 06-21-2023 Miscellaneous Notes Pt is scheduled [...] the medication: Yes documented in this encounter [facility] 06-18-2023 Telephone encounter Note Rx loaded [facility] 06-18-2023 Miscellaneous Notes Rx loaded Medication [...] the medication: Yes documented in this encounter [facility] 06-18-2023 Telephone encounter Note Medication name: [...] prior to picking up the medication: Yes [facility] 05-28-2023 Telephone encounter Note Medication name: [...] prior to picking up the medication: N/A [facility] 05-28-2023 Miscellaneous Notes Medication name: metoprolol [...] the medication: N/A documented in this encounter [facility] 12-11-2022 Telephone encounter Note Medication name: [...] prior to picking up the medication: No [facility] 12-11-2022 Miscellaneous Notes Medication name: metoprolol [...] the medication: No documented in this encounter [facility] 10-05-2022 Telephone encounter Note ----- Message from Walter White DO sent at 09/30/2022 9:48 PM EST ----- I would like free T3 and free T4 done [facility] 10-05-2022 Miscellaneous Notes ----- Message from Walter White DO sent [...] the medication: No documented in this encounter [facility] [employer] 09-29-2022 Telephone encounter Note RX loaded Last ov today Upcoming med check none [facility] [employer] 09-29-2022 Telephone encounter Note Medication name: metoprolol [...] prior to picking up the medication: No [employer] 09-29-2022 History of Present illness Narrative Subjective: [...] Smoker Essential hypertension History of drug abuse ([facility]) ([facility]) History of pneumonia Pneumococcal vaccine refused Tremor Bipolar affective disorder ([facility]) Breast mass, right Breast mass Social History [...] Problems Mother No Known Problems Brother Other ([id number]) Sister at No Known Problems Brother Other ([id number]) Father pulmonary fibrosis Assessment / Plan: Diagnosis Plan 1. Bronchitis Ceftin 500 mg twice daily 2. Thyromegaly TSH TSH Thyroid panel 3. Bipolar affective disorder, remission status unspecified (HCC) [place] level W[place] level Appears stable. Continue to follow-up with psychiatry 4. Smoker Hopefully will be able to quit. 5. Essential hypertension Controlled. Continue metoprolol documented in this encounter [employer] 09-15-2022 Telephone encounter Note I talked to [...] her medication and discuss hallucinations with him [facility] [employer] Work Phone: 09-15-2022 Miscellaneous Notes I talked to this patient regarding the discontinuance of a lot of her psychotropic medication. Was done by provider at the [facility]. She did not see Dr. Gifford. [...] Name of caller: Miki Contact phone number: [phone] Relationship to Patient: patient Provider: Dr. White Practice: [facility] Chief Complaint/Reason for Call: pt calld in stating that she went to the [facility] in [place] and the doctor discontinued 5 meds: Buspar, Benztropine, Geodon, Vraylar, and Rexulti, and he decreased the [place] Propanolol, and Olanzapine in one day. Pt would like to know what Dr. White thinks about this, pt is worried about withdrawals. Pt is requesting for the doctor to please follow up to advise. Best time of day caller can be reached: Any Patient advised that office/PCP has 24-48 business hours to return their call: Yes documented in this encounter [facility] 09-11-2022 Telephone encounter Note Name of caller: Miki Contact phone number: [phone] Relationship to Patient: patient Provider: Dr. White Practice: [facility] Chief Complaint/Reason for Call: pt calld in stating that she went to the [facility] in [place] and the doctor discontinued 5 meds: Buspar, Benztropine, Geodon, Vraylar, and Rexulti, and he decreased the [place] Propanolol, and Olanzapine in one day. Pt would like to know what Dr. White thinks about this, pt is worried about withdrawals. Pt is requesting for the doctor to please follow up to advise. Best time of day caller can be reached: Any Patient advised that office/PCP has 24-48 business hours to return their call: Yes [facility] 01-23-2012 History of Past i llness [...] of this encounter (statuses as of 08/17/2023) [facility]05-26-2012 History of Past illness Narrative* Problem Noted [...] of this encounter (statuses as of 10/01/2023) [facility] noteNo assessment information availableWAvita [facility] Work Phone: Evaluation note* Diagnosis Post-menopause bleeding- Primary Postmenopausal bleeding Moderate smoker (20 or less per day) Tobacco use disorder documented in this encounter [facility] Diagnosis Essential hypertension- Primary Unspecified essential hypertension Bipolar affective disorder, remission status unspecified (HCC) History of drug abuse (CMS/HCC) (HCC) Other, mixed, or unspecified nondependent drug abuse, in remission Post-menopause bleeding Postmenopausal bleeding Colon cancer screening Special screening for malignant neoplasms, colon Smoker Tobacco use disorder Screening for lung cancer [facility] Diagnosis Post-menopause bleeding- Primary Postmenopausal bleeding [facility] Diagnosis Post-menopause bleeding- Primary Postmenopausal bleeding [facility]* Diagnosis Post-menopause bleeding Postmenopausal bleeding [facility] Diagnosis Positive colorectal cancer screening using Cologuard test [facility] Diagnosis Special screening for malignant neoplasms, colon- Primary documented in this encounter [facility] note* Diagnosis Moderate smoker (20 or less per day) Tobacco use disorder [facility] Diagnosis Post-menopause bleeding- Primary Postmenopausal bleeding Urinary incontinence, unspecified type Cyst of ovary, unspecified laterality [facility] Diagnosis Vaginal discharge- Primary Leukorrhea, not specified as infective PMB (postmenopausal bleeding) Postmenopausal bleeding [facility] Diagnosis Essential hypertension- Primary Unspecified essential hypertension Pulmonary emphysema, unspecified emphysema type (HCC) Boil of inguinal region Closed follicle comedo Other acne Bipolar affective disorder, remission status unspecified (HCC) Engages in vaping H/O solitary pulmonary nodule documented in this encounter [facility] note* Diagnosis Special screening for malignant neoplasms, colon documented in this encounter [facility] note* Diagnosis Encounter for gynecological examination without abnormal finding- Primary Screening mammogram for breast cancer documented in this encounter [facility] note* Diagnosis Bronchitis- Primary Bronchitis, not specified as acute or chronic Thyromegaly Goiter, unspecified Bipolar affective disorder, remission status unspecified ([facility]) Smoker Tobacco use disorder Essential hypertension Unspecified essential hypertension documented in this encounter [facility] note* Diagnosis Moderate smoker (20 or less per day)- Primary Tobacco use disorder Smoker Tobacco use disorder documented in this encounter [facility] note* Diagnosis Screening mammogram for breast cancer documented in this encounter [facility] note* Diagnosis Abnormal mammogram- Primary Abnormal mammogram, unspecified documented in this encounter [facility] note* Diagnosis Smoker Tobacco use disorder Moderate smoker (20 or less per day) Tobacco use disorder documented in this encounter [facility] note* Diagnosis Abnormal mammogram Abnormal mammogram, unspecified documented in this encounter [facility] note* Diagnosis Abnormal mammogram- Primary Abnormal mammogram, unspecified documented in this encounter [facility] note* Diagnosis Primary hypertension- Primary Unspecified essential hypertension Pulmonary emphysema, unspecified emphysema type (HCC) Bipolar affective disorder, remission status unspecified ([facility]) Weight loss Loss of weight History of ruptured cerebral aneurysm documented in this encounter [facility] note* Diagnosis History of ruptured cerebral aneurysm- Primary Cerebral arterial aneurysm Cerebral aneurysm, nonruptured documented in this encounter [facility]* Diagnosis Calcification of left breast Other (abnormal) findings on radiological examination of breast documented in this encounter [facility] note* Diagnosis Abnormal mammogram Abnormal mammogram, unspecified documented in this encounter [facility] note* Diagnosis Calcification of left breast Other (abnormal) findings on radiological examination of breast documented in this encounter [facility]* Diagnosis History of ruptured cerebral aneurysm Cerebral arterial aneurysm Cerebral aneurysm, nonruptured [facility] (narrative)* Consultation (Urgent) - Pending Review Specialty Diagnoses / Procedures Referred By Contac t Referred To Contact Obstetrics and Gynecology Diagnoses Post-menopause bleeding Procedures RI OFFICE/OUTPATIENT [facility] MDM 60-74 MINUTES Juan Palacio, DO [address] [place] [address] Ksenia Jorge MD [address] [place] [address] Referral ID Status Reason Start Date Expiration Date Visits Requested Visits Authorized [id number] Pending Review Specialty Services Required 3 07/26/2024 1 1 [facility] Consultation (Routine) - Pending Review Specialty Diagnoses / Procedures Referred By Contac t Referred To Contact Gastroenterology Diagnoses Positive colorectal cancer screening using Cologuard test Procedures RI OFFICE/OUTPATIENT [facility] 60-74 MINUTES Juan Palacio DO [address] [place] [address] Analia La MD [facility] [place] [address] Referral ID Status Reason Start Date Expiration Date Visits Requested Visits Authorized [id number] Pending Review Specialty Services Required 3 08/11/2024 1 1 [facility] Outpatient Procedure (Routine) - Authorized Specialty Diagnoses / Procedures Referred By Contac t Referred To Contact [facility] Diagnoses Special screening for malignant neoplasms, colon Procedures COLONOSCOPY SCREENING COLONOSCOPY FLX DX W/COLLJ SPEC WHEN PFRMD Analia La MD [address] [place] [address] [facility] [address] [place] [address] Referral ID Status Reason Start Date Expiration Date Visits Requested Visits Authorized [id number] Authorized Auto-Generat ed Referral 3 08/16/2024 1 1 [facility] for referral (narrative)* Consultation (Routine) - Authorized Specialty Diagnoses / Procedures Referred By Taras t Referred To Contact Urology / Urogynecology Diagnoses Urinary incontinence, unspecified type Procedures RI OFFICE/OUTPATIENT [facility] 60-74 MINUTES Darling Castillo MD [address] [place] [address] [facility] [address] [place] [address] Referral ID Status Reason Start Date Expiration Date Visits Requested Visits Authorized [id number] Authorized Specialty Services Required 3 08/17/2024 1 1 [facility] for referral (narrative)* Outpatient Procedure (Routine) - Closed Specialty Diagnoses / Procedures Referred By Taras griffin Referred To Contact [facility] Diagnoses Special screening for malignant neoplasms, colon Procedures COLONOSCOPY SCREENING COLONOSCOPY FLX DX W/COLLJ SPEC WHEN Analia Morgan MD [address] [place] [address] [facility] [address] [place] [address] Referral ID Status Reason Start Date Expiration Date V isits Requested Visits Authorized [id number] Closed Auto-Generate d Referral 08/16/2023 08/16/2024 1 1 [facility] for visit Narrative* Outpatient Procedure (Routine) - Closed Specialty Diagnoses / Procedures Referred By Taras t Referred To Contact [facility] Diagnoses Special screening for malignant neoplasms, colon Procedures COLONOSCOPY SCREENING COLONOSCOPY FLX DX W/COLLJ SPEC WHEN PFRMD El-Khider, Analia, MD [address] [place] [address] [facility] [address] [place] [address] Referral ID Status Reason Start Date Expiration Date V isits Requested Visits Authorized [id number] Closed Auto-Generate d Referral 08/16/2023 08/16/2024 1 1 [facility] for visit Narrative* Imaging (Routine) - Closed Specialty Diagnoses / Procedures Referred By Contac t Referred To Contact Radiology Diagnoses Smoker Moderate smoker (20 or less per day) Procedures CT lung screening low dose Juan Palacio, DO [address] [place] [address] Phone: tel: fax: Referral ID Status Reason Start Date Expiration Date Visits Re quested Visits Authorized [id number] Closed 09/26/2024 09/26/2025 1 1 [facility] for visit Narrative* Imaging (Routine) - Closed Specialty Diagnoses / Procedures Referred By Contac t Referred To Contact Radiology Diagnoses History of ruptured cerebral aneurysm Cerebral arterial aneurysm Procedures MR head angio wo IV contrast Juan Palacio, DO [address] [place] [address] Phone: tel: fax: Referral ID Status Reason Start Date Expiration Date Visits Re quested Visits Authorized [id number] Closed 12/28/2024 12/28/2025 1 1 [facility] for visit Narrative* Imaging (Routine) - Closed Specialty Diagnoses / Procedures Referred By Contac t Referred To Contact Radiology Diagnoses History of ruptured cerebral aneurysm Cerebral arterial aneurysm Procedures MR brain wo contrast Juan Palacio, DO [address] [place] [address] Phone: tel: fax: Referral ID Status Reason Start Date Expiration Date Visits Re quested Visits Authorized [id number] Closed 12/28/2024 12/28/2025 1 1 [facility] [employer] Advance Directives Documents on File Type Date Recorded 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 ACP-Advance Directive ACP-Power of Assistant Loan Processor Advance Directive Response Recorded Date/ Time Living Will No June 29 3:29am Power of Assistant Loan Processor No June 29, 2017 3:29am Summary Purpose Family History No Family History Records FoundNo Family History Records FoundNo Family History Records FoundNo Family History Records FoundNo Family History Records Found Assessments Diagnosis SOB (shortness of breath) Shortness of breath Chief Complaint and Reason for Visit 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 Reason for Referral Specialty Diagnoses / Procedures Referred By Taras t Referred To Contact Radiology Diagnoses Moderate smoker (20 or less per day) Procedures CT lung screening low dose Juan Palacio F, DO [address] [place] [address] Referral ID Status Reason Start Date Expiration Date V isits Requested Visits Authorized [id number] Pending Review 07/13/2023 07/12/2024 1 1 Referral ID Status Reason Start Date Expiration Date Visits Re quested Visits Authorized [id number] Closed 07/13/2023 07/12/2024 1 1 Additional Source Comments INFORMATION SOURCE (unrecogn ized section and content) DATE CREATED AUTHOR 06/08/2020 [employer] DATE CREATED AUTHOR AUTHOR'S ORGANIZ ATION [facility]/22/2022 [facility] DATE CREATED AUTHOR AUTHOR'S ORGANIZ ATION 10/02/2023 [facility] DATE CREATED AUTHOR AUTHOR'S ORGANIZ ATION 10/22/2024 [facility] DATE CREATED AUTHOR AUTHOR'S ORGANIZ ATION 03/09/2025 [facility] Reason for Visit (unrecogniz ed section and content) Reason Onset Date Comments Med Refill 12/11/2022 Reason Onset Date Comments Med Refill 05/28/2023 Reason Onset Date Comments Med Refill 06/18/2023 Reason Onset Date Comments Orders 07/13/2023 LDCT / US-Pelvis Reason Comments Discuss Medications Reason Onset Date Comments Ultra Sound/Follow up 07/21/2023 Reason Onset Date Comments Appointment 07/28/2023 Reason Onset Date Comments Referral 08/12/2023 [facility] Reason Comments Screening order/checklist Specialty Diagnoses / Procedures Referred By Contlorraine t Referred To Contact Radiology Diagnoses Moderate smoker (20 or less per day) Procedures CT lung screening low dose Juan Palacio, DO [address] [place] [address] Referral ID Status Reason Start Date Expiration Date Visits Re quested Visits Authorized [id number] Closed 07/13/2023 07/12/2024 1 1 Reason Comments New Patient Patient starting hav ing cramping and bleeding. Patient last period was 3 years period. Last pap 07/27/2022- normal. 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 Walter White DO Family Provider Active No Primary Care Physician Primary Care Provider Active Team Status: Inactive Member Role Status Dates No Primary Care Physician Primary Care Provider Active PRANAY REESE Attending Provider, Referring Provider Active Custom Frame Assembler Relationship Specialty Start Date End Date Walter White DO [address] [place] [address] PCP - General 08/30/18 Custom Frame Assembler Relationship Specialty Start Date End Date Walter White DO [address] [place], [place] [id number] PCP - General 08/30/18 Custom Frame Assembler Relationship Specialty Start Date End Date Walter White DO [address] [place], [place] [id number] PCP - General 08/30/18 Custom Frame Assembler Relationship Specialty Start Date End Date Juan Palacio DO [address] [place] [address] PCP - General Family Medicine 07/13/23 Custom Frame Assembler Relationship Specialty Start Date End Date Juan Palacio DO [address] [place] [address] PCP - General Family Medicine 07/13/23 Custom Frame Assembler Relationship Specialty Start Date End Date Juan Palacio DO [address] [place] [address] PCP - General Family Medicine 07/13/23 Custom Frame Assembler Relationship Specialty Start Date End Date Pia Juan Falcon, DO [address] [place] [address] PCP - General Family Medicine 07/13/23 Custom Frame Assembler Relationship Specialty Start Date End Date Pia Juan Falcon, DO [address] [place] [address] PCP - General Family Medicine 07/13/23 Custom Frame Assembler Relationship Specialty Start Date End Date Juan Palacio Ezekiel, DO [address] [place], [place] [phone] PCP - General Family Medicine 08/16/23 Custom Frame Assembler Relationship Specialty Start Date End Date Juan Palacio, DO [address] [place] [address] PCP - General Family Medicine 07/13/23 Custom Frame Assembler Relationship Specialty Start Date End Date Juan Palacio Ezekiel, DO [address] [place] [address] PCP - General Family Medicine 07/13/23 Custom Frame Assembler Relationship Specialty Start Date End Date Juan Palacio Ezekiel, DO [address] [place], [place] [phone] PCP - General Family Medicine 08/16/23 Custom Frame Assembler Relationship Specialty Start Date End Date Juan Palacio Ezekiel, DO [address] [place] [address] PCP - General Family Medicine 07/13/23 Custom Frame Assembler Relationship Specialty Start Date End Date Juan Palacio Ezekiel, DO [address] [place] [address] PCP - General Family Medicine 07/13/23 Custom Frame Assembler Relationship Specialty Start Date End Date Juan Palacio Ezekiel, DO [address] [place] [address] PCP - General Family Medicine 07/13/23 Custom Frame Assembler Relationship Specialty Start Date End Date Juan Palacio Ezekiel, DO [address] [place] [address] PCP - General Family Medicine 07/13/23 Custom Frame Assembler Relationship Specialty Start Date End Date Juan Palacio Ezekiel, DO [address] [place] [address] PCP - General Family Medicine 07/13/23 Custom Frame Assembler Relationship Specialty Start Date End Date Juan Palacio, DO [address] [place] [id number] PCP - General Family Medicine 08/16/23 Custom Frame Assembler Relationship Specialty Start Date End Date Juan Palacio Ezekiel, DO [address] [place] [address] PCP - General Family Medicine 07/13/23 Custom Frame Assembler Relationship Specialty Start Date End Date Juan Palacio Ezekiel, DO [address] [place] [address] PCP - General Family Medicine 07/13/23 Custom Frame Assembler Relationship Specialty Start Date End Date Walter White DO [address] [place], [place] [id number] PCP - General 08/30/18 Custom Frame Assembler Relationship Specialty Start Date End Date Walter White DO [address] [place], [place] [phone] PCP - General 08/30/18 Custom Frame Assembler Relationship Specialty Start Date End Date Walter White DO [address] [place], [place] [phone] PCP - General 08/30/18 Custom Frame Assembler Relationship Specialty Start Date End Date Juan Palacio, [address] [place] [address] PCP - General Family Medicine 07/13/23 Custom Frame Assembler Relationship Specialty Start Date End Date Juan Palacio DO [address] [place] [address] PCP - General Family Medicine 07/13/23 Custom Frame Assembler Relationship Specialty Start Date End Date Juan Palacio, [address] [place] [address] PCP - General Family Medicine 07/13/23 Custom Frame Assembler Relationship Specialty Start Date End Date Juan Palacio DO [address] [place] [address] PCP - General Family Medicine 07/13/23 Custom Frame Assembler Relationship Specialty Start Date End Date Juan Palacio, [address] [place] [address] PCP - General Family Medicine 07/13/23 Custom Frame Assembler Relationship Specialty Start Date End Date Juan Palacio, [address] [place] [address] PCP - General Family Medicine 07/13/23 Custom Frame Assembler Relationship Specialty Start Date End Date Juan Palacio, DO [address] [place] [address] PCP - General Family Medicine 07/13/23 Custom Frame Assembler Relationship Specialty Start Date End Date Juan Palacio, DO [address] [place] [address] PCP - General Family Medicine 07/13/23 Custom Frame Assembler Relationship Specialty Start Date End Date Juan Palacio, DO [address] [place] [address] PCP - General Family Medicine 07/13/23 Custom Frame Assembler Relationship Specialty Start Date End Date Juan Palacio, DO [address] [place] [address] PCP - General Family Medicine 07/13/23 Custom Frame Assembler Relationship Specialty Start Date End Date Juan Palacio, DO [address] [place] [address] PCP - General Family Medicine 07/13/23 Custom Frame Assembler Relationship Specialty Start Date End Date Juan Palacio, DO [address] [place] [address] PCP - General Family Medicine 07/13/23 Goals [...] or prosecute any alcohol or drug abuse patient.[facility] the event this information is protected by the Federal Confidentiality of Alcohol and Drug Abuse Patient Records regulations: The Federal rules restrict any use of the information to criminally investigate or prosecute any alcohol or drug abuse patient.[facility] Health SystemIn the event this information is protected by the Federal Confidentiality of Alcohol and Drug Abuse Patient Records regulations: The Federal rules restrict any use of the information to criminally investigate or prosecute any alcohol or drug abuse patient.[facility] FOR RECORDS PERTAINING TO PATIENTS WHO ARE [...] BE BASED ON THE PRIMARY CLINICAL RECORDS. [employer] [facility]. provides no warranty or guarantee of the accuracy or completeness of information in this document.
== END | disposition home or self-care (01) ==
LOC: LAB 11:44
PROVIDERS: PCP Family Medicine; Referring Provider Psychiatry & Neurology Psychiatry; Visit Provider Psychiatry & Neurology Psychiatry
DX: E88.810 Metabolic syndrome (principal); Z79.899 Other long term (current) drug therapy
CPT/HCPCS: 36415; 80053; 80178; 84439; 84443; 84481